=== PATIENT | male | born 1940 | race Caucasian/White ===

== ENCOUNTER 2020-07-31 19:25 | Inpatient (IN) ==
--- NOTE | 2020-07-31 19:51 | Emergency Department Note ---
History of Present Illness General Chief complaint: Cardiac Assessment Stated complaint: ILLNESS Time Seen by Provider: 07/31/20 19:30 Source: patient, EMS, RN notes reviewed and old records reviewed Mode of arrival: EMS Limitations: no limitations History of Present Illness Provider complaint: Shortness of breath Onset (ago): day(s) 4 Radiation: non-radiation Severity: mild Current Pain Intensity: 0 Relieved By: + immobilization Exacerbated By: + movement Associated symptoms: + cough, + fever/chills, + nausea/vomiting, + shortness of breath and + weakness; no chest pain and no headaches Treatments prior to arrival: other (Nyquil & Ibuprofen) This is a 79-year-old male who presents to the emergency department complaining of flulike symptoms that have been ongoing since 4 days ago. The patient repo rts he called his doctor today who was concerned enough that he sent the patient to the emergency department. EMS was summoned and brought the patient in. EMS was concerned that the patient appears to be in third-degree heart block. The patient himself denies any chest pain or shortness of breath. Patient reports he feels weak when he tries to exert himself however rest allows him to feel better. He has been taking ibuprofen as well as NyQuil for his symptoms and this appears to help with the muscle pain. Home Medications Medication Instructions Recorded Confirmed Type aspirin 325 mg PO QAM 04/16/20 07/31/20 History lisinopril 10 mg PO QAM 04/16/20 07/31/20 History lvvirbfwfxpoc-MM-dwlcuyoldzzsp 0 ml PO QID 07/31/20 07/31/20 History [Edith Lund Cold/Flu (cpm)] ibuprofen 600 mg PO Q6H PRN 07/31/20 07/31/20 History Allergies Allergy/AdvReac Type Severity Reaction Status Date / Time No Known Allergies Allergy Mild NONE Verified 07/31/20 21:03 Past Med/Surg History Medical History Bladder cancer Hypertension Social History Smoking Status: Current every day smoker Tobacco Type: Cigarettes Age Started Using Tobacco: 10; packs per day: 1.5; Feels Safe at Home: Yes Review of Systems A total of 10 systems reviewed and were otherwise negative Physical Exam Vital Signs Vital Signs - 24 hr 07/31/20 19:34 07/31/20 19:47 07/31/20 20:00 Temperature 36.9 C Temperature Source Oral Pulse Rate 101 H 60 Pulse Rate from SpO2 Sensor 87 78 Pulse Rhythm Irregular Respiratory Rate 24 23 Respiratory Effort / Characteristics Non-Labored Spontaneous Spontaneous Short of Breath Respiratory Depth Normal Deep Respiratory Pattern Regular Blood Pressure 142/67 H 124/69 Blood Pressure Mean 92 87 Blood Pressure Position Lying Pulse Oximetry 94 93 Oxygen Delivery Method Room Air Room Air Oxygen Flow Rate Sepsis Recent Fever Within 48 Hours No Sepsis New/Unexplained Change in Mental Status No Sepsis Action Taken by Nursing Physician Notified Oxygen Flow Rate - Titration Pulse Oximetry Post Tiitration 07/31/20 20:30 07/31/20 21:00 07/31/20 21:30 Temperature Temperature Source Pulse Rate 82 73 78 Pulse Rate from SpO2 Sensor 75 79 78 Pulse Rhythm Respiratory Rate 20 23 21 Respiratory Effort / Characteristics Respiratory Depth Respiratory Pattern Blood Pressure 133/64 118/70 123/79 Blood Pressure Mean 87 86 93 Blood Pressure Position Pulse Oximetry 94 93 95 Oxygen Delivery Method Room Air Room Air Room Air Oxygen Flow Rate Sepsis Recent Fever Within 48 Hours Sepsis New/Unexplained Change in Mental Status Sepsis Action Taken by Nursing Oxygen Flow Rate - Titration Pulse Oximetry Post Tiitration 07/31/20 22:00 07/31/20 22:30 07/31/20 22:31 Temperature Temperature Source Pulse Rate 84 117 H 84 Pulse Rate from SpO2 Sensor 86 Pulse Rhythm Respiratory Rate 16 24 24 Respiratory Effort / Characteristics Respiratory Depth Respiratory Pattern Blood Pressure 100/66 137/77 Blood Pressure Mean 77 97 Blood Pressure Position Pulse Oximetry 94 94 Oxygen Delivery Method Room Air Room Air Oxygen Flow Rate Sepsis Recent Fever Within 48 Hours Sepsis New/Unexplained Change in Mental Status Sepsis Action Taken by Nursing Oxygen Flow Rate - Titration Pulse Oximetry Post Tiitration 07/31/20 23:01 07/31/20 23:30 08/01/20 00:00 Temperature Temperature Source Pulse Rate 106 H 93 H 86 Pulse Rate from SpO2 Sensor 82 78 Pulse Rhythm Respiratory Rate 20 22 24 Respiratory Effort / Characteristics Respiratory Depth Respiratory Pattern Blood Pressure 104/50 L 107/66 111/59 L Blood Pressure Mean 68 79 76 Blood Pressure Position Pulse Oximetry 93 96 98 Oxygen Delivery Method Nasal Cannula Nasal Cannula Nasal Cannula Oxygen Flow Rate 2 2 2 Sepsis Recent Fever Within 48 Hours Sepsis New/Unexplained Change in Mental Status Sepsis Action Taken by Nursing Oxygen Flow Rate - Titration 2 Pulse Oximetry Post Tiitration 95 VITAL SIGNS - Vital signs and nursing notes were reviewed. GENERAL - 79-year-old male appearing stated age who is in no acute distress. Communicates well with provider and answers questions appropriately. SKIN - Without rashes. HEAD - NC/AT. EYES - PERRL with EOMI bilaterally. Sclera anicteric. Palpebral conjunctiva pink and moist with no injection noted. EARS - No deformities of external structures noted on gross examination bilaterally. No pain elicited with palpation of the tragus bilaterally. External auditory canals without discharge or otorrhea. Tympanic membranes pearly hurley without retraction or bulging. No fluid or purulent material visualized behind the TM. Handle of malleus, umbo, cone of light, pars tensa/flaccid all easily visualized. NOSE - Midline and without cyanosis. No epistaxis or purulent drainage noted. Septum midline without deviation or septal hematoma noted. MOUTH/OROPHARYNX - Without perioral cyanosis. Buccal mucosa pink and moist and without leukoplakia. Tongue midline with equal elevation of palate bilaterally. No tonsillar hypertrophy, erythema, or exudates noted. dentition noted. NECK - Neck with FROM. Supple to palpation. lymphadenopathy noted. No nuchal rigidity. LUNGS - Chest wall symmetric without accessory muscle use, intercostals retractions, or central cyanosis. Normal vesicular breath sounds CTA B/L. No wheezes, rales, or rhonchi appreciated. CARDIAC - RRR with S1/S2. No murmur, rubs, or gallops appreciated. ABDOMEN - Abdominal contour without pulsations or visible masses. BS n ormoactive all four quadrants. No tenderness, palpable masses, hepatosplenomegaly, or ascites noted. EXTREMITIES - No clubbing or peripheral cyanosis. No pretibial edema present. +3/5 radial, posterior tibial, and dorsalis pedis pulses palpated throughout. +5/5 strength noted in UE/LE bilaterally. NEUROLOGIC - Cranial nerves II through XII grossly intact. Sensory intact to light touch throughout. Patellar reflexes +2/4. PSYCH - A&Ox3 and cooperates fully with examiner. Pt is very pleasant and interacts well with examiner. Course Administered Medications Discontinued Medications Magnesium Sulfate/Dextrose (Magnesium Sulfate / D5w) 1 gm in 100 mls @ 100 mls/hr IV Q1H KRISTY Stop: 07/31/20 21:42 Last Admin: 07/31/20 21:54 Dose: Not Given Documented by: [id number] Infusion: 07/31/20 21:35 Dose: 0 mls/hr Documented by: [id number] Admin: 07/31/20 20:11 Dose: 100 mls/hr Documented by: [id number] Magnesium Sulfate/Dextrose (Magnesium Sulfate / D5w) 1 gm in 100 mls @ 200 mls/hr IV Q30M KRISTY Stop: 07/31/20 20:42 Last Infusion: 07/31/20 22:44 Dose: 0 mls/hr Documented by: [id number] Admin: 07/31/20 21:45 Dose: 100 mls/hr Documented by: [id number] Infusion: 07/31/20 21:34 Dose: 0 mls/hr Documented by: [id number] Admin: 07/31/20 20:47 Dose: 200 mls/hr Documented by: [id number] Medical Decision Making Differential Diagnosis Infection, dehydration, metabolic abnormality, hypo/hyperglycemia, electrolyte disturbance, anemia, hypoxia, cardiac sources, intracerebral event, toxicologic, neurologic, as well as other pathologies. Medical Records Attestation: I reviewed the patient's medical records. Home Medications Current Medication List: was personally reviewed by me Laboratory Data Attestation: I reviewed the patient's lab results. Result diagrams: 07/31/20 19:40 07/31/20 19:40 Lab Results 07/31/20 07/31/20 07/31/20 Range/Units 19:40 19:40 20:11 WBC 9.87 (4.8-10.8) K/uL RBC 4.23 L (4.7-6.1) M/uL Hgb 14.2 (14.0-18.0) g/dL Hct 42.9 (42-52) % MCV 101.4 H (80-100) fL MCH 33.6 (25-34) pg MCHC 33.1 (32-36) g/dL RDW Std Deviation 56.3 H (36.4-46.3) fL RDW Coeff of Chela 15.1 H (11.5-14.5) % Plt Count 176 (130-400) K/uL MPV 11.3 H (7.4-10.4) fL Immature Gran % (Auto) 0.3 % Neut % (Auto) 73.0 % Lymph % (Auto) 12.3 % [place] % (Auto) 13.4 % Eos % (Auto) 0.7 % Baso % (Auto) 0.3 % Neut # (Auto) 7.21 H (1.4-6.5) K/uL Lymph # (Auto) 1.21 (1.2-3.4) K/uL [place] # (Auto) 1.32 H (0.11-0.59) K/uL Eos # (Auto) 0.07 (0-0.5) K/uL Baso # (Auto) 0.03 (0-0.2) K/uL Immature Gran # (Auto) 0.03 H (0.00-0.02) K/uL Sodium 140 (136-145) mmol/L Potassium 4.1 (3.5-5.1) mmol/L Chloride 108 H (98-107) mmol/L Carbon Dioxide 24 (21-32) mmol/L Anion Gap 8.0 (3-11) BUN 24 H (7-18) mg/dl Creatinine 1.31 (0.6-1.4) mg/dl Est Cr Clr Drug Dosing 50.6 ml/min Est GFR ( Amer) 60.4 Est GFR (Non-Af Amer) 52.1 BUN/Creatinine Ratio 18.3 (10-20) Glucose 152 H (70-99) mg/dl Calcium 9.0 (8.5-10.1) mg/dl Total Bilirubin 0.4 (0.2-1) mg/dl AST 16 (15-37) U/L ALT 19 (12-78) U/L Alkaline Phosphatase 130 H (45-117) U/L Total Creatine Kinase 32 L (39-308) U/L CK-MB (CK-2) < 1.0 (0.5-3.6) ng/ml CK/CKMB % Calc TNP Troponin I < 0.015 (0-0.045) ng/ml NT-Pro-B Natriuret Pep 2110 H (0-1800) pg/ml Total Protein 6.9 (6.4-8.2) gm/dl Albumin 2.5 L (3.4-5.0) gm/dl Globulin 4.4 H (2.5-4.0) gm/dl Albumin/Globulin Ratio 0.6 L (0.9-2) Lipase 86 (73-393) U/L COVID-19 Eval [facility] SARS-CoV-2, RNA, NAAT (NEGATIVE) 07/31/20 Range/Units 20:11 WBC (4.8-10.8) K/uL RBC (4.7-6.1) M/uL Hgb (14.0-18.0) g/dL Hct (42-52) % MCV (80-100) fL MCH (25-34) pg MCHC (32-36) g/dL RDW Std Deviation (36.4-46.3) fL RDW Coeff of Chela (11.5-14.5) % Plt Count (130-400) K/uL MPV (7.4-10.4) fL Immature Gran % (Auto) % Neut % (Auto) % Lymph % (Auto) % [place] % (Auto) % Eos % (Auto) % Baso % (Auto) % Neut # (Auto) (1.4-6.5) K/uL Lymph # (Auto) (1.2-3.4) K/uL [place] # (Auto) (0.11-0.59) K/uL Eos # (Auto) (0-0.5) K/uL Baso # (Auto) (0-0.2) K/uL Immature Gran # (Auto) (0.00-0.02) K/uL Sodium (136-145) mmol/L Potassium (3.5-5.1) mmol/L Chloride (98-107) mmol/L Carbon Dioxide (21-32) mmol/L Anion Gap (3-11) BUN (7-18) mg/dl Creatinine (0.6-1.4) mg/dl Est Cr Clr Drug Dosing ml/min Est GFR ( Amer) Est GFR (Non-Af Amer) BUN/Creatinine Ratio (10-20) Glucose (70-99) mg/dl Calcium (8.5-10.1) mg/dl Total Bilirubin (0.2-1) mg/dl AST (15-37) U/L ALT (12-78) U/L Alkaline Phosphatase (45-117) U/L Total Creatine Kinase (39-308) U/L CK-MB (CK-2) (0.5-3.6) ng/ml CK/CKMB % Calc Troponin I (0-0.045) ng/ml NT-Pro-B Natriuret Pep (0-1800) pg/ml Total Protein (6.4-8.2) gm/dl Albumin (3.4-5.0) gm/dl Globulin (2.5-4.0) gm/dl Albumin/Globulin Ratio (0.9-2) Lipase (73-393) U/L COVID-19 Eval Order SARS-CoV-2, RNA, NAAT NEGATIVE (NEGATIVE) ECG Data Attestation: I personally reviewed and interpreted this ECG as follows: Indication: + weakness Rate (beats per minute): 118 Rhythm: + atrial flutter ECG [place]: + Normal ECG ST segments: no ST depression and no ST elevation ECG Findings: + PVCs Comparison ECG Date: from (05/12/2015) Change: the following changes noted (aflutter has replaced a fib ) MDM Narrative Patient was seen and evaluated as above in room B8. Review was performed of nursing notes and vital signs. I did review pertinent previous visits and patient history. After obtaining a thorough history and physical examination the above work up was performed. This 79-year-old male who presents emergency department complaining of generalized weakness as well as muscle aches for the past 3 to 4 days. Mary yost's hernandez test here is negative however I am concerned that the patient appears to be in a new onset a flutter. He is not on any blood thinners with the exception of aspirin. He does not have an elevation his white blood cell count however his troponin is slightly elevated. I did discuss the case with the hospitalist service who did agree to admit the patient. Patient is in agreement with the treatment plan. An order was placed for continuous cardiac monitoring. The monitor shows a rate of 100 with A flutter rhythm. The patient was evaluated during a period of high volume and high acuity while the hospital was at overcapacity during the global COVID-19 pandemic, and that diagnosis was suspected/considered upon their initial presentation. Their evaluation, treatment and testing was consistent with current guidelines for patients who present with complaints or symptoms that may be related to COVID- 19. Impression & Plan Weakness, Atrial flutter Discharge Plan Visit Data Chief Complaint: Cardiac Assessment Stated Complaint: ILLNESS ED Provider: Jose J Pena Discharge Problem: Weakness, Atrial flutter Discharge Instructions Interventions: ED Discharge Assessment Last Done: 08/01/20 00:14 Forms Stand Alone Forms: [place] Prescriptions Prescriptions: No Action ibuprofen 200 mg Tablet 600 mg PO Q6H PRN (Reason: Pain) RF: 0 Vicks NyQuil Cold/Flu (cpm) 4-30-650 mg/30 mL Liquid 0 ml PO QID RF: 0 aspirin 325 mg Tablet 325 mg PO QAM RF: 0 lisinopril 10 mg tablet 10 mg PO QAM RF: 0 Referrals Referrals: Jagruti Blunt DO [Primary Care Provider] - Discharge Problem: Atrial flutter Qualifiers: Atrial flutter type: typical Qualified Code(s): I48.3 - Typical atrial flutter
[2020-07-31 19:53] LABS: Basophils # (auto) 0.03 K/uL (0-0.2); Basophils % (auto) 0.3 %; Eosinophils # (auto) 0.07 K/uL (0-0.5); Eosinophils % (auto) 0.7 %; Hematocrit (blood only) 42.9 % (42-52); Hemoglobin 14.2 g/dL (14.0-18.0); Immature Granulocytes # (auto) 0.03 K/uL (0.00-0.02); Immature Granulocytes % (auto) 0.3 %; Lymphocytes # (auto) 1.21 K/uL (1.2-3.4); Lymphocytes % (auto) 12.3 %; Mean Corpuscular Hemoglobin 33.6 pg (25-34); Mean Corpuscular Hgb Conc 33.1 g/dL (32-36); Mean Corpuscular Volume 101.4 fL (80-100); Mean Platelet Volume 11.3 fL (7.4-10.4); Monocytes # (auto) 1.32 K/uL (0.11-0.59); Monocytes % (auto) 13.4 %; Neutrophils # (auto) 7.21 K/uL (1.4-6.5); Platelet Count 176 K/uL (130-400); RDW Coefficient of Variation 15.1 % (11.5-14.5); RDW Standard Deviation 56.3 fL (36.4-46.3); Red Blood Count 4.23 M/uL (4.7-6.1); White Blood Count 9.87 K/uL (4.8-10.8)
[2020-07-31 20:10] LABS: Alanine Aminotransferase 19 U/L (12-78); Albumin Level 2.5 gm/dl (3.4-5.0); Aspartate Aminotransferase 16 U/L (15-37); BUN Creatinine Ratio 18.3 (10-20); Blood Urea Nitrogen 24 mg/dl (7-18); Carbon Dioxide 24 mmol/L (21-32); Chloride 108 mmol/L (98-107); Creatinine Clr Calc Pharmacy 50.6 ml/min; Est GFR (African American) 60.4; Est GFR (Non-African American) 52.1; Glucose 152 mg/dl (70-99); Lipase 86 U/L (73-393); Potassium 4.1 mmol/L (3.5-5.1); Sodium 140 mmol/L (136-145)
[2020-07-31] MEDS: MAGNESIUM SULFATE / D5W 1 GM/100 ML BAG IV SCH ×4 (20:11→21:54)
[2020-07-31 20:16] LABS: Albumin Globulin Ratio 0.6 (0.9-2); Alkaline Phosphatase 130 U/L (45-117); Bilirubin,Total 0.4 mg/dl (0.2-1); Creatine Kinase 32 U/L (39-308); Creatine Kinase MB < 1.0 ng/ml (0.5-3.6); Globulin 4.4 gm/dl (2.5-4.0); NT Pro B Type Natriuretic Pept 2110 pg/ml (0-1800); Total Protein 6.9 gm/dl (6.4-8.2); Troponin I < 0.015 ng/ml (0-0.045)
--- NOTE | 2020-07-31 20:29 | XRay Report ---
XR chest 1V portable HISTORY: Atypical Chest Pain COMPARISON: Chest 11/26/2013. FINDINGS: No pneumothorax. No pleural effusions. There are low lung volumes. The heart is borderline enlarged. This remains unchanged. No evidence for pulmonary edema. Bibasilar interstitial thickening persists. This is likely chronic. No new focal lung consolidations to suggest pneumonia. IMPRESSION: No significant change compared to the prior study. No acute process. ACT 112: Negative or not required by law. Electronically signed by: Yohannes Metz M.D. 07/31/2020 8:28 PM
[2020-08-01] MEDS ORDERED: NITROGLYCERIN SL 0.4 MG/TAB TAB SL PRN (00:40)
[2020-08-01] MEDS ORDERED: ONDANSETRON INJ 2 MG/ML 2 ML VIAL IV PRN (00:40)
[2020-08-01] MEDS ORDERED: POLYETHYLENE (MIRALAX) 17 GM PACK PO PRN (00:40)
[2020-08-01] MEDS ORDERED: METOPROLOL TARTRATE 1 MG/ML VIAL IV PRN (00:40)
[2020-08-01] MEDS ORDERED: ACETAMINOPHEN 325 MG TAB PO PRN (00:40)
[2020-08-01 01:04] LABS: Influenza A virus by PCR Negative (Negative); Influenza B virus by PCR Negative (Negative)
[2020-08-01] MEDS ORDERED: INFLUENZA ADMINISTRATION CHARGE ONE (01:04)
[2020-08-01] MEDS ORDERED: INFLUENZA VACCINE HIGH DOSE 65+ 0.7 ML SYR IM ONE (01:04)
[2020-08-01] MEDS: SODIUM CHLORIDE 0.9% 1000ML 1,000 ML IV SCH ×2 (01:39→14:44)
[2020-08-01 02:01] LABS: Partial Thromboplastin Ratio 1.1; Partial Thromboplastin Time 29.3 Seconds (21.0-31.0)
[2020-08-01] MEDS: HEPARIN SODIUM/DEXTROSE 25,000 UNITS/500 ML BAG IV SCH (02:22)
--- NOTE | 2020-08-01 02:57 | History and Physical Report ---
DATE OF ADMISSION: 08/01/2020 CHIEF COMPLAINT: Flu-like symptoms. HISTORY OF PRESENT ILLNESS: This is a 79-year-old male with past medical history significant for hyperlipidemia, prediabetes, history of CVA, carotid stenosis, hypertension, chronic kidney disease stage III, BPH, tobacco use disorder, lives alone, was brought in because of flu-like symptoms. The patient says since last Tuesday he was having some mild cough and runny nose, sore throat and feeling weak and tired, body aches. In the Er he seemed to having atrial flutter. His COVID is negative. The patient denies any fever. No shortness of breath. No lymphopenia. Labs, BNP is elevated. Has mild wheezing on exam, but he smokes 1-1/2 pack a day, used to smoke 3 packs a day in the past. Denies any chest pain, no shortness of breath, no headache, no blurred vision, no earache, no nausea, no abdominal pain, no diarrhea or constipation, no blood in stool or black stools. Normal bladder movements. No rash. Currently resting comfortably and hemodynamically stable. ALLERGIES: No known drug allergies. PAST MEDICAL HISTORY: As mentioned above. PAST SURGICAL HISTORY: Bladder instillation of anticarcinogenic agent, colonoscopy, cystoscopies multiple for bladder tumor, cystourethroscopy with biopsy. MEDICATIONS: The patient is on aspirin 325 mg p.o. daily, lisinopril 10 mg p.o. daily, tramadol 50 mg p.o. p.r.n. FAMILY HISTORY: Significant for mother had cancer. Brother had diabetes. Father of PR at the age of 65. Another brother has hypertension. SOCIAL HISTORY: Lives alone. Daughter lives in [place], , smokes 1-1/2 packs a day last 65 years. Alcohol rarely. No drug use. REVIEW OF SYMPTOMS: As per HPI. Rest of review of systems negative. PHYSICAL EXAMINATION: GENERAL: The patient is moderate build, not in acute distress. VITAL SIGNS: Temperature 36.9, pulse 86, respiratory rate 24, blood pressure 111/59, oxygen 98% on 2 liters. HEENT: Pupils equal, round, and reactive to light. Oral mucosa moist. NECK: No JVD, no neck masses. CARDIOVASCULAR: S1, S2 heard regular rate and rhythm, no murmur, no gallop. RESPIRATORY: Normal AP diameter. No accessory muscle use. Mild bilateral wheezing heard, no crackles. ABDOMEN: Soft, bowel sounds present, nontender. No distention. CENTRAL NERVOUS SYSTEM: Cranial nerves II-XII grossly intact, nonfocal. EXTREMITIES: Mild pedal edema seen and small ulcer seen in the right gonzalez and is in dressing. ASSESSMENT AND PLAN: This is a 79-year-old male who presents with flu-like symptoms. 1. Flu-like symptoms, has some runny nose, sore throat, and some cough. He is a chronic smoker. Chest x-ray is unremarkable. COVID test is negative. The patient is afebrile. No shortness of breath. There is no lymphopenia, questionable symptomatic atrial flutter. The patient is to be on beta blockers in the past for nonsustained V-tach in 2013. Currently he is on lisinopril. We will monitor in the tele, get echocardiogram, serial enzymes and consult cardiology in a.m. We will keep n.p.o. until seen by cardiology. We will also check for influenza and RSV virus.Will also start on low dose iv heparin. 2. Prediabetes. We will follow HbA1c levels. 3. Tobacco abuse, needs counseling. 4. History of cerebrovascular accident, on aspirin. 5. Hypertension, on lisinopril. Monitor blood pressure. 6. Chronic kidney disease stage III, creatinine is 1.3. Follow the labs. 7. Deep venous thrombosis prophylaxis, SCD. DISPOSITION: Closely monitor in the tele floor. Level 1 full code. Expect discharge home and follow with family doctor. RENEE
[2020-08-01 06:13] LABS: Estimated Average Glucose 137 mg/dl; Hemoglobin A1C 6.4 % (4.5-5.6)
[2020-08-01] MEDS ORDERED: LEVALBUTEROL HCL 0.63 MG/3 ML NEB NEB PRN (07:06)
[2020-08-01 08:52] LABS: Partial Thromboplastin Ratio 1.6; Partial Thromboplastin Time 42.4 Seconds (21.0-31.0)
[2020-08-01] MEDS ORDERED: ASPIRIN 325 MG ECTAB PO SCH (09:00)
--- NOTE | 2020-08-01 09:15 | Cardiology Consultation ---
Date of Consultation August 01, 2020 Assessment & Plan (1) Atrial fibrillation with RVR: (2) PVC (premature ventricular contraction): (3) Hypertension: (4) Carotid stenosis, right: Recommend metoprolol 25 mg twice daily. Continue intravenous heparin infusion with plans to transition patient to oral anticoagulation with Eliquis at discharge. Preliminary review of bedside 2D transthoracic echocardiogram demonstrates left ventricular ejection fraction of 50-54% with abnormal septal w all motion consistent with intraventricular conduction delay. Baseline TSH ordered. Recommend repeat carotid duplex in the outpatient setting for follow-up of moderate right internal carotid stenosis. Add statin therapy. Reduce aspirin to 81 mg daily. All questions answered to patient satisfaction. Thank you for allow me to participate in the care of your patient. History of Present Illness Reason for Consultation: Atrial fibrillation, Flu-like illness Requesting Physician: Dr. Bustos Attending Physician: Jad Eugene MD History of Present Illness 79-year-old patient presented to the ER with flulike illness. Previously evaluated by the undersigned in 2013 while hospitalized for E. coli pyelonephritis. During hospitalization patient developed episode of nonsu stained ventricular tachycardia. Treated with beta-jarod therapy from 2013 up to 2017 when it was discontinued per patient preference. ECG on admission demonstrates atrial fibrillation. Patient seen and examined at bedside. Describes diffuse muscle achiness and fatigue over the past few days. No palpitations, lightheadedness, dizziness, syncope, or near syncope. Denies chest pain or unusual shortness of breath. Chronic dyspnea on exertion is stable. Admits to smoking 1.5 packs of cigarettes per day. Chronic cough with minimal sputum production noted. No orthopnea, PND, or lower extremity edema. Heart rate remains mildly elevated on telemetry, however, he has not received any oral beta-jarod therapy since admission. Intravenous heparin infusing. States he will have difficulty obtaining a ride home until Tuesday. Allergies Allergy/AdvReac Type Severity Reaction Status Date / Time No Known Allergies Allergy Mild NONE Verified 07/31/20 21:03 Home Medications Medication Instructions Recorded Confirmed Type aspirin 325 mg PO QAM 04/16/20 07/31/20 History lisinopril 10 mg PO QAM 04/16/20 07/31/20 History ccseaxnbddwmm-DV-fagqmfzphxeko 0 ml PO QID 07/31/20 07/31/20 History [Edith NyQuil Cold/Flu (cpm)] ibuprofen 600 mg PO Q6H PRN 07/31/20 07/31/20 History Patient History Medical History Bladder cancer Hypertension Social History Smoking Status: Current every day smoker Tobacco Type: Cigarettes Age Started Using Tobacco: 12; packs per day: 1.5; Second Hand Exposure: No; Do You Dip or Chew Tobacco: No; Hx Alcohol Use: No Hx Substance Use: No Preferred Language: Estonian Communication Ability: Effective [employer] Consultant Required: No Beliefs That Will Affect Care: None Current Living Situation: Alone Other Information That Helps Us Care for You: No Feels Safe at Home: Yes Safety Concerns: Feels Safe At This Time Assistive Devices: Glasses Review of Systems Review of Systems: All systems reviewed & are unremarkable except as noted in Subjective Physical Exam Constitutional: well nourished; no acute distress Eyes: PERRL, conjunctivae normal, anicteric sclerae Respiratory: normal respiratory effort; no respiratory distress, no labored breathing and no retractions Auscultation: no crackles, no rales, no rhonchi and no wheezes Cardiovascular: Rate/Rhythm: + irregularly irregular Heart Sounds: normal S1, normal S2 and + murmur (Soft, 1/6 systolic ejection murmur heard best at the right second intercost) Vessels: no JVD and no carotid bruit Extremities: no edema Gastrointestinal (Abdomen): Inspection/Auscultation: abdomen normal to inspection and normal bowel sounds; abdomen not distended Percussion/Palpation: abdomen soft; abdomen nontender, no guarding and abdomen not rigid Neurologic: moves all extremities; no focal motor deficits Motor/Sensory: no tremor Psychiatric: A+Ox3, euthymic affect Results & Data ([facility]) Vital Signs (Past 12 Hours) Vital Signs Temp Pulse Pulse Pulse Resp BP BP 08/01/20 08:30 36.6 C 106 H 20 134/76 08/01/20 03:59 36.6 C 96 H 20 08/01/20 00:55 36.8 C 81 25 H 08/01/20 00:00 86 24 111/59 L 07/31/20 23:30 93 H 22 107/66 07/31/20 23:01 106 H 20 104/50 L 07/31/20 22:31 84 24 137/77 07/31/20 22:30 117 H 24 07/31/20 22:00 84 16 100/66 07/31/20 21:30 78 21 123/79 BP Pulse Ox 08/01/20 08:30 93 08/01/20 03:59 125/79 98 08/01/20 00:55 112/65 92 08/01/20 00:00 98 07/31/20 23:30 96 07/31/20 23:01 93 07/31/20 22:31 94 07/31/20 22:30 07/31/20 22:00 94 07/31/20 21:30 95 (1) Hypertension Hypertension type: essential hypertension Qualified Code(s): I10 - Essential (primary) hypertension
[2020-08-01] MEDS: lisinopril 10 MG TAB PO SCH (10:17)
[2020-08-01] MEDS: METOPROLOL TARTRATE 25 MG TAB PO SCH ×2 (11:30→19:46)
[2020-08-01 11:45] LABS: Troponin I < 0.015 ng/ml (0-0.045)
--- NOTE | 2020-08-01 13:20 | Electrocardiogram Report ---
Test Reason : Blood Pressure : / mmHG Vent. Rate : 118 BPM Atrial Rate : 100 BPM P-R Int : 000 ms QRS Dur : 090 ms QT Int : 320 ms P-R-T Axes : 000 063 146 degrees QTc Int : 448 ms Atrial fibrillation with premature ventricular or aberrantly conducted complexes Low voltage QRS Septal infarct , age undetermined Possible Lateral infarct , age undetermined Abnormal ECG When compared with ECG of 12-MAY-2015 17:17, Inverted T waves have replaced nonspecific T wave abnormality in Inferior leads Confirmed by Eduardo Henson ([id number]) on 08/01/2020 1:20:11 PM Referred By: Janelle Herrera Confirmed By:Eduardo Henson
--- NOTE | 2020-08-01 13:33 | Electrocardiogram Report ---
Test Reason : Blood Pressure : / mmHG Vent. Rate : 085 BPM Atrial Rate : 441 BPM P-R Int : 000 ms QRS Dur : 096 ms QT Int : 356 ms P-R-T Axes : 000 069 055 degrees QTc Int : 423 ms Atrial fibrillation Low voltage QRS Septal infarct (cited on or before 31-JUL-2020) Abnormal ECG When compared with ECG of 31-JUL-2020 19:30, (unconfirmed) Borderline criteria for Lateral infarct are no longer Present T wave inversion no longer evident in Inferior leads Confirmed by Eduardo Henson ([id number]) on 08/01/2020 1:33:30 PM Referred By: Janelle Herrera Confirmed By:Eduardo Henson
--- NOTE | 2020-08-01 13:39 | Electrocardiogram Report ---
Test Reason : Blood Pressure : / mmHG Vent. Rate : 105 BPM Atrial Rate : 127 BPM P-R Int : 000 ms QRS Dur : 094 ms QT Int : 330 ms P-R-T Axes : 000 080 116 degrees QTc Int : 436 ms Atrial fibrillation with rapid ventricular response with premature ventricular or aberrantly conducte d complexes Low voltage QRS in limb leads Septal infarct (cited on or before 31-JUL-2020) Nonspecific ST and T wave abnormality Abnormal ECG When compared with ECG of 01-AUG-2020 01:32, (unconfirmed) Nonspecific T wave abnormality now evident in Inferior leads Nonspecific T wave abnormality now evident in Lateral leads Confirmed by Eduardo Henson ([id number]) on 08/01/2020 1:38:37 PM Referred By: Janelle Herrera Confirmed By:Eduardo Henson
--- NOTE | 2020-08-01 13:48 | Hospitalist Progress Note ---
Date of Service August 01, 2020 Assessment & Plan (1) Atrial flutter: (2) Atrial fibrillation with RVR: (3) Weakness: (4) Carotid stenosis, right: This is a 79-year-old male who presents with flu-like symptoms, found to be in Aflutter. 1. Flu-like symptoms, has some runny nose, sore throat, and some cough. He is a chronic smoker. Reports chronic nasal congestion. Chest x-ray is unremarkable. COVID test is negative. Procalcitonin wnl The patient is afebrile. No shortness of breath. There is no lymphopenia. Flu - pending Symptomatic atrial flutter. The patient on beta blockers in the past for nonsustained V-tach in 2013. Currently he is on lisinopril. Pt found to be in Aflutter on admission but HR was controlled at that time (80s) 2. Now pt in Afib w/ RVR Restart beta blockers. Cont. IV heparin Troponin x3 negative Echo obtained TSH 1.3 Cardiology consulted, plan to star Eliquis on dc Also recommend outpt carotid US to follow up on carotid stenosis 3. Prediabetes. Known hx of prediabetes. Current HbA1c 6.4%. Follow up as outpt 4. Tobacco abuse - Counseled pt on smoking cessation but he is not interested at this time, also declines nicotine patch 5. History of cerebrovascular accident, on aspirin. 6. Hypertension, on lisinopril. Monitor blood pressure. Now started beta jarod as well. 7. Chronic kidney disease stage III, creatinine is 1.3. Follow the labs. DVT ppx , on IV heparin Admission and Anticipated Discharge Date Admission Date: July 31, 2020 Subjective Pt seen in follow up of flu-like symptoms, Aflutter w/ RVR Currently resting in bed in NAD on IV heparin Denies chest pain, shortness of breath, fever Counselled on smoking cessation, pt says he is not interested in quiting and also declines nicotine patch Review of Systems Review of Systems: All systems reviewed & are unremarkable except as noted in HPI & below Constitutional: no fever Respiratory: + cough (reports chronic (from smoking)); no dyspnea Cardiovascular: no chest pain Gastrointestinal: no abdominal pain, no nausea and no vomiting Physical Exam Physical Exam: GENERAL: The patient is moderate build, not in acute distress. HEENT: NC/AT, Pupils equal, round, and reactive to light. Oral mucosa moist. NECK: No JVD, no neck masses. CARDIOVASCULAR: +tachycardic, +irregular, nl S1, S2, + soft syst. murmur, no gallop. RESPIRATORY: No accessory muscle use. + diffuse wheezing, no crackles. ABDOMEN: Soft, bowel sounds present, nontender. No distention. NEURO: alert and oriented x3, speech fluent, no facial asymmetry, moves extremities EXTREMITIES: Mild pedal edema seen and small ulcer seen on the right gonzalez and is in dressing. Results & Data Results & Data ([facility]) Vital Signs (Past 12 Hours) Vital Signs Temp Pulse Pulse Resp BP BP Pulse Ox 08/01/20 11:34 37.1 C 103 H 20 135/69 97 08/01/20 08:30 36.6 C 106 H 20 134/76 93 08/01/20 03:59 36.6 C 96 H 20 125/79 98 Laboratory Results 08/01/20 08/01/20 08/01/20 Range/Units 10:55 08:32 08:32 WBC (4.8-10.8) K/uL RBC (4.7-6.1) M/uL Hgb (14.0-18.0) g/dL Hct (42-52) % MCV (80-100) fL MCH (25-34) pg MCHC (32-36) g/dL RDW Std Deviation (36.4-46.3) fL RDW Coeff of Chela (11.5-14.5) % Plt Count (130-400) K/uL MPV (7.4-10.4) fL Immature Gran % (Auto) % Neut % (Auto) % Lymph % (Auto) % [place] % (Auto) % Eos % (Auto) % Baso % (Auto) % Neut # (Auto) (1.4-6.5) K/uL Lymph # (Auto) (1.2-3.4) K/uL [place] # (Auto) (0.11-0.59) K/uL Eos # (Auto) (0-0.5) K/uL Baso # (Auto) (0-0.2) K/uL Immature Gran # (Auto) (0.00-0.02) K/uL APTT (21.0-31.0) Seconds PTT Ratio Sodium (136-145) mmol/L Potassium (3.5-5.1) mmol/L Chloride (98-107) mmol/L Carbon Dioxide (21-32) mmol/L Anion Gap (3-11) BUN (7-18) mg/dl Creatinine (0.6-1.4) mg/dl Est Cr Clr Drug Dosing ml/min Est GFR ( Amer) Est GFR (Non-Af Amer) BUN/Creatinine Ratio (10-20) Glucose (70-99) mg/dl POC Glucose (70-99) mg/dl Estimat Average Glucose mg/dl Hemoglobin A1c (4.5-5.6) % Calcium (8.5-10.1) mg/dl Magnesium 2.6 H (1.8-2.4) mg/dl Total Bilirubin (0.2-1) mg/dl AST (15-37) U/L ALT (12-78) U/L Alkaline Phosphatase (45-117) U/L Total Creatine Kinase (39-308) U/L CK-MB (CK-2) (0.5-3.6) ng/ml CK/CKMB % Calc Troponin I < 0.015 (0-0.045) ng/ml NT-Pro-B Natriuret Pep (0-1800) pg/ml Total Protein (6.4-8.2) gm/dl Albumin (3.4-5.0) gm/dl Globulin (2.5-4.0) gm/dl Albumin/Globulin Ratio (0.9-2) Lipase (73-393) U/L Procalcitonin 0.25 (0-0.5) ng/ml TSH 1.340 (0.300-4.500) uIu/ml COVID-19 Eval Order Influenza Type A Ab Influ A Molecular Assay (Negative) Influenza Type B Ab Influ B Molecular Assay (Negative) RSV (Molecular) (Negative) SARS-CoV-2, RNA, NAAT (NEGATIVE) 08/01/20 08/01/20 08/01/20 Range/Units 08:32 07:40 05:03 WBC (4.8-10.8) K/uL RBC (4.7-6.1) M/uL Hgb (14.0-18.0) g/dL Hct (42-52) % MCV (80-100) fL MCH (25-34) pg MCHC (32-36) g/dL RDW Std Deviation (36.4-46.3) fL RDW Coeff of Chela (11.5-14.5) % Plt Count (130-400) K/uL MPV (7.4-10.4) fL Immature Gran % (Auto) % Neut % (Auto) % Lymph % (Auto) % [place] % (Auto) % Eos % (Auto) % Baso % (Auto) % Neut # (Auto) (1.4-6.5) K/uL Lymph # (Auto) (1.2-3.4) K/uL [place] # (Auto) (0.11-0.59) K/uL Eos # (Auto) (0-0.5) K/uL Baso # (Auto) (0-0.2) K/uL Immature Gran # (Auto) (0.00-0.02) K/uL APTT 42.4 H (21.0-31.0) Seconds PTT Ratio 1.6 Sodium (136-145) mmol/L Potassium (3.5-5.1) mmol/L Chloride (98-107) mmol/L Carbon Dioxide (21-32) mmol/L Anion Gap (3-11) BUN (7-18) mg/dl Creatinine (0.6-1.4) mg/dl Est Cr Clr Drug Dosing ml/min Est GFR ( Amer) Est GFR (Non-Af Amer) BUN/Creatinine Ratio (10-20) Glucose (70-99) mg/dl POC Glucose 123 H (70-99) mg/dl Estimat Average Glucose 137 mg/dl Hemoglobin A1c 6.4 H (4.5-5.6) % Calcium (8.5-10.1) mg/dl Magnesium (1.8-2.4) mg/dl Total Bilirubin (0.2-1) mg/dl AST (15-37) U/L ALT (12-78) U/L Alkaline Phosphatase (45-117) U/L Total Creatine Kinase (39-308) U/L CK-MB (CK-2) (0.5-3.6) ng/ml CK/CKMB % Calc Troponin I (0-0.045) ng/ml NT-Pro-B Natriuret Pep (0-1800) pg/ml Total Protein (6.4-8.2) gm/dl Albumin (3.4-5.0) gm/dl Globulin (2.5-4.0) gm/dl Albumin/Globulin Ratio (0.9-2) Lipase (73-393) U/L Procalcitonin (0-0.5) ng/ml TSH (0.300-4.500) uIu/ml COVID-19 Eval Order Influenza Type A Ab Influ A Molecular Assay (Negative) Influenza Type B Ab Influ B Molecular Assay (Negative) RSV (Molecular) (Negative) SARS-CoV-2, RNA, NAAT (NEGATIVE) 08/01/20 08/01/20 08/01/20 Range/Units 05:03 00:27 00:27 WBC (4.8-10.8) K/uL RBC (4.7-6.1) M/uL Hgb (14.0-18.0) g/dL Hct (42-52) % MCV (80-100) fL MCH (25-34) pg MCHC (32-36) g/dL RDW Std Deviation (36.4-46.3) fL RDW Coeff of Chela (11.5-14.5) % Plt Count (130-400) K/uL MPV (7.4-10.4) fL Immature Gran % (Auto) % Neut % (Auto) % Lymph % (Auto) % [place] % (Auto) % Eos % (Auto) % Baso % (Auto) % Neut # (Auto) (1.4-6.5) K/uL Lymph # (Auto) (1.2-3.4) K/uL [place] # (Auto) (0.11-0.59) K/uL Eos # (Auto) (0-0.5) K/uL Baso # (Auto) (0-0.2) K/uL Immature Gran # (Auto) (0.00-0.02) K/uL APTT (21.0-31.0) Seconds PTT Ratio Sodium (136-145) mmol/L Potassium (3.5-5.1) mmol/L Chloride (98-107) mmol/L Carbon Dioxide (21-32) mmol/L Anion Gap (3-11) BUN (7-18) mg/dl Creatinine (0.6-1.4) mg/dl Est Cr Clr Drug Dosing ml/min Est GFR ( Amer) Est GFR (Non-Af Amer) BUN/Creatinine Ratio (10-20) Glucose (70-99) mg/dl POC Glucose (70-99) mg/dl Estimat Average Glucose mg/dl Hemoglobin A1c (4.5-5.6) % Calcium (8.5-10.1) mg/dl Magnesium (1.8-2.4) mg/dl Total Bilirubin (0.2-1) mg/dl AST (15-37) U/L ALT (12-78) U/L Alkaline Phosphatase (45-117) U/L Total Creatine Kinase (39-308) U/L CK-MB (CK-2) (0.5-3.6) ng/ml CK/CKMB % Calc Troponin I < 0.015 (0-0.045) ng/ml NT-Pro-B Natriuret Pep (0-1800) pg/ml Total Protein (6.4-8.2) gm/dl Albumin (3.4-5.0) gm/dl Globulin (2.5-4.0) gm/dl Albumin/Globulin Ratio (0.9-2) Lipase (73-393) U/L Procalcitonin (0-0.5) ng/ml TSH (0.300-4.500) uIu/ml COVID-19 Eval Order Influenza Type A Ab Influ A Molecular Assay Negative (Negative) Influenza Type B Ab Influ B Molecular Assay Negative (Negative) RSV (Molecular) Negative (Negative) SARS-CoV-2, RNA, NAAT (NEGATIVE) 07/31/20 07/31/20 07/31/20 Range/Units 20:11 20:11 19:40 WBC (4.8-10.8) K/uL RBC (4.7-6.1) M/uL Hgb (14.0-18.0) g/dL Hct (42-52) % MCV (80-100) fL MCH (25-34) pg MCHC (32-36) g/dL RDW Std Deviation (36.4-46.3) fL RDW Coeff of Chela (11.5-14.5) % Plt Count (130-400) K/uL MPV (7.4-10.4) fL Immature Gran % (Auto) % Neut % (Auto) % Lymph % (Auto) % [place] % (Auto) % Eos % (Auto) % Baso % (Auto) % Neut # (Auto) (1.4-6.5) K/uL Lymph # (Auto) (1.2-3.4) K/uL [place] # (Auto) (0.11-0.59) K/uL Eos # (Auto) (0-0.5) K/uL Baso # (Auto) (0-0.2) K/uL Immature Gran # (Auto) (0.00-0.02) K/uL APTT 29.3 (21.0-31.0) Seconds PTT Ratio 1.1 Sodium (136-145) mmol/L Potassium (3.5-5.1) mmol/L Chloride (98-107) mmol/L Carbon Dioxide (21-32) mmol/L Anion Gap (3-11) BUN (7-18) mg/dl Creatinine (0.6-1.4) mg/dl Est Cr Clr Drug Dosing ml/min Est GFR ( Amer) Est GFR (Non-Af Amer) BUN/Creatinine Ratio (10-20) Glucose (70-99) mg/dl POC Glucose (70-99) mg/dl Estimat Average Glucose mg/dl Hemoglobin A1c (4.5-5.6) % Calcium (8.5-10.1) mg/dl Magnesium (1.8-2.4) mg/dl Total Bilirubin (0.2-1) mg/dl AST (15-37) U/L ALT (12-78) U/L Alkaline Phosphatase (45-117) U/L Total Creatine Kinase (39-308) U/L CK-MB (CK-2) (0.5-3.6) ng/ml CK/CKMB % Calc Troponin I (0-0.045) ng/ml NT-Pro-B Natriuret Pep (0-1800) pg/ml Total Protein (6.4-8.2) gm/dl Albumin (3.4-5.0) gm/dl Globulin (2.5-4.0) gm/dl Albumin/Globulin Ratio (0.9-2) Lipase (73-393) U/L Procalcitonin (0-0.5) ng/ml TSH (0.300-4.500) uIu/ml COVID-19 Eval [facility] Influ[facility] Type A Ab Influ A Molecular Assay (Negative) Influenza Type B Ab Influ B Molecular Assay (Negative) RSV (Molecular) (Negative) SARS-CoV-2, RNA, NAAT NEGATIVE (NEGATIVE) 07/31/20 07/31/20 07/31/20 Range/Units 19:40 19:40 19:40 WBC 9.87 (4.8-10.8) K/uL RBC 4.23 L (4.7-6.1) M/uL Hgb 14.2 (14.0-18.0) g/dL Hct 42.9 (42-52) % MCV 101.4 H (80-100) fL MCH 33.6 (25-34) pg MCHC 33.1 (32-36) g/dL RDW Std Deviation 56.3 H (36.4-46.3) fL RDW Coeff of Chela 15.1 H (11.5-14.5) % Plt Count 176 (130-400) K/uL MPV 11.3 H (7.4-10.4) fL Immature Gran % (Auto) 0.3 % Neut % (Auto) 73.0 % Lymph % (Auto) 12.3 % [place] % (Auto) 13.4 % Eos % (Auto) 0.7 % Baso % (Auto) 0.3 % Neut # (Auto) 7.21 H (1.4-6.5) K/uL Lymph # (Auto) 1.21 (1.2-3.4) K/uL [place] # (Auto) 1.32 H (0.11-0.59) K/uL Eos # (Auto) 0.07 (0-0.5) K/uL Baso # (Auto) 0.03 (0-0.2) K/uL Immature Gran # (Auto) 0.03 H (0.00-0.02) K/uL APTT (21.0-31.0) Seconds PTT Ratio Sodium 140 (136-145) mmol/L Potassium 4.1 (3.5-5.1) mmol/L Chloride 108 H (98-107) mmol/L Carbon Dioxide 24 (21-32) mmol/L Anion Gap 8.0 (3-11) BUN 24 H (7-18) mg/dl Creatinine 1.31 (0.6-1.4) mg/dl Est Cr Clr Drug Dosing 50.6 ml/min Est GFR ( Amer) 60.4 Est GFR (Non-Af Amer) 52.1 BUN/Creatinine Ratio 18.3 (10-20) Glucose 152 H (70-99) mg/dl POC Glucose (70-99) mg/dl Estimat Average Glucose mg/dl Hemoglobin A1c (4.5-5.6) % Calcium 9.0 (8.5-10.1) mg/dl Magnesium (1.8-2.4) mg/dl Total Bilirubin 0.4 (0.2-1) mg/dl AST 16 (15-37) U/L ALT 19 (12-78) U/L Alkaline Phosphatase 130 H (45-117) U/L Total Creatine Kinase 32 L (39-308) U/L CK-MB (CK-2) < 1.0 (0.5-3.6) ng/ml CK/CKMB % Calc TNP Troponin I < 0.015 (0-0.045) ng/ml NT-Pro-B Natriuret Pep 2110 H (0-1800) pg/ml Total Protein 6.9 (6.4-8.2) gm/dl Albumin 2.5 L (3.4-5.0) gm/dl Globulin 4.4 H (2.5-4.0) gm/dl Albumin/Globulin Ratio 0.6 L (0.9-2) Lipase 86 (73-393) U/L Procalcitonin (0-0.5) ng/ml TSH (0.300-4.500) uIu/ml COVID-19 Eval Order Influenza Type A Ab Pending Influ A Molecular Assay (Negative) Influenza Type B Ab Pending Influ B Molecular Assay (Negative) RSV (Molecular) (Negative) SARS-CoV-2, RNA, NAAT (NEGATIVE) (1) Atrial flutter Atrial flutter type: typical Qualified Code(s): I48.3 - Typical atrial flutter
[2020-08-01 14:21] LABS: Appearance Urine Clear (Clear); Bacteria Urine Automated Negative (Negative); Bilirubin Urine Negative (Negative); Blood Urine 2+ (Negative); Color Urine Dark Yellow; Epithelial Cell Urine Auto >30 /lpf (0-5); Glucose Urine UA Negative (Negative); Ketones Urine Negative (Negative); Leukocyte Esterase Urine Negative (Negative); Nitrite Urine Negative (Negative); Protein Urine 1+ (Negative); Specific Gravity Urine 1.026 (1.000-1.030); Urobilinogen Urine Negative (Negative); pH Urine 5.5 (4.5-7.5)
[2020-08-01 14:42] LABS: Mucus Urine Present (None Prsent)
[2020-08-01 15:44] LABS: Partial Thromboplastin Ratio 1.7
[2020-08-01 16:18] LABS: Partial Thromboplastin Time 45.4 Seconds (21.0-31.0)
[2020-08-01] MEDS: Heparin IV Low Dose *NO* Bolus IV SCH (18:45)
[2020-08-01 23:06] LABS: Partial Thromboplastin Ratio 2.1
[2020-08-01 23:13] LABS: Partial Thromboplastin Time 56.2 Seconds (21.0-31.0)
[2020-08-02] MEDS ORDERED: APIXABAN 5 MG TABLET PO SCH
[2020-08-02] MEDS ORDERED: METOPROLOL TARTRATE 25 MG TAB PO SCH
[2020-08-02] MEDS: HEPARIN SODIUM/DEXTROSE 25,000 UNITS/500 ML BAG IV SCH (01:49)
[2020-08-02] MEDS: SODIUM CHLORIDE 0.9% 1000ML 1,000 ML IV SCH (03:15)
[2020-08-02 07:32] LABS: Hematocrit (blood only) 43.9 % (42-52); Mean Corpuscular Hemoglobin 32.8 pg (25-34); Mean Corpuscular Hgb Conc 31.9 g/dL (32-36); Mean Corpuscular Volume 102.8 fL (80-100); Mean Platelet Volume 11.1 fL (7.4-10.4); Platelet Count 170 K/uL (130-400); RDW Coefficient of Variation 15.4 % (11.5-14.5); RDW Standard Deviation 58.1 fL (36.4-46.3); Red Blood Count 4.27 M/uL (4.7-6.1); White Blood Count 8.95 K/uL (4.8-10.8)
[2020-08-02 07:50] LABS: BUN Creatinine Ratio 19.8 (10-20); Calcium 9.2 mg/dl (8.5-10.1); Creatinine Clr Calc Pharmacy 58.1 ml/min; Est GFR (African American) 70.7; Magnesium 2.4 mg/dl (1.8-2.4); Potassium 4.3 mmol/L (3.5-5.1)
[2020-08-02 07:51] LABS: Phosphorus 2.6 mg/dl (2.5-4.9)
[2020-08-02 07:56] LABS: Partial Thromboplastin Ratio 2.5
[2020-08-02] MEDS: METOPROLOL TARTRATE 25 MG TAB PO SCH (08:04)
[2020-08-02] MEDS: lisinopril 10 MG TAB PO SCH (08:04)
--- NOTE | 2020-08-02 08:06 | Hospitalist Progress Note ---
Date of Service August 02, 2020 Assessment & Plan (1) Atrial flutter: (2) Atrial fibrillation with RVR: (3) Weakness: (4) Carotid stenosis, right: This is a 79-year-old male who presents with flu-like symptoms, found to be in Aflutter. 1. Flu-like symptoms, has some runny nose, sore throat, and some cough. He is a chronic smoker. Reports chronic nasal congestion. Chest x-ray is unremarkable. COVID test is negative. Procalcitonin wnl The patient is afebrile. No shortness of breath. There is no lymphopenia. Flu, RSV - negat. Symptomatic atrial flutter. The patient on beta blockers in the past for nonsustained V-tach in 2013. Currently he is on lisinopril. Pt found to be in Aflutter on admission but HR was controlled at that time (80s) 2. Then pt in Afib w/ RVR Restarted beta blockers. Now on metoprolol 25 mg bid. Rx sent to pt's pharmacy, also few pills provided to get pt through the weekend. Cont. IV heparin Troponin x3 negative Echo obtained TSH 1.3 Cardiology consulted, plan to start Eliquis on dc - Rx sent to pt's pharmacy, and we will also provide him with a few pills to get him through the weekend Also recommend outpt carotid US to follow up on carotid stenosis 3. Prediabetes. Known hx of prediabetes. Current HbA1c 6.4%. Follow up as outpt 4. Tobacco abuse - Counseled pt on smoking cessation but he is not interested at this time, also declines nicotine patch Will need further counselling as outpt 5. History of cerebrovascular accident, on aspirin. 6. Hypertension, on lisinopril. Monitor blood pressure. Now started beta jarod as well. 7. Chronic kidney disease stage III, creatinine is 1.3. Follow the labs. DVT ppx , on IV heparin, will dc with eliquis Admission and Anticipated Discharge Date Admission Date: July 31, 2020 Subjective Pt seen in follow up of Afib w/ RVR, flu-like symptoms Currently resting in bed in NAD and on IV heparin Pt reports that he had a good night and is now going to go home. He says that he only has a ride to take him this AM and so he has to leave. Denies any chest pain, shortness of breath, fever. Says that he feels much better. Counselled on smoking cessation, pt says he is not interested in quitting and also declines nicotine patch Discussed new medications - Eliquis and metoprolol, pt reports he would not be able to get to the pharmacy as he does not drive and does not have a ride. Will arrange to provide pt with medications on discharge to get him over the weekend. Close follow up with PCP and then cardiology also discussed. Review of Systems Review of Systems: All systems reviewed & are unremarkable except as noted in HPI & below Constitutional: no fever, no chills and no fatigue Respiratory: + cough (reports chronic (from smoking)); no dyspnea Cardiovascular: no chest pain, no palpitations and no edema Gastrointestinal: no abdominal pain, no nausea and no vomiting Physical Exam Physical Exam: GENERAL: The patient is moderate build, not in acute distress. HEENT: NC/AT, Pupils equal, round, and reactive to light. Oral mucosa moist. NECK: No JVD, no neck masses. CARDIOVASCULAR: +tachycardic, +irregular, nl S1, S2, + soft syst. murmur, no gallop. RESPIRATORY: No accessory muscle use. + diffuse mild wheezing, no crackles. ABDOMEN: Soft, bowel sounds present, nontender. No distention. NEURO: alert and oriented x3, speech fluent, no facial asymmetry, moves extremities EXTREMITIES: Mild pedal edema seen and small ulcer seen on the right gonzalez and is in dressing. Results & Data Results & Data ([facility]) Vital Signs (Past 12 Hours) Vital Signs Temp Pulse Pulse Resp BP Pulse Ox 08/02/20 08:00 36.7 C 88 22 130/72 94 08/02/20 04:00 36.8 C 61 18 129/75 95 08/02/20 00:00 102 H 08/01/20 23:55 36.6 C 87 18 133/71 90 Laboratory Results 08/02/20 08/02/20 08/02/20 Range/Units 07:10 07:10 07:10 WBC 8.95 (4.8-10.8) K/uL RBC 4.27 L (4.7-6.1) M/uL Hgb 14.0 (14.0-18.0) g/dL Hct 43.9 (42-52) % MCV 102.8 H (80-100) fL MCH 32.8 (25-34) pg MCHC 31.9 L (32-36) g/dL RDW Std Deviation 58.1 H (36.4-46.3) fL RDW Coeff of Chela 15.4 H (11.5-14.5) % Plt Count 170 (130-400) K/uL MPV 11.1 H (7.4-10.4) fL APTT Pending (21.0-31.0) Seconds PTT Ratio Pending Sodium 137 (136-145) mmol/L Potassium 4.3 (3.5-5.1) mmol/L Chloride 107 (98-107) mmol/L Carbon Dioxide 24 (21-32) mmol/L Anion Gap 6.0 (3-11) BUN 23 H (7-18) mg/dl Creatinine 1.15 (0.6-1.4) mg/dl Est Cr Clr Drug Dosing 58.1 ml/min Est GFR ( Amer) 70.7 Est GFR (Non-Af Amer) 61.0 BUN/Creatinine Ratio 19.8 (10-20) Glucose 125 H (70-99) mg/dl POC Glucose (70-99) mg/dl Calcium 9.2 (8.5-10.1) mg/dl Phosphorus 2.6 (2.5-4.9) mg/dl Magnesium 2.4 (1.8-2.4) mg/dl Troponin I (0-0.045) ng/ml Procalcitonin (0-0.5) ng/ml TSH (0.300-4.500) uIu/ml Urine Color Urine Appearance (Clear) Urine pH (4.5-7.5) Ur Specific [place] (1.000-1.030) Urine Protein (Negative) Urine Glucose (UA) (Negative) Urine Ketones (Negative) Urine Blood (Negative) Urine Nitrite (Negative) Urine Bilirubin (Negative) Urine Urobilinogen (Negative) Ur Leukocyte Esterase (Negative) Urine WBC (Auto) (0-5) /hpf Urine RBC (Auto) (0-4) /hpf U Hyaline Cast (Auto) (0-5) /lpf U Epithel Cells (Auto) (0-5) /lpf Urine Bacteria (Auto) (Negative) Ur Renal Epithelial Cell Urine Mucus (None Prsent) 08/01/20 08/01/20 08/01/20 Range/Units 22:31 16:26 14:54 WBC (4.8-10.8) K/uL RBC (4.7-6.1) M/uL Hgb (14.0-18.0) g/dL Hct (42-52) % MCV (80-100) fL MCH (25-34) pg MCHC (32-36) g/dL RDW Std Deviation (36.4-46.3) fL RDW Coeff of Chela (11.5-14.5) % Plt Count (130-400) K/uL MPV (7.4-10.4) fL APTT 56.2 H* 45.4 H* (21.0-31.0) Seconds PTT Ratio 2.1 1.7 Sodium (136-145) mmol/L Potassium (3.5-5.1) mmol/L Chloride (98-107) mmol/L Carbon Dioxide (21-32) mmol/L Anion Gap (3-11) BUN (7-18) mg/dl Creatinine (0.6-1.4) mg/dl Est Cr Clr Drug Dosing ml/min Est GFR ( Amer) Est GFR (Non-Af Amer) BUN/Creatinine Ratio (10-20) Glucose (70-99) mg/dl POC Glucose 162 H (70-99) mg/dl Calcium (8.5-10.1) mg/dl Phosphorus (2.5-4.9) mg/dl Magnesium (1.8-2.4) mg/dl Troponin I (0-0.045) ng/ml Procalcitonin (0-0.5) ng/ml TSH (0.300-4.500) uIu/ml Urine Color Urine Appearance (Clear) Urine pH (4.5-7.5) Ur Specific [place] (1.000-1.030) Urine Protein (Negative) Urine Glucose (UA) (Negative) Urine Ketones (Negative) Urine Blood (Negative) Urine Nitrite (Negative) Urine Bilirubin (Negative) Urine Urobilinogen (Negative) Ur Leukocyte Esterase (Negative) Urine WBC (Auto) (0-5) /hpf Urine RBC (Auto) (0-4) /hpf U Hyaline Cast (Auto) (0-5) /lpf U Epithel Cells (Auto) (0-5) /lpf Urine Bacteria (Auto) (Negative) Ur Renal Epithelial Cell Urine Mucus (None Prsent) 08/01/20 08/01/20 08/01/20 Range/Units 13:20 10:55 08:32 WBC (4.8-10.8) K/uL RBC (4.7-6.1) M/uL Hgb (14.0-18.0) g/dL Hct (42-52) % MCV (80-100) fL MCH (25-34) pg MCHC (32-36) g/dL RDW Std Deviation (36.4-46.3) fL RDW Coeff of Chela (11.5-14.5) % Plt Count (130-400) K/uL MPV (7.4-10.4) fL APTT (21.0-31.0) Seconds PTT Ratio Sodium (136-145) mmol/L Potassium (3.5-5.1) mmol/L Chloride (98-107) mmol/L Carbon Dioxide (21-32) mmol/L Anion Gap (3-11) BUN (7-18) mg/dl Creatinine (0.6-1.4) mg/dl Est Cr Clr Drug Dosing ml/min Est GFR ( Amer) Est GFR (Non-Af Amer) BUN/Creatinine Ratio (10-20) Glucose (70-99) mg/dl POC Glucose (70-99) mg/dl Calcium (8.5-10.1) mg/dl Phosphorus (2.5-4.9) mg/dl Magnesium 2.6 H (1.8-2.4) mg/dl Troponin I < 0.015 (0-0.045) ng/ml Procalcitonin (0-0.5) ng/ml TSH 1.340 (0.300-4.500) uIu/ml Urine Color Dark Yellow Urine Appearance Clear (Clear) Urine pH 5.5 (4.5-7.5) Ur Specific [place] 1.026 (1.000-1.030) Urine Protein 1+ H (Negative) Urine Glucose (UA) Negative (Negative) Urine Ketones Negative (Negative) Urine Blood 2+ H (Negative) Urine Nitrite Negative (Negative) Urine Bilirubin Negative (Negative) Urine Urobilinogen Negative (Negative) Ur Leukocyte Esterase Negative (Negative) Urine WBC (Auto) 5-10 H (0-5) /hpf Urine RBC (Auto) 5-10 H (0-4) /hpf U Hyaline Cast (Auto) 1-5 (0-5) /lpf U Epithel Cells (Auto) >30 H (0-5) /lpf Urine Bacteria (Auto) Negative (Negative) Ur Renal Epithelial Cell Not Reportable Urine Mucus Present A (None Prsent) 08/01/20 08/01/20 Range/Units 08:32 08:32 WBC (4.8-10.8) K/uL RBC (4.7-6.1) M/uL Hgb (14.0-18.0) g/dL Hct (42-52) % MCV (80-100) fL MCH (25-34) pg MCHC (32-36) g/dL RDW Std Deviation (36.4-46.3) fL RDW Coeff of [place] (11.5-14.5) % Plt Count (130-400) K/uL MPV (7.4-10.4) fL APTT 42.4 H (21.0-31.0) Seconds PTT Ratio 1.6 Sodium (136-145) mmol/L Potassium (3.5-5.1) mmol/L Chloride (98-107) mmol/L Carbon Dioxide (21-32) mmol/L Anion Gap (3-11) BUN (7-18) mg/dl Creatinine (0.6-1.4) mg/dl Est Cr Clr Drug Dosing ml/min Est GFR ( Amer) Est GFR (Non-Af Amer) BUN/Creatinine Ratio (10-20) Glucose (70-99) mg/dl POC Glucose (70-99) mg/dl Calcium (8.5-10.1) mg/dl Phosphorus (2.5-4.9) mg/dl Magnesium (1.8-2.4) mg/dl Troponin I (0-0.045) ng/ml Procalcitonin 0.25 (0-0.5) ng/ml TSH (0.300-4.500) uIu/ml Urine Color Urine Appearance (Clear) Urine pH (4.5-7.5) Ur Specific [place] (1.000-1.030) Urine Protein (Negative) Urine Glucose (UA) (Negative) Urine Ketones (Negative) Urine Blood (Negative) Urine Nitrite (Negative) Urine Bilirubin (Negative) Urine Urobilinogen (Negative) Ur Leukocyte Esterase (Negative) Urine WBC (Auto) (0-5) /hpf Urine RBC (Auto) (0-4) /hpf U Hyaline Cast (Auto) (0-5) /lpf U Epithel Cells (Auto) (0-5) /lpf Urine Bacteria (Auto) (Negative) Ur Renal Epithelial Cell Urine Mucus (None Prsent) Medications Administered Current Inpatient Medications Acetaminophen (Acetaminophen 325 Mg Tab) 650 mg PO Q4H PRN PRN Reason: Pain or Fever Stop: 08/31/20 00:39 Aspirin (Aspirin 81 Mg Ectab) 81 mg PO [facility] Stop: 09/01/20 08:59 Last Admin: 08/02/20 08:05 Dose: 81 mg Documented by: Sodium Chloride (Nss 1000ml) 1,000 mls @ 75 mls/hr IV .[id number] [facility] Stop: 08/31/20 00:39 Last Admin: 08/02/20 03:15 Dose: 75 mls/hr Documented by: Heparin Sodium/Dextrose (Heparin Sodium/Dextrose) 25,000 units in 500 mls @ 22 mls/hr IV .[id number] [facility]; Protocol Stop: 08/31/20 01:44 Last Titration: 08/02/20 07:11 Dose: 1,100 units/hr, 22 mls/hr Documented by: Levalbuterol HCl (Levalbuterol Hcl 0.63 Mg/3 Ml Neb) 0.63 mg NEB Q4H PRN PRN Reason: Shortness Of Breath Or Wheezing Stop: 08/31/20 07:14 Lisinopril (Lisinopril 10 Mg Tab) 10 mg PO [facility] Stop: 08/31/20 08:59 Last Admin: 08/02/20 08:04 Dose: 10 mg Documented by: Metoprolol Tartrate (Metoprolol Tartrate 1 Mg/Ml Vial) 2.5 mg IV Q6 PRN PRN Reason: Tachycardia Stop: 08/31/20 00:39 Metoprolol Tartrate (Metoprolol Tartrate 25 Mg Tab) 25 mg PO BID [facility] Stop: 08/31/20 10:59 Last Admin: 02/06/21 08:04 Dose: 25 mg Documented by: Nitroglycerin (Nitroglycerin Sl 0.4 Mg/Tab Tab) 0.4 mg SL UD PRN PRN Reason: Chest Pain Stop: 08/31/20 00:39 Ondansetron HCl (Ondansetron Inj 2 Mg/Ml 2 Ml Vial) 4 mg IV Q6H PRN PRN Reason: Nausea Stop: 08/31/20 00:39 Polyethylene Glycol (Polyethylene (Miralax) 17 Gm Pack) 17 gm PO DAILY PRN PRN Reason: Constipation Stop: 08/31/20 00:39 (1) Atrial flutter Atrial flutter type: typical Qualified Code(s): I48.3 - Typical atrial flutter
[2020-08-02 08:14] LABS: Partial Thromboplastin Time 65.8 Seconds (21.0-31.0)
[2020-08-02] MEDS ORDERED: ASPIRIN 81 MG ECTAB PO SCH (09:00)
[2020-08-02] MEDS ORDERED: ROSUVASTATIN CALCIUM 20 MG TAB PO SCH (10:30)
--- NOTE | 2020-08-02 11:06 | Cardiology Progress Note ---
Date of Service August 02, 2020 Assessment & Plan (1) Atrial fibrillation with RVR: Patient not specifically aware of atrial arrhythmias but presented with general malaise. Currently heart rates better controlled Recommend metoprolol 25 mg twice daily. Eliquis 5 mg p.o. twice daily for anticoagulation. Continue prehospital lisinopril Would urge tobacco cessation Follow-up cardiology 2 to 3 weeks time, primary care in interim (2) PVC (premature ventricular contraction): (3) Hypertension: (4) Carotid stenosis, right: Admission and Anticipated Discharge Date Admission Date: July 31, 2020 Subjective Patient was seen and examined, chart, medications, telemetry reviewed. Patient ambulatory in room. No chest pains, shortness of breath, tachypalpitations, dizziness or lightheadedness. Patient anxious to be discharged home Review of Systems Review of Systems: All systems reviewed & are unremarkable except as noted in HPI & below Physical Exam Physical Exam: well nourished; no acute distress Eyes: PERRL, conjunctivae normal, anicteric sclerae Respiratory: normal respiratory effort; no respiratory distress, no labored breathing and no retractions Auscultation: no crackles, no rales, no rhonchi and no wheezes Cardiovascular: Rate/Rhythm: + irregularly irregular Heart Sounds: normal S1, normal S2 and + murmur (Soft, 1/6 systolic ejection murmur heard best at the right second intercost) Vessels: no JVD and no carotid bruit Extremities: no edema Gastrointestinal (Abdomen): Inspection/Auscultation: abdomen normal to inspection and normal bowel sounds; abdomen not distended Percussion/Palpation: abdomen soft; abdomen nontender, no guarding and abdomen not rigid Neurologic: moves all extremities; no focal motor deficits Motor/Sensory: no tremor Psychiatric: A+Ox3, euthymic affect Results & Data ([facility] [place]) Vital Signs (Past 12 Hours) Vital Signs Temp Pulse Pulse Resp BP Pulse Ox 08/02/20 08:00 36.7 C 88 22 130/72 94 08/02/20 04:00 36.8 C 61 18 129/75 95 08/02/20 00:00 102 H 08/01/20 23:55 36.6 C 87 18 133/71 90 (1) Hypertension Hypertension type: essential hypertension Qualified Code(s): I10 - Essential (primary) hypertension
--- NOTE | 2020-08-02 11:37 | Discharge Summary ---
Date of Service August 02, 2020 Admission HPI Per Admitting Provider This is a 79-year-old male with past medical history significant for hyperlipidemia, prediabetes, history of CVA, carotid stenosis, hypertension, chronic kidney disease stage III, BPH, tobacco use disorder, lives alone, was brought in because of flu-like symptoms. The patient says since last Tuesday he was having some mild cough and runny nose, sore throat and feeling weak and tired, body aches. In the Er he seemed to having atrial flutter. His COVID is negative. The patient denies any fever. No shortness of breath. No lymphopenia. Labs, BNP is elevated. Has mild wheezing on exam, but he smokes 1-1/2 pack a day, used to smoke 3 packs a day in the past. Denies any chest pain, no shortness of breath, no headache, no blurred vision, no earache, no nausea, no abdominal pain, no diarrhea or constipation, no blood in stool or black stools. Normal bladder movements. No rash. Currently resting comfortably and hemodynamically stable. Admission Exam Per Admitting Provider GENERAL: The patient is moderate build, not in acute distress. VITAL SIGNS: Temperature 36.9, pulse 86, respiratory rate 24, blood pressure 111/59, oxygen 98% on 2 liters. HEENT: Pupils equal, round, and reactive to light. Oral mucosa moist. NECK: No JVD, no neck masses. CARDIOVASCULAR: S1, S2 heard regular rate and rhythm, no murmur, no gallop. RESPIRATORY: Normal AP diameter. No accessory muscle use. Mild bilateral wheezing heard, no crackles. ABDOMEN: Soft, bowel sounds present, nontender. No distention. CENTRAL NERVOUS SYSTEM: Cranial nerves II-XII grossly intact, nonfocal. EXTREMITIES: Mild pedal edema seen and small ulcer seen in the right gonzalez and is in dressing. Principal Diagnosis Afib w/ RVR Discharge Exam GENERAL: The patient is moderate build, not in acute distress. HEENT: NC/AT, Pupils equal, round, and reactive to light. Oral mucosa moist. NECK: No JVD, no neck masses. CARDIOVASCULAR: +tachycardic, +irregular, nl S1, S2, + soft syst. murmur, no gallop. RESPIRATORY: No accessory muscle use. + diffuse mild wheezing, no crackles. ABDOMEN: Soft, bowel sounds present, nontender. No distention. NEURO: alert and oriented x3, speech fluent, no facial asymmetry, moves extremities EXTREMITIES: Mild pedal edema seen and small ulcer seen on the right gonzalez and is in dressing. Discharge Data Allergies Allergy/AdvReac Type Severity Reaction Status Date / Time No Known Allergies Allergy Mild NONE Verified 07/31/20 21:03 Consultations 07/31/20 21:56 ED Decision to Admit Stat 08/01/20 00:40 Consult Case Management - Discharge Planning Routine 08/01/20 08:00 Consult Cardiology Routine Hospital Course (1) Atrial flutter: (2) Atrial fibrillation with RVR: (3) Weakness: (4) Carotid stenosis, right: This is a 79-year-old male who presents with flu-like symptoms, found to be in Aflutter. 1. Flu-like symptoms, has some runny nose, sore throat, and some cough. He is a chronic smoker. Reports chronic nasal congestion. Chest x-ray is unremarkable. COVID test is negative. Procalcitonin wnl The patient is afebrile. No shortness of breath. There is no lymphopenia. Flu, RSV - negat. Symptomatic atrial flutter. The patient on beta blockers in the past for nonsustained V-tach in 2013. Currently he is on lisinopril. Pt found to be in Aflutter on admission but HR was controlled at that time (80s) 2. Then pt in Afib w/ RVR Restarted beta blockers. Now on metoprolol 25 mg bid. Rx sent to pt's pharmacy, also few pills provided to get pt through the weekend. Cont. IV heparin Troponin x3 negative Echo obtained TSH 1.3 Cardiology consulted, plan to start Eliquis on dc - Rx sent to pt's pharmacy, and we will also provide him with a few pills to get him through the weekend Also recommend outpt carotid US to follow up on carotid stenosis 3. Prediabetes. Known hx of prediabetes. Current HbA1c 6.4%. Follow up as outpt 4. Tobacco abuse - Counseled pt on smoking cessation but he is not interested at this time, also declines nicotine patch Will need further counselling as outpt 5. History of cerebrovascular accident, on aspirin. 6. Hypertension, on lisinopril. Monitor blood pressure. Now started beta jarod as well. 7. Chronic kidney disease stage III, creatinine is 1.3. Follow the labs. DVT ppx , on IV heparin, will dc with eliquis Total Time Total Time Spent Total Time Spent (In Minutes): 35 Total Time Includes: Examination of the Patient, Discharge Planning, Medication Reconciliation and Communication With Other Providers Discharge Plan Discharge Items Patient Disposition: Home - Self-Care Reason For Visit: FLU LIKE SYMPTOMS Discharge Diagnosis: Afib w/ RVR Activity: Per Instructions section Non-emergency contact: Primary Care Provider and Shift Stacker Call non-emergency contact if: you have any medication questions and your symptoms worsen Follow-up/Referrals: Jagruti Blunt DO [Primary Care Provider] - (Date & Time 08/08/2020 11:00 AM Provider Jagruti Blunt DO Department [facility] ) Diet: Heart Healthy Addtl Attending Provider Instructions: Follow up with your primary care doctor, the appointment was scheduled for you for 08/08/2020. You will also need to follow up with cardiology, you will be contacted about the appointment. Take metoprolol 25 mg twice a day (take first dose this evening), medication prescription was sent to your pharmacy and we will also provide you with a few pills to get you covered over the weekend. This medication is for your heart rate. Take Eliquis 5 mg twice a day (take first dose this evening), medication prescription was sent to your pharmacy and we will also provide you with a few pills to get you covered over the weekend. This medication is a blood thinner and prevents you from having a stroke. Decrease your aspirin dose to 81 mg daily (instead of 325mg daily as previously prescribed). Pending Studies at Discharge: No Stand-Alone Forms: My [facility] [employer], Smoking Cessation Medications and DC Order Prescriptions: New Eliquis 5 mg tablet 5 mg PO BID Qty: 30 RF: 0 metoprolol tartrate 25 mg Tablet 25 mg PO BID Qty: 30 RF: 0 rosuvastatin [Crestor] 20 mg Tablet 20 mg PO QAM Qty: 30 RF: 0 aspirin 81 mg Tablet,Delayed Release (Dr/Ec) 81 mg PO QAM Qty: 30 RF: 0 Continued ibuprofen 200 mg Tablet 600 mg PO Q6H PRN (Reason: Pain) RF: 0 Vicks NyQuil Cold/Flu (cpm) 4-30-650 mg/30 mL Liquid 0 ml PO QID RF: 0 lisinopril 10 mg tablet 10 mg PO QAM RF: 0 Changed aspirin 325 mg Tablet 81 mg PO QAM Qty: 0 RF: 0 Discharge Orders: Discharge Order (Routine); Ordered 08/02/20 Ordered By: Jad Caballero/Other Patient Handouts: Prediabetes, Exercise to Manage Your Blood Sugar, 5 Steps for Eating Healthier, A1C Admission Data Admit Date/Time: 07/31/20 23:52 Attending Provider: Jad Eugene Admit Provider: Phu Bustos Primary Care Provider: Jagruti Blunt Other Providers: Phu Bustos ; Sav King ; Seth Pearson ; Drake Boone ; Louis Golden ; Edgardo Pedro ; Itz Livingston ; May Carter ; Mary Mejia ; Gaurang Hernandez ; [facility] Other Interventions: Discharge Summary Assessment (RN) Last Done: 08/02/20 11:23
--- NOTE | 2020-08-03 11:14 | Electrocardiogram Report ---
Test Reason : Blood Pressure : / mmHG Vent. Rate : 095 BPM Atrial Rate : 375 BPM P-R Int : 000 ms QRS Dur : 092 ms QT Int : 366 ms P-R-T Axes : 000 072 258 degrees QTc Int : 459 ms Atrial fibrillation with premature ventricular or aberrantly conducted complexes Low voltage QRS Septal infarct (cited on or before 31-JUL-2020) T wave abnormality, consider inferior ischemia Abnormal ECG When compared with ECG of 01-AUG-2020 07:45, Nonspecific T wave abnormality no longer evident in Inferior leads Confirmed by Constantin Miranda ([id number]) on 08/03/2020 11:14:19 AM Referred By: Janelle Herrera Confirmed By:Constantin Miranda
[2020-08-05 17:51] LABS: Influenza Type B <1:8 titer (<1:8)
== END 2020-08-02 11:47 | disposition home health service (06) | DRG 310 ==
LOC: ED 19:25 → 1E 08-01 00:14 → 2S 08-01 23:37
DX: F17.210 Nicotine dependence, cigarettes, uncomplicated; I49.3 Ventricular premature depolarization; I12.9 Hypertensive chronic kidney disease with stage 1 through stage 4 chronic kidney disease, or unspecified chronic kidney disease; N40.0 Benign prostatic hyperplasia without lower urinary tract symptoms; I44.2 Atrioventricular block, complete; Z86.73 Personal history of transient ischemic attack (TIA), and cerebral infarction without residual deficits; I65.29 Occlusion and stenosis of unspecified carotid artery; N18.30 Chronic kidney disease, stage 3 unspecified; R73.03 Prediabetes; E78.5 Hyperlipidemia, unspecified; C67.9 Malignant neoplasm of bladder, unspecified; I48.92 Unspecified atrial flutter; Z79.82 Long term (current) use of aspirin

== ENCOUNTER 2022-02-08 00:32 | Inpatient (IN) ==
[2022-02-08] MEDS ORDERED: AMIODARONE IV BOLUS & DRIP IV STA (00:39)
[2022-02-08] MEDS ORDERED: STAT IV Infusion **Titration per Protocol STA (00:39)
[2022-02-08] MEDS ORDERED: 0.2 MICRON FILTER SET 1 EACH IV STA (00:39)
[2022-02-08] MEDS ORDERED: AMIODARONE / D5W 150 MG/100 ML BAG IV STA (00:39)
[2022-02-08] MEDS ORDERED: AMIODARONE 150MG / 100ML D5W IV ONE (00:42)
[2022-02-08] MEDS ORDERED: MAGNESIUM SULFATE / D5W 1 GM/100 ML BAG IV STA (00:46)
[2022-02-08] MEDS ORDERED: AMIODARONE / D5W 360 MG/200 ML BAG IV ONE (00:51)
[2022-02-08 00:55] LABS: Basophils # (auto) 0.08 K/uL (0-0.2); Basophils % (auto) 1.2 %; Eosinophils # (auto) 0.13 K/uL (0-0.50); Eosinophils % (auto) 1.9 %; Hematocrit (blood only) 47.7 % (40.1-51.0); Immature Granulocytes # (auto) 0.02 K/uL (0.00-0.02); Immature Granulocytes % (auto) 0.3 %; Lymphocytes # (auto) 1.58 K/uL (1.2-3.4); Mean Corpuscular Hemoglobin 30.8 pg (25.0-34.0); Mean Corpuscular Hgb Conc 31.4 g/dL (32.0-36.0); Mean Corpuscular Volume 97.9 fL (80.0-100.0); Monocytes # (auto) 0.53 K/uL (0.24-0.82); Monocytes % (auto) 7.7 %; Neutrophils # (auto) 4.54 K/uL (1.4-6.5); Neutrophils % (auto) 65.9 %; Platelet Count 169 K/uL (130-400); RDW Coefficient of Variation 15.1 % (11.5-14.5); RDW Standard Deviation 54.5 fL (36.4-46.3); Red Blood Count 4.87 M/uL (4.63-6.08); White Blood Count 6.88 K/ul (4.8-10.8)
[2022-02-08 01:10] LABS: INR 1.1 (0.9-1.1); Prothrombin Time 11.7 Seconds (9.0-12.0)
--- NOTE | 2022-02-08 01:11 | Emergency Department Note ---
History of Present Illness General Chief complaint: Tachycardia Time Seen by Provider: 02/08/22 00:39 Source: patient Mode of arrival: EMS Limitations: no limitations History of Present Illness Provider complaint: syncope Treatments prior to arrival: other This is a 81-year-old male brought in by EMS after an episode of syncope. Patient resides at a facility and states he members sitting in a chair and the next thing he knew he was waking up on the floor. Patient does not know how he got there and does not know how long he was out for. He states when he came to realize he had a brush burn on his forehead, and he scooted across the room to alert staff. EMS reports staff noted that he was tachycardic and called 911. Patient initially transported BLS however BLS noted what appeared to be a variable heart rate with at times significant tachycardia and asked for cotton feeder assistance. Upon being placed on the monitor by the cotton feeder, patient was noted to have frequent PVCs and then had an episode of ventricular tachycardia. During this episode patient began to lose consciousness. Patient was cardioverted at 100 J with improvement to a normal rhythm and frequent PVCs. A command call was placed and advice given to give 150 mg of amiodarone. Patient continued to be otherwise hemodynamically stable during their transport time and on arrival here. Patient denied any prodromal symptoms before the syncopal event including chest pain, headaches, vision changes, nausea, v omiting, or dizziness. He states he does not take any medications. Upon review of EMR, patient does have previously documented history of ventricular tachycardia as well as atrial fibrillation. He is supposed to be taking several medications including anticoagulation but does not. An echo from spring 2020 did reveal an LVEF of 50 to 55%. Pt seen during a time of high acuity and national emergency pandemic while wearing PPE. Home Medications Medication Instructions Recorded Confirmed Type apixaban 5 mg tablet (Eliquis) 5 mg PO BID afib #30 tabs 08/01/20 02/08/22 Rx metoprolol tartrate 25 mg tablet 25 mg PO BID #30 tabs 08/02/20 02/08/22 Rx rosuvastatin 20 mg tablet (Crestor) 20 mg PO QAM #30 tabs 08/02/20 02/08/22 Rx Allergies Allergy/AdvReac Type Severity Reaction Status Date / Time No Known Allergies Allergy Mild NONE Verified 09/15/20 09:46 Past Med/Surg History Medical History Bladder cancer Hypertension Social History Smoking Status: Never smoker Tobacco Type: Cigarettes Age Started Using Tobacco: 10; packs per day: 1.5; Second Hand Exposure: No; Hx Alcohol Use: No Hx Substance Use: No Preferred Language: Lao Communication Ability: Effective Trimming Department Blocker Required: No Beliefs That Will Affect Care: None Current Living Situation: Alone Feels Safe at Home: Yes Assistive Devices: Glasses Review of Systems A total of 10 systems reviewed and were otherwise negative All systems reviewed & are unremarkable except as noted in HPI & below Physical Exam Vital Signs Vital Signs - 24 hr 02/08/22 00:33 02/08/22 00:52 02/08/22 01:01 Temperature 36.7 C Temperature Source Oral Pulse Rate 90 Pulse Rate [Right Finger] 72 Pulse Rhythm [Right Finger] Respiratory Rate 20 20 Respiratory Effort / Characteristics Non-Labored Spontaneous Respiratory Depth Normal Respiratory Pattern Regular Blood Pressure 143/66 H Blood Pressure [Right Arm] 143/66 H Blood Pressure Mean 91 Blood Pressure Mean [Right Arm] 91 Blood Pressure Position [Right Arm] Pulse Oximetry 99 98 97 Oxygen Delivery Method Room Air Room Air Nasal Cannula Oxygen Flow Rate 2 Sepsis Recent Fever Within 48 Hours No Sepsis New/Unexplained Change in Mental Status No Sepsis Action Taken by Nursing No Action Required 02/08/22 01:01 02/08/22 02:15 02/08/22 04:04 Temperature Temperature Source Pulse Rate Pulse Rate [Right Finger] 76 73 Pulse Rhythm [Right Finger] Irregular Respiratory Rate 20 18 Respiratory Effort / Characteristics Spontaneous Non-Labored Spontaneous Respiratory Depth Normal Respiratory Pattern Regular Blood Pressure Blood Pressure [Right Arm] 130/73 125/77 Blood Pressure Mean Blood Pressure Mean [Right Arm] 92 93 Blood Pressure Position [Right Arm] Sitting Pulse Oximetry 96 98 Oxygen Delivery Method Nasal Cannula Nasal Cannula Nasal Cannula Oxygen Flow Rate 2 2 2 Sepsis Recent Fever Within 48 Hours Sepsis New/Unexplained Change in Mental Status Sepsis Action Taken by Nursing GENERAL: alert, well appearing, well nourished, no distress, non-toxic EYE EXAM: normal conjunctiva, PERRL and EOM's grossly intact OROPHARYNX: no exudate, no erythema, lips, buccal mucosa, and tongue normal and mucous membranes are moist NECK: supple, no nuchal rigidity, no adenopathy, non-tender LUNGS: Clear to auscultation. Normal chest wall mechanics, no w/r/r HEART: no murmurs, S1 normal and S2 normal ABDOMEN: abdomen soft, non-tender, normo-active bowel sounds, no masses, no rebound or guarding. BACK: Back is symmetrical on inspection and there is no deformity, no midline tenderness, no CVA tenderness. SKIN: no rashes and no bruising UPPER EXTREMITIES: upper extremities are grossly normal. FROM, nml pulses b/l. LOWER EXTREMITIES: No pitting edema. FROM, nml pulses b/l. NEURO EXAM: Normal sensorium, cranial nerves II-XII grossly intact, normal speech, no gross weakness of arms, no gross weakness of legs. No pronator drift. Finger to nose intact. Gross sensation intact. Course Course 0045: Patient still with frequent ectopy and then a burst of VT. An additional amiodarone 150 mg ordered. Blood pressure still stable, patient awake and talking. 0055: Frequent ectopy, additional bolus given, drip still running. Labs drawn and sent, awaiting chest x-ray. Patient denies any complaints. 0112: Patient still with frequent ectopy, amnio drip still running. Continues to deny concerns or complaints. Chest x-ray with no acute findings. 0302: VS stable, patient still with frequent ectopy. 0352: VS stable. Pt resting. Administered Medications Amiodarone HCl/Dextrose (Nexterone / D5w) 360 mg in 200 mls @ 16.667 mls/hr IV .Q12H [facility] Stop: 03/10/22 06:44 Last Admin: 02/08/22 05:58 Dose: 0.5 mg/min, 16.7 mls/hr Documented By: CYRUS Co-signed By: SABINA Sodium Chloride (Nss 1000ml) 1,000 mls @ 250 mls/hr IV .Q4H ONE Stop: 02/08/22 08:29 Last Admin: 02/08/22 05:58 Dose: 250 mls/hr Documented By: CYRUS Insulin Aspart (Insulin Aspart Per Unit) 0 units SC ACHS KRISTY Stop: 03/10/22 05:10 Last Admin: 02/08/22 05:53 Dose: Not Given Documented By: CYRUS Co-signed By: SABINA Discontinued Medications Amiodarone HCl/Dextrose (Amiodarone 150mg / 100ml D5w) Confirm Administered Dose 150 mg IV .STK-MED ONE Stop: 02/08/22 00:43 Last Admin: 02/08/22 00:48 Dose: Not Given Documented By: MICHELLE Amiodarone HCl (Amiodarone Iv Bolus & Drip) 1 each IV NOW STA; Protocol Stop: 02/08/22 00:40 Last Admin: 02/08/22 00:48 Dose: 1 each Documented By: MICHELLE Amiodarone HCl/Dextrose (Nexterone / D5w) 150 mg in 100 mls @ 600 mls/hr IV NOW STA Stop: 02/08/22 00:48 Last Infusion: 02/08/22 00:57 Dose: 0 mls/hr Documented By: MICHELLE Co-signed By: JUVENAL Admin: 02/08/22 00:47 Dose: 600 mls/hr Documented By: MICHELLE Co-signed By: NELA Amiodarone HCl/Dextrose (Nexterone / D5w) 360 mg in 200 mls @ 33.333 mls/hr IV ONE ONE Stop: 02/08/22 06:50 Last Infusion: 02/08/22 06:01 Dose: 0 mg/min, 0 mls/hr Documented By: CYRUS Co-signed By: SABINA Admin: 02/08/22 00:46 Dose: 1 mg/min, 33.3 mls/hr Documented By: MICHELLE Co-signed By: NELA Magnesium Sulfate/Dextrose (Magnesium Sulfate / D5w) 1 gm in 100 mls @ 100 mls/hr IV NOW STA Stop: 02/08/22 01:45 Last Infusion: 02/08/22 01:51 Dose: 0 mls/hr Documented By: Admin: 02/08/22 00:51 Dose: 100 mls/hr Documented By: MICHELLE Miscellaneous (Stat Iv Infusion Titration Per Protocol) 1 each N/A NOW STA Stop: 02/08/22 00:40 Last Admin: 02/08/22 00:39 Dose: 1 each Documented By: MICHELLE Nicotine (Nicotine 21 Mg/24 Hr Tdsy) 21 mg TD NOW STA Stop: 02/08/22 01:50 Last Admin: 02/08/22 05:20 Dose: Not Given Documented By: CYRUS Critical Care Time Critical Care Time: Yes Total Critical Care Time: 48 Critical care of 48 min performed to assess and manage high likelihood of life- threatening dysrhythmia, involving labs and imaging performed with assessment to evaluate dysrhythmia diagnosis with frequent reassessment. This time includes bedside time, treatment discussions with patient/family/consultants, docu mentation time and excludes procedure time. Medical Decision Making Differential Diagnosis Differential diagnosis includes etiologies such as vasovagal event, infection, hypoglycemia, electrolyte abnormalities, cardiac sources, intracerebral event, toxicologic, neurologic, as well as others were entertained. Medical Records Attestation: I reviewed the patient's medical records. Home Medications Current Medication List: was personally reviewed by me Laboratory Data Attestation: I reviewed the patient's lab results. Result diagrams: 02/08/22 00:45 02/08/22 00:45 Lab Results 02/08/22 02/08/22 02/08/22 Range/Units 00:45 00:45 00:45 WBC 6.88 (4.8-10.8) K/ul RBC 4.87 (4.63-6.08) M/uL Hgb 15.0 (14.0-18.0) g/dl Hct 47.7 (40.1-51.0) % MCV 97.9 (80.0-100.0) fL MCH 30.8 (25.0-34.0) pg MCHC 31.4 L (32.0-36.0) g/dL RDW Std Deviation 54.5 H (36.4-46.3) fL RDW Coeff of Chela 15.1 H (11.5-14.5) % Plt Count 169 (130-400) K/uL MPV 11.0 (9.4-12.4) fL Immature Gran % (Auto) 0.3 % Neut % (Auto) 65.9 % Lymph % (Auto) 23.0 % [place] % (Auto) 7.7 % Eos % (Auto) 1.9 % Baso % (Auto) 1.2 % Neut # (Auto) 4.54 (1.4-6.5) K/uL Lymph # (Auto) 1.58 (1.2-3.4) K/uL [place] # (Auto) 0.53 (0.24-0.82) K/uL Eos # (Auto) 0.13 (0-0.50) K/uL Baso # (Auto) 0.08 (0-0.2) K/uL Immature Gran # (Auto) 0.02 (0.00-0.02) K/uL PT 11.7 (9.0-12.0) Seconds INR 1.1 (0.9-1.1) Sodium 137 (136-145) mmol/L Potassium 4.0 (3.5-5.1) mmol/L Chloride 102 (98-107) mmol/L Carbon Dioxide 28 (21-32) mmol/L Anion Gap 7 (3-11) BUN 17 (6-23) mg/dl Creatinine 1.72 H (0.6-1.4) mg/dl Est Cr Clr Drug Dosing 34.6 ml/min Est GFR ( Amer) 42.9 ml/min Est GFR (Non-Af Amer) 37.0 ml/min BUN/Creatinine Ratio 9.9 L (10-20) Glucose 136 H (70-99(Fasting)) mg/dl Estimat Average Glucose mg/dl Hemoglobin A1c (4.5-5.6) % Calcium 9.5 (8.5-10.1) mg/dl Magnesium 1.9 (1.7-2.4) mg/dl Total Bilirubin 0.9 (0.2-1.0) mg/dl AST 13 (13-39) U/L ALT 6 L (7-52) U/L Alkaline Phosphatase 124 H (34-104) U/L Total Creatine Kinase (30-223) U/L Troponin I High Sens 28.4 H (0-20) pg/ml Total Protein 7.1 (6.0-8.3) gm/dl Albumin 3.6 (3.4-5.0) gm/dl Globulin 3.5 (2.5-4.0) gm/dl Albumin/Globulin Ratio 1.0 (0.9-2) Lipase 12 (11-82) U/L TSH (0.300-4.500) uIu/ml Lyme Disease IgG Ab (Negative) Lyme Disease IgM Ab (Negative) 02/08/22 02/08/22 02/08/22 Range/Units 00:45 00:45 00:45 WBC (4.8-10.8) K/ul RBC (4.63-6.08) M/uL Hgb (14.0-18.0) g/dl Hct (40.1-51.0) % MCV (80.0-100.0) fL MCH (25.0-34.0) pg MCHC (32.0-36.0) g/dL RDW Std Deviation (36.4-46.3) fL RDW Coeff of Chela (11.5-14.5) % Plt Count (130-400) K/uL MPV (9.4-12.4) fL Immature Gran % (Auto) % Neut % (Auto) % Lymph % (Auto) % [place] % (Auto) % Eos % (Auto) % Baso % (Auto) % Neut # (Auto) (1.4-6.5) K/uL Lymph # (Auto) (1.2-3.4) K/uL [place] # (Auto) (0.24-0.82) K/uL Eos # (Auto) (0-0.50) K/uL Baso # (Auto) (0-0.2) K/uL Immature Gran # (Auto) (0.00-0.02) K/uL PT (9.0-12.0) Seconds INR (0.9-1.1) Sodium (136-145) mmol/L Potassium (3.5-5.1) mmol/L Chloride (98-107) mmol/L Carbon Dioxide (21-32) mmol/L Anion Gap (3-11) BUN (6-23) mg/dl Creatinine (0.6-1.4) mg/dl Est Cr Clr Drug Dosing ml/min Est GFR ( Amer) ml/min Est GFR (Non-Af Amer) ml/min BUN/Creatinine Ratio (10-20) Glucose (70-99(Fasting)) mg/dl Estimat Average Glucose 117 mg/dl Hemoglobin A1c 5.7 H (4.5-5.6) % Calcium (8.5-10.1) mg/dl Magnesium (1.7-2.4) mg/dl Total Bilirubin (0.2-1.0) mg/dl AST (13-39) U/L ALT (7-52) U/L Alkaline Phosphatase (34-104) U/L Total Creatine Kinase (30-223) U/L Troponin I High Sens (0-20) pg/ml Total Protein (6.0-8.3) gm/dl Albumin (3.4-5.0) gm/dl Globulin (2.5-4.0) gm/dl Albumin/Globulin Ratio (0.9-2) Lipase (11-82) U/L TSH 4.436 (0.300-4.500) uIu/ml Lyme Disease IgG Ab Negative (Negative) Lyme Disease IgM Ab Negative (Negative) 02/08/22 Range/Units 00:45 WBC (4.8-10.8) K/ul RBC (4.63-6.08) M/uL Hgb (14.0-18.0) g/dl Hct (40.1-51.0) % MCV (80.0-100.0) fL MCH (25.0-34.0) pg MCHC (32.0-36.0) g/dL RDW Std Deviation (36.4-46.3) fL RDW Coeff of Chela (11.5-14.5) % Plt Count (130-400) K/uL MPV (9.4-12.4) fL Immature Gran % (Auto) % Neut % (Auto) % Lymph % (Auto) % [place] % (Auto) % Eos % (Auto) % Baso % (Auto) % Neut # (Auto) (1.4-6.5) K/uL Lymph # (Auto) (1.2-3.4) K/uL [place] # (Auto) (0.24-0.82) K/uL Eos # (Auto) (0-0.50) K/uL Baso # (Auto) (0-0.2) K/uL Immature Gran # (Auto) (0.00-0.02) K/uL PT (9.0-12.0) Seconds INR (0.9-1.1) Sodium (136-145) mmol/L Potassium (3.5-5.1) mmol/L Chloride (98-107) mmol/L Carbon Dioxide (21-32) mmol/L Anion Gap (3-11) BUN (6-23) mg/dl Creatinine (0.6-1.4) mg/dl Est Cr Clr Drug Dosing ml/min Est GFR ( Amer) ml/min Est GFR (Non-Af Amer) ml/min BUN/Creatinine Ratio (10-20) Glucose (70-99(Fasting)) mg/dl Estimat Average Glucose mg/dl Hemoglobin A1c (4.5-5.6) % Calcium (8.5-10.1) mg/dl Magnesium (1.7-2.4) mg/dl Total Bilirubin (0.2-1.0) mg/dl AST (13-39) U/L ALT (7-52) U/L Alkaline Phosphatase (34-104) U/L Total Creatine Kinase 30 (30-223) U/L Troponin I High Sens (0-20) pg/ml Total Protein (6.0-8.3) gm/dl Albumin (3.4-5.0) gm/dl Globulin (2.5-4.0) gm/dl Albumin/Globulin Ratio (0.9-2) Lipase (11-82) U/L TSH (0.300-4.500) uIu/ml Lyme Disease IgG Ab (Negative) Lyme Disease IgM Ab (Negative) Imaging Data My Impression: X-ray: I interpreted the following studies. Chest: A single view study of the chest was reviewed and was negative for cardiomegaly, focal infiltrate, ef fusion, pulmonary edema, or wide mediastinum. Radiologist's Impression: CT HEAD: No intracranial hemorrhage, abnormal intra- or extra-axial collections or parenchymal lesions are seen. There are involutional changes with prominence of the sulci, basal cisterns and ventricles. Scattered white matter hypoattenuations are present, likely from small vessel disease. The velez-white differentiation is preserved. No evidence of mass effect, midline shift, or edema. The osseous structures are unremarkable. The visualized portions of the paranasal sinuses are clear. IMPRESSION: 1. No acute intracranial process. 2. Involutional changes with small vessel disease. Radiologist: Tong Granado MD CT C SPINE: No fracture or subluxations are noted. The vertebral body heights and alignment are preserved. No prevertebral soft tissue swelling. Note is made of multilevel cervical spondylosis with varying degrees of central canal and foramina stenoses. IMPRESSION: 1. No cervical fractures. 2. Cervical spondylosis with varying degrees of central canal and foramina stenoses. Radiologist: Tong Granado MD ECG Data Attestation: I personally reviewed and interpreted this ECG as follows: Indication: + syncope Rate (beats per minute): 91 Rhythm: + normal sinus ECG Intervals/blocks: + Normal QRS and + Normal QT ECG [place]: + Normal ECG ST segments: + Nonspecific ST abnormalities ECG Findings: + PVCs MDM Narrative An order was placed for continuous cardiac monitoring. The monitor shows a rate of _80_ with _normal sinus__ rhythm. This is a 81-year-old male presents emergency department following a syncopal episode with ventricular tachycardia noted by EMS. Patient cardioverted in the field and given 150 mg of amiodarone. Patient continued on amiodarone drip here, did have another recurrent episode and was given an additional bolus. Patient maintained on the drip, labs drawn and sent, chest x-ray performed. Once patient's rhythm appeared to have less ectopy and patient continued remained stable, he was taken for CT of the head and C-spine due to the syncopal event. Patient found to have elevated creatinine although does have prior documented history of such. Mildly elevated troponin likely secondary to VT. Patient admits to medication noncompliance and states he is not currently taking anything. He also admits to continued tobacco abuse. He denies any recent i llness. Denied any other concern for injury or trauma from his syncopal event. Patient monitored closely and rechecked multiple times. He continued denied any other preceding or evolving symptoms. Case discussed with hospitalist for additional evaluation and management. Impression & Plan Syncope, Tobacco use, Ventricular tachycardia, CKD (chronic kidney disease), CHI (closed head injury), Noncompliance, Elevated troponin Discharge Plan Visit Data Chief Complaint: Tachycardia ED Provider: Sloane Noguera Discharge Problem: Syncope, Tobacco use, Ventricular tachycardia, CKD (chronic kidney disease), CHI (closed head injury), Noncompliance, Elevated troponin Patient Disposition: Admitted As Inpatient Condition: Fair Discharge Instructions Interventions: ED AMA/LWBS Discharge Assessment Last Done: 02/08/22 04:47
[2022-02-08 01:20] LABS: Albumin Level 3.6 gm/dl (3.4-5.0); BUN Creatinine Ratio 9.9 (10-20); Bilirubin,Total 0.9 mg/dl (0.2-1.0); Calcium 9.5 mg/dl (8.5-10.1); Creatinine Clr Calc Pharmacy 34.6 ml/min; Est GFR (African American) 42.9 ml/min; Globulin 3.5 gm/dl (2.5-4.0); Magnesium 1.9 mg/dl (1.7-2.4); Total Protein 7.1 gm/dl (6.0-8.3)
[2022-02-08 01:22] LABS: Troponin I High Sensitivity 28.4 pg/ml (0-20)
[2022-02-08 01:49] LABS: Lyme Ab IgG w/WB Rflx Negative (Negative); Lyme Ab IgM w/WB Rflx Negative (Negative)
[2022-02-08] MEDS ORDERED: NICOTINE 21 MG/24 HR TDSY TD STA (01:49)
--- NOTE | 2022-02-08 04:06 | History & Physical Report ---
Date of Service February 08, 2022 Assessment & Plan (1) Syncope: Plan: Recurrent syncope Likely secondary to ventricular tachycardia hx NSVT History of medication noncompliance Status post cardioversion on the field Rule out seizures, progressive carotid artery occlusive disease as differentials to unwitnessed syncopal events given his patient's CVA/PVD history hx PAF, patient currently NSR Patient non-compliant with beta-jarod and Eliquis Rx since last year Troponin elevation secondary to cardioversion in the setting of ARF hyperlipidemia, statin noncompliance COPD, patient with baseline wheezing symptoms prediabetes, patient meets criteria for new DM2 diagnosis with outpatient hemoglobin A1c of 6.02 February 2021 BPH/bladder cancer status post surgery ongoing tobacco abuse PCU Continue IV amiodarone infusion for VT Patient agreeable to resumption of home beta-jarod and statin Rx. TTE, carotid Dopplers, EEG for syncope work-up Cardiology consult Re: VT status post cardioversion Follow troponin Resume antiplatelet Rx and anticoagulation if hemoglobin stable with note of bruising secondary to head trauma Baseline UA, monitor creatinine response to IVF, renal ultrasound if without improvement Basal bolus insulin, ISS BG goal 1 10-1 40, carb count coverage, update hemoglobin A1c, DM education Nicotine patch as needed DVT prophylaxis. SCDs for now Re: Head bruise following trauma Heparin if H&H stable Full code Text document was generated using [employer] voice recognition software. It may contain grammatical or spelling errors. Kindly contact undersigned for clarification of any documentation item in question. History of Present Illness Chief Complaint: Recurrent syncope Primary Care Provider: Jagruti Blutn DO History obtained from patient and records. Medical history significant for PAF (Eliquis noncompliance), history of NSVT, hypertension, hyperlipidemia, CVA, PVD, COPD, prediabetes, BPH, bladder cancer status post surgery, ongoing tobacco abuse, medication noncompliance. Last confinement July 2020 for atrial flutter/A. fib with RVR attributed to flulike symptoms. Patient discharged on beta-jarod and Eliquis Rx. Patient stopped taking medications after 6 months because he did not feel well taking them. Has not seen cardiology outpatient on follow-up. Last week, patient had an unwitnessed syncopal event while eating. Woke up on the floor. No headache, no chest pain, no unusual SOB, no tongue biting/no incontinence. No consultations done. Patient had another unwitnessed syncopal episode last night. He remembers just playing with a videogame on his tablet prior to episode. Woke up on the floor with a painful bump on his head. No other symptoms. Patient called 911. Patient found by EMS to have frequent PVCs and an episode of V. tach leading to unconsciousness. Subsequent cardioversion at 100 J with NSR conversion. IV amiodarone bolus subsequently administered on the field following medical command recommendations. At the ER, IV amiodarone infusion initiated. 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 Allergies Allergy/AdvReac Type Severity Reaction Status Date / Time No Known Allergies Allergy Mild NONE Verified 09/15/20 09:46 Home Medications Medication Instructions Recorded Confirmed Type apixaban 5 mg tablet (Eliquis) 5 mg PO BID afib #30 tabs 08/01/20 02/08/22 Rx metoprolol tartrate 25 mg tablet 25 mg PO BID #30 tabs 08/02/20 02/08/22 Rx rosuvastatin 20 mg tablet (Crestor) 20 mg PO QAM #30 tabs 08/02/20 02/08/22 Rx Past Med/Surg History Medical History Bladder cancer Hypertension Social History Smoking Status: Never smoker Tobacco Type: Cigarettes Age Started Using Tobacco: 12; packs per day: 1.5; Second Hand Exposure: No; Hx Alcohol Use: No Hx Substance Use: No Preferred Language: Malagasy Communication Ability: Effective Bin Piler Required: No Beliefs That Will Affect Care: None Current Living Situation: Alone Feels Safe at Home: Yes Assistive Devices: Glasses Review of Systems Review of Systems: As per HPI, all other systems reviewed and negative Physical Exam Physical Exam: GENERAL: Comfortable, slightly hard of hearing, unkempt, no respiratory distress SKIN: Normal color, warm HEENT: Right forehead contusion, Lismore palpebral conjunctivae, no ptosis, dry buccal mucosa NECK : Supple, no tenderness CHEST : Decreased breath sounds, occasional expiratory wheezes, no tenderness HEART : RRR, no obvious murmurs ABDOMEN: Some distention, nontender EXTREMITIES : No LE swelling/tenderness, no other conspicuous deformities noted NEUROLOGIC : Coherent, no facial asymmetry, slightly hard of hearing, no other gross focality Results & Data Results & Data ([facility]) Vital Signs (Past 12 Hours) Vital Signs Temp Pulse Pulse Resp BP BP Pulse Ox 02/08/22 02:15 76 20 130/73 96 02/08/22 01:01 02/08/22 01:01 97 02/08/22 00:52 72 20 143/66 H 98 02/08/22 00:33 36.7 C 90 20 143/66 H 99 O2 Del Method O2 Flow Rate 02/08/22 02:15 Nasal Cannula 2 02/08/22 01:01 Nasal Cannula 2 02/08/22 01:01 Nasal Cannula 2 02/08/22 00:52 Room Air 02/08/22 00:33 Room Air Laboratory Results Laboratory Results WBC 6.88 K/ul (4.8-10.8) 02/08/22 00:45 RBC 4.87 M/uL (4.63-6.08) 02/08/22 00:45 Hgb 15.0 g/dl (14.0-18.0) 02/08/22 00:45 Hct 47.7 % (40.1-51.0) 02/08/22 00:45 MCV 97.9 fL (80.0-100.0) 02/08/22 00:45 MCH 30.8 pg (25.0-34.0) 02/08/22 00:45 MCHC 31.4 g/dL (32.0-36.0) L 02/08/22 00:45 RDW Std Deviation 54.5 fL (36.4-46.3) H 02/08/22 00:45 RDW Coeff of Chela 15.1 % (11.5-14.5) H 02/08/22 00:45 Plt Count 169 K/uL (130-400) 02/08/22 00:45 MPV 11.0 fL (9.4-12.4) 02/08/22 00:45 Immature Gran % (Auto) 0.3 % 02/08/22 00:45 Neut % (Auto) 65.9 % 02/08/22 00:45 Lymph % (Auto) 23.0 % 02/08/22 00:45 Morton % (Auto) 7.7 % 02/08/22 00:45 Eos % (Auto) 1.9 % 02/08/22 00:45 Baso % (Auto) 1.2 % 02/08/22 00:45 Neut # (Auto) 4.54 K/uL (1.4-6.5) 02/08/22 00:45 Lymph # (Auto) 1.58 K/uL (1.2-3.4) 02/08/22 00:45 Morton # (Auto) 0.53 K/uL (0.24-0.82) 02/08/22 00:45 Eos # (Auto) 0.13 K/uL (0-0.50) 02/08/22 00:45 Baso # (Auto) 0.08 K/uL (0-0.2) 02/08/22 00:45 Immature Gran # (Auto) 0.02 K/uL (0.00-0.02) 02/08/22 00:45 PT 11.7 Seconds (9.0-12.0) 02/08/22 00:45 INR 1.1 (0.9-1.1) 02/08/22 00:45 Sodium 137 mmol/L (136-145) 02/08/22 00:45 Potassium 4.0 mmol/L (3.5-5.1) 02/08/22 00:45 Chloride 102 mmol/L (98-107) 02/08/22 00:45 Carbon Dioxide 28 mmol/L (21-32) 02/08/22 00:45 Anion Gap 7 (3-11) 02/08/22 00:45 BUN 17 mg/dl (6-23) 02/08/22 00:45 Creatinine 1.72 mg/dl (0.6-1.4) H 02/08/22 00:45 Est Cr Clr Drug Dosing 34.6 ml/min 02/08/22 00:45 Est GFR ( Amer) 42.9 ml/min 02/08/22 00:45 Est GFR (Non-Af Amer) 37.0 ml/min 02/08/22 00:45 BUN/Creatinine Ratio 9.9 (10-20) L 02/08/22 00:45 Glucose 136 mg/dl (70-99(Fasting)) H 02/08/22 00:45 Calcium 9.5 mg/dl (8.5-10.1) 02/08/22 00:45 Magnesium 1.9 mg/dl (1.7-2.4) 02/08/22 00:45 Total Bilirubin 0.9 mg/dl (0.2-1.0) 02/08/22 00:45 AST 13 U/L (13-39) 02/08/22 00:45 ALT 6 U/L (7-52) L 02/08/22 00:45 Alkaline Phosphatase 124 U/L (34-104) H 02/08/22 00:45 Troponin I High Sens 28.4 pg/ml (0-20) H 02/08/22 00:45 Total Protein 7.1 gm/dl (6.0-8.3) 02/08/22 00:45 Albumin 3.6 gm/dl (3.4-5.0) 02/08/22 00:45 Globulin 3.5 gm/dl (2.5-4.0) 02/08/22 00:45 Albumin/Globulin Ratio 1.0 (0.9-2) 02/08/22 00:45 Lipase 12 U/L (11-82) 02/08/22 00:45 TSH 4.436 uIu/ml (0.300-4.500) 02/08/22 00:45 Lyme Disease IgG Ab Negative (Negative) 02/08/22 00:45 Lyme Disease IgM Ab Negative (Negative) 02/08/22 00:45 SARS-CoV-2, RNA, NAAT NEGATIVE (NEGATIVE) 02/08/[address] head initial read: 1. No acute intracranial process. 2. Involutional changeswith small vessel disease. CT cervical spine initial read: 1. No cervical fractures. 2. Cervical spondylosis with varying degrees of central canal and foramina stenoses. Chest x-ray as per my interpretation cardiomegaly, atelectasis EKG as per my interpretation : Rate 90, NSR, normal axis, septal infarct, PVCs, low voltage
[2022-02-08] MEDS ORDERED: SODIUM CHLORIDE 0.9% 1000ML 1,000 ML IV ONE (04:30)
[2022-02-08] MEDS ORDERED: XOPENEX/ATROVENT 1.25mg/0.5MG NEB COMBO NEB PRN (04:33)
[2022-02-08] MEDS ORDERED: LEVALBUTEROL 1.25MG/0.5ML NEB INH PRN (04:45)
[2022-02-08] MEDS ORDERED: PROMETHAZINE HCL 12.5 MG in SODIUM CHLORIDE 0.9% 50 ML IV PRN (05:11)
[2022-02-08] MEDS ORDERED: GLUCOSE 40% GEL 15 GM TUBE PO PRN (05:11)
[2022-02-08] MEDS ORDERED: GLUCOSE 10 TAB/TUBE PO PRN (05:11)
[2022-02-08] MEDS ORDERED: oxyCODONE HCL IR 5 MG TAB (IMMEDIATE RELEASE) PO PRN (05:11)
[2022-02-08] MEDS ORDERED: DEXTROSE 50% 50 ML SYRINGE IV PRN (05:11)
[2022-02-08] MEDS ORDERED: GLUCAGON FOR INJ 1 MG VIAL SQ PRN (05:11)
[2022-02-08] MEDS ORDERED: CARBOHYDRATES FOR HYPOGLYCEMIA PO PRN (05:11)
[2022-02-08] MEDS: INSULIN ASPART PER UNIT SC SCH ×4 (05:53→21:07)
[2022-02-08] MEDS: AMIODARONE / D5W 360 MG/200 ML BAG IV SCH ×2 (05:58→17:33)
[2022-02-08 06:45] LABS: Estimated Average Glucose 117 mg/dl; Hemoglobin A1C 5.7 % (4.5-5.6)
--- NOTE | 2022-02-08 07:28 | CT Scan Report ---
CT head/brain wo con CLINICAL HISTORY: 81 years-old Male with fall, CHI, syncope. Acute head injury status post fall TECHNIQUE: Multiple axial CT images of the head were obtained without contrast. A dose lowering tech nique was utilized adhering to the principles of ALARA. COMPARISON: CT cervical spine of same day FINDINGS: No acute intracranial hemorrhage, midline shift, intracranial mass, hydrocephalus, territorial ischem ia or abnormal extra-axial collection. Age-related involutional changes. White matter hypodensities s uggest chronic microvascular ischemic disease. 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 Mo tion degraded study. The calvarium is intact. Mild polypoid mucosal thickening of the left maxillary sinus. Mastoid air c ells are clear. Unremarkable soft tissues. Prior bilateral lens repair. IMPRESSION: No acute intracranial abnormality or calvarial fracture. ACT 112: Negative or not required by law. The above report was generated using voice recognition software. It may contain grammatical, syntax o r spelling errors. Electronically signed by: Flavio Niño M.D. 02/08/2022 7:27 AM
--- NOTE | 2022-02-08 07:45 | XRay Report ---
XR chest 1V portable HISTORY: 81 years-old Male syncope acute syncope COMPARISON: Chest radiograph 07/31/2020 TECHNIQUE: Portable AP view of the chest FINDINGS: Cardiac silhouette is enlarged. No pneumothorax. Trace right pleural effusion with mild right lung ba se opacities. Pulmonary vascular congestion. Mild thoracic levoscoliosis. Degenerative changes of the shoulders and spine. IMPRESSION: 1. Cardiomegaly with pulmonary vascular congestion. 2. Trace right pleural effusion with mild right lung base opacities. ACT 112: Negative or not required by law. The above report was generated using voice recognition software. It may contain grammatical, syntax o r spelling errors. Electronically signed by: Flavio Niño M.D. 02/08/2022 7:43 AM
[2022-02-08 07:52] LABS: Hematocrit (blood only) 44.6 % (40.1-51.0); Hemoglobin 13.8 g/dl (14.0-18.0)
--- NOTE | 2022-02-08 08:02 | CT Scan Report ---
CT SCAN OF THE CERVICAL SPINE CLINICAL HISTORY: Fall. Head injury. COMPARISON STUDY: No priors. TECHNIQUE: CT scan of the cervical spine is performed from the skull base to the upper thoracic spine . Images are reviewed in the axial, sagittal, and coronal planes. IV contrast was not administered fo r this examination. A dose lowering technique was utilized adhering to the principles of ALARA. CT DOSE: 1000.23 mGy.cm FINDINGS: Skeletal structures: The skeletal structures are osteopenic. There is no evidence of fracture or subl uxation involving the cervical spine. Vertebral body height and alignment are maintained. Anterior os teophytes are seen throughout. The odontoid process and lateral masses are intact. The atlantoaxial articulation is preserved noting productive degenerative change. The spinous processes appear intact. There is mild to moderate multilevel cervical spondylosis. Uncovertebral and facet arthropathy contr ibute to neural foraminal narrowing at several levels. Intervertebral discs: There is moderate disc space narrowing at C4-C5, C5-C6, and C6-C7. Central canal: Posterior disc osteophyte complexes are seen at C4-C5, C5-C6, and C6-C7. This likely c ontributes to mild multilevel acquired compromise of the central canal. Soft tissues: The prevertebral and paraspinous soft tissues are within normal limits. There is athero sclerotic calcification of the carotid bulbs. Calvarium: The visualized calvarium at the skull base appears intact. Brain parenchyma: Partially visualized brain parenchyma at the skull base is within normal limits. Sinuses and mastoids: The visualized paranasal sinuses are clear. There is a small left mastoid effus ion. The right mastoid air cells are well pneumatized. Lung apices: Emphysematous change is noted at the apices. Apical lung parenchyma is otherwise clear a s visualized. IMPRESSION: 1. There is no evidence of fracture or subluxation involving the cervical spine. 2. Osteopenia and spondylotic change as above. ACT 112: Negative or not required by law. Electronically signed by: Hima Segal M.D. 02/08/2022 8:00 AM
[2022-02-08 08:13] LABS: Troponin I High Sensitivity 39.6 pg/ml (0-20)
[2022-02-08 08:36] LABS: BUN Creatinine Ratio 10.4 (10-20); Calcium 9.1 mg/dl (8.5-10.1); Creatinine Clr Calc Pharmacy 36.3 ml/min; Est GFR (African American) 45.4 ml/min; Est GFR (Non-African American) 39.2 ml/min; Potassium 3.8 mmol/L (3.5-5.1)
[2022-02-08] MEDS: ROSUVASTATIN CALCIUM 20 MG TAB PO SCH (08:59)
[2022-02-08] MEDS: METOPROLOL TARTRATE 25 MG TAB PO SCH ×2 (08:59→20:18)
--- NOTE | 2022-02-08 08:59 | Cardiology Consultation ---
Date of Consultation February 08, 2022 Assessment & Plan (1) Syncope: (2) Ventricular tachycardia: (3) PVC (premature ventricular contraction): (4) Atrial fibrillation with RVR: (5) Noncompliance: (6) Carotid stenosis, right: Plan Non compliant patient with recent syncope, presumed due to sustained VT as noted upon EMS arrival. He had witnessed VT with presyncope requiring cardioversion. He has history of non sustained VT, diagnosed in 2013 at time of sepsis. Treated with metoprolol. Negative nuclear stress test at that time. Preserved EF. Repeat admission for PAF in 2020, started on Eliquis and metoprolol resumed at that time. He was non compliant with follow ups and meds since that time. Its likely sycnope was related to sustained VT. Echo, prelim report demonstrated LV dysfunction with global hypokinesis 30-35% EKG with frequent ectopy, LBBB pattern. HS troponin not significantly elevated. He is currently chest pain free. Continue IV amidoarone load. Metoprolol resumed. Would not resume Eliquis or anticoagulation at this time. Mild renal insufficiency noted on admission, baseline creatinine ranging 1.3-1.7 as outpatient over the last year. Monitor. Given reduced EF, VT episodes, likely would benefit from diagnostic cardiac catheterization. EP also consulted to discuss AICD implantation given symptomatic VT and LV dysfunction. Case discussed with Dr. Golden. Will follow. Supervising Physician Co-Signing Physician Notes Patient seen examined at the bedside. Admitted with recurrent syncope. Reports 3 episodes over the past 4 weeks. States "I need to get something done about this". Denies chest pain or unusual shortness of breath. Facial contusion secondary to syncopal episode. Admits to noncompliance with all cardiovascular medications for more than 1 year. Smokes up to 1/2 pack of cigarettes per day. Telemetry reviewed. No recurrent ventricular tachycardia over the past 12 hours. IV amiodarone infusing. PE: VSS. Gen: NAD, AAO x3. Heart: Regular rhythm, normal S1-S2. No murmur appreciated. Lungs: Bilateral expiratory wheeze. Extremities: 1+ bilateral lower extremity edema, left greater than right. A/P: Agree with above PA-C history, physical exam, assessment and plan. Continue beta-jarod and intravenous amiodarone infusion. Echocardiogram demonstrating diminished LV systolic function with ejection fraction of 30-35%. Coronary angiography recommended to exclude underlying ischemic heart disease. Electrophysiology consulted to consider ICD implantation pending review of cardiac catheterization result. I have ordered lower extremity venous duplex given evidence of asymmetric edema. History of Present Illness Reason for Consultation: VT; Syncope Requesting Physician: Dr. Gaytan Attending Physician: Dr. Golden History of Present Illness Patient is a 81 year old male with past history of frequent ventricular ectopy, non sustained VT noted during hospitalization in 2013, paroxysmal afib diagnosed in 2020. Patient was to be taking metoprolol 25 mg BID and Eliquis but has been non compliant with medications. Last echo revealed preserved LVEF 50-55% in 2020. Other history includes chronic tobacco abuse x 61 years, COPD, CKD, history of bladder cancer s/p radiation and chemotherapy, hypertension, dyslipidemia, history of TIA, carotid disease on right > left and history of paroxysmal afib diagnosed during admission in 2020, started on Eliquis and metoprolol but patient self discontinued. Over the last month patient reports 3 syncopal episodes. Patient reports "he does not know what happened" but ends up on the floor. Most recent episode occurred yesterday. When he awakened he called for assistance. When EMS arrived the noted patient had frequent ventricular ectopy on monitor. He then apparently had an episode of VT where he began to lose consciousness and required 100 Joule shock x1 to convert to NSR. He was bolused with IV amiodarone in the field and brought [facility]. Telemetry at [facility] revealed frequent ectopy with several non sustained runs of VT, longest episode about 6 beats. He has been started on IV amiodarone. No recurrent syncope since admission. HS troponin just minimally elevated, consistent with VT/shock received. He denies acute complaints. He reports ongoing edema, but this is chronic. He denies chest pain or dyspnea. at time of consult, he was being hooked up for EEG. Allergies Allergy/AdvReac Type Severity Reaction Status Date / Time No Known Allergies Allergy Mild NONE Verified 09/15/20 09:46 Home Medications Medication Instructions Recorded Confirmed Type apixaban 5 mg tablet (Eliquis) 5 mg PO BID afib #30 tabs 08/01/20 02/08/22 Rx metoprolol tartrate 25 mg tablet 25 mg PO BID #30 tabs 08/02/20 02/08/22 Rx rosuvastatin 20 mg tablet (Crestor) 20 mg PO QAM #30 tabs 08/02/20 02/08/22 Rx Patient History Medical History Bladder cancer Hypertension Social History Smoking Status: Current every day smoker Tobacco Type: Cigarettes Age Started Using Tobacco: 10; packs per day: 1.5; Second Hand Exposure: No; Do You Dip or Chew Tobacco: No; Hx Alcohol Use: No Hx Substance Use: No Preferred Language: [place] Communication Ability: Effective Payroll Accountant Required: No Beliefs That Will Affect Care: None Current Living Situation: Alone Other Information That Helps Us Care for You: No Feels Safe at Home: Yes Assistive Devices: Stair Lift, Walker and Wheelchair Assistive Devices Comment: glasses at home Review of Systems Review of Systems: All systems reviewed & are unremarkable except as noted in HPI & below Physical Exam Constitutional: WD/WN, vitals as above Respiratory: able to speak in complete sentences; no respiratory distress Auscultation: lungs clear to auscultation bilaterally (anteriorly) Cardiovascular: Rate/Rhythm: regular rate and regular rhythm Heart Sounds: no murmur Vessels: no JVD Extremities: + edema (2+ LE edema) Gastrointestinal (Abdomen): normal bowel sounds, soft, nontender, no hepatosplenomegaly Skin: Trauma: + periorbital ecchymosis (right eye) Neurologic: PERRL, EOMI, accommodation nl, no face palsy, no dysarthria Results & Data ([facility]) Vital Signs (Past 12 Hours) Vital Signs Temp Pulse Pulse Resp BP BP Pulse Ox 02/08/22 06:23 02/08/22 06:09 02/08/22 06:07 78 16 139/86 95 02/08/22 04:04 73 18 125/77 98 02/08/22 02:15 76 20 130/73 96 02/08/22 01:01 02/08/22 01:01 97 02/08/22 00:52 72 20 143/66 H 98 02/08/22 00:33 36.7 C 90 20 143/66 H 99 Pulse Ox O2 Del Method O2 Del Method O2 Flow Rate 02/08/22 06:23 Nasal Cannula 2 02/08/22 06:09 96 Room Air 02/08/22 06:07 Room Air 02/08/22 04:04 Nasal Cannula 2 02/08/22 02:15 Nasal Cannula 2 02/08/22 01:01 Nasal Cannula 2 02/08/22 01:01 Nasal Cannula 2 02/08/22 00:52 Room Air 02/08/22 00:33 Room Air Laboratory Results Cardiac Enzymes 02/08/22 02/08/22 Range/Units 00:45 05:47 AST 13 (13-39) U/L Troponin I High Sens 28.4 H 39.6 H D (0-20) pg/ml Coagulation 02/08/22 Range/Units 00:45 PT 11.7 (9.0-12.0) Seconds CBC 02/08/22 02/08/22 Range/Units 00:45 05:47 WBC 6.88 (4.8-10.8) K/ul RBC 4.87 (4.63-6.08) M/uL Hgb 15.0 13.8 L (14.0-18.0) g/dl Hct 47.7 44.6 (40.1-51.0) % Plt Count 169 (130-400) K/uL Neut # (Auto) 4.54 (1.4-6.5) K/uL Lymph # (Auto) 1.58 (1.2-3.4) K/uL [place] # (Auto) 0.53 (0.24-0.82) K/uL Eos # (Auto) 0.13 (0-0.50) K/uL Baso # (Auto) 0.08 (0-0.2) K/uL Comprehensive Metabolic Panel 02/08/22 02/08/22 Range/Units 00:45 05:47 Sodium 137 137 (136-145) mmol/L Potassium 4.0 3.8 (3.5-5.1) mmol/L Chloride 102 104 (98-107) mmol/L Carbon Dioxide 28 24 (21-32) mmol/L BUN 17 17 (6-23) mg/dl Creatinine 1.72 H 1.64 H (0.6-1.4) mg/dl Glucose 136 H 112 H (70-99(Fasting)) mg/dl Calcium 9.5 9.1 (8.5-10.1) mg/dl AST 13 (13-39) U/L ALT 6 L (7-52) U/L Alkaline Phosphatase 124 H (34-104) U/L Total Protein 7.1 (6.0-8.3) gm/dl Albumin 3.6 (3.4-5.0) gm/dl Intake and Output 02/07/22 02/08/22 02/08/22 22:59 06:59 14:59 Intake Total 400 / 400 Balance 400 / 400 Intake: IV 400 / 400 Amiodarone / D5w 150 mg In 100 100 / 100 ml @ 600 mls/hr IV NOW STA Rx#: [id number] Amiodarone / D5w 360 mg In 200 200 / 200 ml @ 1 MG/MIN 33.333 mls/hr IV ONE ONE Rx#:[id number] Magnesium Sulfate / D5w 1 gm In 100 / 100 100 ml @ 100 mls/hr IV NOW STA Rx#:[id number] Other: Weight 80 kg Weight Measurement Method Built in [facility] Diagnostic Findings EKG on admission: Sinus rhythm with frequent , and consecutive Premature ventricular complexes Low voltage QRS Septal infarct (cited on or before 31-JUL-2020) Abnormal ECG When compared with ECG of 02-AUG-2020 07:27, Sinus rhythm has replaced Atrial fibrillation Nonspecific T wave abnormality no longer evident in Lateral leads Laboratory Results WBC 6.88 K/ul (4.8-10.8) 02/08/22 00:45 RBC 4.87 M/uL (4.63-6.08) 02/08/22 00:45 Hgb 13.8 g/dl (14.0-18.0) L 02/08/22 05:47 Hct 44.6 % (40.1-51.0) 02/08/22 05:47 MCV 97.9 fL (80.0-100.0) 02/08/22 00:45 MCH 30.8 pg (25.0-34.0) 02/08/22 00:45 MCHC 31.4 g/dL (32.0-36.0) L 02/08/22 00:45 RDW Std Deviation 54.5 fL (36.4-46.3) H 02/08/22 00:45 RDW Coeff of [place]a 15.1 % (11.5-14.5) H 02/08/22 00:45 Plt Count 169 K/uL (130-400) 02/08/22 00:45 MPV 11.0 fL (9.4-12.4) 02/08/22 00:45 Immature Gran % (Auto) 0.3 % 02/08/22 00:45 Neut % (Auto) 65.9 % 02/08/22 00:45 Lymph % (Auto) 23.0 % 02/08/22 00:45 [place] % (Auto) 7.7 % 02/08/22 00:45 Eos % (Auto) 1.9 % 02/08/22 00:45 Baso % (Auto) 1.2 % 02/08/22 00:45 Neut # (Auto) 4.54 K/uL (1.4-6.5) 02/08/22 00:45 Lymph # (Auto) 1.58 K/uL (1.2-3.4) 02/08/22 00:45 [place] # (Auto) 0.53 K/uL (0.24-0.82) 02/08/22 00:45 Eos # (Auto) 0.13 K/uL (0-0.50) 02/08/22 00:45 Baso # (Auto) 0.08 K/uL (0-0.2) 02/08/22 00:45 Immature Gran # (Auto) 0.02 K/uL (0.00-0.02) 02/08/22 00:45 PT 11.7 Seconds (9.0-12.0) 02/08/22 00:45 INR 1.1 (0.9-1.1) 02/08/22 00:45 Sodium 137 mmol/L (136-145) 02/08/22 05:47 Potassium 3.8 mmol/L (3.5-5.1) 02/08/22 05:47 Chloride 104 mmol/L (98-107) 02/08/22 05:47 Carbon Dioxide 24 mmol/L (21-32) 02/08/22 05:47 Anion Gap 9 (3-11) 02/08/22 05:47 BUN 17 mg/dl (6-23) 02/08/22 05:47 Creatinine 1.64 mg/dl (0.6-1.4) H 02/08/22 05:47 Est Cr Clr Drug Dosing 36.3 ml/min 02/08/22 05:47 Est GFR ( Amer) 45.4 ml/min 02/08/22 05:47 Est GFR (Non-Af Amer) 39.2 ml/min 02/08/22 05:47 BUN/Creatinine Ratio 10.4 (10-20) 02/08/22 05:47 Glucose 112 mg/dl (70-99(Fasting)) H 02/08/22 05:47 POC Glucose 97 mg/dl (70-99) 02/08/22 08:43 Estimat Average Glucose 117 mg/dl 02/08/22 00:45 Hemoglobin A1c 5.7 % (4.5-5.6) H 02/08/22 00:45 Calcium 9.1 mg/dl (8.5-10.1) 02/08/22 05:47 Magnesium 1.9 mg/dl (1.7-2.4) 02/08/22 00:45 Total Bilirubin 0.9 mg/dl (0.2-1.0) 02/08/22 00:45 AST 13 U/L (13-39) 02/08/22 00:45 ALT 6 U/L (7-52) L 02/08/22 00:45 Alkaline Phosphatase 124 U/L (34-104) H 02/08/22 00:45 Total Creatine Kinase 30 U/L (30-223) 02/08/22 00:45 Troponin I High Sens 39.6 pg/ml (0-20) H D 02/08/22 05:47 Total Protein 7.1 gm/dl (6.0-8.3) 02/08/22 00:45 Albumin 3.6 gm/dl (3.4-5.0) 02/08/22 00:45 Globulin 3.5 gm/dl (2.5-4.0) 02/08/22 00:45 Albumin/Globulin Ratio 1.0 (0.9-2) 02/08/22 00:45 Lipase 12 U/L (11-82) 02/08/22 00:45 TSH 4.436 uIu/ml (0.300-4.500) 02/08/22 00:45 Lyme Disease IgG Ab Negative (Negative) 02/08/22 00:45 Lyme Disease IgM Ab Negative (Negative) 02/08/22 00:45 SARS-CoV-2, RNA, NAAT NEGATIVE (NEGATIVE) 02/08/22 Unknown Impressions Chest X-Ray 02/08/22 00:40 XR chest 1V portable HISTORY: 81 years-old Male syncope acute syncope COMPARISON: Chest radiograph 07/31/2020 TECHNIQUE: Portable AP view of the chest FINDINGS: Cardiac silhouette is enlarged. No pneumothorax. Trace right pleural effusion with mild right lung base opacities. Pulmonary vascular congestion. Mild thoracic levoscoliosis. Degenerative changes of the shoulders and spine. IMPRESSION: 1. Cardiomegaly with pulmonary vascular congestion. 2. Trace right pleural effusion with mild right lung base opacities. ACT 112: Negative or not required by law. The above report was generated using voice recognition software. It may contain grammatical, syntax or spelling errors. Electronically signed by: Flavio Niño M.D. 02/08/2022 7:[address] 02/08/22 01:27 CT SCAN OF THE CERVICAL SPINE CLINICAL HISTORY: Fall. Head injury. COMPARISON STUDY: No priors. TECHNIQUE: CT scan of the cervical spine is performed from the skull base to the upper thoracic spine. Images are reviewed in the axial, sagittal, and coronal planes. IV contrast was not administered for this examination. A dose lowering technique was utilized adhering to the principles of ALARA. CT DOSE: 1000.23 mGy.cm FINDINGS: Skeletal structures: The skeletal structures are osteopenic. There is no evidence of fracture or subluxation involving the cervical spine. Vertebral body height and alignment are maintained. Anterior osteophytes are seen throughout. The odontoid process and lateral masses are intact. The atlantoaxial ar ticulation is preserved noting productive degenerative change. The spinous processes appear intact. There is mild to moderate multilevel cervical spondylosis. Uncovertebral and facet arthropathy contribute to neural foraminal narrowing at several levels. Intervertebral discs: There is moderate disc space narrowing at C4-C5, C5-C6, and C6-C7. Central canal: Posterior disc osteophyte complexes are seen at C4-C5, C5-C6, and C6-C7. This likely contributes to mild multilevel acquired compromise of the central canal. Soft tissues: The prevertebral and paraspinous soft tissues are within normal limits. There is atherosclerotic calcification of the carotid bulbs. Calvarium: The visualized calvarium at the skull base appears intact. Brain parenchyma: Partially visualized brain parenchyma at the skull base is within normal limits. Sinuses and mastoids: The visualized paranasal sinuses are clear. There is a small left mastoid effusion. The right mastoid air cells are well pneumatized. Lung apices: Emphysematous change is noted at the apices. Apical lung parenchyma is otherwise clear as visualized. IMPRESSION: 1. There is no evidence of fracture or subluxation involving the cervical spine. 2. Osteopenia and spondylotic change as above. ACT 112: Negative or not required by law. Electronically signed by: Hima Segal M.D. 02/08/2022 8:[address] 02/08/22 01:27 CT head/brain wo con CLINICAL HISTORY: 81 years-old Male with fall, CHI, syncope. Acute head injury status post fall TECHNIQUE: Multiple axial CT images of the head were obtained without contrast. A dose lowering technique was utilized adhering to the principles of ALARA. COMPARISON: CT cervical spine of same day FINDINGS: No acute intracranial hemorrhage, midline shift, intracranial mass, hydrocephalus, territorial ischemia or abnormal extra-axial collection. Age- related involutional changes. White matter hypodensities suggest chronic microv ascular ischemic disease. 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 Motion degraded study. The calvarium is intact. Mild polypoid mucosal thickening of the left maxillary sinus. Mastoid air cells are clear. Unremarkable soft tissues. Prior bilateral lens repair. IMPRESSION: No acute intracranial abnormality or calvarial fracture. ACT 112: Negative or not required by law. The above report was generated using voice recognition software. It may contain grammatical, syntax or spelling errors. Electronically signed by: Flavio Niño M.D. 02/08/2022 7:27 AM Echo report reviewed dated 07/2020: Rhythm was afib wiht RVR during study. LVEF 50-55% Mild concentric LVH Septal motion is consistent with conduction abnormality. LA is moderately dilated. Aortic valve scerlosis mild without significant aortic valvular stenosis. Medications Administered Current Inpatient Medications Acetaminophen (Acetaminophen 325 Mg Tab) 650 mg PO Q4H PRN PRN Reason: Pain or Fever Stop: 03/10/22 05:10 Dextrose (Dextrose 50% 50 Ml Syringe) 25 - 50 ml IV UD PRN; Protocol PRN Reason: Hypoglycemia Protocol Stop: 03/10/22 05:10 Glucagon (Glucagon For Inj 1 Mg Vial) 1 mg SQ UD PRN; Protocol PRN Reason: Hypoglycemia Protocol Stop: 03/10/22 05:10 Glucose (Glucose 40% Gel 15 Gm Tube) 15 - 30 gm PO UD PRN; Protocol PRN Reason: Hypoglycemia Protocol Stop: 03/10/22 05:10 Glucose (Glucose 10 Tab/Tube) 4 - 8 tab PO UD PRN; Protocol PRN Reason: Hypoglycemia Treatment Stop: 03/10/22 05:10 Amiodarone HCl/Dextrose (Nexterone / D5w) 360 mg in 200 mls @ 16.667 mls/hr IV .Q12H KRISTY Stop: 03/10/22 06:44 Last Admin: 02/08/22 05:58 Dose: 0.5 mg/min, 16.7 mls/hr Promethazine HCl 12.5 mg/ (Sodium Chloride) 50.5 mls @ 202 mls/hr IV Q6H PRN PRN Reason: Nausea And Vomiting Stop: 03/10/22 05:10 Insulin Aspart (Insulin Aspart Per Unit) 0 units SC ACHS KRISTY Stop: 03/10/22 05:10 Last Admin: 02/08/22 12:59 Dose: Not Given Ipratropium [place] (Ipratropium [place] Neb Soln 0.02% 2.5 Ml Vial) 0.5 mg INH Q4H PRN PRN Reason: SOB/Wheezing Stop: 03/10/22 04:44 Levalbuterol HCl (Levalbuterol 1.25mg/0.5ml Neb) 1.25 mg INH Q4H PRN PRN Reason: SOB/Wheezing Stop: 03/10/22 04:44 Metoprolol Tartrate (Metoprolol Tartrate 25 Mg Tab) 25 mg PO BID KRISTY Stop: 03/10/22 08:59 Last Admin: 02/08/22 08:59 Dose: 25 mg Miscellaneous (Carbohydrates For Hypoglycemia ) 15 - 30 gm PO UD PRN PRN Reason: Hypoglycemia Protocol Stop: 03/10/22 05:10 Oxycodone HCl (Oxycodone Hcl Ir 5 Mg Tab (Immediate Release)) 5 mg PO Q4H PRN PRN Reason: Pain Stop: 02/22/22 05:10 Rosuvastatin Calcium (Rosuvastatin Calcium 20 Mg Tab) [facility] [place] Stop: 03/10/22 08:59 Last Admin: 02/08/22 08:59 Dose: 20 mg
--- NOTE | 2022-02-08 09:29 | Electrocardiogram Report ---
Test Reason : Blood Pressure : / mmHG Vent. Rate : 091 BPM Atrial Rate : 091 BPM P-R Int : 176 ms QRS Dur : 098 ms QT Int : 370 ms P-R-T Axes : 116 068 078 degrees QTc Int : 455 ms Sinus rhythm with frequent , and consecutive Premature ventricular complexes Low voltage QRS Septal infarct (cited on or before 31-JUL-2020) Abnormal ECG When compared with ECG of 02-AUG-2020 07:27, Sinus rhythm has replaced Atrial fibrillation Nonspecific T wave abnormality no longer evident in Lateral leads Confirmed by Eduardo Henson ([id number]) on 02/08/2022 9:29:19 AM Referred By: REFERRED SELF Confirmed By:Eduardo Henson
[2022-02-08 09:59] LABS: Appearance Urine Cloudy (Clear); Bacteria Urine Automated 4+ (Negative); Bilirubin Urine Negative (Negative); Blood Urine 1+ (Negative); Color Urine Dark Yellow; Glucose Urine UA Negative (Negative); Ketones Urine Negative (Negative); Leukocyte Esterase Urine 2+ (Negative); Nitrite Urine Negative (Negative); Protein Urine 2+ (Negative); RBC Urine Automated 0-4 /hpf (0-4); Specific Gravity Urine 1.019 (1.000-1.030); Urobilinogen Urine Negative (Negative); WBC Urine Automated >30 /hpf (0-5)
--- NOTE | 2022-02-08 12:53 | Ultrasound Report ---
ULTRASOUND OF THE CAROTID ARTERIES CLINICAL HISTORY: Syncope. COMPARISON STUDY: No priors. TECHNIQUE: Real-time, grayscale, and color Doppler sonography of the carotid arteries is performed. I mages are reviewed in the transverse and longitudinal planes. FINDINGS: The carotid arteries are patent bilaterally and demonstrate antegrade flow. There is mild to moderate atherosclerotic plaque seen in the carotid bulbs, right greater than left. Normal doppler arterial w aveforms are seen throughout. Velocity measurements are listed below. Common carotid peak systolic velocity (cm/sec): RIGHT: 42 LEFT: 48 ICA proximal peak systolic velocity (cm/sec): RIGHT: 104 LEFT: 117 ICA mid peak systolic velocity (cm/sec): RIGHT: 81 LEFT: 71 ICA distal peak systolic velocity (cm/sec): RIGHT: 93 LEFT: 72 ICA/CC peak systolic ratio: RIGHT: 2.8 LEFT: 2.5 Antegrade flow was shown in the vertebral arteries. The external carotid arteries are patent. IMPRESSION: 1. There is no sonographic evidence of hemodynamically significant stenosis in the right or left cameron tid arterial system. 2. Antegrade flow is shown in the vertebral arteries. ACT 112: Negative or not required by law. Electronically signed by: Hima Segal M.D. 02/08/2022 12:52 PM
--- NOTE | 2022-02-08 13:57 | Electroencephalogram ---
EEG Procedure Note Date of Service February 08, 2022 Start / End Times Start Time: 1106 End Time: [address] Pendleton History A 81-year-old with history of recurrent syncope Home Medication List Medication Instructions Recorded Confirmed Type apixaban 5 mg tablet (Eliquis) 5 mg PO BID afib #30 tabs 08/01/20 02/08/22 Rx metoprolol tartrate 25 mg tablet 25 mg PO BID #30 tabs 08/02/20 02/08/22 Rx rosuvastatin 20 mg tablet (Crestor) 20 mg PO QAM #30 tabs 08/02/20 02/08/22 Rx Inpatient Medication List Amiodarone HCl/Dextrose (Nexterone / D5w) 360 mg in 200 mls @ 16.667 mls/hr IV .Q12H ON LICENSE OF [facility] Stop: 03/10/22 06:44 Last Admin: 02/08/22 05:58 Dose: 0.5 mg/min, 16.7 mls/hr Documented By: CYRUS Co-signed By: SABINA Insulin Aspart (Insulin Aspart Per Unit) 0 units SC ACHS ON LICENSE OF [facility] Stop: 03/10/22 05:10 Last Admin: 02/08/22 12:59 Dose: Not Given Documented By: KAT Co-signed By: REJI Admin: 02/08/22 05:53 Dose: Not Given Documented By: CYRUS Co-signed By: SABINA Metoprolol Tartrate (Metoprolol Tartrate 25 Mg Tab) 25 mg PO BID ON LICENSE OF [facility] Stop: 03/10/22 08:59 Last Admin: 02/08/22 08:59 Dose: 25 mg Documented By: NENO Rosuvastatin Calcium (Rosuvastatin Calcium 20 Mg Tab) 20 mg PO QAM ON LICENSE OF [facility] Stop: 03/10/22 08:59 Last Admin: 02/08/22 08:59 Dose: 20 mg Documented By: NENO Discontinued Medications Amiodarone HCl/Dextrose (Amiodarone 150mg / 100ml D5w) Confirm Administered Dose 150 mg IV .STK-MED ONE Stop: 02/08/22 00:43 Last Admin: 02/08/22 00:48 Dose: Not Given Documented By: MICHELLE Amiodarone HCl (Amiodarone Iv Bolus & Drip) 1 each IV NOW STA; Protocol Stop: 02/08/22 00:40 Last Admin: 02/08/22 00:48 Dose: 1 each Documented By: MICHELLE Amiodarone HCl/Dextrose (Nexterone / D5w) 150 mg in 100 mls @ 600 mls/hr IV NOW STA Stop: 02/08/22 00:48 Last Infusion: 02/08/22 00:57 Dose: 0 mls/hr Documented By: MICHELLE Co-signed By: JUVENAL Admin: 02/08/22 00:47 Dose: 600 mls/hr Documented By: MICHELLE Co-signed By: NELA Amiodarone HCl/Dextrose (Nexterone / D5w) 360 mg in 200 mls @ 33.333 mls/hr IV ONE ONE Stop: 02/08/22 06:50 Last Infusion: 02/08/22 06:01 Dose: 0 mg/min, 0 mls/hr Documented By: CYRUS Co-signed By: SABINA Admin: 02/08/22 00:46 Dose: 1 mg/min, 33.3 mls/hr Documented By: MICHELLE Co-signed By: NELA Magnesium Sulfate/Dextrose (Magnesium Sulfate / D5w) 1 gm in 100 mls @ 100 mls/hr IV NOW STA Stop: 02/08/22 01:45 Last Infusion: 02/08/22 01:51 Dose: 0 mls/hr Documented By: Admin: 02/08/22 00:51 Dose: 100 mls/hr Documented By: MICHELLE Sodium Chloride (Nss 1000ml) 1,000 mls @ 250 mls/hr IV .Q4H ONE Stop: 02/08/22 08:29 Last Infusion: 02/08/22 10:11 Dose: 0 mls/hr Documented By: Admin: 02/08/22 05:58 Dose: 250 mls/hr Documented By: CYRUS Randolph (Stat Iv Infusion Titration Per Protocol) 1 each N/A NOW STA Stop: 02/08/22 00:40 Last Admin: 02/08/22 00:39 Dose: 1 each Documented By: MICHELLE Randolph (Remove Nicoderm Patch) 1 each N/A DAILY@0859 KRISTY Stop: 02/08/22 09:00 Last Admin: 02/08/22 09:32 Dose: Not Given Documented By: NENO Nicotine (Nicotine 21 Mg/24 Hr Tdsy) 21 mg TD NOW STA Stop: 02/08/22 01:50 Last Admin: 02/08/22 05:20 Dose: Not Given Documented By: CYRUS Description This is a 21 electrode EEG with a single channel dedicated to limited EKG. The electrodes were placed in accordance with the International 10-20 system. Interpretation The predominant background activity consists of a very well modulated 9 Hz activity, of up to 30 mV in amplitude,seen symmetrically distributed over the posterior head regions bilaterally. This activity attenuates nicely with eye- opening and other alerting procedures. Photic stimulation was performed and elicited no change in the background activity and no abnormal responses were seen. Hyperventilation was not performed. A minimal amount of muscle and movement artifact activity contaminated the recording and did not hinder interpretation to any significant degree. Throughout the waking portion of the recording, no focal abnormalities, abnormal slow activity, or potentially epileptogenic discharges are seen. The patient entered the drowsy state with no further activation. In summary, this EEG was normal during wakefulness and drowsiness. No focal abnormalities, potentially epileptogenic discharges, or abnormal slow activity was seen. Clinical Correlation The abscence of potentially epileptogenic activity does not exclude a seizure disorder, since interictally, EEGs can be normal. Clinical correlation is required. [facility] EEG Procedure Codes Indication for Procedure (1) Syncope: Neurology Neurology: 46351 EEG include record awake & drowsy
--- NOTE | 2022-02-08 14:09 | Electrocardiogram Report ---
Test Reason : Blood Pressure : / mmHG Vent. Rate : 061 BPM Atrial Rate : 061 BPM P-R Int : 270 ms QRS Dur : 100 ms QT Int : 462 ms P-R-T Axes : 087 081 090 degrees QTc Int : 465 ms Sinus rhythm with 1st degree A-V block Septal infarct (cited on or before 31-JUL-2020) Abnormal ECG When compared with ECG of 08-FEB-2022 00:39, Premature ventricular complexes are no longer Present NE interval has increased Vent. rate has decreased BY 30 BPM Confirmed by Eduardo Henson ([id number]) on 02/08/2022 2:09:31 PM Referred By: REFERRED SELF Confirmed By:Eduardo Henson
--- NOTE | 2022-02-08 15:55 | Hospitalist Progress Note ---
Date of Service February 08, 2022 Assessment & Plan (1) Syncope: Plan: Recurrent syncope Likely secondary to ventricular tachycardia H/O NSVT, P.Afib H/O medication noncompliance S/P Cardioversion on the field --CT Head:No acute intracranial abnormality or calvarial fracture. --CT Neck:here is no evidence of fracture or subluxation involving the cervical spine. Osteopenia and spondylotic change --EEG was normal during wakefulness and drowsiness. No focal abnormalities, potentially epileptogenic discharges, or abnormal slow activity was seen. --ECHO: EF 30 to 35%. Moderate to severe global hypokinesis of left ventricle. Mild mitral regurgitation. Mild tricuspid regurgitation. Estimated systolic pulmonary pressure is 48 mmHg. Dilated inferior vena cava with reduced collapsibility with sniff indicates an elevated right atrial pressure of 15 mmHg --Carotid USD:There is no sonographic evidence of hemodynamically significant stenosis in the right or left carotid arterial system. Antegrade flow is shown in the vertebral arteries. --Normal Orthostatics --Mild rise in troponin likely demand ischemia due to VT and Cardioversion --Continue amiodarone, metoprolol Appreciate cardiology input May need cardiac cath for further evaluation and AICD Monitor on Tele H/O CVA/PVD Was prescribed Crestor Eliqucele previously Noncompliant Hyperlipidemia Resume statin COPD No overt signs of exacerbation DM II A1C:5.7 currently Diet controlled Insulin per Protocol while hospitalized BPH/bladder cancer S/P surgery Ongoing tobacco abuse Database Dba to quit smoking Abnormal UA Rule out UTI Empirically started on Rocephin Hypoxia Pulmonary Vascular Congestion Supplemental oxygen as needed Monitor volume status closely DVT Px: SCDs for now Code Status Full code Admission and Anticipated Discharge Date Admission Date: February 08, 2022 Subjective Patient is seen and examined at bedside Patient is having EEG during my encounter He does not recollect events that happened prior to admission Currently offers no complaints Denies any chest pain, dyspnea, dizziness, nausea, abdominal pain Review of Systems Review of Systems: All systems reviewed & are unremarkable except as noted in Subjective Physical Exam Physical Exam: Physical Exam: Vitals signs as noted above General Appearance:Moderately built and nourished, no apparent distress Head: normocephalic, Atraumatic Eyes: normal inspection, EOMI, + periorbital ecchymosis Neck: supple, Trachea midline Respiratory/Chest: Normal breath sounds, CTA, No accessory muscle use Cardiovascular: S1, S2, No murmur Abdomen/GI:Soft, Non tender, Bowel sounds present Extremities/Musculoskeletal:normal inspection, B/L LE LLE > RLE edema, RLE venous stasis changes Neurologic/Psych:AAOX3, grossly no focal neurological deficits Skin: normal color, warm Results & Data Results & Data ([facility]) Vital Signs (Past 12 Hours) Vital Signs Temp Pulse Resp BP Pulse Ox Pulse Ox O2 Del Method 02/08/22 13:19 Nasal Cannula 02/08/22 12:49 36.5 C 83 20 128/75 96 Nasal Cannula 02/08/22 08:44 Nasal Cannula 02/08/22 08:44 36.8 C 68 20 133/95 100 Nasal Cannula 02/08/22 08:44 Nasal Cannula 02/08/22 08:44 74 L 02/08/22 06:23 Nasal Cannula 02/08/22 06:09 96 02/08/22 06:07 78 16 139/86 95 Room Air 02/08/22 04:04 73 18 125/77 98 Nasal Cannula O2 Del Method O2 Flow Rate O2 Flow Rate 02/08/22 13:19 2 02/08/22 12:49 2 02/08/22 08:44 2 02/08/22 08:44 2 02/08/22 08:44 02/08/22 08:44 Nasal Cannula 2 02/08/22 06:23 2 02/08/22 06:09 Room Air 02/08/22 06:07 02/08/22 04:04 2 Laboratory Results Short CBC 02/08/22 02/08/22 Range/Units 00:45 05:47 WBC 6.88 (4.8-10.8) K/ul Hgb 15.0 13.8 L (14.0-18.0) g/dl Hct 47.7 44.6 (40.1-51.0) % Plt Count 169 (130-400) K/uL BMP 02/08/22 02/08/22 00:45 05:47 Sodium 137 137 Potassium 4.0 3.8 Chloride 102 104 Carbon Dioxide 28 24 BUN 17 17 Creatinine 1.72 H 1.64 H Glucose 136 H 112 H Calcium 9.5 9.1 Cardiac Enzymes 02/08/22 Range/Units 00:45 Total Creatine Kinase 30 (30-223) U/L Liver Function 02/08/22 Range/Units 00:45 Total Bilirubin 0.9 (0.2-1.0) mg/dl AST 13 (13-39) U/L ALT 6 L (7-52) U/L Alkaline Phosphatase 124 H (34-104) U/L Albumin 3.6 (3.4-5.0) gm/dl Urine 02/08/22 Range/Units 09:02 Urine Color Dark Yellow Urine Appearance Cloudy A (Clear) Urine pH 5.0 (4.5-7.5) Ur Specific [place] 1.019 (1.000-1.030) Urine Protein 2+ H (Negative) Urine Glucose (UA) Negative (Negative)
[2022-02-08] MEDS: cefTRIAXone SODIUM 2,000 MG in DEXTROSE 5% 50 ML IV SCH (16:47)
[2022-02-09] MEDS: IPRATROPIUM BROMIDE NEB SOLN 0.02% 2.5 ML VIAL INH PRN ×2 (00:10→04:44)
[2022-02-09] MEDS: AMIODARONE / D5W 360 MG/200 ML BAG IV SCH ×2 (05:37→12:38)
[2022-02-09] MEDS: ALBUT/IPRATROP 3MG/0.5MG NEB 3 ML VIAL NEB SCH ×4 (07:26→19:40)
--- NOTE | 2022-02-09 07:49 | Ultrasound Report ---
BILATERAL LOWER EXTREMITY VENOUS DOPPLER CLINICAL HISTORY: Asymmetric lower extremity edema. COMPARISON STUDY: Right lower extremity venous Doppler ultrasound April 16, 2020. TECHNIQUE: Sonography of the deep venous system of the bilateral lower extremities was performed. Co mpression and augmentation were evaluated. FINDINGS: The bilateral common femoral, superficial femoral and popliteal veins were compressible. A ugmentation was normal. Flow was shown within the deep calf vessels. IMPRESSION: No evidence of deep venous thrombus within the bilateral lower extremities. ACT 112: Negative or not required by law. Electronically signed by: Win Bermudez M.D. 02/09/2022 7:48 AM
[2022-02-09 07:56] LABS: BUN Creatinine Ratio 11.9 (10-20); Basophils # (auto) 0.07 K/uL (0-0.2); Basophils % (auto) 0.8 %; Calcium 8.8 mg/dl (8.5-10.1); Eosinophils # (auto) 0.09 K/uL (0-0.50); Est GFR (African American) 47.2 ml/min; Est GFR (Non-African American) 40.7 ml/min; Hematocrit (blood only) 42.5 % (40.1-51.0); Hemoglobin 13.6 g/dl (14.0-18.0); Immature Granulocytes # (auto) 0.03 K/uL (0.00-0.02); Immature Granulocytes % (auto) 0.3 %; Lymphocytes # (auto) 1.72 K/uL (1.2-3.4); Lymphocytes % (auto) 18.5 %; Magnesium 1.9 mg/dl (1.7-2.4); Mean Corpuscular Hemoglobin 31.3 pg (25.0-34.0); Mean Corpuscular Volume 97.7 fL (80.0-100.0); Monocytes # (auto) 1.05 K/uL (0.24-0.82); Monocytes % (auto) 11.3 %; Neutrophils # (auto) 6.36 K/uL (1.4-6.5); Neutrophils % (auto) 68.1 %; Platelet Count 136 K/uL (130-400); Potassium 3.9 mmol/L (3.5-5.1); RDW Coefficient of Variation 15.5 % (11.5-14.5); Red Blood Count 4.35 M/uL (4.63-6.08); White Blood Count 9.32 K/ul (4.8-10.8)
[2022-02-09] MEDS: ROSUVASTATIN CALCIUM 20 MG TAB PO SCH (08:09)
[2022-02-09] MEDS: METOPROLOL TARTRATE 25 MG TAB PO SCH (08:09)
[2022-02-09] MEDS: INSULIN ASPART PER UNIT SC SCH ×4 (08:56→21:12)
--- NOTE | 2022-02-09 09:21 | Cardiology Consultation ---
Date of Consultation February 09, 2022 Assessment & Plan (1) Syncope: (2) Ventricular tachycardia: (3) Atrial fibrillation with RVR: (4) Cardiomyopathy: Plan 1. Sustained ventricular tachycardia: He appears to have had an episode of ventricular tachycardia prior to his transport to the emergency room. He apparently was symptomatic and did require cardioversion. Very likely the mechanism of his other episodes was related to ventricular tachycardia as well. in the absence of a reversible etiology such as an acute myocardial infarction, he meets criteria for an ICD as secondary prevention against sudden cardiac . I did describe the device and procedure to the patient was willing to proceed. He is currently on amiodarone and beta-blockade. These medications can be continued. He likely on a requires a limited period of amiodarone, perhaps several weeks subsequent to ICD implantation. 2. Syncope: Most likely related to ventricular arrhythmias given his presentation. However, he does have an element of conduction disease and it is possible that this was mediated by bradycardia as well. In any event, he does qualify for a defibrillator as secondary prevention for sudden cardiac . This would prevent any episodes of bradycardia as well. 3. Cardiomyopathy: His degree of LV dysfunction qualifies him for an ICD as primary prevention against sudden cardiac . the etiology of his cardiomyopathy is unknown. He is scheduled for an evaluation of his coronaries today. I think the only potential finding that would preclude implantation of the device would be severe coronary artery disease requiring surgical revascularization. The patient has been started on metoprolol tartrate which will likely be transitioned to succinate. Additional medical therapy for cardiomyopathy will be considered. 4. Atrial fibrillation: In sinus rhythm currently. At some point the patient will require returned to systemic anticoagulation. I would defer initiation for at least 2 days subsequent to any device implant. 5. Mitral regurgitation: Mild 6. Elevated troponin: Very mild elevation not indicative of acute coronary syndrome. History of Present Illness Reason for Consultation: Syncope, VT Requesting Physician: Chantel Attending Physician: Alexander Gaytan MD History of Present Illness the patient is a 81-year-old gentleman with a history of paroxysmal atrial fibrillation who was admitted to the hospital after an episode of syncope. According to the patient he had 3 episodes of syncope leading up to his admission. All of these occurred without significant prodrome or warning. He has episodes tend to occur while he is seated. Again, he denies any dizziness or lightheadedness. No sense of palpitation. All these episodes resulted in loss of postural tone. The patient was on the floor and suffered a minor injury to his high recently. During his initial evaluation the paramedics noted a tachycardia consistent with VT and the patient had associated symptoms. Apparently he was cardioverted with 100 joules and amiodarone infusion was started in the pre-hospital setting. Since admission the patient claims to be feeling well. He is generally unaware of any palpitations. He states that he had rheumatic fever as a child and has always had a "skip" in his heartbeat. He has not had any additional dizzy episodes since admission. He is very sedentary individual who is limited primarily by leg weakness. He ambulates to a minimal extent. He occasionally has some limiting dyspnea but did not report symptoms of chest discomfort. He did not report orthopnea. Allergies Allergy/AdvReac Type Severity Reaction Status Date / Time No Known Allergies Allergy Mild NONE Verified 09/15/20 09:46 Home Medications Medication Instructions Recorded Confirmed Type amiodarone 200 mg tablet 200 mg PO BIDM #60 tabs 02/12/22 Rx apixaban 2.5 mg tablet (Eliquis) 2.5 mg PO BID #60 tabs 02/12/22 Rx aspirin 81 mg chewable tablet 81 mg PO DAILY #30 tabs 02/12/22 Rx (Children's Aspirin) metoprolol tartrate 25 mg tablet 25 mg PO BID #30 tabs 02/12/22 Rx nitrofurantoin 100 mg PO BID 5 days #10 caps 02/12/22 Rx monohydrate/macrocrystals 100 mg capsule (Macrobid) rosuvastatin 20 mg tablet (Crestor) 20 mg PO QAM #30 tabs 02/12/22 Rx Patient History Medical History Bladder cancer Hypertension Social History Smoking Status: Current every day smoker Tobacco Type: Cigarettes Age Started Using Tobacco: 10; packs per day: 1.5; Second Hand Exposure: No; Hx Alcohol Use: No Hx Substance Use: No Preferred Language: Bulgarian Communication Ability: Effective Client Services Coordinator Required: No Beliefs That Will Affect Care: None Current Living Situation: Alone Feels Safe at Home: Yes Assistive Devices: Walker Review of Systems Review of Systems: Per HPI. He cannot recall any other episodes of syncope. Physical Exam Physical Exam: The patient is alert and oriented. Mood and affect appeared normal. He answered all questions appropriately. HEENT: Pupils are equal and reactive to light and accommodation. Extraocular movements are intact. The sclerae are anicteric. Ecchymosis around the right eye Neuro: Cranial nerves intact Lungs: coarse upper airway sounds. Inspiratory stridor noted. No expiratory wheezing. Cardiac: Heart demonstrates a regular rate and rhythm With occasional ectopy. Normal S1 and S2. No murmurs on examination. Pulses: The patient has palpable radial pulses bilaterally that are equal in intensity Extremities: There was no evidence of hypoperfusion. There is no cyanosis or clubbing. mild lower extremity edema bilaterally. Trophic changes. Skin: I did not appreciate any rashes on examination today. Results & Data ([facility]) Vital Signs (Past 12 Hours) Vital Signs Temp Pulse Pulse Resp BP BP Pulse Ox 02/09/22 07:50 36.9 C 63 21 143/75 H 95 02/09/22 04:53 36.6 C 58 L 20 123/77 95 02/09/22 04:44 68 18 94 02/09/22 01:25 68 02/09/22 00:10 59 L 18 96 02/08/22 23:38 37.0 C 67 20 134/75 94 O2 Del Method O2 Flow Rate 02/09/22 07:50 Nasal Cannula 2 02/09/22 04:53 Nasal Cannula 2.0 02/09/22 04:44 Nasal Cannula 2 02/09/22 01:25 02/09/22 00:10 Nasal Cannula 3 02/08/22 23:38 Nasal Cannula 2.0 Laboratory Results Abnormal Lab Results 02/08/22 02/08/22 02/08/22 09:02 12:45 16:50 WBC RBC Hgb Hct MCV MCH MCHC RDW Std Deviation RDW Coeff of Chela Plt Count MPV Immature Gran % (Auto) Neut % (Auto) Lymph % (Auto) Nye % (Auto) Eos % (Auto) Baso % (Auto) Neut # (Auto) Lymph # (Auto) Nye # (Auto) Eos # (Auto) Baso # (Auto) Immature Gran # (Auto) Sodium Potassium Chloride Carbon Dioxide Anion Gap BUN Creatinine Est Cr Clr Drug Dosing Est GFR ( Amer) Est GFR (Non-Af Amer) BUN/Creatinine Ratio Glucose POC Glucose 109 H 128 H Calcium Magnesium Urine Color Dark Yellow Urine Appearance Cloudy A Urine pH 5.0 Ur Specific [place] 1.019 Urine Protein 2+ H Urine Glucose (UA) Negative Urine Ketones Negative Urine Blood 1+ H Urine Nitrite Negative Urine Bilirubin Negative Urine Urobilinogen Negative Ur Leukocyte Esterase 2+ H Urine WBC (Auto) >30 H Urine RBC (Auto) 0-4 U Hyaline Cast (Auto) 1-5 U Epithel Cells (Auto) 10-20 H Urine Bacteria (Auto) 4+ H 02/08/22 02/09/22 02/09/22 21:01 07:14 07:14 WBC 9.32 RBC 4.35 L Hgb 13.6 L Hct 42.5 MCV 97.7 MCH 31.3 MCHC 32.0 RDW Std Deviation 56.0 H RDW Coeff of Chela 15.5 H Plt Count 136 MPV 11.0 Immature Gran % (Auto) 0.3 Neut % (Auto) 68.1 Lymph % (Auto) 18.5 Nye % (Auto) 11.3 Eos % (Auto) 1.0 Baso % (Auto) 0.8 Neut # (Auto) 6.36 Lymph # (Auto) 1.72 Nye # (Auto) 1.05 H Eos # (Auto) 0.09 Baso # (Auto) 0.07 Immature Gran # (Auto) 0.03 H Sodium 138 Potassium 3.9 Chloride 105 Carbon Dioxide 25 Anion Gap 8 BUN 19 Creatinine 1.59 H Est Cr Clr Drug Dosing 38.0 Est GFR ( Amer) 47.2 Est GFR (Non-Af Amer) 40.7 BUN/Creatinine Ratio 11.9 Glucose 97 POC Glucose 119 H Calcium 8.8 Magnesium 1.9 Urine Color Urine Appearance Urine pH Ur Specific [place] Urine Protein Urine Glucose (UA) Urine Ketones Urine Blood Urine Nitrite Urine Bilirubin Urine Urobilinogen Ur Leukocyte Esterase Urine WBC (Auto) Urine RBC (Auto) U Hyaline Cast (Auto) U Epithel Cells (Auto) Urine Bacteria (Auto) 02/09/22 07:50 WBC RBC Hgb Hct MCV MCH MCHC RDW Std Deviation RDW Coeff of Chela Plt Count MPV Immature Gran % (Auto) Neut % (Auto) Lymph % (Auto) Nye % (Auto) Eos % (Auto) Baso % (Auto) Neut # (Auto) Lymph # (Auto) Nye # (Auto) Eos # (Auto) Baso # (Auto) Immature Gran # (Auto) Sodium Potassium Chloride Carbon Dioxide Anion Gap BUN Creatinine Est Cr Clr Drug Dosing Est GFR ( Amer) Est GFR (Non-Af Amer) BUN/Creatinine Ratio Glucose POC Glucose 89 Calcium Magnesium Urine Color Urine Appearance Urine pH Ur Specific [place] Urine Protein Urine Glucose (UA) Urine Ketones Urine Blood Urine Nitrite Urine Bilirubin Urine Urobilinogen Ur Leukocyte Esterase Urine WBC (Auto) Urine RBC (Auto) U Hyaline Cast (Auto) U Epithel Cells (Auto) Urine Bacteria (Auto) Diagnostic Findings Echocardiogram obtained 02/08/2022: Ejection fraction 30 35%. Moderate to severe global hypokinesis. Mild mitral regurgitation. ECG Additional Comments: Sinus rhythm with 1st degree AV block. Normal QRS duration. PG Care Time/CCT Total # of Minutes Spent Total Time Spent with Patient: Total time spent is greater than 50% in coordination of care (as documented) at patient's floor/unit and/or counseling patient: Coding Level of Care Code 20014 Initial Inpt Care Lvl 3 Diagnoses Syncope R55 Ventricular tachycardia I47.2 Atrial fibrillation with RVR I48.91 Cardiomyopathy I42.9
[2022-02-09] MEDS ORDERED: MIDAZOLAM HCL 1 MG/ML 2ML VIAL ONE (10:11)
[2022-02-09] MEDS ORDERED: NITROGLYCERIN/D5W 100MCG/ML 20ML SYR ONE (10:11)
[2022-02-09] MEDS ORDERED: fentaNYL citrate 100 MCG/2 ML VIAL ONE (10:11)
[2022-02-09] MEDS ORDERED: niCARdipine HCL INJ 2.5 MG/ML 10 ML AMP ONE (10:11)
[2022-02-09] MEDS ORDERED: HEPARIN (PORCINE) 1000 UNIT/ML 10 ML (CATH LAB USE ONLY) ONE (10:11)
--- NOTE | 2022-02-09 10:15 | Pre Anesthesia Assessment ---
Date of Service February 09, 2022 Pre Sedation Assessment Vital Signs Temp Pulse Pulse Resp BP BP Pulse Ox 02/09/22 13:03 36.4 C L 65 19 122/62 93 02/09/22 12:47 36.3 C L 67 19 122/57 L 92 02/09/22 12:14 36.4 C L 65 19 114/71 94 02/09/22 11:43 66 18 140/82 92 02/09/22 11:30 61 18 135/75 90 02/09/22 09:46 69 02/09/22 09:46 02/09/22 09:41 65 18 147/64 H 93 02/09/22 07:50 36.9 C 63 21 143/75 H 95 02/09/22 04:53 36.6 C 58 L 20 123/77 95 02/09/22 04:44 68 18 94 02/09/22 01:25 68 02/09/22 00:10 59 L 18 96 02/08/22 23:38 37.0 C 67 20 134/75 94 02/08/22 19:11 36.4 C L 60 20 141/70 H 94 02/08/22 20:23 02/08/22 20:17 56 L 02/08/22 15:54 36.6 C 62 19 118/71 96 O2 Del Method O2 Flow Rate 02/09/22 13:03 Nasal Cannula 2 02/09/22 12:47 Nasal Cannula 2 02/09/22 12:14 Nasal Cannula 2 02/09/22 11:43 Room Air 02/09/22 11:30 Room Air 02/09/22 09:46 02/09/22 09:46 Nasal Cannula 2 02/09/22 09:41 Room Air 02/09/22 07:50 Nasal Cannula 2 02/09/22 04:53 Nasal Cannula 2.0 02/09/22 04:44 Nasal Cannula 2 02/09/22 01:25 02/09/22 00:10 Nasal Cannula 3 02/08/22 23:38 Nasal Cannula 2.0 02/08/22 19:11 Nasal Cannula 2.0 02/08/22 20:23 Nasal Cannula 2 02/08/22 20:17 02/08/22 15:54 Nasal Cannula 2 Cardiovascular + regular rate and + regular rhythm + S1 normal and + S2 normal no JVD Respiratory + respiratory effort normal; no respiratory distress and no labored breathing + wheezes Pre-Sedation Airway Assessment Smoking Status: Current every day smoker Hx Sleep Apnea: No Short, Thick Neck: Yes Thyromental Distance: > or= 3.5 Finger Breadths Oral Cavity: + WNL Mallampati Class: III ASA: ASA3 NPO Status Date of Last Intake of Fluids: 02/08/22 Date of Last Intake of Solid Food: 02/08/22 Procedure Planning Contraindications for Sedation: none Current Medications Reviewed: Yes Notes The planned sedation has been discussed with the patient. Informed Consent was obtained. I have identified the patient, determined the appropriateness of sedation and have assessed the patient immediately prior to the procedure. All medicine(s) and interventions are by my order.
--- NOTE | 2022-02-09 11:36 | Post Anesthesia Assessment ---
Date of Service February 09, 2022 Post Sedation Assessment Vital Signs Temp Pulse Pulse Resp BP BP Pulse Ox 02/09/22 11:30 61 18 135/75 90 02/09/22 09:46 69 02/09/22 09:46 02/09/22 09:41 65 18 147/64 H 93 02/09/22 07:50 36.9 C 63 21 143/75 H 95 02/09/22 04:53 36.6 C 58 L 20 123/77 95 02/09/22 04:44 68 18 94 02/09/22 01:25 68 02/09/22 00:10 59 L 18 96 02/08/22 23:38 37.0 C 67 20 134/75 94 02/08/22 19:11 36.4 C L 60 20 141/70 H 94 02/08/22 20:23 02/08/22 20:17 56 L 02/08/22 15:54 36.6 C 62 19 118/71 96 02/08/22 13:19 02/08/22 12:49 36.5 C 83 20 128/75 96 O2 Del Method O2 Flow Rate 02/09/22 11:30 Room Air 02/09/22 09:46 02/09/22 09:46 Nasal Cannula 2 02/09/22 09:41 Room Air 02/09/22 07:50 Nasal Cannula 2 02/09/22 04:53 Nasal Cannula 2.0 02/09/22 04:44 Nasal Cannula 2 02/09/22 01:25 02/09/22 00:10 Nasal Cannula 3 02/08/22 23:38 Nasal Cannula 2.0 02/08/22 19:11 Nasal Cannula 2.0 02/08/22 20:23 Nasal Cannula 2 02/08/22 20:17 02/08/22 15:54 Nasal Cannula 2 02/08/22 13:19 Nasal Cannula 2 02/08/22 12:49 Nasal Cannula 2 Recovery Score Activity: Moves 4 extremities Respiration: Deep Breath/Cough Circulation: +/-20% PreAnes Value Consciousness: Fully Awake Oxygen Saturation: O2 needed for >90% Post Anesthesia Score: 9 Discharge Sedation Level of Care: Phase I Post Sedation Plan On clinical assessment, the patient appears to have tolerated the sedation without complications. Patient is recovering as anticipated. Patient will continue to be monitored by nursing and may be discharged when sedation discharge criteria are met per below protocol. Upon Completions of procedure up to 15 minutes continue every 5 minute vital signs and the P.A.R. score; then discharge to a Phase I or Fast Track to Phase II per the following guidelines: * Discharge Patient to appropriate Phase II area if PAR is 8 or greater or return to pre- procedure baseline. The post - procedure orders will be as directed. * If PAR score is less than 8 or not return to pre-procedure baseline then patient will follow Phase I monitoring till PAR is reached for Phase II. The Phase I may be done in procedure room or may call to secure a Phase I area. * If naloxone or flumazenil are used for reversal, hold in Phase I for continued monitoring from when last reversal dose was given for a minimum of 60 minutes or longer pending the nurse and/or physician discretion of patient condition before discharge to Phase II. Please call the Sedation Physician to re-evaluate and complete post-note for discharge to Phase II area. Do NOT discharge from procedure sedation or Phase 1 until post- sedation evaluation note is complete by procedure /sedation MD Sedation Discharge Instructions to be given to the patient at discharge to home.
--- NOTE | 2022-02-09 11:39 | Post Anesthesia Assessment ---
Date of Service February 09, 2022 Post Sedation Assessment Vital Signs Temp Pulse Pulse Resp BP BP Pulse Ox 02/09/22 13:03 36.4 C L 65 19 122/62 93 02/09/22 12:47 36.3 C L 67 19 122/57 L 92 02/09/22 12:14 36.4 C L 65 19 114/71 94 02/09/22 11:43 66 18 140/82 92 02/09/22 11:30 61 18 135/75 90 02/09/22 09:46 69 02/09/22 09:46 02/09/22 09:41 65 18 147/64 H 93 02/09/22 07:50 36.9 C 63 21 143/75 H 95 02/09/22 04:53 36.6 C 58 L 20 123/77 95 02/09/22 04:44 68 18 94 02/09/22 01:25 68 02/09/22 00:10 59 L 18 96 02/08/22 23:38 37.0 C 67 20 134/75 94 02/08/22 19:11 36.4 C L 60 20 141/70 H 94 02/08/22 20:23 02/08/22 20:17 56 L 02/08/22 15:54 36.6 C 62 19 118/71 96 O2 Del Method O2 Flow Rate 02/09/22 13:03 Nasal Cannula 2 02/09/22 12:47 Nasal Cannula 2 02/09/22 12:14 Nasal Cannula 2 02/09/22 11:43 Room Air 02/09/22 11:30 Room Air 02/09/22 09:46 02/09/22 09:46 Nasal Cannula 2 02/09/22 09:41 Room Air 02/09/22 07:50 Nasal Cannula 2 02/09/22 04:53 Nasal Cannula 2.0 02/09/22 04:44 Nasal Cannula 2 02/09/22 01:25 02/09/22 00:10 Nasal Cannula 3 02/08/22 23:38 Nasal Cannula 2.0 02/08/22 19:11 Nasal Cannula 2.0 02/08/22 20:23 Nasal Cannula 2 02/08/22 20:17 02/08/22 15:54 Nasal Cannula 2 Recovery Score Activity: Moves 4 extremities Respiration: Deep Breath/Cough Circulation: +/-20% PreAnes Value Consciousness: Fully Awake Oxygen Saturation: O2 needed for >90% Post Anesthesia Score: 9 Discharge Sedation Level of Care: Phase I Post Sedation Plan On clinical assessment, the patient appears to have tolerated the sedation without complications. Patient is recovering as anticipated. Patient will continue to be monitored by nursing and may be discharged when sedation discharge criteria are met per below protocol. Upon Completions of procedure up to 15 minutes continue every 5 minute vital signs and the P.A.R. score; then discharge to a Phase I or Fast Track to Phase II per the following guidelines: * Discharge Patient to appropriate Phase II area if PAR is 8 or greater or return to pre- procedure baseline. The post - procedure orders will be as directed. * If PAR score is less than 8 or not return to pre-procedure baseline then patient will follow Phase I monitoring till PAR is reached for Phase II. The Phase I may be done in procedure room or may call to secure a Phase I area. * If naloxone or flumazenil are used for reversal, hold in Phase I for continued monitoring from when last reversal dose was given for a minimum of 60 minutes or longer pending the nurse and/or physician discretion of patient condition before discharge to Phase II. Please call the Sedation Physician to re-evaluate and complete post-note for discharge to Phase II area. Do NOT discharge from procedure sedation or Phase 1 until post- sedation evaluation note is complete by procedure /sedation MD Sedation Discharge Instructions to be given to the patient at discharge to home.
--- NOTE | 2022-02-09 11:43 | Cardiac Catheterization ---
Cardiac Cath Procedure Full Procedure Date February 09, 2022 Pre-Procedure Diagnosis Pre-Procedure Diagnosis: Cardiomyopathy (Left ventricular ejection fraction 30- 35%) and Arrhythmia (Sustained ventricular tachycardia, syncope) AUC Score AUC Score: 7 Post-Procedure Diagnosis Post-Procedure Diagnosis: Moderate CAD and Elevated Intracardiac Pressures Procedure(s) Performed Procedure(s) Performed: Coronary Angiography and Left Heart Cath Cement Paver Louis Golden DO Sustainment Logistics Analyst(s) Feather Mixer V/[employer]ANDING SIGNAL OFFICER Estimated Blood Loss Estimated Blood Loss: 5cc Medication(s) Medication(s): Heparin, Lidocaine 1%, Nicardipine, Nitroglycerin and Versed Summary of Findings Moderate nonobstructive coronary disease. Hemodynamics Rest Ao:: 137/71/93 Final Ao: 145/65/97 LV: 139/14/18 Recommendations Recommendations: Medical Therapy and/or Counseling and Management Recommendatons (Recommend electrophysiology consultation for ICD implantation) Specimens Specimens: None Radiation Exposure (mGy) 612 Contrast (mls) 40 Fluids (cc crystalloids) Fluids (cc crystalloids): 45 Nss Drains Drains: N/A Anesthesia Moderate sedation. Start 1106. End 1121. Sedation monitor: Thien VELASQUEZ Procedural Complication(s) None Disposition Economic Historian Holding/Recovery I attest to the content of the Intraoperative Record and any orders documented therein. Any exceptions are noted below. ACC Data: Economic Historian Cardiac Status Clinical evaluation leading to the procedure 81-year-old patient presented to the hospital with syncope secondary to sustained ventricular tachycardia. Echocardiogram demonstrating new cardiomyopathy with ejection fraction of 30-35%. CAD Presenation: Sx unlikely to be ischemic (Arrhythmia, syncope) Anginal Classification: CCS II Heart Failure: NYHA Class: CCS II Coronary Anatomy Dominant: Right Left Main (% Stenosis): Normal LAD (% Stenosis): Mid (30%) D1 (% Stenosis): Mid (30%) Circumflex (% Stenosis): Normal OM1 (% Stenosis): Mid (50%) L PL1 (% Stenosis): Normal (Small vessel) RCA (% Stenosis): Proximal (Luminal irregularities, 10%), Mid (Luminal irregularities, 10%) and Distal (Luminal irregularities, 10%) R PDA (% Stenosis): Proximal (30%) and Mid (40%) R PL1 (% Stenosis): Mid (Luminal irregularities, 10-20%, small vessel) R PL2 (% Stenosis): Proximal (10%, small vessel, PL3 with 40% proximal stenosis) Ramus (% Stenosis): Proximal (30% small vessel.) Diagnostic Physicians Name: Louis Golden DO Closure Device Percutaneous Entry Location: Radial Closure Device: Radial Band Recommendations: Medical Therapy and/or Counseling and Management Recommendatons (Recommend electrophysiology consultation for ICD implantation) Intraprocedure Events Significant Disection: No Perforation: No
--- NOTE | 2022-02-09 13:31 | Cardiology Progress Note ---
Date of Service February 09, 2022 Assessment & Plan (1) Syncope: (2) Ventricular tachycardia: (3) Cardiomyopathy: (4) PVC (premature ventricular contraction): (5) Atrial fibrillation with RVR: (6) Noncompliance: (7) CAD (coronary artery disease): Plan Cardiac catheterization revealing moderate nonobstructive coronary disease with elevated left ventricular end-diastolic pressure. We will refrain from additional diuretic therapy today given low dye load (40 cc). Repeat basic metabolic panel in a.m. with consideration for evidence-based heart failure therapy pending review. Discontinue intravenous amiodarone. Place oral metoprolol on hold temporarily due to asymptomatic bradycardia on telemetry. Initiate oral amiodarone, 200 mg twice daily. Add low-dose aspirin, 81 mg daily. Electrophysiology consultation pending for consideration of AICD implantation. Patient remains in sinus rhythm. With history of paroxysmal atrial fibrillation, long-term anticoagulation is indicated, however, patient is noncompliant with medications over the past 12 months. We will add IV heparin when radial band removed. Further discussions with patient regarding indications for long-term anticoagulation and importance of compliance as hospital course unfolds. Admission and Anticipated Discharge Date Admission Date: February 08, 2022 Subjective Patient seen and examined at the bedside postcardiac catheterization. Coronary angiography revealing moderate nonobstructive coronary disease. Elevated left ventricular end-diastolic pressure noted. Patient recovering well. Radial hemostasis band in place. Isolated episode of recurrent ventricular tachycardia recorded overnight. Amiodarone placed on hold during cardiac catheterization due to bradycardia. Review of Systems Review of Systems: All systems reviewed & are unremarkable except as noted in Subjective Physical Exam ENMT: Mallampati Class: III Respiratory: normal respiratory effort; no respiratory distress and no labored breathing Auscultation: + wheezes Cardiovascular: Rate/Rhythm: regular rate and regular rhythm Heart Sounds: normal S1 and normal S2 Vessels: no JVD Gastrointestinal (Abdomen): Inspection/Auscultation: abdomen normal to inspection and normal bowel sounds; abdomen not distended Percussion/Palpation: abdomen soft; abdomen nontender, no guarding and abdomen not rigid Neurologic: CN's II-XI intact bilaterally and moves all extremities; no focal motor deficits Results & Data ([facility]) Vital Signs (Past 12 Hours) Vital Signs Temp Pulse Pulse Resp BP BP Pulse Ox 02/09/22 13:03 36.4 C L 65 19 122/62 93 02/09/22 12:47 36.3 C L 67 19 122/57 L 92 02/09/22 12:14 36.4 C L 65 19 114/71 94 02/09/22 11:43 66 18 140/82 92 02/09/22 11:30 61 18 135/75 90 02/09/22 09:46 69 02/09/22 09:46 02/09/22 09:41 65 18 147/64 H 93 02/09/22 07:50 36.9 C 63 21 143/75 H 95 02/09/22 04:53 36.6 C 58 L 20 123/77 95 02/09/22 04:44 68 18 94 O2 Del Method O2 Flow Rate 02/09/22 13:03 Nasal Cannula 2 02/09/22 12:47 Nasal Cannula 2 02/09/22 12:14 Nasal Cannula 2 02/09/22 11:43 Room Air 02/09/22 11:30 Room Air 02/09/22 09:46 02/09/22 09:46 Nasal Cannula 2 02/09/22 09:41 Room Air 02/09/22 07:50 Nasal Cannula 2 02/09/22 04:53 Nasal Cannula 2.0 02/09/22 04:44 Nasal Cannula 2
[2022-02-09] MEDS: ASPIRIN 81 MG CHEW PO SCH (15:05)
[2022-02-09] MEDS: cefTRIAXone SODIUM 2,000 MG in DEXTROSE 5% 50 ML IV SCH (16:45)
[2022-02-09] MEDS: AMIODARONE 200 MG TAB PO SCH (17:11)
--- NOTE | 2022-02-09 17:13 | Hospitalist Progress Note ---
Date of Service February 09, 2022 Assessment & Plan (1) Syncope: Plan: Recurrent syncope Likely secondary to ventricular tachycardia H/O NSVT, P.Afib H/O medication noncompliance S/P Cardioversion on the field S/P Cardiac Cath on 02/09/22:Moderate nonobstructive coronary disease. --CT Head:No acute intracranial abnormality or calvarial fracture. --CT Neck:here is no evidence of fracture or subluxation involving the cervical spine. Osteopenia and spondylotic change --EEG was normal during wakefulness and drowsiness. No focal abnormalities, potentially epileptogenic discharges, or abnormal slow activity was seen. --ECHO: EF 30 to 35%. Moderate to severe global hypokinesis of left ventricle. Mild mitral regurgitation. Mild tricuspid regurgitation. Estimated systolic pulmonary pressure is 48 mmHg. Dilated inferior vena cava with reduced collapsibility with sniff indicates an elevated right atrial pressure of 15 mmHg --Carotid USD:There is no sonographic evidence of hemodynamically significant stenosis in the right or left carotid arterial system. Antegrade flow is shown in the vertebral arteries. --Normal Orthostatics --Mild rise in troponin likely demand ischemia due to VT and Cardioversion --Continue amiodarone, metoprolol Appreciate cardiology input IV amiodarone discontinued Metoprolol held temporarily due to asymptomatic bradycardia Started on amiodarone p.o. 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 Abnormal UA Rule out UTI Urine culture growing gram-positive cocci Empirically started on Rocephin Hypoxia Pulmonary Vascular Congestion Supplemental oxygen as needed Monitor volume status closely May need 2 step prior to DC DVT Px: SCDs for now Code Status Full code Admission and Anticipated Discharge Date Admission Date: February 08, 2022 Subjective Patient is seen and examined at bedside prior to Cath today Had Cardiac Cath today Offered no complaints this morning Denies any chest pain, dyspnea, dizziness, nausea, abdominal pain Review of Systems Review of Systems: All systems reviewed & are unremarkable except as noted in Subjective Physical Exam Physical Exam: Physical Exam: Vitals signs as noted above General Appearance:Moderately built and nourished, no apparent distress Head: normocephalic, Atraumatic Eyes: normal inspection, EOMI, + periorbital ecchymosis Neck: supple, Trachea midline Respiratory/Chest: Normal breath sounds, CTA, No accessory muscle use Cardiovascular: S1, S2, No murmur Abdomen/GI:Soft, Non tender, Bowel sounds present Extremities/Musculoskeletal:normal inspection, B/L LE LLE > RLE edema, RLE venous stasis changes Neurologic/Psych:AAOX3, grossly no focal neurological deficits Skin: normal color, warm Results & Data Results & Data ([facility]) Vital Signs (Past 12 Hours) Vital Signs Temp Pulse Pulse Resp BP BP Pulse Ox 02/09/22 15:10 36.7 C 65 19 116/65 92 02/09/22 13:03 36.4 C L 65 19 122/62 93 02/09/22 12:47 36.3 C L 67 19 122/57 L 92 02/09/22 12:14 36.4 C L 65 19 114/71 94 02/09/22 11:43 66 18 140/82 92 02/09/22 11:30 61 18 135/75 90 02/09/22 09:46 69 02/09/22 09:46 02/09/22 09:41 65 18 147/64 H 93 02/09/22 07:50 36.9 C 63 21 143/75 H 95 O2 Del Method O2 Flow Rate 02/09/22 15:10 Nasal Cannula 2 02/09/22 13:03 Nasal Cannula 2 02/09/22 12:47 Nasal Cannula 2 02/09/22 12:14 Nasal Cannula 2 02/09/22 11:43 Room Air 02/09/22 11:30 Room Air 02/09/22 09:46 02/09/22 09:46 Nasal Cannula 2 02/09/22 09:41 Room Air 02/09/22 07:50 Nasal Cannula 2 Laboratory Results Short CBC 02/09/22 Range/Units 07:14 WBC 9.32 (4.8-10.8) K/ul Hgb 13.6 L (14.0-18.0) g/dl Hct 42.5 (40.1-51.0) % Plt Count 136 (130-400) K/uL BMP 02/09/22 07:14 Sodium 138 Potassium 3.9 Chloride 105 Carbon Dioxide 25 BUN 19 Creatinine 1.59 H Glucose 97 Calcium 8.8
[2022-02-09] MEDS ORDERED: ALBUT/IPRATROP 3MG/0.5MG NEB 3 ML VIAL NEB PRN (21:01)
[2022-02-10 07:08] LABS: BUN Creatinine Ratio 13.8 (10-20); Calcium 8.5 mg/dl (8.5-10.1); Creatinine Clr Calc Pharmacy 33.1 ml/min; Est GFR (African American) 40.3 ml/min; Est GFR (Non-African American) 34.8 ml/min; Magnesium 1.9 mg/dl (1.7-2.4); Potassium 4.1 mmol/L (3.5-5.1)
[2022-02-10 07:18] LABS: Hematocrit (blood only) 39.6 % (40.1-51.0); Hemoglobin 12.2 g/dl (14.0-18.0); Mean Corpuscular Hemoglobin 30.8 pg (25.0-34.0); Mean Corpuscular Hgb Conc 30.8 g/dL (32.0-36.0); Mean Platelet Volume 10.5 fL (9.4-12.4); Platelet Count 144 K/uL (130-400); RDW Coefficient of Variation 15.5 % (11.5-14.5); RDW Standard Deviation 57.2 fL (36.4-46.3); Red Blood Count 3.96 M/uL (4.63-6.08); White Blood Count 8.32 K/ul (4.8-10.8)
[2022-02-10] MEDS: ASPIRIN 81 MG CHEW PO SCH (09:00)
[2022-02-10] MEDS: ROSUVASTATIN CALCIUM 20 MG TAB PO SCH (09:00)
[2022-02-10] MEDS: AMIODARONE 200 MG TAB PO SCH ×2 (09:00→18:21)
[2022-02-10] MEDS: INSULIN ASPART PER UNIT SC SCH ×4 (09:03→20:44)
[2022-02-10] MEDS ORDERED: METOPROLOL TARTRATE 25 MG TAB PO STA (09:41)
--- NOTE | 2022-02-10 10:13 | Cardiology Progress Note ---
Date of Service February 10, 2022 Assessment & Plan (1) Syncope: (2) Ventricular tachycardia: (3) Cardiomyopathy: (4) PVC (premature ventricular contraction): (5) Atrial fibrillation with RVR: (6) Noncompliance: (7) CAD (coronary artery disease): Plan Cardiac catheterization revealing moderate nonobstructive coronary disease with elevated left ventricular end-diastolic pressure. Creatinine trending up slightly today. Edema unchanged. No diuretic therapy today. Repeat basic metabolic panel in a.m. Restart metoprolol tartrate 25 mg twice daily. Continue amiodarone 200 mg twice daily. N.p.o. except medications after midnight in anticipation of dual-chamber ICD implantation in a.m. Restart oral anticoagulation post ICD implantation. Admission and Anticipated Discharge Date Admission Date: February 08, 2022 Subjective Patient seen and examined at the bedside. Feeling well this morning. Denies chest pain or palpitations. No recurrent lightheadedness or dizziness. Telemetry reveals sinus rhythm with frequent PVCs, ventricular couplets and triplets. Short burst of nonsustained ventricular tachycardia recorded overnight without associated symptoms. Review of Systems Review of Systems: All systems reviewed & are unremarkable except as noted in Subjective Physical Exam ENMT: Mallampati Class: III Respiratory: normal respiratory effort; no respiratory distress and no labored breathing Auscultation: + wheezes Cardiovascular: Rate/Rhythm: regular rate and regular rhythm Heart Sounds: normal S1 and normal S2 Vessels: no JVD Gastrointestinal (Abdomen): Inspection/Auscultation: abdomen normal to inspection and normal bowel sounds; abdomen not distended Percussion/Palpation: abdomen soft; abdomen nontender, no guarding and abdomen not rigid Neurologic: CN's II-XI intact bilaterally and moves all extremities; no focal motor deficits Results & Data ([facility]) Vital Signs (Past 12 Hours) Vital Signs Temp Pulse Pulse Resp BP Pulse Ox O2 Del Method 02/10/22 07:46 36.5 C 73 18 126/63 93 Nasal Cannula 02/10/22 06:36 72 02/10/22 03:52 36.9 C 56 L 20 126/75 95 Nasal Cannula 02/10/22 00:23 36.8 C 66 18 129/67 96 Nasal Cannula O2 Flow Rate 02/10/22 07:46 1 02/10/22 06:36 02/10/22 03:52 1.0 02/10/22 00:23 1.0
--- NOTE | 2022-02-10 13:12 | Hospitalist Progress Note ---
Date of Service February 10, 2022 Assessment & Plan (1) Syncope: Plan: Recurrent syncope likely secondary to ventricular tachycardia H/O NSVT, P.Afib H/O medication noncompliance S/P Cardioversion on the field S/P Cardiac Cath on 02/09/22: Moderate nonobstructive coronary disease. --CT Head:No acute intracranial abnormality or calvarial fracture. --CT Neck:here is no evidence of fracture or subluxation involving the cervical spine. Osteopenia and spondylotic change --EEG was normal during wakefulness and drowsiness. No focal abnormalities, potentially epileptogenic discharges, or abnormal slow activity was seen. --ECHO: EF 30 to 35%. Moderate to severe global hypokinesis of left ventricle. Mild mitral regurgitation. Mild tricuspid regurgitation. Estimated systolic pulmonary pressure is 48 mmHg. Dilated inferior vena cava with reduced collapsibility with sniff indicates an elevated right atrial pressure of 15 mmHg --Carotid USD:There is no sonographic evidence of hemodynamically significant stenosis in the right or left carotid arterial system. Antegrade flow is shown in the vertebral arteries. --Normal Orthostatics --Mild rise in troponin likely demand ischemia due to VT and Cardioversion --Continue amiodarone, metoprolol Appreciate cardiology input- s/p iv amio and now changed to po amiodarone - Plan for ICD placement tomorrow noted. NPO after midnight - Plan to resume anticoag after ICD placement HUONG on CKD3a- Baseline Cr 1.2-1.3. Cr trended up, after dye load yesterday. Cr 1.7->1.6->1.6->1.8. Recheck in am. Avoid nephrotoxics. Enterococcal UTI- Will start on ampicillin and change to macrobid at discharge, rivka with plan for ICD implantation. H/O CVA/PVD- resumed on ASA, crestor. Non compliant as OP Hyperlipidemia- on statin COPD- No exacerbation DM II A1C:5.7 currently Diet controlled Insulin per Protocol while hospitalized BPH/bladder cancer S/P surgery Ongoing tobacco abuse [place] to quit smoking Hypoxia secondary to pulmonary Vascular Congestion Supplemental oxygen as needed Monitor volume status closely May need 2 step prior to DC Diuretics when HUONG improves DVT Px: SCDs for now Dispo- Plan for ICD tomorrow. Admission and Anticipated Discharge Date Admission Date: February 08, 2022 Subjective He feels good. Denies any ongoing issues. No fever, chills, chest pain, shortness of breath, N/V. States he is going to have ICD tomorrow and hoping to get discharged on Tuesday. Physical Exam Physical Exam: General:Sitting comfortably in bed, not in distress, on NC HEENT: EOMI, PERRL, MMM, right periorbital ecchymoses Chest: Clear breath sounds bilaterally, no wheezes or crackles CVS: Regular rate and rhythm, normal heart sounds, no murmur Abdomen: Soft, non tender, not distended, normal bowel sounds Neuro: Awake, alert, oriented, conversing well, non focal Extremities: Chronic LE edema LLE>RLE Results & Data Results & Data ([facility]) Vital Signs (Past 12 Hours) Vital Signs Temp Pulse Pulse Resp BP Pulse Ox O2 Del Method 02/10/22 12:23 73 02/10/22 12:23 Nasal Cannula 02/10/22 11:22 36.4 C L 69 18 136/80 96 Nasal Cannula 02/10/22 07:46 36.5 C 73 18 126/63 93 Nasal Cannula 02/10/22 06:36 72 02/10/22 03:52 36.9 C 56 L 20 126/75 95 Nasal Cannula O2 Flow Rate 02/10/22 12:23 02/10/22 12:23 2 02/10/22 11:22 2 02/10/22 07:46 1 02/10/22 06:36 02/10/22 03:52 1.0 Laboratory Results Short CBC 02/10/22 Range/Units 06:29 WBC 8.32 (4.8-10.8) K/ul Hgb 12.2 L (14.0-18.0) g/dl Hct 39.6 L (40.1-51.0) % Plt Count 144 (130-400) K/uL BMP 02/10/22 06:29 Sodium 137 Potassium 4.1 Chloride 105 Carbon Dioxide 29 BUN 25 H Creatinine 1.81 H Glucose 132 H Calcium 8.5 Medications Administered Current Inpatient Medications Acetaminophen (Acetaminophen 325 Mg Tab) 650 mg PO Q4H PRN PRN Reason: Pain or Fever Stop: 03/10/22 05:10 Albuterol (Albut/Ipratrop 3mg/0.5mg Neb 3 Ml Vial) 3 ml NEB QIDR PRN; Protocol PRN Reason: Wheezing Stop: 03/11/22 06:59 Amiodarone HCl (Amiodarone 200 Mg Tab) 200 mg PO BIDM KRISTY Stop: 03/11/22 16:59 Last Admin: 02/10/22 09:00 Dose: 200 mg Aspirin (Aspirin 81 Mg Chew) 81 mg PO DAILY KRISTY Stop: 03/11/22 13:44 Last Admin: 02/10/22 09:00 Dose: 81 mg Dextrose (Dextrose 50% 50 Ml Syringe) 25 - 50 ml IV UD PRN; Protocol PRN Reason: Hypoglycemia Protocol Stop: 03/10/22 05:10 Glucagon (Glucagon For Inj 1 Mg Vial) 1 mg SQ UD PRN; Protocol PRN Reason: Hypoglycemia Protocol Stop: 03/10/22 05:10 Glucose (Glucose 40% Gel 15 Gm Tube) 15 - 30 gm PO UD PRN; Protocol PRN Reason: Hypoglycemia Protocol Stop: 03/10/22 05:10 Glucose (Glucose 10 Tab/Tube) 4 - 8 tab PO UD PRN; Protocol PRN Reason: Hypoglycemia Treatment Stop: 03/10/22 05:10 Promethazine HCl 12.5 mg/ (Sodium Chloride) 50.5 mls @ 202 mls/hr IV Q6H PRN PRN Reason: Nausea And Vomiting Stop: 03/10/22 05:10 Ampicillin Sodium 1,000 mg/ (Sodium Chloride) 50 mls @ 100 mls/hr IV Q8H KRISTY; Protocol Stop: 02/15/22 12:59 Insulin Aspart (Insulin Aspart Per Unit) 0 units SC ACHS [facility] Stop: 03/10/22 05:10 Last Admin: 02/10/22 12:43 Dose: Not Given Ipratropium [place] (Ipratropium [place] Neb Soln 0.02% 2.5 Ml Vial) 0.5 mg INH Q4H PRN PRN Reason: SOB/Wheezing Stop: 03/10/22 04:44 Last Admin: 02/09/22 04:44 Dose: 0.5 mg Levalbuterol HCl (Levalbuterol 1.25mg/0.5ml Neb) 1.25 mg INH Q4H PRN PRN Reason: SOB/Wheezing Stop: 03/10/22 04:44 Metoprolol Tartrate (Metoprolol Tartrate 25 Mg Tab) 25 mg PO BID [facility] Stop: 03/10/22 08:59 Last Admin: 02/09/22 08:09 Dose: 25 mg Miscellaneous (Carbohydrates For Hypoglycemia ) 15 - 30 gm PO UD PRN PRN Reason: Hypoglycemia Protocol Stop: 03/10/22 05:10 Oxycodone HCl (Oxycodone Hcl Ir 5 Mg Tab (Immediate Release)) 5 mg PO Q4H PRN PRN Reason: Pain Stop: 02/22/22 05:10 Rosuvastatin Calcium (Rosuvastatin Calcium 20 Mg Tab) 20 mg PO QAM [facility] Stop: 03/10/22 08:59 Last Admin: 02/10/22 09:00 Dose: 20 mg
[2022-02-10] MEDS: AMPICILLIN 1,000 MG in SODIUM CHLOR 0.9% AD-VAN 50 ML IV SCH ×2 (14:00→20:43)
[2022-02-10] MEDS: METOPROLOL TARTRATE 25 MG TAB PO SCH (20:44)
[2022-02-11 05:08] LABS: Mean Corpuscular Hemoglobin 30.7 pg (25.0-34.0); Mean Corpuscular Volume 99.1 fL (80.0-100.0); Platelet Count 144 K/uL (130-400); RDW Coefficient of Variation 15.5 % (11.5-14.5); RDW Standard Deviation 57.3 fL (36.4-46.3); Red Blood Count 4.24 M/uL (4.63-6.08); White Blood Count 8.67 K/ul (4.8-10.8)
[2022-02-11 05:36] LABS: Creatinine Clr Calc Pharmacy 37.3 ml/min; Est GFR (African American) 46.4 ml/min; Est GFR (Non-African American) 40.1 ml/min; Potassium 4.5 mmol/L (3.5-5.1)
[2022-02-11] MEDS: AMPICILLIN 1,000 MG in SODIUM CHLOR 0.9% AD-VAN 50 ML IV SCH ×3 (05:55→20:07)
[2022-02-11] MEDS: INSULIN ASPART PER UNIT SC SCH ×4 (08:33→20:07)
[2022-02-11] MEDS ORDERED: LIDOCAINE 1% LOCAL 20 ML VIAL ONE (08:46)
[2022-02-11] MEDS ORDERED: VANCOMYCIN HCL 1000MG/20ML VIAL ONE (08:46)
[2022-02-11] MEDS ORDERED: WATER, STERILE FOR INJ 10 ML VIAL ONE (08:46)
[2022-02-11] MEDS ORDERED: BUPIVACAINE 0.25% 30 ML VIAL ONE (08:47)
[2022-02-11] MEDS ORDERED: MIDAZOLAM HCL 5 MG/ML 1 ML VIAL ONE (09:11)
[2022-02-11] MEDS ORDERED: ceFAZolin 330 MG/ML 1 GM VIAL ONE (09:12)
[2022-02-11] MEDS ORDERED: fentaNYL citrate 100 MCG/2 ML VIAL ONE (09:12)
--- NOTE | 2022-02-11 09:17 | Pre Anesthesia Assessment ---
Date of Service February 11, 2022 Pre Sedation Assessment Vital Signs Temp Pulse Pulse Resp BP Pulse Ox O2 Del Method 02/11/22 08:46 77 18 132/70 93 Nasal Cannula 02/11/22 08:02 36.9 C 68 18 103/56 L 96 Nasal Cannula 02/10/22 22:18 78 02/11/22 04:18 36.6 C 71 20 128/60 92 Nasal Cannula 02/10/22 23:44 36.6 C 76 20 132/63 96 Nasal Cannula 02/10/22 22:44 Nasal Cannula 02/10/22 20:43 58 L 02/10/22 20:07 36.7 C 62 18 106/59 L 94 Nasal Cannula 02/10/22 14:56 36.7 C 53 L 18 124/61 95 Nasal Cannula 02/10/22 12:23 73 02/10/22 12:23 Nasal Cannula 02/10/22 11:22 36.4 C L 69 18 136/80 96 Nasal Cannula O2 Flow Rate 02/11/22 08:46 2 02/11/22 08:02 1 02/10/22 22:18 02/11/22 04:18 1.0 02/10/22 23:44 1.0 02/10/22 22:44 3 02/10/22 20:43 02/10/22 20:07 02/10/22 14:56 1 02/10/22 12:23 02/10/22 12:23 2 02/10/22 11:22 2 Cardiovascular + regular rate Respiratory + respiratory effort normal Pre-Sedation Airway Assessment Smoking Status: Current every day smoker Hx Sleep Apnea: No Hx Difficult Intubation: No Short, Thick Neck: Yes Thyromental Distance: > or= 3.5 Finger Breadths Oral Cavity: + WNL Mallampati Class: III ASA: ASA3 NPO Status Date of Last Intake of Fluids: 02/10/22 Date of Last Intake of Solid Food: 02/10/22 Procedure Planning Contraindications for Sedation: none Current Medications Reviewed: Yes Notes The planned sedation has been discussed with the patient. Informed Consent was obtained. I have identified the patient, determined the appropriateness of sedation and have assessed the patient immediately prior to the procedure. All medicine(s) and interventions are by my order.
[2022-02-11] MEDS ORDERED: NALOXONE HCL 0.4 MG/1 ML VIAL/CARP ONE (09:31)
[2022-02-11] MEDS ORDERED: oxyCODONE HCL IR 5 MG TAB (IMMEDIATE RELEASE) PO PRN (10:19)
--- NOTE | 2022-02-11 10:19 | Electrophysiology Report ---
Date of Service February 11, 2022 Electrophysiology Procedure Electrophysiology Procedure Report Procedure performed: Implantation of dual-chamber ICD Staff import/export administrator: Diego Freeman MD Indication: The patient is a 81-year-old gentleman admitted to the hospital with an episode of sustained VT requiring cardioversion. He was also noted to have a nonischemic cardiomyopathy. Based on his presentation he was felt to be a good candidate for an ICD as secondary prevention against sudden cardiac . Dual-chamber device was selected as he is currently bradycardic and will require atrial rate support on medical therapy. Procedure in detail: The patient was informed of the risks benefits and alternatives to the intended procedure and she wished to proceed. He was taken to the electrophysiology suite in a fasting state. A preoperative antibiotic had been administered. The patient was monitored electrocardiographically throughout today's procedure and conscious sedation was administered per protocol. The left upper pectoral area is prepped and draped in usual sterile fashion. This area was anesthetized using subcutaneous administration of a xylocaine solution. An incision was made at this site and carried down to the prepectoralis fascia using sharp dissection. Electrocautery was also employed for dissection as well as for hemostasis. A device pocket was fashioned tissues above the pectoralis muscle. Subsequent to this maneuver the left axillary vein was accessed using modified Seldinger technique. Sheaths were placed over guidewires at this site and used to facilitate passage of the pacing leads to the respective chambers under fluoroscopic guidance. This included right atrial and right ventricular leads. Adequate sensing and threshold parameters were obtained prior to Active fixation of the leads to the endocardial surface. The proximal portion leads were then sutured the prepectoral fascia using nonabsorbable suture. The device pocket was irrigated with antibiotic solution. The leads were then attached to the device. The device and leads were then placed in the pocket and pocket was closed in 3 layers of absorbable suture. Steri-Strips and sterile dressing were applied. The device was tested noninvasively prior to conclusion the procedure. The patient tolerated procedure well there no immediate complications. Equipment used: New pulse generator: Telemetry Monitor [employer]. Model number: [id number] serial number [id number] Right atrial lead: Telemetry Monitor Medtronic. Model number: [id number] serial number [id number] Right ventricular lead: Telemetry Monitor Medtronic. Model number: 6935M serial number [id number] Measured data: Right atrial lead: P waves measure 3.2 mV. Pacing threshold was 0.6 V at 0.5 ms with a pacing impedance of 592 ohms Right ventricular lead: R waves measured 7.2 mV. Pacing threshold was 0.8 V at 0.5 ms with a pacing impedance of 676 ohms Impression: Successful implantation of dual-chamber ICD MN[facility] Electrophysiology codes ICD Procedure 1: ICD: 46018 Insert single or dual ICD system PG Moderate Sedation Codes Moderate Sedation Codes Procedure 1: Sedation/Anesthesia: 18549 Mod Sedation by the same physician;Init15 Min Child Age 5 & Up Procedure 2: Sedation/Anesthesia: 08072 Mod Sedation by the same physician; Ea [id number] Minutes
--- NOTE | 2022-02-11 10:19 | Post Anesthesia Assessment ---
Date of Service February 11, 2022 Post Sedation Assessment Vital Signs Temp Pulse Pulse Resp BP Pulse Ox O2 Del Method 02/11/22 08:46 77 18 132/70 93 Nasal Cannula 02/11/22 08:02 36.9 C 68 18 103/56 L 96 Nasal Cannula 02/10/22 22:18 78 02/11/22 04:18 36.6 C 71 20 128/60 92 Nasal Cannula 02/10/22 23:44 36.6 C 76 20 132/63 96 Nasal Cannula 02/10/22 22:44 Nasal Cannula 02/10/22 20:43 58 L 02/10/22 20:07 36.7 C 62 18 106/59 L 94 Nasal Cannula 02/10/22 14:56 36.7 C 53 L 18 124/61 95 Nasal Cannula 02/10/22 12:23 73 02/10/22 12:23 Nasal Cannula 02/10/22 11:22 36.4 C L 69 18 136/80 96 Nasal Cannula O2 Flow Rate 02/11/22 08:46 2 02/11/22 08:02 1 02/10/22 22:18 02/11/22 04:18 1.0 02/10/22 23:44 1.0 02/10/22 22:44 3 02/10/22 20:43 02/10/22 20:07 02/10/22 14:56 1 02/10/22 12:23 02/10/22 12:23 2 02/10/22 11:22 2 Recovery Score Activity: Moves 4 extremities Respiration: Deep Breath/Cough Circulation: +/-20% PreAnes Value Consciousness: Fully Awake Oxygen Saturation: O2 needed for >90% Post Anesthesia Score: 9 Discharge Sedation Level of Care: Fast Track Phase II Post Sedation Plan On clinical assessment, the patient appears to have tolerated the sedation without complications. Patient is recovering as anticipated. Patient will continue to be monitored by nursing and may be discharged when sedation discharge criteria are met per below protocol. Upon Completions of procedure up to 15 minutes continue every 5 minute vital signs and the P.A.R. score; then discharge to a Phase I or Fast Track to Phase II per the following guidelines: * Discharge Patient to appropriate Phase II area if PAR is 8 or greater or retu rn to pre- procedure baseline. The post - procedure orders will be as directed. * If PAR score is less than 8 or not return to pre-procedure baseline then patient will follow Phase I monitoring till PAR is reached for Phase II. The Phase I may be done in procedure room or may call to secure a Phase I area. * If naloxone or flumazenil are used for reversal, hold in Phase I for continued monitoring from when last reversal dose was given for a minimum of 60 minutes or longer pending the nurse and/or physician discretion of patient condition before discharge to Phase II. Please call the Sedation Physician to re-evaluate and complete post-note for discharge to Phase II area. Do NOT discharge from procedure sedation or Phase 1 until post- sedation evaluation note is complete by procedure /sedation MD Sedation Discharge Instructions to be given to the patient at discharge to home.
[2022-02-11] MEDS: ASPIRIN 81 MG CHEW PO SCH (11:13)
[2022-02-11] MEDS: ROSUVASTATIN CALCIUM 20 MG TAB PO SCH (11:13)
[2022-02-11] MEDS: METOPROLOL TARTRATE 25 MG TAB PO SCH ×2 (11:14→20:07)
[2022-02-11] MEDS: AMIODARONE 200 MG TAB PO SCH ×2 (11:14→17:51)
--- NOTE | 2022-02-11 11:47 | Cardiology Progress Note ---
Date of Service February 11, 2022 Assessment & Plan (1) Syncope: (2) Ventricular tachycardia: (3) Cardiomyopathy: (4) PVC (premature ventricular contraction): (5) Atrial fibrillation with RVR: (6) Noncompliance: (7) CAD (coronary artery disease): Plan 81-year-old patient with nonischemic cardiomyopathy, recurrent syncope secondary to ventricular dysrhythmia, nonobstructive coronary disease per recent cardiac catheterization, history of paroxysmal atrial fibrillation. Patient recovering well post ICD implantation this morning. Anticoagulation on hold since admission. He will receive his dose of amiodarone and metoprolol now. Will delay restarting anticoagulation 48 hours post device implantation per electrophysiology recommendations. I will discuss restarting reduced dose Eliquis versus transition to warfarin due to renal dysfunction with patient prior to discharge. Tentative plan for discharge tomorrow 02/12/2022. Admission and Anticipated Discharge Date Admission Date: February 08, 2022 Subjective Patient seen examined the bedside post ICD implantation. Feeling well today. Telemetry reveals isolated 7 beat run of nonsustained ventricular tachycardia yesterday metoprolol held prior to procedure due to bradycardia and borderline hypotension. No chest discomfort, orthopnea, or PND. Lower extremity edema improved. Review of Systems Review of Systems: All systems reviewed & are unremarkable except as noted in Subjective Physical Exam ENMT: Mallampati Class: III Respiratory: normal respiratory effort; no respiratory distress and no labored breathing Auscultation: + wheezes Cardiovascular: Rate/Rhythm: regular rate and regular rhythm Heart Sounds: normal S1 and normal S2 Vessels: no JVD Gastrointestinal (Abdomen): Inspection/Auscultation: abdomen normal to inspection and normal bowel sounds; abdomen not distended Percussion/Palpation: abdomen soft; abdomen nontender, no guarding and abdomen not rigid Neurologic: CN's II-XI intact bilaterally and moves all extremities; no focal motor deficits Results & Data ([facility]) Vital Signs (Past 12 Hours) Vital Signs Temp Pulse Resp BP Pulse Ox O2 Del Method O2 Flow Rate 02/11/22 11:19 67 17 148/78 H 97 Nasal Cannula 4 02/11/22 11:05 36.4 C L 78 18 152/68 H 98 Nasal Cannula 4 02/11/22 10:35 57 L 14 130/75 97 Room Air 02/11/22 10:30 57 L 14 138/72 97 Room Air 02/11/22 10:21 57 L 16 152/71 H 98 Room Air 02/11/22 08:46 77 18 132/70 93 Nasal Cannula 2 02/11/22 08:02 36.9 C 68 18 103/56 L 96 Nasal Cannula 1 02/11/22 04:18 36.6 C 71 20 128/60 92 Nasal Cannula 1.0
--- NOTE | 2022-02-11 13:49 | Hospitalist Progress Note ---
Date of Service February 11, 2022 Assessment & Plan (1) Syncope: Plan: Recurrent syncope likely secondary to ventricular tachycardia PAF Non ischemic cardiomyopathy H/O medication noncompliance - S/P Cardioversion on the field - S/P Cardiac Cath on 02/09/22: Moderate nonobstructive coronary disease. --CT Head:No acute intracranial abnormality or calvarial fracture. --CT Neck:here is no evidence of fracture or subluxation involving the cervical spine. Osteopenia and spondylotic change --EEG was normal during wakefulness and drowsiness. No focal abnormalities, potentially epileptogenic discharges, or abnormal slow activity was seen. --ECHO: EF 30 to 35%. Moderate to severe global hypokinesis of left ventricle. Mild mitral regurgitation. Mild tricuspid regurgitation. Estimated systolic pulmonary pressure is 48 mmHg. Dilated inferior vena cava with reduced collapsibility with sniff indicates an elevated right atrial pressure of 15 mmHg --Carotid USD:There is no sonographic evidence of hemodynamically significant stenosis in the right or left carotid arterial system. Antegrade flow is shown in the vertebral arteries. --Normal Orthostatics --Mild rise in troponin likely demand ischemia due to VT and Cardioversion --Continue amiodarone, metoprolol Appreciate cardiology input- s/p iv amio and now changed to po amiodarone - S/p ICD placement today- interrogation tomorrow - Wait for 48 hrs post ICD for resuming anticoag per cardio HUONG on CKD3a- Baseline Cr 1.2-1.3. Cr relatively stable now. Cr 1.7->1.6->1.6->1.8->1.6. Recheck in am. Avoid nephrotoxics. Enterococcal UTI- On ampicillin D2 and change to macrobid at discharge H/O CVA/PVD- resumed on ASA, crestor. Non compliant as OP Hyperlipidemia- on statin COPD- mild exacerbation. Will consider steroids if worsen. Will monitor for now. 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 Anticoag on hold d/t ICD Dispo- Per cardio. ICD interrogation tomorrow. Will need 2 step O2 eval prior to dc. Admission and Anticipated Discharge Date Admission Date: February 08, 2022 Subjective Feels good. Denies any pain. Denies any SOB. No new issues. States he has been here too long and would like to go home tomorrow. Physical Exam Physical Exam: General:Sitting comfortably in bed, not in distress, on NC HEENT: EOMI, PERRL, MMM, right periorbital ecchymoses Chest: Clear breath sounds bilaterally, some wheeze and basilar crackles CVS: Regular rate and rhythm, normal heart sounds, no murmur Abdomen: Soft, non tender, not distended, normal bowel sounds Neuro: Awake, alert, oriented, conversing well, non focal Extremities: Chronic LE edema LLE>RLE Results & Data Results & Data ([facility]) Vital Signs (Past 12 Hours) Vital Signs Temp Pulse Resp BP Pulse Ox O2 Del Method O2 Flow Rate 02/11/22 13:00 60 19 120/52 L 95 Nasal Cannula 2 02/11/22 12:30 62 18 142/88 H 94 Nasal Cannula 2 02/11/22 12:04 62 17 137/82 95 Nasal Cannula 2 02/11/22 11:34 36.3 C L 62 17 154/71 H 100 Nasal Cannula 4 02/11/22 11:19 67 17 148/78 H 97 Nasal Cannula 4 02/11/22 11:05 36.4 C L 78 18 152/68 H 98 Nasal Cannula 4 02/11/22 10:35 57 L 14 130/75 97 Room Air 02/11/22 10:30 57 L 14 138/72 97 Room Air 02/11/22 10:21 57 L 16 152/71 H 98 Room Air 02/11/22 08:46 77 18 132/70 93 Nasal Cannula 2 02/11/22 08:02 36.9 C 68 18 103/56 L 96 Nasal Cannula 1 02/11/22 04:18 36.6 C 71 20 128/60 92 Nasal Cannula 1.0 Laboratory Results Short CBC 02/11/22 Range/Units 04:53 WBC 8.67 (4.8-10.8) K/ul Hgb 13.0 L (14.0-18.0) g/dl Hct 42.0 (40.1-51.0) % Plt Count 144 (130-400) K/uL BMP 02/11/22 04:53 Sodium 138 Potassium 4.5 Chloride 107 Carbon Dioxide 26 BUN 29 H Creatinine 1.61 H Glucose 103 H Calcium 9.0 Medications Administered Current Inpatient Medications Acetaminophen (Acetaminophen 325 Mg Tab) 650 mg PO Q4H PRN PRN Reason: Pain or Fever Stop: 03/10/22 05:10 Albuterol (Albut/Ipratrop 3mg/0.5mg Neb 3 Ml Vial) 3 ml NEB QIDR PRN; Protocol PRN Reason: Wheezing Stop: 03/11/22 06:59 Amiodarone HCl (Amiodarone 200 Mg Tab) 200 mg PO BIDM KRISTY Stop: 03/11/22 16:59 Last Admin: 02/11/22 11:14 Dose: 200 mg Aspirin (Aspirin 81 Mg Chew) 81 mg PO DAILY KRISTY Stop: 03/11/22 13:44 Last Admin: 02/11/22 11:13 Dose: 81 mg Dextrose (Dextrose 50% 50 Ml Syringe) 25 - 50 ml IV UD PRN; Protocol PRN Reason: Hypoglycemia Protocol Stop: 03/10/22 05:10 Glucagon (Glucagon For Inj 1 Mg Vial) 1 mg SQ UD PRN; Protocol PRN Reason: Hypoglycemia Protocol Stop: 03/10/22 05:10 Glucose (Glucose 40% Gel 15 Gm Tube) 15 - 30 gm PO UD PRN; Protocol PRN Reason: Hypoglycemia Protocol Stop: 03/10/22 05:10 Glucose (Glucose 10 Tab/Tube) 4 - 8 tab PO UD PRN; Protocol PRN Reason: Hypoglycemia Treatment Stop: 03/10/22 05:10 Promethazine HCl 12.5 mg/ (Sodium Chloride) 50.5 mls @ 202 mls/hr IV Q6H PRN PRN Reason: Nausea And Vomiting Stop: 03/10/22 05:10 Ampicillin Sodium 1,000 mg/ (Sodium Chloride) 50 mls @ 100 mls/hr IV Q8H KRISTY; Protocol Stop: 02/15/22 12:59 Last Admin: 02/11/22 13:10 Dose: 100 mls/hr Cefazolin Sodium (Ancef 1000mg) 1,000 mg in 7.5 mls @ 2.5 mls/min IV Q8H KRISTY; Protocol Stop: 02/12/22 01:32 Insulin Aspart (Insulin Aspart Per Unit) 0 units SC ACHS KRISTY Stop: 03/10/22 05:10 Last Admin: 02/11/22 12:58 Dose: Not Given Ipratropium Lane (Ipratropium Lane Neb Soln 0.02% 2.5 Ml Vial) 0.5 mg INH Q4H PRN PRN Reason: SOB/Wheezing Stop: 03/10/22 04:44 Last Admin: 02/09/22 04:44 Dose: 0.5 mg Levalbuterol HCl (Levalbuterol 1.25mg/0.5ml Neb) 1.25 mg INH Q4H PRN PRN Reason: SOB/Wheezing Stop: 03/10/22 04:44 Metoprolol Tartrate (Metoprolol Tartrate 25 Mg Tab) 25 mg PO BID [facility] Stop: 03/10/22 08:59 Last Admin: 02/11/22 11:14 Dose: 25 mg Miscellaneous (Carbohydrates For Hypoglycemia ) 15 - 30 gm PO UD PRN PRN Reason: Hypoglycemia Protocol Stop: 03/10/22 05:10 Oxycodone HCl (Oxycodone Hcl Ir 5 Mg Tab (Immediate Release)) 5 mg PO Q6H PRN PRN Reason: Pain Stop: 02/25/22 10:18 Rosuvastatin Calcium (Rosuvastatin Calcium 20 Mg Tab) 20 mg PO QAM [facility] Stop: 03/10/22 08:59 Last Admin: 02/11/22 11:13 Dose: 20 mg
[2022-02-11] MEDS: ceFAZolin 1000MG 1,000 MG/7.5 ML SYR IV SCH (18:32)
[2022-02-12] MEDS: ceFAZolin 1000MG 1,000 MG/7.5 ML SYR IV SCH (01:21)
[2022-02-12 04:38] LABS: BUN Creatinine Ratio 18.4 (10-20); Calcium 8.8 mg/dl (8.5-10.1); Creatinine Clr Calc Pharmacy 38.7 ml/min; Est GFR (African American) 47.5 ml/min; Magnesium 1.9 mg/dl (1.7-2.4); Potassium 4.6 mmol/L (3.5-5.1)
[2022-02-12] MEDS: AMPICILLIN 1,000 MG in SODIUM CHLOR 0.9% AD-VAN 50 ML IV SCH ×3 (04:52→19:43)
[2022-02-12] MEDS: ACETAMINOPHEN 325 MG TAB PO PRN (06:42)
--- NOTE | 2022-02-12 06:57 | XRay Report ---
XR chest 2V PA/lateral HISTORY: 81 years-old Male EXACT TIME ORDERED Evaluate for pneumothorax and l status post placement of a left subclavian pacer/AICD COMPARISON: Chest radiograph 02/08/2022 TECHNIQUE: PA and lateral views of the chest FINDINGS: Cardiac silhouette is enlarged. Small right pleural effusion with right basilar consolidation, progre ssively worsened from prior. Probable trace left pleural effusion. No overt pulmonary edema. Status p ost placement of a left subclavian pacer/AICD. No postprocedural pneumothorax identified. IMPRESSION: 1. Status post placement of a left subclavian pacer/AICD. No postprocedural pneumothorax. 2. Small right pleural effusion with right basilar consolidation. ACT 112: Negative or not required by law. The above report was generated using voice recognition software. It may contain grammatical, syntax o r spelling errors. Electronically signed by: Flavio Niño M.D. 02/12/2022 6:54 AM
[2022-02-12] MEDS: AMIODARONE 200 MG TAB PO SCH ×2 (07:49→17:46)
[2022-02-12] MEDS: INSULIN ASPART PER UNIT SC SCH ×4 (08:28→20:11)
[2022-02-12] MEDS: METOPROLOL TARTRATE 25 MG TAB PO SCH ×2 (08:33→19:52)
[2022-02-12] MEDS: ASPIRIN 81 MG CHEW PO SCH (08:33)
[2022-02-12] MEDS: ROSUVASTATIN CALCIUM 20 MG TAB PO SCH (08:33)
--- NOTE | 2022-02-12 09:40 | Communication Note ---
Date of Service: February 12, 2022 Denied any significant discomfort at the device implant site. The wound appeared to be healing well. Some ecchymosis but no hematoma or drainage. No erythema. Device interrogation revealed normal function of the atrial and ventricular leads. Chest x-ray demonstrated stable lead position without evidence of pneumothorax Device therapy has been programmed fairly aggressively given his history of ventricular tachycardia and amiodarone use. from a device standpoint he would be ready for discharge. He should refrain from lifting left arm above the shoulder behind the neck for 6 weeks He should keep his wound dry in the [employer] intact for 5-7 days at which point he should be evaluated in the clinic. With respect to anticoagulation I think would be safe to initiate anticoagulation if desired on TuesdayFebruary 14 or later.
--- NOTE | 2022-02-12 13:43 | Cardiology Progress Note ---
Date of Service February 12, 2022 Assessment & Plan (1) Syncope: (2) Ventricular tachycardia: (3) ICD (implantable cardioverter-defibrillator), dual, in situ: (4) Cardiomyopathy: (5) PVC (premature ventricular contraction): (6) Atrial fibrillation with RVR: (7) Noncompliance: (8) CAD (coronary artery disease): Plan 81-year-old patient with nonischemic cardiomyopathy, recurrent syncope secondary to ventricular dysrhythmia, nonobstructive coronary disease per recent cardiac catheterization, history of paroxysmal atrial fibrillation. Remains in sinus rhythm since admission with anticoagulation on hold. Restart Eliquis, 2.5 mg twice daily on 02/14/2022. Continue metoprolol, amiodarone, aspirin, and rosuvastatin as previously ordered. ICD wound check in 1 week. Outpatient cardiology follow-up in 2 weeks. Admission and Anticipated Discharge Date Admission Date: February 08, 2022 Subjective Patient seen and examined at the bedside. Anxious for discharge. Denies chest pain or shortness of breath. Lower extremity edema unchanged. No orthopnea or PND. Dual-chamber ICD implanted 02/11/2022 without complication. Anticoagulation remains on hold. Review of Systems Review of Systems: All systems reviewed & are unremarkable except as noted in Subjective Physical Exam ENMT: Mallampati Class: III Respiratory: normal respiratory effort; no respiratory distress and no labored breathing Auscultation: + wheezes Cardiovascular: Rate/Rhythm: regular rate and regular rhythm Heart Sounds: normal S1 and normal S2 Vessels: no JVD Extremities: + edema (Mild, 1+ bilateral pretibial edema.) Gastrointestinal (Abdomen): Inspection/Auscultation: abdomen normal to inspection and normal bowel sounds; abdomen not distended Percussion/Palpation: abdomen soft; abdomen nontender, no guarding and abdomen not rigid Neurologic: CN's II-XI intact bilaterally and moves all extremities; no focal motor deficits Results & Data ([facility]) Vital Signs (Past 12 Hours) Vital Signs Temp Pulse Pulse Resp BP BP Pulse Ox 02/12/22 12:37 62 20 135/68 02/12/22 11:32 36.3 C L 69 20 152/72 H 140/82 92 02/12/22 09:45 02/12/22 07:48 36.3 C L 69 20 152/72 H 92 02/12/22 07:42 74 02/12/22 03:26 36.6 C 60 24 115/64 91 O2 Del Method 02/12/22 12:37 02/12/22 11:32 02/12/22 09:45 Room Air 02/12/22 07:48 Room Air 02/12/22 07:42 02/12/22 03:26 Room Air
--- NOTE | 2022-02-12 15:49 | Hospitalist Progress Note ---
Date of Service February 12, 2022 Assessment & Plan (1) Syncope: Plan: Recurrent syncope likely secondary to ventricular tachycardia PAF Non ischemic cardiomyopathy Moderate non obstructive CAD H/O medication noncompliance - S/P Cardioversion on the field - S/P Cardiac Cath on 02/09/22: Moderate nonobstructive coronary disease. --CT Head:No acute intracranial abnormality or calvarial fracture. --CT Neck:here is no evidence of fracture or subluxation involving the cervical spine. Osteopenia and spondylotic change --EEG was normal during wakefulness and drowsiness. No focal abnormalities, potentially epileptogenic discharges, or abnormal slow activity was seen. --ECHO: EF 30 to 35%. Moderate to severe global hypokinesis of left ventricle. Mild mitral regurgitation. Mild tricuspid regurgitation. Estimated systolic pulmonary pressure is 48 mmHg. Dilated inferior vena cava with reduced collapsibility with sniff indicates an elevated right atrial pressure of 15 mmHg --Carotid USD:There is no sonographic evidence of hemodynamically significant stenosis in the right or left carotid arterial system. Antegrade flow is shown in the vertebral arteries. --Normal Orthostatics --Mild rise in troponin likely demand ischemia due to VT and Cardioversion --Continue amiodarone, metoprolol. - S/p ICD placement today- interrogation done today- working appropriately - Wait for 48 hrs post ICD for resuming anticoag per cardio. Ok to resume on 02/14 but at lower dose of 2.5 mg bid - F/u for wound check in 1 week and cardio follow up in 2 weeks - Likely will need to start on GDMT- cardio on board HUONG on CKD3a- Baseline Cr 1.2-1.3. Cr relatively stable now. Cr 1.7->1.6->1.6->1.8->1.6->1.58. Recheck in am. Avoid nephrotoxics. Enterococcal UTI- On ampicillin D3 and change to macrobid at discharge H/O CVA/PVD- resumed on ASA, crestor. Non compliant as OP Hyperlipidemia- on statin COPD- mild exacerbation. Will consider steroids if worsen. Will monitor for now. DM II- A1C:5.7 currently;Diet controlled; Insulin per Protocol while hospitalized BPH/bladder cancer S/P surgery Ongoing tobacco abuse- Counselled to quit smoking. he says he will cut it down Hypoxia- resolved. saturating well in room air. no dyspnea. Multiple falls, weakness- 2 falls today. PT eval pending. DVT Px: SCDs for now. resume eliquis 2.5 bid from 02/14 Dispo- Pending PT/OT eval. Might need rehab. Admission and Anticipated Discharge Date Admission Date: February 08, 2022 Subjective He felt good and was anxious and adamant to go home this morning. He has been in room air since last night and denies any SOB. He was reported to be ambulating in the room earlier today. He then fell down while trying to pickle cutter the discharge paper and hit his head but this was unwitnessed and no LOC. Also had left upper extremity pain. recommended CT head and PT eval due to the nature of the fall but he adamantly declined and opted to leave AMA as he was craving for smoking. While he was trying to get into the car, he reportedly had another fall but was caught by the nurse and he fell on his left knee with some abrasion and he was brought back. He denies any pain in his left knee and has full ROM. He states he was able to smoke 1 cigarette and has nicotine in his system. He is no w willing to stay and get imaging and have PT eval. He states he feels weak in his legs and willing to go have home PT or go to the rehab if needed. Informed CM. Physical Exam Physical Exam: General:Lying comfortably in bed, not in distress, on room air HEENT: EOMI, PERRL, MMM, right periorbital ecchymoses Chest: left upper chest dressing clean dry intact. Clear breath sounds bilaterally, minimal expiratory wheezes CVS: Regular rate and rhythm, normal heart sounds, no murmur Abdomen: Soft, non tender, not distended, normal bowel sounds Neuro: Awake, alert, oriented, conversing well, non focal Extremities: Chronic LE edema LLE>RLE Results & Data Results & Data ([facility]) Vital Signs (Past 12 Hours) Vital Signs Temp Pulse Pulse Resp BP BP Pulse Ox 02/12/22 12:37 62 20 135/68 02/12/22 11:32 36.3 C L 69 20 152/72 H 140/82 92 02/12/22 09:45 02/12/22 07:48 36.3 C L 69 20 152/72 H 92 08/19/22 07:42 74 O2 Del Method 02/12/22 12:37 02/12/22 11:32 02/12/22 09:45 Room Air 02/12/22 07:48 Room Air 02/12/22 07:42 Laboratory Results [facility] 02/12/22 03:51 Sodium 134 L Potassium 4.6 Chloride 103 Carbon Dioxide 24 BUN 29 H Creatinine 1.58 H Glucose 110 H Calcium 8.8 Diagnostic Findings Chest X-Ray 02/12/22 07:00 XR chest 2V PA/lateral HISTORY: 81 years-old Male EXACT TIME ORDERED Evaluate for pneumothorax and l status post placement of a left subclavian pacer/AICD COMPARISON: Chest radiograph 02/08/2022 TECHNIQUE: PA and lateral views of the chest FINDINGS: Cardiac silhouette is enlarged. Small right pleural effusion with right basilar consolidation, progressively worsened from prior. Probable trace left pleural effusion. No overt pulmonary edema. Status post placement of a left subclavian pacer/AICD. No postprocedural pneumothorax identified. IMPRESSION: 1. Status post placement of a left subclavian pacer/AICD. No postprocedural pneumothorax. 2. Small right pleural effusion with right basilar consolidation. ACT 112: Negative or not required by law. The above report was generated using voice recognition software. It may contain grammatical, syntax or spelling errors. Electronically signed by: Flavio Niño M.D. 02/12/2022 6:54 AM Medications Administered Current Inpatient Medications Acetaminophen (Acetaminophen 325 Mg Tab) 650 mg PO Q4H PRN PRN Reason: Pain or Fever Stop: 03/10/22 05:10 Last Admin: 02/12/22 06:42 Dose: 650 mg Albuterol (Albut/Ipratrop 3mg/0.5mg Neb 3 Ml Vial) 3 ml NEB QIDR PRN; Protocol PRN Reason: Wheezing Stop: 03/11/22 06:59 Amiodarone HCl (Amiodarone 200 Mg Tab) 200 mg PO BIDM [facility] Stop: 03/11/22 16:59 Last Admin: 02/12/22 07:49 Dose: 200 mg Aspirin (Aspirin 81 Mg Chew) 81 mg PO DAILY KRISTY Stop: 03/11/22 13:44 Last Admin: 02/12/22 08:33 Dose: 81 mg Dextrose (Dextrose 50% 50 Ml Syringe) 25 - 50 ml IV UD PRN; Protocol PRN Reason: Hypoglycemia Protocol Stop: 03/10/22 05:10 Glucagon (Glucagon For Inj 1 Mg Vial) 1 mg SQ UD PRN; Protocol PRN Reason: Hypoglycemia Protocol Stop: 03/10/22 05:10 Glucose (Glucose 40% Gel 15 Gm Tube) 15 - 30 gm PO UD PRN; Protocol PRN Reason: Hypoglycemia Protocol Stop: 03/10/22 05:10 Glucose (Glucose 10 Tab/Tube) 4 - 8 tab PO UD PRN; Protocol PRN Reason: Hypoglycemia Treatment Stop: 03/10/22 05:10 Promethazine HCl 12.5 mg/ (Sodium Chloride) 50.5 mls @ 202 mls/hr IV Q6H PRN PRN Reason: Nausea And Vomiting Stop: 03/10/22 05:10 Ampicillin Sodium 1,000 mg/ (Sodium Chloride) 50 mls @ 100 mls/hr IV Q8H KRISTY; Protocol Stop: 02/15/22 12:59 Last Admin: 02/12/22 14:31 Dose: 100 mls/hr Insulin Aspart (Insulin Aspart Per Unit) 0 units SC ACHS KRISTY Stop: 03/10/22 05:10 Last Admin: 02/12/22 12:09 Dose: Not Given Ipratropium [place] (Ipratropium [place] Neb Soln 0.02% 2.5 Ml Vial) 0.5 mg INH Q4H PRN PRN Reason: SOB/Wheezing Stop: 03/10/22 04:44 Last Admin: 02/09/22 04:44 Dose: 0.5 mg Levalbuterol HCl (Levalbuterol 1.25mg/0.5ml Neb) 1.25 mg INH Q4H PRN PRN Reason: SOB/Wheezing Stop: 03/10/22 04:44 Metoprolol Tartrate (Metoprolol Tartrate 25 Mg Tab) 25 mg PO BID KRISTY Stop: 03/10/22 08:59 Last Admin: 02/12/22 08:33 Dose: 25 mg Miscellaneous (Carbohydrates For Hypoglycemia ) 15 - 30 gm PO UD PRN PRN Reason: Hypoglycemia Protocol Stop: 03/10/22 05:10 Oxycodone HCl (Oxycodone Hcl Ir 5 Mg Tab (Immediate Release)) 5 mg PO Q6H PRN PRN Reason: Pain Stop: 02/25/22 10:18 Last Admin: 02/12/22 01:24 Dose: 5 mg Rosuvastatin Calcium (Rosuvastatin Calcium 20 Mg Tab) 20 mg PO [facility] Stop: 03/10/22 08:59 Last Admin: 02/12/22 08:33 Dose: 20 mg
--- NOTE | 2022-02-12 15:54 | XRay Report ---
XR chest 2V PA/lateral HISTORY: 81 years-old Male fall acute chest trauma status post fall COMPARISON: Chest and shoulder radiographs of same day TECHNIQUE: AP view of the chest FINDINGS: Cardiac silhouette is enlarged. Left subclavian pacer/ICD. No pneumothorax. Small right and trace lef t pleural effusions with persistent right lung base opacities, mildly improved. Pulmonary vascular co ngestion. Degenerative changes of the shoulders and spine. Limited lateral view secondary to position ing. IMPRESSION: 1. Limited exam secondary to positioning. 2. Cardiomegaly with pulmonary vascular congestion. 3. Trace left and small right pleural effusions with mildly improved right basilar consolidation. 3. No acute rib fracture or pneumothorax identified. ACT 112: Negative or not required by law. The above report was generated using voice recognition software. It may contain grammatical, syntax o r spelling errors. Electronically signed by: Flavio Niño M.D. 02/12/2022 3:53 PM
--- NOTE | 2022-02-12 16:03 | CT Scan Report ---
HEAD CT NONCONTRAST CT DOSE: 614.27 mGy.cm HISTORY: fall TECHNIQUE: Multiaxial CT images of the head were performed without the use of intravenous contrast. A utomated exposure control was utilized for this study. A dose lowering technique was utilized adheri ng to the principles of ALARA. Comparison: Head CT 02/08/2022. Findings: The paranasal sinuses and mastoid air cells are clear. The calvarium and skull base are int act. There is no mass, hematoma, midline shift, acute infarct. White matter hypodensity is nonspecifi c but suggestive of microvascular ischemic change. The ventricles and sulci are within normal limits for age. Chronic nasal bone deformities again noted. Mild motion artifact. Mild left lateral scalp sw elling. There is an old small infarct within the right high convexity. This remains unchanged. Impression: No significant change compared to the prior study. No acute intracranial abnormality. ACT 112: Negative or not required by law. Electronically signed by: Yohannes Metz M.D. 02/12/2022 4:01 PM
--- NOTE | 2022-02-12 16:09 | XRay Report ---
XR shoulder LT min 2V routine HISTORY: 81 years-old Male fall acute left shoulder pain status post fall COMPARISON: Chest radiograph 6 same day TECHNIQUE: 2 views of the left shoulder FINDINGS: Left subclavian pacer. Demineralized appearance of the bones. Moderate AC joint with mild glenohumera l osteoarthritis. No acute fracture, dislocation or unexpected opaque foreign body. Carotid calcifica tions. IMPRESSION: No acute fracture or dislocation. ACT 112: Negative or not required by law. The above report was generated using voice recognition software. It may contain grammatical, syntax o r spelling errors. Electronically signed by: Flavio Niño M.D. 02/12/2022 4:07 PM
[2022-02-13] MEDS: AMPICILLIN 1,000 MG in SODIUM CHLOR 0.9% AD-VAN 50 ML IV SCH ×3 (03:54→19:36)
[2022-02-13 07:18] LABS: Hematocrit (blood only) 43.4 % (40.1-51.0); Hemoglobin 13.9 g/dl (14.0-18.0); Mean Corpuscular Hemoglobin 31.3 pg (25.0-34.0); Mean Corpuscular Volume 97.7 fL (80.0-100.0); Mean Platelet Volume 11.1 fL (9.4-12.4); Platelet Count 113 K/uL (130-400); RDW Coefficient of Variation 15.6 % (11.5-14.5); Red Blood Count 4.44 M/uL (4.63-6.08); White Blood Count 5.18 K/ul (4.8-10.8)
[2022-02-13 07:21] LABS: BUN Creatinine Ratio 16.4 (10-20); Calcium 9.1 mg/dl (8.5-10.1); Creatinine Clr Calc Pharmacy 42.1 ml/min; Est GFR (African American) 52.3 ml/min; Est GFR (Non-African American) 45.1 ml/min; Magnesium 1.9 mg/dl (1.7-2.4)
[2022-02-13] MEDS: AMIODARONE 200 MG TAB PO SCH ×2 (08:39→18:39)
[2022-02-13] MEDS: ROSUVASTATIN CALCIUM 20 MG TAB PO SCH (08:40)
[2022-02-13] MEDS: ASPIRIN 81 MG CHEW PO SCH (08:40)
[2022-02-13] MEDS: METOPROLOL TARTRATE 25 MG TAB PO SCH ×2 (08:40→19:36)
[2022-02-13] MEDS: INSULIN ASPART PER UNIT SC SCH ×4 (09:04→20:09)
--- NOTE | 2022-02-13 16:37 | Hospitalist Progress Note ---
Date of Service February 13, 2022 Assessment & Plan (1) Syncope: (2) Ventricular tachycardia: (3) Atrial fibrillation with RVR: (4) ICD (implantable cardioverter-defibrillator), dual, in situ: (5) UTI (urinary tract infection): Plan 1) Recurrent syncope likely secondary to ventricular tachycardia s/p ICD placement on 02/11. 2) Paroxysmal A.fib 3) Non- ischemic CMP 4) Left arm weakness H/O medication noncompliance - S/P Cardioversion on the field - S/P Cardiac Cath on 02/09/22: Moderate nonobstructive coronary disease. --CT Head:No acute intracranial abnormality or calvarial fracture. --CT Neck:here is no evidence of fracture or subluxation involving the cervical spine. Osteopenia and spondylotic change --EEG was normal during wakefulness and drowsiness. No focal abnormalities, potentially epileptogenic discharges, or abnormal slow activity was seen. --ECHO: EF 30 to 35%. Moderate to severe global hypokinesis of left ventricle. Mild mitral regurgitation. Mild tricuspid regurgitation. Estimated systolic pulmonary pressure is 48 mmHg. Dilated inferior vena cava with reduced collapsibility with sniff indicates an elevated right atrial pressure of 15 mmHg --Carotid USD:There is no sonographic evidence of hemodynamically significant stenosis in the right or left carotid arterial system. Antegrade flow is shown in the vertebral arteries. --Normal Orthostatics --Mild rise in troponin likely demand ischemia due to VT and Cardioversion Plan: - Obtain MRI brain without contrast for further left hand weakness to rule out stroke. Patient had CT head yesterday which did not show any acute abnormality. MRI to be on hold until Tuesday due to implanted cardiac defibrillator which would require monitoring by [employer] rep. Will consult neurology. Continue on aspirin and statin. Will obtain MRI brain and resume anticoagulation. --Continue amiodarone, metoprolol. - S/p ICD placement on 02/11 - interrogationed- working appropriately - Wait for 48 hrs post ICD for resuming anticoag per cardio. Ok to resume on 02/14 but at lower dose of 2.5 mg bid - F/u for wound check in 1 week and cardio follow up in 2 weeks - Likely will need to start on GDMT- cardio on board 5) HUONG on CKD3a- Baseline Cr 1.2-1.3. Cr relatively stable now. Cr 1.7->1.6->1.6->1.8->1.6->1.58. Recheck in am. Avoid nephrotoxics. 6) Enterococcal UTI- On ampicillin D3 and change to macrobid at discharge H/O CVA/PVD- resumed on ASA, crestor. Non compliant as OP Hyperlipidemia- on statin COPD- mild exacerbation. Will consider steroids if worsen. Will monitor for now. DM II- A1C:5.7 currently;Diet controlled; Insulin per Protocol while hospitalized BPH/bladder cancer S/P surgery Ongoing tobacco abuse- Counselled to quit smoking. he says he will cut it down Hypoxia- resolved. saturating well in room air. no dyspnea. Multiple falls, weakness- 2 falls today. PT eval pending. DVT Px: SCDs for now. resume eliquis 2.5 bid from 02/14 Dispo- Pending PT/OT eval. Might need rehab. Admission and Anticipated Discharge Date Admission Date: February 08, 2022 Subjective Patient seen and examined at bedside. He is lying in the bed comfortably. On review of systems, patient states that his left hand is weaker than previously. He says that he had weakness since a month ago but it has gotten weaker since he has been in the hospital. He denies any fever, chest pain, shortness of breath, abdominal pain or urinary symptoms. Review of Systems Review of Systems: All systems reviewed & are unremarkable except as noted in Subjective Physical Exam Physical Exam: General:Lying comfortably in bed, not in distress, on room air HEENT: EOMI, PERRL, MMM, right periorbital ecchymoses Chest: left upper chest dressing clean dry intact. Clear breath sounds bilaterally, minimal expiratory wheezes CVS: Regular rate and rhythm, normal heart sounds, no murmur Abdomen: Soft, non tender, not distended, normal bowel sounds Neuro: Awake, alert, oriented x3. Left arm Strength -1/5, left leg- 4/5, right arm and leg- 5/5. Sensation intact throughout Extremities: Chronic LE edema LLE>RLE Results & Data Results & Data ([facility]) Vital Signs (Past 12 Hours) Vital Signs Temp Pulse Pulse Resp BP BP Pulse Ox 02/13/22 15:39 36.7 C 60 20 118/76 93 02/13/22 15:25 61 02/13/22 12:03 36.8 C 67 20 101/70 92 02/13/22 10:24 02/13/22 09:13 74 02/13/22 08:07 37.1 C 73 22 116/71 95 O2 Del Method 02/13/22 15:39 Room Air 02/13/22 15:25 02/13/22 12:03 Room Air 02/13/22 10:24 Room Air 02/13/22 09:13 02/13/22 08:07 Room Air COVID-19 Results Results COVID-19 Adm Lab Results: RBC 4.44 M/uL (4.63-6.08) L 02/13/22 WBC 5.18 K/ul (4.8-10.8) 02/13/22 Hgb 13.9 g/dl (14.0-18.0) L 02/13/22 Hct 43.4 % (40.1-51.0) 02/13/22 Plt Count 113 K/uL (130-400) L 02/13/22 Neutrophils (%) (Auto) 68.1 % 02/09/22 Lymphocytes (%) (Auto) 18.5 % 02/09/22 Monocytes # (Auto) 1.05 K/uL (0.24-0.82) H 02/09/22 Eosinophils # (Auto) 0.09 K/uL (0-0.50) 02/09/22 Immature Granulocyte % (Auto) 0.3 % 02/09/22 Neutrophils # (Auto) 6.36 K/uL (1.4-6.5) 02/09/22 Lymphocytes # (Auto) 1.72 K/uL (1.2-3.4) 02/09/22 Monocytes # (Auto) 1.05 K/uL (0.24-0.82) H 02/09/22 Eosinophils # (Auto) 0.09 K/uL (0-0.50) 02/09/22 Basophils # (Auto) 0.07 K/uL (0-0.2) 02/09/22 Immature Granulocyte # (Auto) 0.03 K/uL (0.00-0.02) H 02/09 Na 137 mmol/L (136-145) 02/13/22 K 4.0 mmol/L (3.5-5.1) 02/13/22 Cl 101 mmol/L (98-107) 02/13/22 CO2 27 mmol/L (21-32) 02/13/22 Anion Gap 9 (3-11) 02/13/22 BUN 24 mg/dl (6-23) H 02/13/22 Creatinine 1.46 mg/dl (0.6-1.4) H 02/13/22 BUN/Creatinine Ratio 16.4 (10-20) 02/13/22 Glucose Level 86 mg/dl (70-99(Fasting)) 02/13/22 Ca 9.1 mg/dl (8.5-10.1) 02/13/22 Total Bilirubin 0.9 mg/dl (0.2-1.0) 02/08/22 AST/SGOT 13 U/L (13-39) 02/08/22 ALT/SGPT 6 U/L (7-52) L 02/08/22 Alkaline Phosphatase 124 U/L (34-104) H 02/08/22 Total Protein 7.1 gm/dl (6.0-8.3) 02/08/22 Albumin 3.6 gm/dl (3.4-5.0) 02/08/22 Globulin 3.5 gm/dl (2.5-4.0) 02/08/22 Albumin/Globulin Ratio 1.0 (0.9-2) 02/08/22 Total CK 30 U/L (30-223) 02/08/22 INR 1.1 (0.9-1.1) 02/08/22 SARS-CoV-2, RNA, NAAT NEGATIVE (NEGATIVE) 02/08/22 Chest X-Ray 02/12/22
--- NOTE | 2022-02-13 20:15 | Neurology Consultation ---
Date of Consultation February 13, 2022 Assessment & Plan (1) Left arm weakness: Impression: The patient reports having gradually worsening left arm weakness which started 2 months ago. He has significant stroke risk factors including atrial fibrillation. However, recent head CT was negative for cerebrovascular accident. Peripheral etiology including brachial plexopathy, cervical spondylosis with multiple radiculopathies are in differential. Plan: I agree with brain MRI without contrast to investigate for cerebrovascular accident. If MRI does not show pathology to explain the patient's left arm weakness, and the patient will need EMG and nerve conduction study to assess for plexopathy, radiculopathy and neuropathy. Physical therapy. Keep the patient on anticoagulation and antilipid treatment for stroke prevention. He is also on aspirin for cardiac indication. Consider placement. We will see the patient again after completing brain MRI. (2) Atrial fibrillation with RVR: Impression: The patient will be restarted on anticoagulation. Plan: The patient has high CHADS2 score and should be treated on anticoagulation for stroke prevention. (3) Syncope: Impression: The patient has been having recurrent syncopal episodes. The most likely underlying cause is cardiac dysrhythmia. Plan: Cardiology is on board. (4) ICD (implantable cardioverter-defibrillator), dual, in situ: Plan Thank you for the consultation. History of Present Illness Reason for Consultation: Left arm weakness Requesting Physician: Marques Martinez MD Attending Physician: Marques Martinez MD History of Present Illness The patient is a 81-year-old gentleman, with recurrent syncopal episodes, most likely ventricular dysrhythmia, who was admitted for ICD placement. He also has cardiomyopathy and atrial fibrillation, who has been kept on antiplatelet and anticoagulation treatment. The patient reports that he has been having left arm weakness for last 2 months. Weakness started gradually. He is a poor historian but denies any arm pain. He also denies any trauma but in few occasions he fell on left arm while having syncope. He denies any enfolded related arm weakness. Head CT was done, which did not show intracranial pathology to explain the patient's arm weakness. He has no arm numbness but proximally, he feels some change of sensation. He also has left lower extremity swelling with ankle weakness. He denies having stroke symptoms in the past. Brain MRI is scheduled to rule out cerebrovascular accident. I have reviewed the patient's chart including imaging studies and visualized them personally. I have discussed the case with the patient and answered his questions in detail. Allergies Allergy/AdvReac Type Severity Reaction Status Date / Time No Known Allergies Allergy Mild NONE Verified 09/15/20 09:46 Home Medications Medication Instructions Recorded Confirmed Type amiodarone 200 mg tablet 200 mg PO BIDM #60 tabs 02/12/22 Rx apixaban 2.5 mg tablet (Eliquis) 2.5 mg PO BID #60 tabs 02/12/22 Rx aspirin 81 mg chewable tablet 81 mg PO DAILY #30 tabs 02/12/22 Rx (Children's Aspirin) metoprolol tartrate 25 mg tablet 25 mg PO BID #30 tabs 02/12/22 Rx nitrofurantoin 100 mg PO BID 5 days #10 caps 02/12/22 Rx monohydrate/macrocrystals 100 mg capsule (Macrobid) rosuvastatin 20 mg tablet (Crestor) 20 mg PO QAM #30 tabs 02/12/22 Rx Patient History Medical History Bladder cancer Hypertension Social History Smoking Status: Current every day smoker Tobacco Type: Cigarettes Age Started Using Tobacco: 10; packs per day: 1.5; Second Hand Exposure: No; Hx Alcohol Use: No Hx Substance Use: No Preferred Language: Venezuelan Communication Ability: Effective Director E Learning Required: No Beliefs That Will Affect Care: None Current Living Situation: Alone Feels Safe at Home: Yes Assistive Devices: Walker Review of Systems Review of Systems: All systems reviewed & are unremarkable except as noted in HPI & below Physical Exam Physical Exam: General Examination: Constitutional: Well developed disheveled person in no acute distress. HENT: Normal exam with inspection. CV: Irregular Neck: Supple, no carotid bruits. Lungs: Non-labored and comfortable breathing but with bibasilar crackles and some wheezing Abdomen: Soft, non-tender, non-distended. Skin: No rash or ecchymosis but bruises in extremities. Extremities: Left lower extremity distal edema NEUROLOGICAL EXAMINATION: Mental Status: Alert and oriented to place, person and time. Cranial Nerves: II-XII are intact grossly. No nystagmus. Funduscopy: Unable to visualize Motor: Right arm 5/5, left arm 3-/5 distally and proximally. Right leg is 5-/5, left leg 4+/5 distally and 5-/5 proximally Tone: Normal without spasticity or rigidity. Sensory: Decreased sensation in feet. Left arm proximal sensory impairment without radicular dermatomal distribution. Coordination: No dysmetria with right FTN testing. Speech: Fluent. Comprehension is intact. Gait: Unable to assess DTRs: 1+ in all extremities. No babinsky Results & Data ([facility]) Vital Signs (Past 12 Hours) Vital Signs Temp Pulse Pulse Resp BP BP Pulse Ox 02/13/22 19:00 37.1 C 53 L 17 157/84 H 97 02/13/22 15:39 36.7 C 60 20 118/76 93 02/13/22 15:25 61 02/13/22 12:03 36.8 C 67 20 101/70 92 02/13/22 10:24 02/13/22 09:13 74 02/13/22 08:07 37.1 C 73 22 116/71 95 O2 Del Method 02/13/22 19:00 Room Air 02/13/22 15:39 Room Air 02/13/22 15:25 02/13/22 12:03 Room Air 02/13/22 10:24 Room Air 02/13/22 09:13 02/13/22 08:07 Room Air Laboratory Results Laboratory Results - last 24 hr 02/12/22 02/13/22 02/13/22 20:10 05:33 05:33 WBC 5.18 RBC 4.44 L Hgb 13.9 L Hct 43.4 MCV 97.7 MCH 31.3 MCHC 32.0 RDW Std Deviation 56.0 H RDW Coeff of Chela 15.6 H Plt Count 113 L MPV 11.1 Sodium 137 Potassium 4.0 Chloride 101 Carbon Dioxide 27 Anion Gap 9 BUN 24 H Creatinine 1.46 H Est Cr Clr Drug Dosing 42.1 Est GFR ( Amer) 52.3 Est GFR (Non-Af Amer) 45.1 BUN/Creatinine Ratio 16.4 Glucose 86 POC Glucose 118 H Calcium 9.1 Magnesium 1.9 02/13/22 02/13/22 02/13/22 07:32 12:00 16:51 WBC RBC Hgb Hct MCV MCH MCHC RDW Std Deviation RDW Coeff of Chela Plt Count MPV Sodium Potassium Chloride Carbon Dioxide Anion Gap BUN Creatinine Est Cr Clr Drug Dosing Est GFR ( Amer) Est GFR (Non-Af Amer) BUN/Creatinine Ratio Glucose POC Glucose 101 H 122 H 112 H Calcium Magnesium 02/13/22 20:05 WBC RBC Hgb Hct MCV MCH MCHC RDW Std Deviation RDW Coeff of Chela Plt Count MPV Sodium Potassium Chloride Carbon Dioxide Anion Gap BUN Creatinine Est Cr Clr Drug Dosing Est GFR ( Amer) Est GFR (Non-Af Amer) BUN/Creatinine Ratio Glucose POC Glucose 120 H Calcium Magnesium Diagnostic Findings Chest X-Ray 02/12/22 07:00 XR chest 2V PA/lateral HISTORY: 81 years-old Male EXACT TIME ORDERED Evaluate for pneumothorax and l status post placement of a left subclavian pacer/AICD COMPARISON: Chest radiograph 02/08/2022 TECHNIQUE: PA and lateral views of the chest FINDINGS: Cardiac silhouette is enlarged. Small right pleural effusion with right basilar consolidation, progressively worsened from prior. Probable trace left pleural effusion. No overt pulmonary edema. Status post placement of a left subclavian pacer/AICD. No postprocedural pneumothorax identified. IMPRESSION: 1. Status post placement of a left subclavian pacer/AICD. No postprocedural pneumothorax. 2. Small right pleural effusion with right basilar consolidation. ACT 112: Negative or not required by law. The above report was generated using voice recognition software. It may contain grammatical, syntax or spelling errors. Electronically signed by: Flavio Niño M.D. 02/12/2022 6:54 AM Chest X-Ray 02/12/22 14:05 XR chest 2V PA/lateral HISTORY: 81 years-old Male fall acute chest trauma status post fall COMPARISON: Chest and shoulder radiographs of same day TECHNIQUE: AP view of the chest FINDINGS: Cardiac silhouette is enlarged. Left subclavian pacer/ICD. No pneumothorax. Small right and trace left pleural effusions with persistent right lung base opacities, mildly improved. Pulmonary vascular congestion. Degenerative changes of the shoulders and spine. Limited lateral view secondary to positioning. IMPRESSION: 1. Limited exam secondary to positioning. 2. Cardiomegaly with pulmonary vascular congestion. 3. Trace left and small right pleural effusions with mildly improved right basilar consolidation. 3. No acute rib fracture or pneumothorax identified. ACT 112: Negative or not required by law. The above report was generated using voice recognition software. It may contain grammatical, syntax or spelling errors. Electronically signed by: Flavio Niño M.D. 02/12/2022 3:53 PM Shoulder X-Ray 02/12/22 14:05 XR shoulder LT min 2V routine HISTORY: 81 years-old Male fall acute left shoulder pain status post fall COMPARISON: Chest radiograph 6 same day TECHNIQUE: 2 views of the left shoulder FINDINGS: Left subclavian pacer. Demineralized appearance of the bones. Moderate AC joint with mild glenohumeral osteoarthritis. No acute fracture, dislocation or unexpected opaque foreign body. Carotid calcifications. IMPRESSION: No acute fracture or dislocation. ACT 112: Negative or not required by law. The above report was generated using voice recognition software. It may contain grammatical, syntax or spelling errors. Electronically signed by: Flavio Niño M.D. 02/12/2022 4:[address] 02/12/22 14:[address] DOSE: 614.27 mGy.cm HISTORY: fall TECHNIQUE: Multiaxial CT images of the head were performed without the use of intravenous contrast. Automated exposure control was utilized for this study. A dose lowering technique was utilized adhering to the principles of ALARA. Comparison: Head CT 02/08/2022. Findings: The paranasal sinuses and mastoid air cells are clear. The calvarium and skull base are intact. There is no mass, hematoma, midline shift, acute infarct. White matter hypodensity is nonspecific but suggestive of microvascular ischemic change. The ventricles and sulci are within normal limits for age. Chronic nasal bone deformities again noted. Mild motion artifact. Mild left lateral scalp swelling. There is an old small infarct within the right high convexity. This remains unchanged. Impression: No significant change compared to the prior study. No acute intracranial abnormality. ACT 112: Negative or not required by law. Electronically signed by: Yohannes Metz M.D. 02/12/2022 4:01 PM
[2022-02-14] MEDS ORDERED: ALBUT/IPRATROP 3MG/0.5MG NEB 3 ML VIAL NEB STA (03:05)
[2022-02-14] MEDS ORDERED: FUROSEMIDE 40 MG/4 ML VIAL IV ONE (03:05)
[2022-02-14] MEDS ORDERED: FUROSEMIDE INJ 20 MG/2 ML VIAL IV ONE (03:07)
[2022-02-14] MEDS ORDERED: POTASSIUM CHLORIDE 20 MEQ/15 ML UDC PO STA (03:08)
[2022-02-14] MEDS: AMPICILLIN 1,000 MG in SODIUM CHLOR 0.9% AD-VAN 50 ML IV SCH ×3 (04:18→20:57)
--- NOTE | 2022-02-14 08:09 | XRay Report ---
XR chest 1V portable HISTORY: Coughing. hypoxia COMPARISON: Chest 02/12/2022. FINDINGS: No pneumothorax. There is left-sided dual-chamber pacemaker/defibrillator. The heart remain s mildly enlarged. There is diffuse interstitial/vascular thickening with small bilateral pleural eff usions. This favors pulmonary edema. Right basilar densities persist. IMPRESSION: 1. No change in the pulmonary edema and small bilateral pleural effusions. 2. Right patchy basilar densities also persist. ACT 112: Negative or not required by law. Electronically signed by: Yohannes Metz M.D. 02/14/2022 8:08 AM
[2022-02-14] MEDS: INSULIN ASPART PER UNIT SC SCH ×4 (08:25→20:56)
[2022-02-14] MEDS: AMIODARONE 200 MG TAB PO SCH ×2 (08:27→17:39)
[2022-02-14] MEDS: METOPROLOL TARTRATE 25 MG TAB PO SCH ×2 (08:27→20:57)
[2022-02-14] MEDS: ROSUVASTATIN CALCIUM 20 MG TAB PO SCH (08:27)
[2022-02-14] MEDS: ASPIRIN 81 MG CHEW PO SCH (08:27)
--- NOTE | 2022-02-14 08:48 | XRay Report ---
XR chest 1V portable HISTORY: Increase oxygen requirement COMPARISON: Chest 02/14/2022. FINDINGS: No pneumothorax. The heart remains enlarged. Moderate pulmonary edema, trace bilateral pleu ral effusions, and patchy bibasilar densities have slightly progressed. There is a left-sided pacemak er. IMPRESSION: Slight progression of the moderate pulmonary edema, trace bilateral pleural effusions, and patchy bib asilar densities. ACT 112: Negative or not required by law. Electronically signed by: Yohannes Metz M.D. 02/14/2022 8:47 AM
[2022-02-14 09:22] LABS: BUN Creatinine Ratio 12.6 (10-20); Calcium 8.9 mg/dl (8.5-10.1); Est GFR (African American) 42.3 ml/min; Est GFR (Non-African American) 36.5 ml/min; Magnesium 1.8 mg/dl (1.7-2.4); Potassium 3.9 mmol/L (3.5-5.1)
[2022-02-14 09:40] LABS: Basophils # (auto) 0.05 K/uL (0-0.2); Basophils % (auto) 0.8 %; Hematocrit (blood only) 43.3 % (40.1-51.0); Hemoglobin 13.7 g/dl (14.0-18.0); Immature Granulocytes # (auto) 0.04 K/uL (0.00-0.02); Immature Granulocytes % (auto) 0.6 %; Lymphocytes # (auto) 1.43 K/uL (1.2-3.4); Mean Corpuscular Hemoglobin 30.9 pg (25.0-34.0); Mean Corpuscular Hgb Conc 31.6 g/dL (32.0-36.0); Mean Corpuscular Volume 97.7 fL (80.0-100.0); Mean Platelet Volume 10.8 fL (9.4-12.4); Monocytes # (auto) 1.34 K/uL (0.24-0.82); Monocytes % (auto) 21.6 %; Neutrophils # (auto) 3.35 K/uL (1.4-6.5); Platelet Count 111 K/uL (130-400); Platelet Estimate Decreased (Normal); RDW Coefficient of Variation 15.3 % (11.5-14.5); RDW Standard Deviation 54.8 fL (36.4-46.3); Red Blood Count 4.43 M/uL (4.63-6.08); White Blood Count 6.21 K/ul (4.8-10.8)
--- NOTE | 2022-02-14 15:32 | Hospitalist Progress Note ---
Date of Service February 14, 2022 Assessment & Plan (1) Syncope: (2) Ventricular tachycardia: (3) Atrial fibrillation with RVR: (4) ICD (implantable cardioverter-defibrillator), dual, in situ: (5) UTI (urinary tract infection): Plan Patient is a 81-year-old male with multiple comorbid condition presented to the ED after episode of ventricular tachycardia requiring cardioversion in the field. In the hospitalization, patient was evaluated by cardiology service. He underwent cardiac cath in 02/09 which showed moderate nonobstructive coronary artery disease. Echo was suggestive for heart failure with reduced ejection fraction. He underwent pacemaker placement on 02/11. Patient signed out AMA on 02/12. He had a fall on his knees as he was getting in the car in the parking lot. He was admitted again and was evaluated with head CT which was unremarkable. He reported increase in his left arm weakness which has been going on for last [address] head was unremarkable for acute abnormality. Neurology service was consulted; recommend nonemergent MRI brain without contrast. 1) Recurrent syncope likely secondary to ventricular tachycardia s/p ICD placement on 02/11. 2) Paroxysmal A.fib 3) Non- ischemic CMP 4) Left arm weakness 5) Acute hypoxic respiratory failure 2/2 CHFrEF excerebation H/O medication noncompliance - S/P Cardioversion on the field - S/P Cardiac Cath on 02/09/22: Moderate nonobstructive coronary disease. --CT Head:No acute intracranial abnormality or calvarial fracture. --CT Neck:here is no evidence of fracture or subluxation involving the cervical spine. Osteopenia and spondylotic change --EEG was normal during wakefulness and drowsiness. No focal abnormalities, potentially epileptogenic discharges, or abnormal slow activity was seen. --ECHO: EF 30 to 35%. Moderate to severe global hypokinesis of left ventricle. Mild mitral regurgitation. Mild tricuspid regurgitation. Estimated systolic pulmonary pressure is 48 mmHg. Dilated inferior vena cava with reduced valentina apsibility with sniff indicates an elevated right atrial pressure of 15 mmHg --Carotid USD:There is no sonographic evidence of hemodynamically significant stenosis in the right or left carotid arterial system. Antegrade flow is shown in the vertebral arteries. --Normal Orthostatics --Mild rise in troponin likely demand ischemia due to VT and Cardioversion Plan: -Patient is started on IV Lasix 40 mg once daily, strict SIOBHAN's and daily weights for pulmonary edema. He is also started on scheduled nebulizer treatment every 6 hours. -MRI brain without contrast can be done not emergently as per neurology service. Recommended follow-up in neurology clinic. Patient is unable to go MRI brain without contrast for next 6 weeks as he had ICD placed recently. -Started on Eliquis 2.5 mg twice daily as per cardiology recommendation. Continue on amiodarone and metoprolol. Will need wound check in 1 week and follow-up with cardiology in 2 weeks. 5) HUONG on CKD3a- Baseline Cr 1.2-1.3. Cr relatively stable now. 6) Enterococcal UTI- s/p 5 days of ampicillin H/O CVA/PVD- resumed on ASA, crestor. Non compliant as OP Hyperlipidemia- on statin COPD- on duonebs scheduled DM II- A1C:5.7 currently;Diet controlled; Insulin per Protocol while hospitalized BPH/bladder cancer S/P surgery Ongoing tobacco abuse- Counselled to quit smoking. he says he will cut it down Multiple falls, weakness- 2 falls today. PT eval pending. DVT Px: eliquis Dispo- Pending PT/OT eval. will need rehab Admission and Anticipated Discharge Date Admission Date: February 08, 2022 Subjective Overnight, patient desaturated and was put on 3 L of nasal cannula. Chest x-ray pulmonary edema He feels that his weakness has improved on his left head and is able to move it. Review of Systems Review of Systems: All systems reviewed & are unremarkable except as noted in Subjective Physical Exam Physical Exam: General:Lying comfortably in bed, not in distress, on room air HEENT: EOMI, PERRL, MMM, right periorbital ecchymoses Chest: Bilateral basal crackles along with wheezes present. CVS: Regular rate and rhythm, normal heart sounds, no murmur Abdomen: Soft, non tender, not distended, normal bowel sounds Neuro: Awake, alert, oriented x3. Left arm Strength -3/5, left leg- 4/5, right arm and leg- 5/5. Sensation intact throughout Extremities: Chronic LE edema LLE>RLE Results & Data Results & Data ([facility]) Vital Signs (Past 12 Hours) Vital Signs Temp Pulse Resp BP Pulse Ox O2 Del Method O2 Flow Rate 02/14/22 12:05 36.5 C 64 18 133/75 97 Nasal Cannula 3 02/14/22 08:00 36.4 C L 50 L 19 107/64 95 Nasal Cannula 3 02/14/22 04:16 22 94 Nasal Cannula 3 02/14/22 03:31 62 24 93 Nasal Cannula 4 Diagnostic Findings Chest X-Ray 02/14/22 03:04 XR chest 1V portable HISTORY: Coughing. hypoxia COMPARISON: Chest 02/12/2022. FINDINGS: No pneumothorax. There is left-sided dual-chamber pacemaker/defibrillator. The heart remains mildly enlarged. There is diffuse interstitial/vascular thickening with small bilateral pleural effusions. This favors pulmonary edema. Right basilar densities persist. IMPRESSION: 1. No change in the pulmonary edema and small bilateral pleural effusions. 2. Right patchy basilar densities also persist. ACT 112: Negative or not required by law. Electronically signed by: Yohannes Metz M.D. 02/14/2022 8:08 AM Chest X-Ray 02/14/22 08:09 XR chest 1V portable HISTORY: Increase oxygen requirement COMPARISON: Chest 02/14/2022. FINDINGS: No pneumothorax. The heart remains enlarged. Moderate pulmonary edema, trace bilateral pleural effusions, and patchy bibasilar densities have slightly progressed. There is a left-sided pacemaker. IMPRESSION: Slight progression of the moderate pulmonary edema, trace bilateral pleural effusions, and patchy bibasilar densities. ACT 112: Negative or not required by law. Electronically signed by: Yohannes Metz M.D. 02/14/2022 8:47 AM
[2022-02-14] MEDS: IPRATROPIUM BROMIDE NEB SOLN 0.02% 2.5 ML VIAL INH SCH ×3 (17:39→17:59)
[2022-02-14] MEDS: LEVALBUTEROL 1.25MG/0.5ML NEB INH SCH ×3 (17:39→18:00)
[2022-02-14] MEDS ORDERED: LEVALBUTEROL HCL 1.25 MG/3 ML NEB ONE (17:42)
[2022-02-14] MEDS: FUROSEMIDE 40 MG TAB PO SCH (18:28)
[2022-02-14] MEDS: APIXABAN 2.5 MG TAB PO SCH (21:26)
[2022-02-15] MEDS: IPRATROPIUM BROMIDE NEB SOLN 0.02% 2.5 ML VIAL INH SCH ×4 (01:02→19:46)
[2022-02-15] MEDS: LEVALBUTEROL 1.25MG/0.5ML NEB INH SCH ×4 (01:02→19:45)
[2022-02-15] MEDS: AMPICILLIN 1,000 MG in SODIUM CHLOR 0.9% AD-VAN 50 ML IV SCH (05:06)
[2022-02-15] MEDS: INSULIN ASPART PER UNIT SC SCH ×4 (09:03→20:39)
[2022-02-15] MEDS: FUROSEMIDE 40 MG TAB PO SCH (09:05)
[2022-02-15] MEDS: APIXABAN 2.5 MG TAB PO SCH ×2 (09:05→20:17)
[2022-02-15] MEDS: ROSUVASTATIN CALCIUM 20 MG TAB PO SCH (09:05)
[2022-02-15] MEDS: METOPROLOL TARTRATE 25 MG TAB PO SCH ×2 (09:05→20:17)
[2022-02-15] MEDS: AMIODARONE 200 MG TAB PO SCH ×2 (09:06→16:47)
[2022-02-15] MEDS: ASPIRIN 81 MG CHEW PO SCH (09:07)
[2022-02-15] MEDS ORDERED: ALPRAZolam 0.25 MG TABLET PO ONE (09:50)
--- NOTE | 2022-02-15 14:27 | Neurology Progress Note ---
Date of Service February 15, 2022 Assessment & Plan (1) Left arm weakness: Plan: Impression: The patient reports having gradually worsening left arm weakness which started 2 months ago. He has significant stroke risk factors including atrial fibrillation. However, recent head CT was negative for cerebrovascular accident. Peripheral etiology including brachial plexopathy, proximal radial neuropathy, cervical spondylosis with multiple radiculopathies are in differ ential. Plan: Brain MRI without contrast to investigate for cerebrovascular accident when possible. The patient will need EMG and nerve conduction study to assess for plexopathy, radiculopathy and neuropathy. Physical therapy. Keep the patient on anticoagulation and antilipid treatment for stroke prevention. He is also on aspirin for cardiac indication. Consider placement/rehab F/u at neurology clinic We will sign sign off. (2) Atrial fibrillation with RVR: Plan: Impression: The patient is restarted on anticoagulation. Plan: The patient has high CHADS2 score and should be treated on anticoagulation for stroke prevention. (3) Syncope: Plan: Impression: The patient has been having recurrent syncopal episodes. The most likely underlying cause is cardiac dysrhythmia. Plan: Cardiology is on board. (4) ICD (implantable cardioverter-defibrillator), dual, in situ: Plan Thank you for the consultation. Admission and Anticipated Discharge Date Admission Date: February 08, 2022 Subjective No new neurological symptoms. 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 Not a candidate for MRI s/p ICD placement Review of Systems Review of Systems: All systems reviewed & are unremarkable except as noted in HPI & below Physical Exam Physical Exam: General Examination: Constitutional: Well developed disheveled person in no acute distress. HENT: Normal exam with inspection. CV: Irregular Neck: Supple, no carotid bruits. Lungs: Non-labored and comfortable breathing but with bibasilar crackles and some wheezing Abdomen: Soft, non-tender, non-distended. Skin: No rash or ecchymosis but bruises in extremities. Extremities: Left lower extremity distal edema NEUROLOGICAL EXAMINATION: Mental Status: Alert and oriented to place, person and time. Cranial Nerves: II-XII are intact grossly. No nystagmus. 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 Right leg is 5-/5, left leg 4+/5 distally and 5-/5 proximally Tone: Normal without spasticity or rigidity. Sensory: Decreased sensation in feet. Left arm proximal sensory impairment without radicular dermatomal distribution. Coordination: No dysmetria with right FTN testing. Speech: Fluent. Comprehension is intact. Gait: Unable to assess DTRs: 1+ in all extremities. No [facility]insky Results & Data ([facility]) Vital Signs (Past 12 Hours) Vital Signs Temp Pulse Pulse Resp BP BP Pulse Ox 02/15/22 12:42 74 18 93 02/15/22 11:49 36.7 C 70 18 110/71 94 02/15/22 10:15 65 02/15/22 09:05 72 02/15/22 08:15 02/15/22 08:08 36.8 C 54 L 24 141/63 H 94 02/15/22 07:21 68 24 95 02/15/22 03:48 36.7 C 80 18 122/62 93 O2 Del Method O2 Flow Rate 02/15/22 12:42 Nasal Cannula 3 02/15/22 11:49 Nasal Cannula 3 02/15/22 10:15 02/15/22 09:05 02/15/22 08:15 Nasal Cannula 3 02/15/22 08:08 Nasal Cannula 3 02/15/22 07:21 Nasal Cannula 3 02/15/22 03:48 Nasal Cannula 3 Laboratory Results Laboratory Results - last 24 hr 02/14/22 02/14/22 02/15/22 16:50 20:46 08:12 POC Glucose 102 H 95 101 H 02/15/22 11:48 POC Glucose 124 H Diagnostic Findings Chest X-Ray 02/08/22 00:40 XR chest 1V portable HISTORY: 81 years-old Male syncope acute syncope COMPARISON: Chest radiograph 07/31/2020 TECHNIQUE: Portable AP view of the chest FINDINGS: Cardiac silhouette is enlarged. No pneumothorax. Trace right pleural effusion with mild right lung base opacities. Pulmonary vascular congestion. Mild thoracic levoscoliosis. Degenerative changes of the shoulders and spine. IMPRESSION: 1. Cardiomegaly with pulmonary vascular congestion. 2. Trace right pleural effusion with mild right lung base opacities. ACT 112: Negative or not required by law. The above report was generated using voice recognition software. It may contain grammatical, syntax or spelling errors. Electronically signed by: Flavio Niño M.D. 02/08/2022 7:[address] 02/08/22 01:27 CT SCAN OF THE CERVICAL SPINE CLINICAL HISTORY: Fall. Head injury. COMPARISON STUDY: No priors. TECHNIQUE: CT scan of the cervical spine is performed from the skull base to the upper thoracic spine. Images are reviewed in the axial, sagittal, and coronal planes. IV contrast was not administered for this examination. A dose lowering technique was utilized adhering to the principles of ALARA. CT DOSE: 1000.23 mGy.cm FINDINGS: Skeletal structures: The skeletal structures are osteopenic. There is no evidence of fracture or subluxation involving the cervical spine. Vertebral body height and alignment are maintained. Anterior osteophytes are seen throughout. The odontoid process and lateral masses are intact. The atlantoaxial articulation is preserved noting productive degenerative change. The spinous processes appear intact. There is mild to moderate multilevel cervical spondylosis. Uncovertebral and facet arthropathy contribute to neural foraminal narrowing at several levels. Intervertebral discs: There is moderate disc space narrowing at C4-C5, C5-C6, and C6-C7. Central canal: Posterior disc osteophyte complexes are seen at C4-C5, C5-C6, and C6-C7. This likely contributes to mild multilevel acquired compromise of the central canal. Soft tissues: The prevertebral and paraspinous soft tissues are within normal limits. There is atherosclerotic calcification of the carotid bulbs. Calvarium: The visualized calvarium at the skull base appears intact. Brain parenchyma: Partially visualized brain parenchyma at the skull base is within normal limits. Sinuses and mastoids: The visualized paranasal sinuses are clear. There is a small left mastoid effusion. The right mastoid air cells are well pneumatized. Lung apices: Emphysematous change is noted at the apices. Apical lung parenchyma is otherwise clear as visualized. IMPRESSION: 1. There is no evidence of fracture or subluxation involving the cervical spine. 2. Osteopenia and spondylotic change as above. ACT 112: Negative or not required by law. Electronically signed by: Hima Segal M.D. 02/08/2022 8:[address] 02/08/22 01:27 CT head/brain wo con CLINICAL HISTORY: 81 years-old Male with fall, CHI, syncope. Acute head injury status post fall TECHNIQUE: Multiple axial CT images of the head were obtained without contrast. A dose lowering technique was utilized adhering to the principles of ALARA. COMPARISON: CT cervical spine of same day FINDINGS: No acute intracranial hemorrhage, midline shift, intracranial mass, hydrocephalus, territorial ischemia or abnormal extra-axial collection. Age- related involutional changes. White matter hypodensities suggest chronic microvascular ischemic disease. 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 Motion degraded study. The calvarium is intact. Mild polypoid mucosal thickening of the left maxillary sinus. Mastoid air cells are clear. Unremarkable soft tissues. Prior bilateral lens repair. IMPRESSION: No acute intracranial abnormality or calvarial fracture. ACT 112: Negative or not required by law. The above report was generated using voice recognition software. It may contain grammatical, syntax or spelling errors. Electronically signed by: Flavio Niño M.D. 02/08/2022 7:27 AM Carotid Doppler Study 02/08/22 04:33 ULTRASOUND OF THE CAROTID ARTERIES CLINICAL HISTORY: Syncope. COMPARISON STUDY: No priors. TECHNIQUE: Real-time, grayscale, and color Doppler sonography of the carotid arteries is performed. Images are reviewed in the transverse and longitudinal planes. FINDINGS: The carotid arteries are patent bilaterally and demonstrate antegrade flow. There is mild to moderate atherosclerotic plaque seen in the carotid bulbs, right greater than left. Normal doppler arterial waveforms are seen throughout. Velocity measurements are listed below. Common carotid peak systolic velocity (cm/sec): RIGHT: 42 LEFT: 48 ICA proximal peak systolic velocity (cm/sec): RIGHT: 104 LEFT: 117 ICA mid peak systolic velocity (cm/sec): RIGHT: 81 LEFT: 71 ICA distal peak systolic velocity (cm/sec): RIGHT: 93 LEFT: 72 ICA/CC peak systolic ratio: RIGHT: 2.8 LEFT: 2.5 Antegrade flow was shown in the vertebral arteries. The external carotid arteries are patent. IMPRESSION: 1. There is no sonographic evidence of hemodynamically significant stenosis in the right or left carotid arterial system. 2. Antegrade flow is shown in the vertebral arteries. ACT 112: Negative or not required by law. Electronically signed by: Hima Segal M.D. 02/08/2022 12:52 PM Venous Doppler Study 02/09/22 00:00 BILATERAL LOWER EXTREMITY VENOUS DOPPLER CLINICAL HISTORY: Asymmetric lower extremity edema. COMPARISON STUDY: Right lower extremity venous Doppler ultrasound April 16, 2020. TECHNIQUE: Sonography of the deep venous system of the bilateral lower extremities was performed. Compression and augmentation were evaluated. FINDINGS: The bilateral common femoral, superficial femoral and popliteal veins were compressible. Augmentation was normal. Flow was shown within the deep calf vessels. IMPRESSION: No evidence of deep venous thrombus within the bilateral lower extremities. ACT 112: Negative or not required by law. Electronically signed by: Win Bermudez M.D. 02/09/2022 7:48 AM Chest X-Ray 02/12/22 07:00 XR chest 2V PA/lateral HISTORY: 81 years-old Male EXACT TIME ORDERED Evaluate for pneumothorax and l status post placement of a left subclavian pacer/AICD COMPARISON: Chest radiograph 02/08/2022 TECHNIQUE: PA and lateral views of the chest FINDINGS: Cardiac silhouette is enlarged. Small right pleural effusion with right basilar consolidation, progressively worsened from prior. Probable trace left pleural effusion. No overt pulmonary edema. Status post placement of a left subclavian pacer/AICD. No postprocedural pneumothorax identified. IMPRESSION: 1. Status post placement of a left subclavian pacer/AICD. No postprocedural pneumothorax. 2. Small right pleural effusion with right basilar consolidation. ACT 112: Negative or not required by law. The above report was generated using voice recognition software. It may contain grammatical, syntax or spelling errors. Electronically signed by: Flavio Nñio M.D. 02/12/2022 6:54 AM Chest X-Ray 02/12/22 14:05 XR chest 2V PA/lateral HISTORY: 81 years-old Male fall acute chest trauma status post fall COMPARISON: Chest and shoulder radiographs of same day TECHNIQUE: AP view of the chest FINDINGS: Cardiac silhouette is enlarged. Left subclavian pacer/ICD. No pneumothorax. Small right and trace left pleural effusions with persistent right lung base opacities, mildly improved. Pulmonary vascular congestion. Degenerative changes of the shoulders and spine. Limited lateral view secondary to positioning. IMPRESSION: 1. Limited exam secondary to positioning. 2. Cardiomegaly with pulmonary vascular congestion. 3. Trace left and small right pleural effusions with mildly improved right basilar consolidation. 3. No acute rib fracture or pneumothorax identified. ACT 112: Negative or not required by law. The above report was generated using voice recognition software. It may contain grammatical, syntax or spelling errors. Electronically signed by: Flavio Niño M.D. 02/12/2022 3:53 PM Shoulder X-Ray 02/12/22 14:05 XR shoulder LT min 2V routine HISTORY: 81 years-old Male fall acute left shoulder pain status post fall COMPARISON: Chest radiograph 6 same day TECHNIQUE: 2 views of the left shoulder FINDINGS: Left subclavian pacer. Demineralized appearance of the bones. Moderate AC joint with mild glenohumeral osteoarthritis. No acute fracture, dislocation or unexpected opaque foreign body. Carotid calcifications. IMPRESSION: No acute fracture or dislocation. ACT 112: Negative or not required by law. The above report was generated using voice recognition software. It may contain grammatical, syntax or spelling errors. Electronically signed by: Flavio Niño M.D. 02/12/2022 4:[address] 02/12/22 14:[address] DOSE: 614.27 mGy.cm HISTORY: fall TECHNIQUE: Multiaxial CT images of the head were performed without the use of intravenous contrast. Automated exposure control was utilized for this study. A dose lowering technique was utilized adhering to the principles of ALARA. Comparison: Head CT 02/08/2022. Findings: The paranasal sinuses and mastoid air cells are clear. The calvarium and skull base are intact. There is no mass, hematoma, midline shift, acute infarct. White matter hypodensity is nonspecific but suggestive of microvascular ischemic change. The ventricles and sulci are within normal limits for age. Chronic nasal bone deformities again noted. Mild motion artifact. Mild left lateral scalp swelling. There is an old small infarct within the right high convexity. This remains unchanged. Impression: No significant change compared to the prior study. No acute intracranial abnormality. ACT 112: Negative or not required by law. Electronically signed by: Yohannes Metz M.D. 02/12/2022 4:01 PM Chest X-Ray 02/14/22 03:04 XR chest 1V portable HISTORY: Coughing. hypoxia COMPARISON: Chest 02/12/2022. FINDINGS: No pneumothorax. There is left-sided dual-chamber pacemak er/defibrillator. The heart remains mildly enlarged. There is diffuse interstitial/vascular thickening with small bilateral pleural effusions. This favors pulmonary edema. Right basilar densities persist. IMPRESSION: 1. No change in the pulmonary edema and small bilateral pleural effusions. 2. Right patchy basilar densities also persist. ACT 112: Negative or not required by law. Electronically signed by: Yohannes Metz M.D. 02/14/2022 8:08 AM Chest X-Ray 02/14/22 08:09 XR chest 1V portable HISTORY: Increase oxygen requirement COMPARISON: Chest 02/14/2022. FINDINGS: No pneumothorax. The heart remains enlarged. Moderate pulmonary edema, trace bilateral pleural effusions, and patchy bibasilar densities have slightly progressed. There is a left-sided pacemaker. IMPRESSION: Slight progression of the moderate pulmonary edema, trace bilateral pleural effusions, and patchy bibasilar densities. ACT 112: Negative or not required by law. Electronically signed by: Yohannes Metz M.D. 02/14/2022 8:47 AM
--- NOTE | 2022-02-15 16:01 | Hospitalist Progress Note ---
Date of Service February 15, 2022 Assessment & Plan (1) Syncope: (2) Ventricular tachycardia: (3) Atrial fibrillation with RVR: (4) ICD (implantable cardioverter-defibrillator), dual, in situ: (5) UTI (urinary tract infection): Plan Patient is a 81-year-old male with multiple comorbid condition presented to the ED after episode of ventricular tachycardia requiring cardioversion in the field. In the hospitalization, patient was evaluated by cardiology service. He underwent cardiac cath in 02/09 which showed moderate nonobstructive coronary artery disease. Echo was suggestive for heart failure with reduced ejection fraction. He underwent pacemaker placement on 02/11. Patient signed out AMA on 02/12. He had a fall on his knees as he was getting in the car in the parking lot. He was admitted again and was evaluated with head CT which was unremarkable. He reported increase in his left arm weakness which has been going on for last [address] head was unremarkable for acute abnormality. Neurology service was consulted; recommend nonemergent MRI brain without contrast. 1) Recurrent syncope likely secondary to ventricular tachycardia s/p ICD placement on 02/11. 2) Paroxysmal A.fib 3) Non- ischemic CMP 4) Left arm weakness 5) Acute hypoxic respiratory failure 2/2 CHFrEF excerebation H/O medication noncompliance - S/P Cardioversion on the field - S/P Cardiac Cath on 02/09/22: Moderate nonobstructive coronary disease. --EEG was normal during wakefulness and drowsiness. No focal abnormalities, potentially epileptogenic discharges, or abnormal slow activity was seen. --ECHO: EF 30 to 35%. Moderate to severe global hypokinesis of left ventricle. Mild mitral regurgitation. Mild tricuspid regurgitation. Estimated systolic pulmonary pressure is 48 mmHg. Dilated inferior vena cava with reduced collapsibility with sniff indicates an elevated right atrial pressure of 15 mmHg --Carotid USD:There is no sonographic evidence of hemodynamically significant stenosis in the right or left carotid arterial system. Antegrade flow is shown in the vertebral arteries. --Normal Orthostatics --Mild rise in troponin likely demand ischemia due to VT and Cardioversion Plan: -Continue on lasix 40mg once daily strict SIOBHAN's and daily weights for pulmonary edema.Continue on scheduled nebulizer treatment every 6 hours. -MRI brain without contrast can be done not emergently as per neurology service. Recommended follow-up in neurology clinic. Patient is unable to go MRI brain without contrast for next 6 weeks as he had ICD placed recently. -Started on Eliquis 2.5 mg twice daily on 02/14 as per cardiology recommendation. Continue on amiodarone and metoprolol. Will need wound check in 1 week and follow-up with cardiology in 2 weeks. --Awaiting placement. 5) HUONG on CKD3a- Baseline Cr 1.2-1.3. Cr relatively stable now. 6) Enterococcal UTI- s/p 5 days of ampicillin H/O CVA/PVD- resumed on ASA, crestor. Non compliant as OP Hyperlipidemia- on statin COPD- on duonebs scheduled DM II- A1C:5.7 currently;Diet controlled; Insulin per Protocol while hospitalized BPH/bladder cancer S/P surgery Ongoing tobacco abuse- Counselled to quit smoking. he says he will cut it down Multiple falls, weakness- 2 falls today. PT eval pending. DVT Px: eliquis Dispo- PT/OT eval. will need rehab Admission and Anticipated Discharge Date Admission Date: February 08, 2022 Subjective Patient was seen and examined at bedside. He is sleepy but easily awake able. Breathing is nonlabored; he denies any fever, chills or abdominal pain Review of Systems Review of Systems: All systems reviewed & are unremarkable except as noted in Subjective Physical Exam Physical Exam: General:Lying comfortably in bed, not in distress, on room air HEENT: EOMI, PERRL, MMM, right periorbital ecchymoses Chest: Bilateral basal crackles along with wheezes present. CVS: Regular rate and rhythm, normal heart sounds, no murmur Abdomen: Soft, non tender, not distended, normal bowel sounds Neuro: Awake, alert, oriented x3. Left arm Strength -3/5, left leg- 4/5, right arm and leg- 5/5. Sensation intact throughout Extremities: Chronic LE edema LLE>RLE Results & Data Results & Data ([facility]) Vital Signs (Past 12 Hours) Vital Signs Temp Pulse Pulse Resp BP BP Pulse Ox 02/15/22 15:48 36.5 C 61 22 92/61 L 94 02/15/22 15:04 74 02/15/22 12:42 74 18 93 02/15/22 11:49 36.7 C 70 18 110/71 94 02/15/22 10:15 65 02/15/22 09:05 72 02/15/22 08:15 02/15/22 08:08 36.8 C 54 L 24 141/63 H 94 02/15/22 07:21 68 24 95 O2 Del Method O2 Flow Rate 02/15/22 15:48 Nasal Cannula 3 02/15/22 15:04 02/15/22 12:42 Nasal Cannula 3 02/15/22 11:49 Nasal Cannula 3 02/15/22 10:15 02/15/22 09:05 02/15/22 08:15 Nasal Cannula 3 02/15/22 08:08 Nasal Cannula 3 02/15/22 07:21 Nasal Cannula 3 Diagnostic Findings Laboratory Results WBC 6.21 K/ul (4.8-10.8) 02/14/22 08:49 RBC 4.43 M/uL (4.63-6.08) L 02/14/22 08:49 Hgb 13.7 g/dl (14.0-18.0) L 02/14/22 08:49 Hct 43.3 % (40.1-51.0) 02/14/22 08:49 MCV 97.7 fL (80.0-100.0) 02/14/22 08:49 MCH 30.9 pg (25.0-34.0) 02/14/22 08:49 MCHC 31.6 g/dL (32.0-36.0) L 02/14/22 08:49 RDW Std Deviation 54.8 fL (36.4-46.3) H 02/14/22 08:49 RDW Coeff of [place] 15.3 % (11.5-14.5) H 02/14/22 08:49 Plt Count 111 K/uL (130-400) L 02/14/22 08:49 MPV 10.8 fL (9.4-12.4) 02/14/22 08:49 Immature Gran % (Auto) 0.6 % 02/14/22 08:49 Neut % (Auto) 54.0 % 02/14/22 08:49 Lymph % (Auto) 23.0 % 02/14/22 08:49 [place] % (Auto) 21.6 % 02/14/22 08:49 Eos % (Auto) 0.0 % 02/14/22 08:49 Baso % (Auto) 0.8 % 02/14/22 08:49 Neut # (Auto) 3.35 K/uL (1.4-6.5) 02/14/22 08:49 Lymph # (Auto) 1.43 K/uL (1.2-3.4) 02/14/22 08:49 [place] # (Auto) 1.34 K/uL (0.24-0.82) H 02/14/22 08:49 Eos # (Auto) 0.00 K/uL (0-0.50) 02/14/22 08:49 Baso # (Auto) 0.05 K/uL (0-0.2) 02/14/22 08:49 Immature Gran # (Auto) 0.04 K/uL (0.00-0.02) H 02/14/22 08:49 Platelet Estimate Decreased (Normal) L 02/14/22 08:49 PT 11.7 Seconds (9.0-12.0) 02/08/22 00:45 INR 1.1 (0.9-1.1) 02/08/22 00:45 Sodium 138 mmol/L (136-145) 02/14/22 08:49 Potassium 3.9 mmol/L (3.5-5.1) 02/14/22 08:49 Chloride 99 mmol/L (98-107) 02/14/22 08:49 Carbon Dioxide 34 mmol/L (21-32) H 02/14/22 08:49 Anion Gap 5 (3-11) 02/14/22 08:49 BUN 22 mg/dl (6-23) 02/14/22 08:49 Creatinine 1.74 mg/dl (0.6-1.4) H 02/14/22 08:49 Est Cr Clr Drug Dosing 35.0 ml/min 02/14/22 08:49 Est GFR ( Amer) 42.3 ml/min 02/14/22 08:49 Est GFR (Non-Af Amer) 36.5 ml/min 02/14/22 08:49 BUN/Creatinine Ratio 12.6 (10-20) 02/14/22 08:49 Glucose 93 mg/dl (70-99(Fasting)) 02/14/22 08:49 POC Glucose 124 mg/dl (70-99) H 02/15/22 11:48 Estimat Average Glucose 117 mg/dl 02/08/22 00:45 Hemoglobin A1c 5.7 % (4.5-5.6) H 02/08/22 00:45 Calcium 8.9 mg/dl (8.5-10.1) 02/14/22 08:49 Magnesium 1.8 mg/dl (1.7-2.4) 02/14/22 08:49 Total Bilirubin 0.9 mg/dl (0.2-1.0) 02/08/22 00:45 AST 13 U/L (13-39) 02/08/22 00:45 ALT 6 U/L (7-52) L 02/08/22 00:45 Alkaline Phosphatase 124 U/L (34-104) H 02/08/22 00:45 Total Creatine Kinase 30 U/L (30-223) 02/08/22 00:45 Troponin I High Sens 39.6 pg/ml (0-20) H D 02/08/22 05:47 Total Protein 7.1 gm/dl (6.0-8.3) 02/08/22 00:45 Albumin 3.6 gm/dl (3.4-5.0) 02/08/22 00:45 Globulin 3.5 gm/dl (2.5-4.0) 02/08/22 00:45 Albumin/Globulin Ratio 1.0 (0.9-2) 02/08/22 00:45 Lipase 12 U/L (11-82) 02/08/22 00:45 TSH 4.436 uIu/ml (0.300-4.500) 02/08/22 00:45 Urine Color Dark Yellow 02/08/22 09:02 Urine Appearance Cloudy (Clear) A 02/08/22 09:02 Urine pH 5.0 (4.5-7.5) 02/08/22 09:02 Ur Specific [place] 1.019 (1.000-1.030) 02/08/22 09:02 Urine Protein 2+ (Negative) H 02/08/22 09:02 Urine Glucose (UA) Negative (Negative) 02/08/22 09:02 Urine Ketones Negative (Negative) 02/08/22 09:02 Urine Blood 1+ (Negative) H 02/08/22 09:02 Urine Nitrite Negative (Negative) 02/08/22 09:02 Urine Bilirubin Negative (Negative) 02/08/22 09:02 Urine Urobilinogen Negative (Negative) 02/08/22 09:02 Ur Leukocyte Esterase 2+ (Negative) H 02/08/22 09:02 Urine WBC (Auto) >30 /hpf (0-5) H 02/08/22 09:02 Urine RBC (Auto) 0-4 /hpf (0-4) 02/08/22 09:02 U Hyaline Cast (Auto) 1-5 /lpf (0-5) 02/08/22 09:02 U Epithel Cells (Auto) 10-20 /lpf (0-5) H 02/08/22 09:02 Urine Bacteria (Auto) 4+ (Negative) H 02/08/22 09:02 Lyme Disease IgG Ab Negative (Negative) 02/08/22 00:45 Lyme Disease IgM Ab Negative (Negative) 02/08/22 00:45 SARS-CoV-2, RNA, NAAT NEGATIVE (NEGATIVE) 02/08/22 Unknown Impressions Cervical Spine CT 02/08/22 01:27 CT SCAN OF THE CERVICAL SPINE CLINICAL HISTORY: Fall. Head injury. COMPARISON STUDY: No priors. TECHNIQUE: CT scan of the cervical spine is performed from the skull base to the upper thoracic spine. Images are reviewed in the axial, sagittal, and coronal planes. IV contrast was not administered for this examination. A dose lowering technique was utilized adhering to the principles of ALARA. CT DOSE: 1000.23 mGy.cm FINDINGS: Skeletal structures: The skeletal structures are osteopenic. There is no evidence of fracture or subluxation involving the cervical spine. Vertebral body height and alignment are maintained. Anterior osteophytes are seen throughout. The odontoid process and lateral masses are intact. The atlantoaxial articulation is preserved noting productive degenerative change. The spinous pr ocesses appear intact. There is mild to moderate multilevel cervical spondylosis. Uncovertebral and facet arthropathy contribute to neural foraminal narrowing at several levels. Intervertebral discs: There is moderate disc space narrowing at C4-C5, C5-C6, and C6-C7. Central canal: Posterior disc osteophyte complexes are seen at C4-C5, C5-C6, and C6-C7. This likely contributes to mild multilevel acquired compromise of the central canal. Soft tissues: The prevertebral and paraspinous soft tissues are within normal limits. There is atherosclerotic calcification of the carotid bulbs. Calvarium: The visualized calvarium at the skull base appears intact. Brain parenchyma: Partially visualized brain parenchyma at the skull base is within normal limits. Sinuses and mastoids: The visualized paranasal sinuses are clear. There is a small left mastoid effusion. The right mastoid air cells are well pneumatized. Lung apices: Emphysematous change is noted at the apices. Apical lung parenchyma is otherwise clear as visualized. IMPRESSION: 1. There is no evidence of fracture or subluxation involving the cervical spine. 2. Osteopenia and spondylotic change as above. ACT 112: Negative or not required by law. Electronically signed by: Hima Segal M.D. 02/08/2022 8:00 AM Carotid Doppler Study 02/08/22 04:33 ULTRASOUND OF THE CAROTID ARTERIES CLINICAL HISTORY: Syncope. COMPARISON STUDY: No priors. TECHNIQUE: Real-time, grayscale, and color Doppler sonography of the carotid arteries is performed. Images are reviewed in the transverse and longitudinal planes. FINDINGS: The carotid arteries are patent bilaterally and demonstrate antegrade flow. There is mild to moderate atherosclerotic plaque seen in the carotid bulbs, right greater than left. Normal doppler arterial waveforms are seen throughout. Velocity measurements are listed below. Common carotid peak systolic velocity (cm/sec): RIGHT: 42 LEFT: 48 ICA proximal peak systolic velocity (cm/sec): RIGHT: 104 LEFT: 117 ICA mid peak systolic velocity (cm/sec): RIGHT: 81 LEFT: 71 ICA distal peak systolic velocity (cm/sec): RIGHT: 93 LEFT: 72 ICA/CC peak systolic ratio: RIGHT: 2.8 LEFT: 2.5 Antegrade flow was shown in the vertebral arteries. The external carotid arteries are patent. IMPRESSION: 1. There is no sonographic evidence of hemodynamically significant stenosis in the right or left carotid arterial system. 2. Antegrade flow is shown in the vertebral arteries. ACT 112: Negative or not required by law. Electronically signed by: Hima Segal M.D. 02/08/2022 12:52 PM Venous Doppler Study 02/09/22 00:00 BILATERAL LOWER EXTREMITY VENOUS DOPPLER CLINICAL HISTORY: Asymmetric lower extremity edema. COMPARISON STUDY: Right lower extremity venous Doppler ultrasound April 16, 2020. TECHNIQUE: Sonography of the deep venous system of the bilateral lower extremities was performed. Compression and augmentation were evaluated. FINDINGS: The bilateral common femoral, superficial femoral and popliteal veins were compressible. Augmentation was normal. Flow was shown within the deep calf vessels. IMPRESSION: No evidence of deep venous thrombus within the bilateral lower extremities. ACT 112: Negative or not required by law. Electronically signed by: Win Bermudez M.D. 02/09/2022 7:48 AM Shoulder X-Ray 02/12/22 14:05 XR shoulder LT min 2V routine HISTORY: 81 years-old Male fall acute left shoulder pain status post fall COMPARISON: Chest radiograph 6 same day TECHNIQUE: 2 views of the left shoulder FINDINGS: Left subclavian pacer. Demineralized appearance of the bones. Moderate AC joint with mild glenohumeral osteoarthritis. No acute fracture, dislocation or unexpected opaque foreign body. Carotid calcifications. IMPRESSION: No acute fracture or dislocation. ACT 112: Negative or not required by law. The above report was generated using voice recognition software. It may contain grammatical, syntax or spelling errors. Electronically signed by: Flavio Niño M.D. 02/12/2022 4:[address] 02/12/22 14:[address] DOSE: 614.27 mGy.cm HISTORY: fall TECHNIQUE: Multiaxial CT images of the head were performed without the use of intravenous contrast. Automated exposure control was utilized for this study. A dose lowering technique was utilized adhering to the principles of ALARA. Comparison: Head CT 02/08/2022. Findings: The paranasal sinuses and mastoid air cells are clear. The calvarium and skull base are intact. There is no mass, hematoma, midline shift, acute infarct. White matter hypodensity is nonspecific but suggestive of microvascular ischemic change. The ventricles and sulci are within normal limits for age. Chronic nasal bone deformities again noted. Mild motion artifact. Mild left lateral scalp swelling. There is an old small infarct within the right high convexity. This remains unchanged. Impression: No significant change compared to the prior study. No acute intracranial abnormality. ACT 112: Negative or not required by law. Electronically signed by: Yohannes Metz M.D. 02/12/2022 4:01 PM Chest X-Ray 02/14/22 08:09 XR chest 1V portable HISTORY: Increase oxygen requirement COMPARISON: Chest 02/14/2022. FINDINGS: No pneumothorax. The heart remains enlarged. Moderate pulmonary edema, trace bilateral pleural effusions, and patchy bibasilar densities have slightly progressed. There is a left-sided pacemaker. IMPRESSION: Slight progression of the moderate pulmonary edema, trace bilateral pleural effusions, and patchy bibasilar densities. ACT 112: Negative or not required by law. Electronically signed by: Yohannes Metz M.D. 02/14/2022 8:47 AM
[2022-02-15] MEDS ORDERED: ALPRAZolam 0.25 MG TABLET PO STA (21:25)
[2022-02-16] MEDS: IPRATROPIUM BROMIDE NEB SOLN 0.02% 2.5 ML VIAL INH SCH ×4 (00:21→19:18)
[2022-02-16] MEDS: LEVALBUTEROL 1.25MG/0.5ML NEB INH SCH ×4 (00:21→19:18)
[2022-02-16 07:53] LABS: BUN Creatinine Ratio 11.8 (10-20); Creatinine Clr Calc Pharmacy 29.1 ml/min; Est GFR (Non-African American) 33.7 ml/min; Magnesium 1.8 mg/dl (1.7-2.4); Potassium 3.7 mmol/L (3.5-5.1)
[2022-02-16 07:57] LABS: Basophils # (auto) 0.06 K/uL (0-0.2); Basophils % (auto) 0.8 %; Eosinophils # (auto) 0.03 K/uL (0-0.50); Eosinophils % (auto) 0.4 %; Hematocrit (blood only) 47.6 % (40.1-51.0); Hemoglobin 14.9 g/dl (14.0-18.0); Immature Granulocytes # (auto) 0.05 K/uL (0.00-0.02); Immature Granulocytes % (auto) 0.7 %; Lymphocytes # (auto) 1.78 K/uL (1.2-3.4); Lymphocytes % (auto) 23.9 %; Mean Corpuscular Hemoglobin 30.5 pg (25.0-34.0); Mean Corpuscular Hgb Conc 31.3 g/dL (32.0-36.0); Mean Corpuscular Volume 97.5 fL (80.0-100.0); Mean Platelet Volume 11.6 fL (9.4-12.4); Monocytes # (auto) 1.13 K/uL (0.24-0.82); Monocytes % (auto) 15.2 %; Neutrophils # (auto) 4.39 K/uL (1.4-6.5); Platelet Count 94 K/uL (130-400); Platelet Estimate Decreased (Normal); RDW Coefficient of Variation 14.8 % (11.5-14.5); RDW Standard Deviation 53.7 fL (36.4-46.3); Red Blood Count 4.88 M/uL (4.63-6.08); White Blood Count 7.44 K/ul (4.8-10.8)
--- NOTE | 2022-02-16 08:43 | XRay Report ---
XR chest 1V portable HISTORY: Increased oxygen requirement COMPARISON: Chest 02/14/2022. FINDINGS: No pneumothorax. The cardiac silhouette remains mildly enlarged. Mild interstitial pulmonar y edema has slightly improved. Small bilateral pleural effusions have slightly progressed. Hazy bibas ilar densities remain unchanged. There is a left-sided dual-chamber pacemaker. IMPRESSION: 1. Interval improvement in the mild interstitial pulmonary edema. 2. The small bilateral pleural effusions and bibasilar densities have slightly progressed. ACT 112: Negative or not required by law. Electronically signed by: Yohannes Metz M.D. 02/16/2022 8:42 AM
[2022-02-16] MEDS: INSULIN ASPART PER UNIT SC SCH ×4 (08:44→21:41)
[2022-02-16] MEDS: AMIODARONE 200 MG TAB PO SCH ×2 (08:46→17:11)
[2022-02-16] MEDS: APIXABAN 2.5 MG TAB PO SCH ×2 (08:47→21:05)
[2022-02-16] MEDS: ROSUVASTATIN CALCIUM 20 MG TAB PO SCH (08:48)
[2022-02-16] MEDS: METOPROLOL TARTRATE 25 MG TAB PO SCH ×2 (08:51→21:05)
[2022-02-16] MEDS: FUROSEMIDE 20 MG TAB PO SCH (08:54)
[2022-02-16] MEDS: ASPIRIN 81 MG CHEW PO SCH (08:55)
--- NOTE | 2022-02-16 10:27 | CT Scan Report ---
CT head/brain wo con CLINICAL HISTORY: Altered mental status Technique: Contiguous axial CT images of the head were acquired from the base of the skull to the gen sylvia without intravenous contrast administration. Images were viewed in brain, subdural [facility]. Automated dose lowering techniques and/or adjustment according to patient size were utilized for this exam. Comparison: Comparison is made to CT head 02/12/2022 Findings: The ventricles, basal cisterns, and cerebral sulci are normal. There is no acute intracranial hemorrh age or evidence of acute territorial infarction. Neither mass effect, shift of the midline structures , nor abnormal extra-axial fluid collections are shown. Old encephalomalacia in the right posterior f rontal region is unchanged. Imaged portions of the paranasal sinuses and mastoid air cells are clear. The orbits appear normal. There are no acute fractures of the calvaria or scalp swelling. Chronic nasal bone deformities noted . Impression: No acute intracranial hemorrhage, no evidence of acute territorial infarction or other acute intracra nial disease process. ACT 112: Negative or not required by law. Electronically signed by: Tong Cox M.D. 02/16/2022 10:26 AM
[2022-02-16] MEDS: POLYETHYLENE (MIRALAX) 17 GM PACK PO SCH (11:32)
[2022-02-16] MEDS ORDERED: LEVALBUTEROL HCL 1.25 MG/3 ML NEB ONE (13:27)
--- NOTE | 2022-02-16 14:33 | Hospitalist Progress Note ---
Date of Service February 16, 2022 Assessment & Plan (1) Syncope: (2) Ventricular tachycardia: (3) Atrial fibrillation with RVR: (4) ICD (implantable cardioverter-defibrillator), dual, in situ: (5) UTI (urinary tract infection): Plan Plan Patient is a 81-year-old male with multiple comorbid condition presented to the ED after episode of ventricular tachycardia requiring cardioversion in the field. In the hospitalization, patient was evaluated by cardiology service. He underwent cardiac cath in 02/09 which showed moderate nonobstructive coronary artery disease. Echo was suggestive for heart failure with reduced ejection fraction. He underwent pacemaker placement on 02/11. Patient signed out AMA on 02/12. He had a fall on his knees as he was getting in the car in the parking lot. He was admitted again and was evaluated with head CT which was unremarkable. He reported increase in his left arm weakness which has been going on for last [address] head was unremarkable for acute abnormality. Neurology service was consulted; recommend nonemergent MRI brain without contrast. 1) Recurrent syncope likely secondary to ventricular tachycardia s/p ICD placement on 02/11. 2) Paroxysmal A.fib 3) Non- ischemic CMP 4) Left arm weakness 5) Acute hypoxic respiratory failure 2/2 CHFrEF excerebation H/O medication noncompliance - S/P Cardioversion on the field - S/P Cardiac Cath on 02/09/22: Moderate nonobstructive coronary disease. --EEG was normal during wakefulness and drowsiness. No focal abnormalities, potentially epileptogenic discharges, or abnormal slow activity was seen. --ECHO: EF 30 to 35%. Moderate to severe global hypokinesis of left ventricle. Mild mitral regurgitation. Mild tricuspid regurgitation. Estimated systolic pulmonary pressure is 48 mmHg. Dilated inferior vena cava with reduced collapsibility with sniff indicates an elevated right atrial pressure of 15 mmHg --Carotid USD:There is no sonographic evidence of hemodynamically significant stenosis in the right or left carotid arterial system. Antegrade flow is shown in the vertebral arteries. --Normal Orthostatics --Mild rise in troponin likely demand ischemia due to VT and Cardioversion Plan: -Patient is lethargic; CT head done to rule out any acute abnormality. We will also obtain ABG in setting of his COPD. -Continue on Lasix 40 mg once daily; interval improvement in pulmonary edema. Increasing bibasilar opacity suggests aspiration; RN INVASIVE was done and patient was put on modified diet. -MRI brain without contrast can be done not emergently as per neurology service. Recommended follow-up in neurology clinic. Patient is unable to go MRI brain without contrast for next 6 weeks as he had ICD placed recently. -Started on Eliquis 2.5 mg twice daily on 02/14 as per cardiology rec ommendation. Continue on amiodarone and metoprolol. Will need wound check in 1 week and follow-up with cardiology in 2 weeks. --Awaiting placement. 5) HUONG on CKD3a- creatinine up trended to 1.86. Will monitor daily. We will cut down on diuresis if continues to be up trending. 6) Enterococcal UTI- s/p 5 days of ampicillin H/O CVA/PVD- resumed on ASA, crestor. Non compliant as OP Hyperlipidemia- on statin COPD- on duonebs scheduled DM II- A1C:5.7 currently;Diet controlled; Insulin per Protocol while hospitalized BPH/bladder cancer S/P surgery Ongoing tobacco abuse- Counselled to quit smoking.n Multiple falls, weakness- 2 falls today. PT eval pending. DVT Px: eliquis Dispo- PT/OT eval. will need rehab. CM on board. Admission and Anticipated Discharge Date Admission Date: February 08, 2022 Subjective Patient seen and examined at bedside. He is lethargic but arousable. He denies any fever, chills, shortness of breath, chest pain or abdominal pain. CT head was donedid not show any acute abnormality Tele with paced rhythm and PVCs Review of Systems Review of Systems: All systems reviewed & are unremarkable except as noted in Subjective Physical Exam Physical Exam: General: Lethargic; awakens to voice. On 3 L of nasal cannula. HEENT: EOMI, PERRL, MMM, right periorbital ecchymoses Chest: Bilateral basal crackles along with wheezes present. CVS: irregular rate and rhythm, normal heart sounds, no murmur Abdomen: Soft, non tender, not distended, normal bowel sounds Neuro: Lethargic; awakens to voice. Able to follow simple commands. Left arm Strength -3/5, left leg- 4/5, right arm and leg- 5/5. Sensation intact throughout Extremities: Chronic LE edema LLE>RLE Results & Data Results & Data ([facility]) Vital Signs (Past 12 Hours) Vital Signs Temp Pulse Pulse Resp BP BP Pulse Ox 02/16/22 13:36 60 20 91 02/16/22 11:27 36.7 C 63 20 117/64 92 02/16/22 08:00 02/16/22 09:44 64 122/54 L 02/16/22 07:50 36.7 C 60 20 98/60 L 99 02/16/22 07:42 63 18 92 02/16/22 05:00 36.5 C 64 18 118/73 90 O2 Del Method O2 Flow Rate 02/16/22 13:36 Nasal Cannula 3 02/16/22 11:27 Nasal Cannula 3 02/16/22 08:00 Nasal Cannula 3 02/16/22 09:44 02/16/22 07:50 Nasal Cannula 6 02/16/22 07:42 Nasal Cannula 3 02/16/22 05:00 Nasal Cannula 3 Diagnostic Findings Laboratory Results WBC 7.44 K/ul (4.8-10.8) 02/16/22 07:07 RBC 4.88 M/uL (4.63-6.08) 02/16/22 07:07 Hgb 14.9 g/dl (14.0-18.0) 02/16/22 07:07 Hct 47.6 % (40.1-51.0) 02/16/22 07:07 MCV 97.5 fL (80.0-100.0) 02/16/22 07:07 MCH 30.5 pg (25.0-34.0) 02/16/22 07:07 MCHC 31.3 g/dL (32.0-36.0) L 02/16/22 07:07 RDW Std Deviation 53.7 fL (36.4-46.3) H 02/16/22 07:07 RDW Coeff of Chela 14.8 % (11.5-14.5) H 02/16/22 07:07 Plt Count 94 K/uL (130-400) L 02/16/22 07:07 MPV 11.6 fL (9.4-12.4) 02/16/22 07:07 Immature Gran % (Auto) 0.7 % 02/16/22 07:07 Neut % (Auto) 59.0 % 02/16/22 07:07 Lymph % (Auto) 23.9 % 02/16/22 07:07 Monroe % (Auto) 15.2 % 02/16/22 07:07 Eos % (Auto) 0.4 % 02/16/22 07:07 Baso % (Auto) 0.8 % 02/16/22 07:07 Neut # (Auto) 4.39 K/uL (1.4-6.5) 02/16/22 07:07 Lymph # (Auto) 1.78 K/uL (1.2-3.4) 02/16/22 07:07 Monroe # (Auto) 1.13 K/uL (0.24-0.82) H 02/16/22 07:07 Eos # (Auto) 0.03 K/uL (0-0.50) 02/16/22 07:07 Baso # (Auto) 0.06 K/uL (0-0.2) 02/16/22 07:07 Immature Gran # (Auto) 0.05 K/uL (0.00-0.02) H 02/16/22 07:07 Platelet Estimate Decreased (Normal) L 02/16/22 07:07 PT 11.7 Seconds (9.0-12.0) 02/08/22 00:45 INR 1.1 (0.9-1.1) 02/08/22 00:45 Sodium 137 mmol/L (136-145) 02/16/22 07:07 Potassium 3.7 mmol/L (3.5-5.1) 02/16/22 07:07 Chloride 91 mmol/L (98-107) L 02/16/22 07:07 Carbon Dioxide 40 mmol/L (21-32) H 02/16/22 07:07 Anion Gap 6 (3-11) 02/16/22 07:07 BUN 22 mg/dl (6-23) 02/16/22 07:07 Creatinine 1.86 mg/dl (0.6-1.4) H 02/16/22 07:07 Est Cr Clr Drug Dosing 29.1 ml/min 02/16/22 07:07 Est GFR ( Amer) 39.0 ml/min 02/16/22 07:07 Est GFR (Non-Af Amer) 33.7 ml/min 02/16/22 07:07 BUN/Creatinine Ratio 11.8 (10-20) 02/16/22 07:07 Glucose 90 mg/dl (70-99(Fasting)) 02/16/22 07:07 POC Glucose 130 mg/dl (70-99) H 02/16/22 11:49 Estimat Average Glucose 117 mg/dl 02/08/22 00:45 Hemoglobin A1c 5.7 % (4.5-5.6) H 02/08/22 00:45 Calcium 9.0 mg/dl (8.5-10.1) 02/16/22 07:07 Magnesium 1.8 mg/dl (1.7-2.4) 02/16/22 07:07 Total Bilirubin 0.9 mg/dl (0.2-1.0) 02/08/22 00:45 AST 13 U/L (13-39) 02/08/22 00:45 ALT 6 U/L (7-52) L 02/08/22 00:45 Alkaline Phosphatase 124 U/L (34-104) H 02/08/22 00:45 Total Creatine Kinase 30 U/L (30-223) 02/08/22 00:45 Troponin I High Sens 39.6 pg/ml (0-20) H D 02/08/22 05:47 Total Protein 7.1 gm/dl (6.0-8.3) 02/08/22 00:45 Albumin 3.6 gm/dl (3.4-5.0) 02/08/22 00:45 Globulin 3.5 gm/dl (2.5-4.0) 02/08/22 00:45 Albumin/Globulin Ratio 1.0 (0.9-2) 02/08/22 00:45 Lipase 12 U/L (11-82) 02/08/22 00:45 TSH 4.436 uIu/ml (0.300-4.500) 02/08/22 00:45 Urine Color Dark Yellow 02/08/22 09:02 Urine Appearance Cloudy (Clear) A 02/08/22 09:02 Urine pH 5.0 (4.5-7.5) 02/08/22 09:02 Ur Specific [place]von 1.019 (1.000-1.030) 02/08/22 09:02 Urine Protein 2+ (Negative) H 02/08/22 09:02 Urine Glucose (UA) Negative (Negative) 02/08/22 09:02 Urine Ketones Negative (Negative) 02/08/22 09:02 Urine Blood 1+ (Negative) H 02/08/22 09:02 Urine Nitrite Negative (Negative) 02/08/22 09:02 Urine Bilirubin Negative (Negative) 02/08/22 09:02 Urine Urobilinogen Negative (Negative) 02/08/22 09:02 Ur Leukocyte Esterase 2+ (Negative) H 02/08/22 09:02 Urine WBC (Auto) >30 /hpf (0-5) H 02/08/22 09:02 Urine RBC (Auto) 0-4 /hpf (0-4) 02/08/22 09:02 U Hyaline Cast (Auto) 1-5 /lpf (0-5) 02/08/22 09:02 U Epithel Cells (Auto) 10-20 /lpf (0-5) H 02/08/22 09:02 Urine Bacteria (Auto) 4+ (Negative) H 02/08/22 09:02 Lyme Disease IgG Ab Negative (Negative) 02/08/22 00:45 Lyme Disease IgM Ab Negative (Negative) 02/08/22 00:45 SARS-CoV-2, RNA, NAAT NEGATIVE (NEGATIVE) 02/08/22 Unknown Impressions Cervical Spine CT 02/08/22 01:27 CT SCAN OF THE CERVICAL SPINE CLINICAL HISTORY: Fall. Head injury. COMPARISON STUDY: No priors. TECHNIQUE: CT scan of the cervical spine is performed from the skull base to the upper thoracic spine. Images are reviewed in the axial, sagittal, and coronal planes. IV contrast was not administered for this examination. A dose lowering technique was utilized adhering to the principles of ALARA. CT DOSE: 1000.23 mGy.cm FINDINGS: Skeletal structures: The skeletal structures are osteopenic. There is no evidence of fracture or subluxation involving the cervical spine. Vertebral body height and alignment are maintained. Anterior osteophytes are seen throughout. The odontoid process and lateral masses are intact. The atlantoaxial articulation is preserved noting productive degenerative change. The spinous processes appear intact. There is mild to moderate multilevel cervical spondylosis. Uncovertebral and facet arthropathy contribute to neural foraminal narrowing at several levels. Intervertebral discs: There is moderate disc space narrowing at C4-C5, C5-C6, and C6-C7. Central canal: Posterior disc osteophyte complexes are seen at C4-C5, C5-C6, and C6-C7. This likely contributes to mild multilevel acquired compromise of the central canal. Soft tissues: The prevertebral and paraspinous soft tissues are within normal limits. There is atherosclerotic calcification of the carotid bulbs. Calvarium: The visualized calvarium at the skull base appears intact. Brain parenchyma: Partially visualized brain parenchyma at the skull base is within normal limits. Sinuses and mastoids: The visualized paranasal sinuses are clear. There is a small left mastoid effusion. The right mastoid air cells are well pneumatized. Lung apices: Emphysematous change is noted at the apices. Apical lung parenchyma is otherwise clear as visualized. IMPRESSION: 1. There is no evidence of fracture or subluxation involving the cervical spine. 2. Osteopenia and spondylotic change as above. ACT 112: Negative or not required by law. Electronically signed by: Hima Segal M.D. 02/08/2022 8:00 AM Carotid Doppler Study 02/08/22 04:33 ULTRASOUND OF THE CAROTID ARTERIES CLINICAL HISTORY: Syncope. COMPARISON STUDY: No priors. TECHNIQUE: Real-time, grayscale, and color Doppler sonography of the carotid arteries is performed. Images are reviewed in the transverse and longitudinal planes. FINDINGS: The carotid arteries are patent bilaterally and demonstrate antegrade flow. There is mild to moderate atherosclerotic plaque seen in the carotid bulbs, right greater than left. Normal doppler arterial waveforms are seen throughout. Velocity measurements are listed below. Common carotid peak systolic velocity (cm/sec): RIGHT: 42 LEFT: 48 ICA proximal peak systolic velocity (cm/sec): RIGHT: 104 LEFT: 117 ICA mid peak systolic velocity (cm/sec): RIGHT: 81 LEFT: 71 ICA distal peak systolic velocity (cm/sec): RIGHT: 93 LEFT: 72 ICA/CC peak systolic ratio: RIGHT: 2.8 LEFT: 2.5 Antegrade flow was shown in the vertebral arteries. The external carotid arteries are patent. IMPRESSION: 1. There is no sonographic evidence of hemodynamically significant stenosis in the right or left carotid arterial system. 2. Antegrade flow is shown in the vertebral arteries. ACT 112: Negative or not required by law. Electronically signed by: Hima Segal M.D. 02/08/2022 12:52 PM Venous Doppler Study 02/09/22 00:00 BILATERAL LOWER EXTREMITY VENOUS DOPPLER CLINICAL HISTORY: Asymmetric lower extremity edema. COMPARISON STUDY: Right lower extremity venous Doppler ultrasound April 16, 2020. TECHNIQUE: Sonography of the deep venous system of the bilateral lower extremities was performed. Compression and augmentation were evaluated. FINDINGS: The bilateral common femoral, superficial femoral and popliteal veins were compressible. Augmentation was normal. Flow was shown within the deep calf vessels. IMPRESSION: No evidence of deep venous thrombus within the bilateral lower extremities. ACT 112: Negative or not required by law. Electronically signed by: Win Bermudez M.D. 02/09/2022 7:48 AM Shoulder X-Ray 02/12/22 14:05 XR shoulder LT min 2V routine HISTORY: 81 years-old Male fall acute left shoulder pain status post fall COMPARISON: Chest radiograph 6 same day TECHNIQUE: 2 views of the left shoulder FINDINGS: Left subclavian pacer. Demineralized appearance of the bones. Moderate AC joint with mild glenohumeral osteoarthritis. No acute fracture, dislocation or unexpected opaque foreign body. Carotid calcifications. IMPRESSION: No acute fracture or dislocation. ACT 112: Negative or not required by law. The above report was generated using voice recognition software. It may contain grammatical, syntax or spelling errors. Electronically signed by: Flavio Niño M.D. 02/12/2022 4:07 PM Chest X-Ray 02/16/22 08:02 XR chest 1V portable HISTORY: Increased oxygen requirement COMPARISON: Chest 02/14/2022. FINDINGS: No pneumothorax. The cardiac silhouette remains mildly enlarged. Mild interstitial pulmonary edema has slightly improved. Small bilateral pleural effusions have slightly progressed. Hazy bibasilar densities remain unchanged. There is a left-sided dual-chamber pacemaker. IMPRESSION: 1. Interval improvement in the mild interstitial pulmonary edema. 2. The small bilateral pleural effusions and bibasilar densities have slightly progressed. ACT 112: Negative or not required by law. Electronically signed by: Yohannes Metz M.D. 02/16/2022 8:[address] 02/16/22 09:13 CT head/brain wo con CLINICAL HISTORY: Altered mental status Technique: Contiguous axial CT images of the head were acquired from the base of the skull to the vertex without intravenous contrast administration. Images were viewed in brain, subdural and bone windows. Automated dose lowering techniques and/or adjustment according to patient size were utilized for this exam. Comparison: Comparison is made to CT head 02/12/2022 Findings: The ventricles, basal cisterns, and cerebral sulci are normal. There is no acute intracranial hemorrhage or evidence of acute territorial infarction. Neither mass effect, shift of the midline structures, nor abnormal extra-axial fluid collections are shown. Old encephalomalacia in the right posterior frontal region is unchanged. Imaged portions of the paranasal sinuses and mastoid air cells are clear. The orbits appear normal. There are no acute fractures of the calvaria or scalp swelling. Chronic nasal bone deformities noted. Impression: No acute intracranial hemorrhage, no evidence of acute territorial infarction or other acute intracranial disease process. ACT 112: Negative or not required by law. Electronically signed by: Tong Cox M.D. 02/16/2022 10:26 AM
[2022-02-16 14:58] LABS: Base Excess ABG 16.8 mEq/L (-9-1.8); HCO3 ABG 44 mmol/L (19-24); Oxygen Saturation ABG 96.5 % (90-95); PCO2 ABG 60 mmHg (35-46); PO2 ABG 69 mmHg (80-95); pH ABG 7.47 (7.35-7.45)
[2022-02-16 15:36] LABS: Allen Test Pos (Pos)
[2022-02-17] MEDS: LEVALBUTEROL 1.25MG/0.5ML NEB INH SCH ×4 (00:27→20:29)
[2022-02-17] MEDS: IPRATROPIUM BROMIDE NEB SOLN 0.02% 2.5 ML VIAL INH SCH ×4 (00:27→20:30)
[2022-02-17 07:02] LABS: Hemoglobin 15.2 g/dl (14.0-18.0); Mean Corpuscular Hemoglobin 30.9 pg (25.0-34.0); Mean Corpuscular Hgb Conc 32.3 g/dL (32.0-36.0); Mean Corpuscular Volume 95.5 fL (80.0-100.0); Mean Platelet Volume 11.3 fL (9.4-12.4); Platelet Count 93 K/uL (130-400); RDW Coefficient of Variation 14.6 % (11.5-14.5); RDW Standard Deviation 51.7 fL (36.4-46.3); Red Blood Count 4.92 M/uL (4.63-6.08); White Blood Count 8.11 K/ul (4.8-10.8)
[2022-02-17 07:06] LABS: BUN Creatinine Ratio 13.5 (10-20); Calcium 8.7 mg/dl (8.5-10.1); Creatinine Clr Calc Pharmacy 33.2 ml/min; Est GFR (African American) 45.8 ml/min; Est GFR (Non-African American) 39.5 ml/min; Magnesium 1.9 mg/dl (1.7-2.4); Potassium 3.8 mmol/L (3.5-5.1)
[2022-02-17 08:52] LABS: ALC (manual) 3.08 K/uL (1.2-3.4); ANC (manual) 3.97 K/uL (1.4-6.5); Basophils # (manual) 0.24 K/uL (0-0.2); Basophils % (manual) 3 %; Eosinophils # (manual) 0.16 K/uL (0-0.50); Eosinophils % (manual) 2 %; Large Granular Lymph # (manua 1.22 K/uL; Large Granular Lymph % (manual) 15 %; Lymphocytes # (manual) 1.87 K/uL (1.2-3.4); Lymphocytes % (manual) 23 %; Monocytes # (manual) 0.65 K/uL (0.24-0.82); Monocytes % (manual) 8 %; Neutrophils # (manual) 3.97 K/uL (1.4-6.5); Neutrophils % (manual) 49 %
[2022-02-17] MEDS: INSULIN ASPART PER UNIT SC SCH ×4 (09:00→20:12)
[2022-02-17] MEDS: AMIODARONE 200 MG TAB PO SCH ×2 (09:01→18:17)
[2022-02-17] MEDS: FUROSEMIDE 20 MG TAB PO SCH (09:02)
[2022-02-17] MEDS: APIXABAN 2.5 MG TAB PO SCH ×2 (09:02→20:11)
[2022-02-17] MEDS: METOPROLOL TARTRATE 25 MG TAB PO SCH ×2 (09:03→20:11)
[2022-02-17] MEDS: ROSUVASTATIN CALCIUM 20 MG TAB PO SCH (09:03)
[2022-02-17] MEDS: POLYETHYLENE (MIRALAX) 17 GM PACK PO SCH (09:03)
[2022-02-17] MEDS: ASPIRIN 81 MG CHEW PO SCH (09:04)
[2022-02-17] MEDS ORDERED: LEVALBUTEROL HCL 1.25 MG/3 ML NEB ONE (12:57)
--- NOTE | 2022-02-17 13:24 | CT Scan Report ---
CT OF THE HEAD WITHOUT CONTRAST CLINICAL HISTORY: L sided weakness r/o CVA COMPARISON STUDY: Head CTs February 08, 2022 and February 16, 2022. CT DOSE: 729.78 mGycm TECHNIQUE: Helical axial images of the head were obtained without IV contrast. Automated exposure con trol was utilized for the study. A dose lowering technique was utilized adhering to the principles o f ALARA. FINDINGS: No acute intracranial hemorrhage, midline shift or mass effect is present. A new 4.1 cm hyp odense focus with loss of hurley-white differentiation within the right parietal lobe shown best on axi al image 22 of . This was not present on head CT of February 16, 2022. There is a 6 mm hypodensity wi thin the right centrum semiovale on axial image 22 of . Adjacent old posterior right frontal lobe i nfarct is noted. Basal cisterns are patent. There are no extra axial collections. White matter hypode nsity suggests small vessel disease. A few opacified left mastoid air cells are present. No significa nt calvarial abnormalities noted. IMPRESSION: Interval development of an acute infarct within the right parietal lobe, measuring appro ximately 4.1 cm in extent and possible additional 6 mm acute infarct within the right centrum semiova le. No significant mass effect. No intracranial hemorrhage. This finding will be called/faxed to the ordering provider at time of dictation. ACT 112: Negative or not required by law. Electronically signed by: Win eBrmudez M.D. 02/17/2022 1:22 PM
[2022-02-17] MEDS ORDERED: PHARMACIST DISCHARGE MED REC CONSULT PRN (13:58)
--- NOTE | 2022-02-17 15:06 | CT Scan Report ---
CT chest diagnostic wo con CLINICAL HISTORY: hypoxia, r/o pneumonia TECHNIQUE: Multidetector row helical CT of the chest was performed. Coronal and sagittal reformations were obtained. Automated dose lowering techniques and/or adjustment according to patient size were u tilized for this exam. CT DOSE: 574.94 mGycm Comparison: Comparison is made to chest radiograph 02/16/2022 FINDINGS: Lungs and pleura: Bilateral pleural effusions are seen with underlying atelectasis. There is groundgl ass opacity in the dependent right lung. Biapical scarring and paraseptal emphysematous changes are s een along with diffuse bronchial wall thickening. Interlobular septal thickening is noted. Heart and pericardium: Cardiomegaly is seen with biatrial enlargement. Vessels: Unremarkable. Mediastinum and cristino: Subcentimeter lymph nodes are seen. Chest wall and lower neck: Unremarkable. Abdomen: Calcifications of the pancreas are noted. Bones: Degenerative changes in the thoracic spine. IMPRESSION: 1. Smooth interlobular septal thickening favored to represent pulmonary interstitial edema. Cardiome umesh. 2. Airspace disease in the left greater than right lung base compatible with aspiration and/or pneum onia. 3. Small bilateral pleural effusions with underlying atelectasis. ACT 112: Negative or not required by law. Electronically signed by: Tong Cox M.D. 02/17/2022 3:04 PM
--- NOTE | 2022-02-17 15:54 | Hospitalist Progress Note ---
Date of Service February 17, 2022 Assessment & Plan (1) Syncope: (2) Ventricular tachycardia: (3) Atrial fibrillation with RVR: (4) ICD (implantable cardioverter-defibrillator), dual, in situ: (5) UTI (urinary tract infection): Plan Plan Patient is a 81-year-old male with multiple comorbid condition presented to the ED after episode of ventricular tachycardia requiring cardioversion in the field. In the hospitalization, patient was evaluated by cardiology service. He underwent cardiac cath in 02/09 which showed moderate nonobstructive coronary artery disease. Echo was suggestive for heart failure with reduced ejection fraction. He underwent pacemaker placement on 02/11. Patient signed out AMA on 02/12. He had a fall on his knees as he was getting in the car in the parking lot. He was admitted again and was evaluated with head CT which was unremarkable. He reported increase in his left arm weakness which has been going on for last 1 [address] head was unremarkable for acute abnormality. Neurology service was consulted; recommend nonemergent MRI brain without contrast. 1) Recurrent syncope likely secondary to ventricular tachycardia s/p ICD placement on 02/11. 2) Paroxysmal A.fib 3) Non- ischemic CMP 4) Left arm weakness: Acute CA 5) Acute hypoxic respiratory failure 2/2 CHFrEF excerebation H/O medication noncompliance - S/P Cardioversion on the field - S/P Cardiac Cath on 02/09/22: Moderate nonobstructive coronary disease. --EEG was normal during wakefulness and drowsiness. No focal abnormalities, potentially epileptogenic discharges, or abnormal slow activity was seen. --ECHO: EF 30 to 35%. Moderate to severe global hypokinesis of left ventricle. Mild mitral regurgitation. Mild tricuspid regurgitation. Estimated systolic pulmonary pressure is 48 mmHg. Dilated inferior vena cava with reduced c ollapsibility with sniff indicates an elevated right atrial pressure of 15 mmHg --Carotid USD:There is no sonographic evidence of hemodynamically significant stenosis in the right or left carotid arterial system. Antegrade flow is shown in the vertebral arteries. --Normal Orthostatics --Mild rise in troponin likely demand ischemia due to VT and Cardioversion Plan: -Patient is lethargic; CT head done to rule out any acute abnormality. We will also obtain ABG in setting of his COPD. -Continue on Lasix 40 mg once daily; interval improvement in pulmonary edema. Increasing bibasilar opacity suggests aspiration; ELECTRIC ORGAN CHECKER was done and patient was put on modified diet. -MRI brain without contrast can be done not emergently as per neurology service. Recommended follow-up in neurology clinic. Patient is unable to go MRI brain without contrast for next 6 weeks as he had ICD placed recently. -Started on Eliquis 2.5 mg twice daily on 02/14 as per cardiology recommendation. Continue on amiodarone and metoprolol. Will need wound check in 1 week and follow-up with cardiology in 2 weeks. --Awaiting placement. 02/[address] head: Interval development of an acute infarct within the right parietal lobe, measuring approximately 4.1 cm in extent and possible additional 6 mm acute infarct within the right centrum semiovale. No significant mass effect. No intracranial hemorrhage. This finding will be called/faxed to the ordering provider at time of dictation. discussed with Neurologist Dr. Tony continue Eliquis, ASA for now permissive HTN CTA head and neck once renal function improves continue Lasix PO 5) HUONG on CKD3a- creatinine up trended to 1.86. Will monitor daily. We will cut down on diuresis if continues to be up trending. 6) Enterococcal UTI- s/p 5 days of ampicillin H/O CVA/PVD- resumed on ASA, crestor. Non compliant as OP Hyperlipidemia- on statin COPD- on duonebs scheduled DM II- A1C:5.7 currently;Diet controlled; Insulin per Protocol while hospitalized BPH/bladder cancer S/P surgery Ongoing tobacco abuse- Counselled to quit smoking.n Multiple falls, weakness- 2 falls today. PT eval pending. DVT Px: eliquis Dispo- PT/OT eval. will need rehab. CM on board. Admission and Anticipated Discharge Date Admission Date: February 08, 2022 Subjective ff up for CHF exacerbation, etc seen resting in bed, sleeping, not in distress chief complaint is L arm weakness, L lower leg weakness denies problem with swallowing no chest pain, dyspnea, palpitations, dizziness no other symptoms Review of Systems Review of Systems: all noted and negative except for above Physical Exam Physical Exam: General- oriented x 3, not in distress, speaks in sentences with no effort or accessory muscle use somewhat weak, drowsy Eyes- anicteric Neck- no JVD Lungs- mild rales at the bases, no wheezing Heart- normal rate, regular rhythm; no murmurs Abdomen- normal bowel sounds, nondistended, soft, nontender Extremities- no pretibial edema, no calf tenderness Neuro- alert, oriented x 3; (+) left sided weakness 1-2/5 motor strength, no other gross focal neurologic deficits Skin- warm & dry Results & Data Results & Data ([facility]) Vital Signs (Past 12 Hours) Vital Signs Temp Pulse Pulse Resp BP Pulse Ox O2 Del Method 02/17/22 15:18 36.7 C 65 20 133/81 95 Nasal Cannula 02/17/22 13:01 66 20 91 Nasal Cannula 02/17/22 11:15 36.6 C 65 17 144/69 H 95 Nasal Cannula 02/17/22 08:33 Nasal Cannula 02/17/22 07:56 36.7 C 66 20 131/69 95 Nasal Cannula 02/17/22 07:19 62 19 97 Nasal Cannula O2 Flow Rate 02/17/22 15:18 2 02/17/22 13:01 2 02/17/22 11:15 2 02/17/22 08:33 2 02/17/22 07:56 2 02/17/22 07:19 4 all noted and reviewed including below
--- NOTE | 2022-02-17 15:59 | Neurology Progress Note ---
Date of Service February 17, 2022 Assessment & Plan (1) CVA (cerebral vascular accident): Plan: Impression: The patient has multiple stroke risk factors including atrial fibrillation, who was admitted to hospital for ICD placement, and was anticoagulation was on hold. Initially, he was having chronic left arm weakness with undetermined etiology. Head CT was unremarkable. The patient was not a candidate for MRI. However, his left sided weakness worsened, and repeat head CTs showed acute ischemic stroke involving right MCA territory. The most likely underlying etiology is cardioembolic event. Plan: We will keep the patient on Eliquis and aspirin as before. Adjust Eliquis dosage after improvement of renal function. CT angiography of head and neck to assess for hemodynamically significant stenosis in few days, after improvement of renal function. Management of hyperlipidemia, with goal LDL is lower than 70. Management of hypertension. Permission hypertension is not indicated at this time as acute stroke symptoms were more than 24 hours. Avoid hypotension. Goal blood pressure is below 140/90. Physical therapy. The patient will need rehab and placement. (2) Left arm weakness: Plan: Impression: The patient reports having gradually worsening left arm weakness which started 2 months ago. He has significant stroke risk factors including atrial fibrillation. Initial HCTs were negative for acute event. However recent HCT showed acute ischemic, multifocal right MCA-CVA. Plan: Physical therapy. Keep the patient on anticoagulation and antilipid treatment for stroke prevention. He is also on aspirin for cardiac indication. - Avoid hypotension. Goal BP <140/90. - Lipid lowering treatment with goal LDL<70 -CTA of head and neck when renal function improves in ew days. Consider placement/rehab F/u at neurology clinic (3) Atrial fibrillation with RVR: Plan: Impression: The patient is restarted on anticoagulation. Plan: The patient has high CHADS2 score and should be treated on anticoagulation for stroke prevention. (4) Syncope: Plan: Impression: The patient has been having recurrent syncopal episodes. The most likely underlying cause is cardiac dysrhythmia. Plan: Cardiology is on board. (5) ICD (implantable cardioverter-defibrillator), dual, in situ: Plan Thank you for the consultation. Admission and Anticipated Discharge Date Admission Date: February 08, 2022 Subjective Patient seen and examined at bedside. He is lethargic but arousable. Since discharge from our consult service the patient has developed worsening left sided weakness and repeat HCT showed acute right MCA territory multifocal ischemic stroke. Review of Systems Review of Systems: All systems reviewed & are unremarkable except as noted in HPI & below Physical Exam Physical Exam: General Examination: Constitutional: Well developed disheveled person in no acute distress. HENT: Normal exam with inspection. CV: Irregular Neck: Supple, no carotid bruits. Lungs: Non-labored and comfortable breathing but with bibasilar crackles and some wheezing Abdomen: Soft, non-tender, non-distended. Skin: No rash or ecchymosis but bruises in extremities. Extremities: Left lower extremity distal edema NEUROLOGICAL EXAMINATION: Mental Status: Alert and oriented to place, person and time. Cranial Nerves: II-XII are intact grossly. No nystagmus. 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 Right leg is 5-/5, left leg 2+/5. DTRs: slightly increased in left leg with positive left Babinsky. Tone: Normal without spasticity or rigidity. Sensory: Decreased sensation in feet. Left arm proximal sensory impairment without radicular dermatomal distribution. Coordination: No dysmetria with right FTN testing. Speech: Fluent. Comprehension is intact. Gait: Unable to assess DTRs: 1+ in all extremities. No Babinsky Results & Data ([facility]) Vital Signs (Past 12 Hours) Vital Signs Temp Pulse Pulse Resp BP Pulse Ox O2 Del Method 02/17/22 15:18 36.7 C 65 20 133/81 95 Nasal Cannula 02/17/22 13:01 66 20 91 Nasal Cannula 02/17/22 11:15 36.6 C 65 17 144/69 H 95 Nasal Cannula 02/17/22 08:33 Nasal Cannula 02/17/22 07:56 36.7 C 66 20 131/69 95 Nasal Cannula 02/17/22 07:19 62 19 97 Nasal Cannula O2 Flow Rate 02/17/22 15:18 2 02/17/22 13:01 2 02/17/22 11:15 2 02/17/22 08:33 2 02/17/22 07:56 2 02/17/22 07:19 4 Laboratory Results Laboratory Results - last 24 hr 02/16/22 02/16/22 02/17/22 16:40 20:07 06:18 WBC 8.11 RBC 4.92 Hgb 15.2 Hct 47.0 MCV 95.5 MCH 30.9 MCHC 32.3 RDW Std Deviation 51.7 H RDW Coeff of Chela 14.6 H Plt Count 93 L MPV 11.3 Neutrophils % (Manual) 49 Lymphocytes % (Manual) 23 Monocytes % (Manual) 8 Eosinophils % (Manual) 2 Basophils % (Manual) 3 Neutrophils # (Manual) 3.97 Total Absolute Neuts 3.97 Lymphocytes # (Manual) 1.87 Total Abs Lymphocytes 3.08 Monocytes # (Manual) 0.65 Eosinophils # (Manual) 0.16 Basophils # (Manual) 0.24 H Large Granular Lymphs 15 # Lrg Granular Lymphs 1.22 Sodium Potassium Chloride Carbon Dioxide Anion Gap BUN Creatinine Est Cr Clr Drug Dosing Est GFR ( Amer) Est GFR (Non-Af Amer) BUN/Creatinine Ratio Glucose POC Glucose 103 H 106 H Calcium Magnesium 02/17/22 02/17/22 02/17/22 06:18 07:39 12:24 WBC RBC Hgb Hct MCV MCH MCHC RDW Std Deviation RDW Coeff of Chela Plt Count MPV Neutrophils % (Manual) Lymphocytes % (Manual) Monocytes % (Manual) Eosinophils % (Manual) Basophils % (Manual) Neutrophils # (Manual) Total Absolute Neuts Lymphocytes # (Manual) Total Abs Lymphocytes Monocytes # (Manual) Eosinophils # (Manual) Basophils # (Manual) Large Granular Lymphs # Lrg Granular Lymphs Sodium 134 L Potassium 3.8 Chloride 91 L Carbon Dioxide 38 H Anion Gap 5 BUN 22 Creatinine 1.63 H Est Cr Clr Drug Dosing 33.2 Est GFR ( Amer) 45.8 Est GFR (Non-Af Amer) 39.5 BUN/Creatinine Ratio 13.5 Glucose 102 H POC Glucose 125 H 108 H Calcium 8.7 Magnesium 1.9 Diagnostic Findings Chest X-Ray 02/08/22 00:40 XR chest 1V portable HISTORY: 81 years-old Male syncope acute syncope COMPARISON: Chest radiograph 07/31/2020 TECHNIQUE: Portable AP view of the chest FINDINGS: Cardiac silhouette is enlarged. No pneumothorax. Trace right pleural effusion with mild right lung base opacities. Pulmonary vascular congestion. Mild thoracic levoscoliosis. Degenerative changes of the shoulders and spine. IMPRESSION: 1. Cardiomegaly with pulmonary vascular congestion. 2. Trace right pleural effusion with mild right lung base opacities. ACT 112: Negative or not required by law. The above report was generated using voice recognition software. It may contain grammatical, syntax or spelling errors. Electronically signed by: Flavio Niño M.D. 02/08/2022 7:[address] 02/08/22 01:27 CT SCAN OF THE CERVICAL SPINE CLINICAL HISTORY: Fall. Head injury. COMPARISON STUDY: No priors. TECHNIQUE: CT scan of the cervical spine is performed from the skull base to the upper thoracic spine. Images are reviewed in the axial, sagittal, and coronal planes. IV contrast was not administered for this examination. A dose lowering technique was utilized adhering to the principles of ALARA. CT DOSE: 1000.23 mGy.cm FINDINGS: Skeletal structures: The skeletal structures are osteopenic. There is no evidence of fracture or subluxation involving the cervical spine. Vertebral body height and alignment are maintained. Anterior osteophytes are seen throughout. The odontoid process and lateral masses are intact. The atlantoaxial articulation is preserved noting productive degenerative change. The spinous processes appear intact. There is mild to moderate multilevel cervical spondylosis. Uncovertebral and facet arthropathy contribute to neural foraminal narrowing at several levels. Intervertebral discs: There is moderate disc space narrowing at C4-C5, C5-C6, and C6-C7. Central canal: Posterior disc osteophyte complexes are seen at C4-C5, C5-C6, and C6-C7. This likely contributes to mild multilevel acquired compromise of the central canal. Soft tissues: The prevertebral and paraspinous soft tissues are within normal limits. There is atherosclerotic calcification of the carotid bulbs. Calvarium: The visualized calvarium at the skull base appears intact. Brain parenchyma: Partially visualized brain parenchyma at the skull base is within normal limits. Sinuses and mastoids: The visualized paranasal sinuses are clear. There is a small left mastoid effusion. The right mastoid air cells are well pneumatized. Lung apices: Emphysematous change is noted at the apices. Apical lung parenchyma is otherwise clear as visualized. IMPRESSION: 1. There is no evidence of fracture or subluxation involving the cervical spine. 2. Osteopenia and spondylotic change as above. ACT 112: Negative or not required by law. Electronically signed by: Hima Segal M.D. 02/08/2022 8:[address] 02/08/22 01:27 CT head/brain wo con CLINICAL HISTORY: 81 years-old Male with fall, CHI, syncope. Acute head injury status post fall TECHNIQUE: Multiple axial CT images of the head were obtained without contrast. A dose lowering technique was utilized adhering to the principles of ALARA. COMPARISON: CT cervical spine of same day FINDINGS: No acute intracranial hemorrhage, midline shift, intracranial mass, hydrocephalus, territorial ischemia or abnormal extra-axial collection. Age- related involutional changes. White matter hypodensities suggest chronic microvascular ischemic disease. 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 Motion degraded study. The calvarium is intact. Mild polypoid mucosal thickening of the left maxillary sinus. Mastoid air cells are clear. Unremarkable soft tissues. Prior bilateral lens repair. IMPRESSION: No acute intracranial abnormality or calvarial fracture. ACT 112: Negative or not required by law. The above report was generated using voice recognition software. It may contain grammatical, syntax or spelling errors. Electronically signed by: Flavio Niño M.D. 02/08/2022 7:27 AM Carotid Doppler Study 02/08/22 04:33 ULTRASOUND OF THE CAROTID ARTERIES CLINICAL HISTORY: Syncope. COMPARISON STUDY: No priors. TECHNIQUE: Real-time, grayscale, and color Doppler sonography of the carotid arteries is performed. Images are reviewed in the transverse and longitudinal planes. FINDINGS: The carotid arteries are patent bilaterally and demonstrate antegrade flow. There is mild to moderate atherosclerotic plaque seen in the carotid bulbs, right greater than left. Normal doppler arterial waveforms are seen throughout. Velocity measurements are listed below. Common carotid peak systolic velocity (cm/sec): RIGHT: 42 LEFT: 48 ICA proximal peak systolic velocity (cm/sec): RIGHT: 104 LEFT: 117 ICA mid peak systolic velocity (cm/sec): RIGHT: 81 LEFT: 71 ICA distal peak systolic velocity (cm/sec): RIGHT: 93 LEFT: 72 ICA/CC peak systolic ratio: RIGHT: 2.8 LEFT: 2.5 Antegrade flow was shown in the vertebral arteries. The external carotid arteries are patent. IMPRESSION: 1. There is no sonographic evidence of hemodynamically significant stenosis in the right or left carotid arterial system. 2. Antegrade flow is shown in the vertebral arteries. ACT 112: Negative or not required by law. Electronically signed by: Hima Segal M.D. 02/08/2022 12:52 PM Venous Doppler Study 02/09/22 00:00 BILATERAL LOWER EXTREMITY VENOUS DOPPLER CLINICAL HISTORY: Asymmetric lower extremity edema. COMPARISON STUDY: Right lower extremity venous Doppler ultrasound April 16, 2020. TECHNIQUE: Sonography of the deep venous system of the bilateral lower extremities was performed. Compression and augmentation were evaluated. FINDINGS: The bilateral common femoral, superficial femoral and popliteal veins were compressible. Augmentation was normal. Flow was shown within the deep calf vessels. IMPRESSION: No evidence of deep venous thrombus within the bilateral lower extremities. ACT 112: Negative or not required by law. Electronically signed by: Win Bermudez M.D. 02/09/2022 7:48 AM Chest X-Ray 02/12/22 07:00 XR chest 2V PA/lateral HISTORY: 81 years-old Male EXACT TIME ORDERED Evaluate for pneumothorax and l status post placement of a left subclavian pacer/AICD COMPARISON: Chest radiograph 02/08/2022 TECHNIQUE: PA and lateral views of the chest FINDINGS: Cardiac silhouette is enlarged. Small right pleural effusion with right basilar consolidation, progressively worsened from prior. Probable trace left pleural effusion. No overt pulmonary edema. Status post placement of a left subclavian pacer/AICD. No postprocedural pneumothorax identified. IMPRESSION: 1. Status post placement of a left subclavian pacer/AICD. No postprocedural pneumothorax. 2. Small right pleural effusion with right basilar consolidation. ACT 112: Negative or not required by law. The above report was generated using voice recognition software. It may contain grammatical, syntax or spelling errors. Electronically signed by: Flavio Niño M.D. 02/12/2022 6:54 AM Chest X-Ray 02/12/22 14:05 XR chest 2V PA/lateral HISTORY: 81 years-old Male fall acute chest trauma status post fall COMPARISON: Chest and shoulder radiographs of same day TECHNIQUE: AP view of the chest FINDINGS: Cardiac silhouette is enlarged. Left subclavian pacer/ICD. No pneumothorax. Small right and trace left pleural effusions with persistent right lung base opacities, mildly improved. Pulmonary vascular congestion. Degenerative changes of the shoulders and spine. Limited lateral view secondary to positioning. IMPRESSION: 1. Limited exam secondary to positioning. 2. Cardiomegaly with pulmonary vascular congestion. 3. Trace left and small right pleural effusions with mildly improved right basilar consolidation. 3. No acute rib fracture or pneumothorax identified. ACT 112: Negative or not required by law. The above report was generated using voice recognition software. It may contain grammatical, syntax or spelling errors. Electronically signed by: Flavio Niño M.D. 02/12/2022 3:53 PM Shoulder X-Ray 02/12/22 14:05 XR shoulder LT min 2V routine HISTORY: 81 years-old Male fall acute left shoulder pain status post fall COMPARISON: Chest radiograph 6 same day TECHNIQUE: 2 views of the left shoulder FINDINGS: Left subclavian pacer. Demineralized appearance of the bones. Moderate AC joint with mild glenohumeral osteoarthritis. No acute fracture, dislocation or unexpected opaque foreign body. Carotid calcifications. IMPRESSION: No acute fracture or dislocation. ACT 112: Negative or not required by law. The above report was generated using voice recognition software. It may contain grammatical, syntax or spelling errors. Electronically signed by: Flavio Niño M.D. 02/12/2022 4:[address] 02/12/22 14:[address] DOSE: 614.27 mGy.cm HISTORY: fall TECHNIQUE: Multiaxial CT images of the head were performed without the use of intravenous contrast. Automated exposure control was utilized for this study. A dose lowering technique was utilized adhering to the principles of ALARA. Comparison: Head CT 02/08/2022. Findings: The paranasal sinuses and mastoid air cells are clear. The calvarium and skull base are intact. There is no mass, hematoma, midline shift, acute infarct. White matter hypodensity is nonspecific but suggestive of microvascular ischemic change. The ventricles and sulci are within normal limits for age. Chronic nasal bone deformities again noted. Mild motion artifact. Mild left lateral scalp swelling. There is an old small infarct within the right high c onvexity. This remains unchanged. Impression: No significant change compared to the prior study. No acute intracranial abnormality. ACT 112: Negative or not required by law. Electronically signed by: Yohannes Metz M.D. 02/12/2022 4:01 PM Chest X-Ray 02/14/22 03:04 XR chest 1V portable HISTORY: Coughing. hypoxia COMPARISON: Chest 02/12/2022. FINDINGS: No pneumothorax. There is left-sided dual-chamber pacemaker/defibrillator. The heart remains mildly enlarged. There is diffuse interstitial/vascular thickening with small bilateral pleural effusions. This favors pulmonary edema. Right basilar densities persist. IMPRESSION: 1. No change in the pulmonary edema and small bilateral pleural effusions. 2. Right patchy basilar densities also persist. ACT 112: Negative or not required by law. Electronically signed by: Yohannes Metz M.D. 02/14/2022 8:08 AM Chest X-Ray 02/14/22 08:09 XR chest 1V portable HISTORY: Increase oxygen requirement COMPARISON: Chest 02/14/2022. FINDINGS: No pneumothorax. The heart remains enlarged. Moderate pulmonary edema, trace bilateral pleural effusions, and patchy bibasilar densities have slightly progressed. There is a left-sided pacemaker. IMPRESSION: Slight progression of the moderate pulmonary edema, trace bilateral pleural effusions, and patchy bibasilar densities. ACT 112: Negative or not required by law. Electronically signed by: Yohannes Metz M.D. 02/14/2022 8:47 AM Chest X-Ray 02/16/22 08:02 XR chest 1V portable HISTORY: Increased oxygen requirement COMPARISON: Chest 02/14/2022. FINDINGS: No pneumothorax. The cardiac silhouette remains mildly enlarged. Mild interstitial pulmonary edema has slightly improved. Small bilateral pleural effusions have slightly progressed. Hazy bibasilar densities remain unchanged. There is a left-sided dual-chamber pacemaker. IMPRESSION: 1. Interval improvement in the mild interstitial pulmonary edema. 2. The small bilateral pleural effusions and bibasilar densities have slightly progressed. ACT 112: Negative or not required by law. Electronically signed by: Yohannes Metz M.D. 02/16/2022 8:[address] 02/16/22 09:13 CT head/brain wo con CLINICAL HISTORY: Altered mental status Technique: Contiguous axial CT images of the head were acquired from the base of the skull to the vertex without intravenous contrast administration. Images were viewed in brain, subdural and bone windows. Automated dose lowering techniques and/or adjustment according to patient size were utilized for this exam. Comparison: Comparison is made to CT head 02/12/2022 Findings: The ventricles, basal cisterns, and cerebral sulci are normal. There is no acute intracranial hemorrhage or evidence of acute territorial infarction. Neither mass effect, shift of the midline structures, nor abnormal extra-axial fluid collections are shown. Old encephalomalacia in the right posterior frontal region is unchanged. Imaged portions of the paranasal sinuses and mastoid air cells are clear. The orbits appear normal. There are no acute fractures of the calvaria or scalp swelling. Chronic nasal bone deformities noted. Impression: No acute intracranial hemorrhage, no evidence of acute territorial infarction or other acute intracranial disease process. ACT 112: Negative or not required by law. Electronically signed by: Tong Cox M.D. 02/16/2022 10:[address] 02/17/22 09:50 CT OF THE HEAD WITHOUT CONTRAST CLINICAL HISTORY: L sided weakness r/o CVA COMPARISON STUDY: Head CTs February 08, 2022 and February 16, 2022. CT DOSE: 729.78 mGycm TECHNIQUE: Helical axial images of the head were obtained without IV contrast. Automated exposure control was utilized for the study. A dose lowering technique was utilized adhering to the principles of ALARA. FINDINGS: No acute intracranial hemorrhage, midline shift or mass effect is present. A new 4.1 cm hypodense focus with loss of hurley-white differentiation within the right parietal lobe shown best on axial image 22 of 32. This was not present on head CT of February 16, 2022. There is a 6 mm hypodensity within the right centrum semiovale on axial image 22 of 32. Adjacent old posterior right frontal lobe infarct is noted. Basal cisterns are patent. There are no extra axial collections. White matter hypodensity suggests small vessel disease. A few opacified left mastoid air cells are present. No significant calvarial abnormalities noted. IMPRESSION: Interval development of an acute infarct within the right parietal lobe, measuring approximately 4.1 cm in extent and possible additional 6 mm acut e infarct within the right centrum semiovale. No significant mass effect. No intracranial hemorrhage. This finding will be called/faxed to the ordering provider at time of dictation. ACT 112: Negative or not required by law. Electronically signed by: Win Bermudez M.D. 02/17/2022 1:[address] 02/17/22 10:00 CT chest diagnostic wo con CLINICAL HISTORY: hypoxia, r/o pneumonia TECHNIQUE: Multidetector row helical CT of the chest was performed. Coronal and sagittal reformations were obtained. Automated dose lowering techniques and/or adjustment according to patient size were utilized for this exam. CT DOSE: 574.94 mGycm Comparison: Comparison is made to chest radiograph 02/16/2022 FINDINGS: Lungs and pleura: Bilateral pleural effusions are seen with underlying atelectasis. There is groundglass opacity in the dependent right lung. Biapical scarring and paraseptal emphysematous changes are seen along with diffuse bronchial wall thickening. Interlobular septal thickening is noted. Heart and pericardium: Cardiomegaly is seen with biatrial enlargement. Vessels: Unremarkable. Mediastinum and cristino: Subcentimeter lymph nodes are seen. Chest wall and lower neck: Unremarkable. Abdomen: Calcifications of the pancreas are noted. Bones: Degenerative changes in the thoracic spine. IMPRESSION: 1. Smooth interlobular septal thickening favored to represent pulmonary interstitial edema. Cardiomegaly. 2. Airspace disease in the left greater than right lung base compatible with aspiration and/or pneumonia. 3. Small bilateral pleural effusions with underlying atelectasis. ACT 112: Negative or not required by law. Electronically signed by: Tong Cox M.D. 02/17/2022 3:04 PM
[2022-02-17] MEDS ORDERED: MELATONIN 3 MG TAB PO SCH (18:00)
[2022-02-17] MEDS: CEFEPIME 2,000 MG in SYRINGE 0 ML IV SCH (18:16)
[2022-02-17] MEDS: MELATONIN 3 MG TAB PO SCH (20:11)
[2022-02-17] MEDS: DOXYCYCLINE HYCLATE 100 MG CAP PO SCH (20:11)
[2022-02-17] MEDS: ACETAMINOPHEN 325 MG TAB PO PRN (20:16)
[2022-02-18] MEDS: IPRATROPIUM BROMIDE NEB SOLN 0.02% 2.5 ML VIAL INH SCH ×4 (01:08→20:15)
[2022-02-18] MEDS: LEVALBUTEROL 1.25MG/0.5ML NEB INH SCH ×4 (01:08→20:15)
[2022-02-18] MEDS: CEFEPIME 2,000 MG in SYRINGE 0 ML IV SCH ×2 (04:14→16:19)
[2022-02-18 06:43] LABS: Hematocrit (blood only) 45.7 % (40.1-51.0); Hemoglobin 14.7 g/dl (14.0-18.0); Mean Corpuscular Hgb Conc 32.2 g/dL (32.0-36.0); Mean Corpuscular Volume 96.4 fL (80.0-100.0); Mean Platelet Volume 11.9 fL (9.4-12.4); Platelet Count 91 K/uL (130-400); RDW Coefficient of Variation 14.8 % (11.5-14.5); RDW Standard Deviation 52.6 fL (36.4-46.3); Red Blood Count 4.74 M/uL (4.63-6.08); White Blood Count 6.91 K/ul (4.8-10.8)
[2022-02-18] MEDS ORDERED: LEVALBUTEROL HCL 1.25 MG/3 ML NEB ONE (06:50)
[2022-02-18 06:58] LABS: Estimated Average Glucose 117 mg/dl; Hemoglobin A1C 5.7 % (4.5-5.6)
[2022-02-18 06:59] LABS: Anion Gap 5 (3-11); Blood Urea Nitrogen 26 mg/dl (6-23); Calcium 8.7 mg/dl (8.5-10.1); Carbon Dioxide 36 mmol/L (21-32); Chloride 93 mmol/L (98-107); Chol HDL Ratio 3.1 (0-5); Cholesterol 88 mg/dl (0-200); Creatinine Clr Calc Pharmacy 35.9 ml/min; Est GFR (African American) 45.8 ml/min; Est GFR (Non-African American) 39.5 ml/min; Glucose 110 mg/dl (70-99(Fasting)); HDL Cholesterol 28 mg/dl; LDL Cholesterol Calculated 43 mg/dl; Sodium 134 mmol/L (136-145); Triglycerides 83 mg/dl (0-150); VLDL Cholesterol 17 mg/dl (0-30)
[2022-02-18 07:16] LABS: Basophils # (auto) 0.04 K/uL (0-0.2); Basophils % (auto) 0.6 %; Eosinophils # (auto) 0.05 K/uL (0-0.50); Eosinophils % (auto) 0.7 %; Immature Granulocytes # (auto) 0.07 K/uL (0.00-0.02); Lymphocytes # (auto) 1.83 K/uL (1.2-3.4); Lymphocytes % (auto) 26.5 %; Monocytes # (auto) 0.91 K/uL (0.24-0.82); Monocytes % (auto) 13.2 %; Neutrophils # (auto) 4.01 K/uL (1.4-6.5)
[2022-02-18] MEDS: DOXYCYCLINE HYCLATE 100 MG CAP PO SCH ×2 (07:51→20:07)
[2022-02-18] MEDS: AMIODARONE 200 MG TAB PO SCH ×2 (07:51→16:18)
[2022-02-18] MEDS: APIXABAN 2.5 MG TAB PO SCH ×2 (07:52→20:07)
[2022-02-18] MEDS: METOPROLOL TARTRATE 25 MG TAB PO SCH ×2 (07:52→20:07)
[2022-02-18] MEDS: FUROSEMIDE 20 MG TAB PO SCH (07:53)
[2022-02-18] MEDS: ROSUVASTATIN CALCIUM 20 MG TAB PO SCH (07:54)
[2022-02-18] MEDS: POLYETHYLENE (MIRALAX) 17 GM PACK PO SCH (07:54)
[2022-02-18] MEDS: ASPIRIN 81 MG CHEW PO SCH (08:59)
[2022-02-18] MEDS: INSULIN ASPART PER UNIT SC SCH ×4 (09:00→20:06)
--- NOTE | 2022-02-18 14:46 | Fluoroscopy Report ---
FL video swallow HISTORY: Right-sided pneumonia. Possible aspiration pneumonia. assess for aspiration TECHNIQUE: Video fluoroscopic evaluation of swallowing was performed in the AP and lateral projection s by the speech pathology staff. The patient is fed nectar-thick and thin liquid barium, a barium coa nathan wafer, and barium pudding. FLUOROSCOPY TIME: 1.9 minutes. A cine loop submitted.. COMPARISON STUDY: None. FINDINGS: There is normal hyoid excursion and epiglottic deflection. There are a few episodes of pene tration with the thin liquid barium. No aspiration identified. Swallowing function is within normal l imits. IMPRESSION: 1. No aspiration identified. 2. Please see the speech pathologist report for detailed findings and recommendations. ACT 112: Negative or not required by law. Electronically signed by: Yohannes Metz M.D. 02/18/2022 2:45 PM
--- NOTE | 2022-02-18 17:32 | Consultation Report ---
NEPHROLOGY CONSULTATION NOTE DATE OF SERVICE: 02/18/2022. REASON FOR CONSULTATION: Acute on chronic renal failure with congestive heart failure. HISTORY OF PRESENT ILLNESS: The patient is a 81-year-old male who has been in the hospital for 10 da ys now, admitted after a syncopal episode, which was later found to be related with ventricular tachy cardia. He even had witnessed V-tach episodes in the hospital requiring cardioversion. Since being admitted, he has had a cardiac catheterization also which shows a lowered ejection fraction, as well as moderate coronary artery disease, but he did not require any stents, ejection fraction of 30%. Th e patient also is suspected to have stroke and he is quite weak in the left side and has been seen by Neurology and he does have acute ischemic stroke involving right MCA territory, most likely secondar y to cardioembolic event. The patient has been placed on anticoagulation at this point. The patient has had multiple contrast exposure in the last 10 days for various kind of testing. Creatinine at [facility] prior to this episode of admission was 1.15 a year ago, on admission was 1.72 and since then i t has remained at a fairly tight range between 1.58-1.86. The last 2 days creatinine has been 1.63. He is currently getting Lasix 20 mg once daily. Chest x-ray did show pulmonary edema even on the x-r ay that was done yesterday. The patient is unable to give me any history. He did not even open eyes for me. He is also high risk for aspiration. PAST MEDICAL AND SURGICAL HISTORY: Includes history of bladder cancer, hypertension, history of vent ricular tachycardia, history of PVCs, atrial fibrillation with rapid ventricular response, history of noncompliance, right carotid artery stenosis. ALLERGIES: Reviewed none. MEDICATIONS: Home medication includes Eliquis 5 mg twice daily, metoprolol 25 twice daily and Cresto r 20 daily. REVIEW OF SYSTEMS: Unable to obtain as the patient did not even open eyes for me. He is very somnol ent and not interactive at all. PHYSICAL EXAMINATION: GENERAL: Elderly white male who is quite somnolent and uninteractive at this point, did not answer a ny of my questions. Eyes was closed, did not follow my command. VITAL SIGNS: Blood pressure 129/70, pulse rate 64, temperature 36.4, 94% on 3 liters nasal cannula. HEENT: Mucous membrane moist. NECK: Supple. Jugular venous distention is present. CHEST: Bilateral decreased breath sound, did not take any inspiratory effort, limited quality exam. CARDIOVASCULAR: S1 and S2, regular. Systolic murmur heard. ABDOMEN: Soft, nontender. EXTREMITIES: Show trace edema. LABORATORY TEST: Creatinine is 1.6, BUN is 26. Sodium 134, potassium 3.7, chloride 93, bicarbonate 36, calcium 8.7, magnesium 2.0. ASSESSMENT AND PLAN: A 81-year-old male with previously normal kidney function, now admitted with re current syncope related with ventricular tachycardia even requiring cardioversion. He was also found to have new onset cardiomyopathy with an ejection fraction of 30% as well as new onset acute ischemi c stroke involving the right middle cerebral artery. I have been consulted for abnormal kidney funct ion in the setting of congestive heart failure. 1. Acute on chronic renal failure. 2. Congestive heart failure. The patient's creatinine prior to this admission was near normal at 1. 1, but since being admitted, it has been at a slightly higher level, but it is fairly steady for the last 10 days. Creatinine has been anywhere from 1.5 to 1.8 for the last 10 days and last 2 days was 1.6. Given that there has been significant drop in his ejection fraction, it is not unexpected to lozada ve slightly higher baseline creatinine in fact, I would call this as his new baseline. He still has some evidence of congestive heart failure on the chest x-ray. I do not believe the Lasix 20 daily is enough, I would increase the dose to 40 daily and continue to follow daily labs. However, it is gen y concerning that the patient is not interactive at all, so I do not know how much he is eating and d rinking. Diuretics may have to be adjusted based on his oral intake. Thank you very much for the consult. Job ID: [id number]
[2022-02-18] MEDS: MELATONIN 3 MG TAB PO SCH (20:07)
[2022-02-19] MEDS: IPRATROPIUM BROMIDE NEB SOLN 0.02% 2.5 ML VIAL INH SCH ×2 (01:24→06:58)
[2022-02-19] MEDS: LEVALBUTEROL 1.25MG/0.5ML NEB INH SCH ×2 (01:24→06:58)
[2022-02-19] MEDS: CEFEPIME 2,000 MG in SYRINGE 0 ML IV SCH ×2 (05:13→16:10)
[2022-02-19 07:06] LABS: BUN Creatinine Ratio 15.6 (10-20); Calcium 8.8 mg/dl (8.5-10.1); Creatinine Clr Calc Pharmacy 36.6 ml/min; Est GFR (African American) 46.8 ml/min; Est GFR (Non-African American) 40.4 ml/min; Magnesium 1.8 mg/dl (1.7-2.4); Potassium 3.9 mmol/L (3.5-5.1)
[2022-02-19] MEDS ORDERED: IPRATROPIUM BROMIDE NEB SOLN 0.02% 2.5 ML VIAL INH PRN (07:44)
[2022-02-19] MEDS ORDERED: LEVALBUTEROL 1.25MG/0.5ML NEB INH PRN (07:44)
[2022-02-19] MEDS: INSULIN ASPART PER UNIT SC SCH ×4 (08:45→20:09)
[2022-02-19] MEDS: FUROSEMIDE 40 MG TAB PO SCH (08:46)
[2022-02-19] MEDS: ROSUVASTATIN CALCIUM 20 MG TAB PO SCH (08:46)
[2022-02-19] MEDS: AMIODARONE 200 MG TAB PO SCH ×2 (08:46→16:10)
[2022-02-19] MEDS: METOPROLOL TARTRATE 25 MG TAB PO SCH ×2 (08:46→20:50)
[2022-02-19] MEDS: DOXYCYCLINE HYCLATE 100 MG CAP PO SCH ×2 (08:47→20:49)
[2022-02-19] MEDS: APIXABAN 2.5 MG TAB PO SCH ×2 (08:47→20:50)
[2022-02-19] MEDS: ASPIRIN 81 MG CHEW PO SCH (08:48)
[2022-02-19] MEDS: POLYETHYLENE (MIRALAX) 17 GM PACK PO SCH (08:49)
--- NOTE | 2022-02-19 09:43 | Nephrology Progress Note ---
Date of Service February 19, 2022 Assessment & Plan Admission and Anticipated Discharge Date Admission Date: February 08, 2022 Subjective S--not interactive. PHYSICAL EXAMINATION: GENERAL: Elderly white male who is quite somnolent and uninteractive at this point, did not answer any of my questions. Eyes was closed, did not follow my command. HEENT: Mucous membrane moist. NECK: Supple. Jugular venous distention is present. CHEST: Bilateral decreased breath sound, did not take any inspiratory effort, limited quality exam. CARDIOVASCULAR: S1 and S2, regular. Systolic murmur heard. ABDOMEN: Soft, nontender. EXTREMITIES: Show trace edema. LABORATORY TEST: labs reviewed. . ASSESSMENT AND PLAN: A 81-year-old male with previously normal kidney function, now admitted with recurrent syncope related with ventricular tachycardia even requiring cardioversion. He was also found to have new onset cardiomyopathy with an ejection fraction of 30% as well as new onset acute ischemic stroke involving the right middle cerebral artery. I have been consulted for abnormal kidney function in the setting of congestive heart failure. 1. Acute on chronic renal failure. 2. Congestive heart failure. The patient's creatinine prior to this admission was near normal at 1.1, but since being admitted, it has been at a slightly higher level, but it is fairly steady for the last 10 days. Creatinine has been anywhere from 1.5 to 1.8 for the last 10 days and last 2 days was 1.6. Given that there has been significant drop in his ejection fraction, it is not unexpected to have slightly higher baseline creatinine in fact, I would call this as his new baseline. He still has some evidence of congestive heart failure on the chest x-ray. I do not believe the Lasix 20 daily is enough, I would continue the dose 40 daily and continue to follow daily labs. However, it is very concerning that the patient is not interactive at all, so I do not know how much he is eating and drinking. Diuretics may have to be adjusted based on his oral intake. 3 I was asked by Hospitalist whether he can have Contrast for CT angiogram--My answer is if it is being done purely from diagnostic standpoint and if no direct intervention is happening with that then better not to expose. Results & Data ([facility]) Vital Signs (Past 12 Hours) Vital Signs Temp Pulse Pulse Pulse Resp BP Pulse Ox 02/19/22 08:00 36.5 C 70 18 132/64 94 08/26/22 06:59 81 19 92 02/19/22 02:59 36.4 C L 67 20 148/88 H 90 02/19/22 01:24 58 L 18 93 02/18/22 23:40 67 02/18/22 23:15 36.4 C L 60 18 140/78 90 O2 Del Method O2 Flow Rate 02/19/22 08:00 02/19/22 06:59 Nasal Cannula 3 02/19/22 02:59 Nasal Cannula 02/19/22 01:24 Nasal Cannula 3 02/18/22 23:40 02/18/22 23:15 Nasal Cannula 3
--- NOTE | 2022-02-19 15:26 | Hospitalist Progress Note ---
Date of Service February 19, 2022 Assessment & Plan (1) CVA (cerebral vascular accident): (2) CAD (coronary artery disease): (3) Cardiomyopathy: (4) ICD (implantable cardioverter-defibrillator), dual, in situ: Plan: (1) Syncope: (2) Ventricular tachycardia: (3) Atrial fibrillation with RVR: (4) ICD (implantable cardioverter-defibrillator), dual, in situ: (5) UTI (urinary tract infection): Plan Plan Patient is a 81-year-old male with multiple comorbid condition presented to the ED after episode of ventricular tachycardia requiring cardioversion in the field. In the hospitalization, patient was evaluated by cardiology service. He underwent cardiac cath in 02/09 which showed moderate nonobstructive coronary artery disease. Echo was suggestive for heart failure with reduced ejection fraction. He underwent pacemaker placement on 02/11. Patient signed out AMA on 02/12. He had a fall on his knees as he was getting in the car in the parking lot. He was admitted again and was evaluated with head CT which was unremarkable. He reported increase in his left arm weakness which has been going on for last [address] head was unremarkable for acute abnormality. Neurology service was consulted; recommend nonemergent MRI brain without contrast. 1) Recurrent syncope likely secondary to ventricular tachycardia s/p ICD placement on 02/11. 2) Paroxysmal A.fib 3) Non- ischemic CMP 4) Left arm weakness: Acute CA 5) Acute hypoxic respiratory failure 2/2 CHFrEF excerebation H/O medication noncompliance - S/P Cardioversion on the field - S/P Cardiac Cath on 02/09/22: Moderate nonobstructive coronary disease. --EEG was normal during wakefulness and drowsiness. No focal abnormalities, potentially epileptogenic discharges, or abnormal slow activity was seen. --ECHO: EF 30 to 35%. Moderate to severe global hypokinesis of left ventricle. Mild mitral regurgitation. Mild tricuspid regurgitation. Estimated systolic pulmonary pressure is 48 mmHg. Dilated inferior vena cava with reduced collapsi bility with sniff indicates an elevated right atrial pressure of 15 mmHg --Carotid USD:There is no sonographic evidence of hemodynamically significant stenosis in the right or left carotid arterial system. Antegrade flow is shown in the vertebral arteries. --Normal Orthostatics --Mild rise in troponin likely demand ischemia due to VT and Cardioversion Plan: -Patient is lethargic; CT head done to rule out any acute abnormality. We will also obtain ABG in setting of his COPD. -Continue on Lasix 40 mg once daily; interval improvement in pulmonary edema. Increasing bibasilar opacity suggests aspiration; BIOMEDICAL SPECIALIST was done and patient was put on modified diet. -MRI brain without contrast can be done not emergently as per neurology service. Recommended follow-up in neurology clinic. Patient is unable to go MRI brain without contrast for next 6 weeks as he had ICD placed recently. -Started on Eliquis 2.5 mg twice daily on 02/14 as per cardiology r ecommendation. Continue on amiodarone and metoprolol. Will need wound check in 1 week and follow-up with cardiology in 2 weeks. --Awaiting placement. 02/[address] head:Interval development of an acute infarct within the right parietal lobe, measuring approximately 4.1 cm in extent and possible additional 6 mm acute infarct within the right centrum semiovale. No significant mass eff ect. No intracranial hemorrhage. discussed with Neurologist Dr. Tony continue Eliquis, ASA for now permissive HTN CTA head and neck once renal function improves continue Lasix 40mg PO daily 5) HUONG on CKD3a- creatinine up trended to 1.86. -- remains at 1.6 6) Enterococcal UTI- s/p 5 days of ampicillin H/O CVA/PVD- resumed on ASA, crestor. Non compliant as OP Hyperlipidemia- on statin COPD- on duonebs scheduled DM II- A1C:5.7 currently;Diet controlled; Insulin per Protocol while hospitalized BPH/bladder cancer S/P surgery Ongoing tobacco abuse- Counselled to quit smoking.n Multiple falls, weakness- PT/OT eval in progress DVT Px: eliquis Dispo- anticipate transfer to [facility] when medically stable Admission and Anticipated Discharge Date Admission Date: February 08, 2022 Subjective ff up for acute CVA, etc seen resting in bed, comfortable not in distress states breathing is a little better today no cough L upper arm weakness the same, no new focal neuro symptoms no chest pain, dyspnea, palpitations, dizziness no other symptoms Review of Systems Review of Systems: all noted and negative except for above Physical Exam Physical Exam: General- oriented x 3, not in distress, speaks in sentences with no effort or accessory muscle use Eyes- anicteric Neck- no JVD Lungs- mild rales at the bases no wheezing Heart- normal rate, regular rhythm; no murmurs Abdomen- normal bowel sounds, nondistended, soft, nontender Extremities- no pretibial edema, no calf tenderness Neuro- alert, oriented x 3; LUE: 1/5 motor strength, otherwise no new gross focal neurologic deficits Skin- warm & dry Results & Data Results & Data ([facility]) Vital Signs (Past 12 Hours) Vital Signs Temp Pulse Resp BP Pulse Ox O2 Del Method O2 Flow Rate 02/19/22 12:59 36.5 C 75 18 109/60 97 02/19/22 10:00 Nasal Cannula 3 02/19/22 08:00 36.5 C 70 18 132/64 94 02/19/22 06:59 81 19 92 Nasal Cannula 3 all noted and reviewed including below
[2022-02-19] MEDS: MELATONIN 3 MG TAB PO SCH (20:50)
[2022-02-20] MEDS: ACETAMINOPHEN 325 MG TAB PO PRN (01:17)
[2022-02-20] MEDS ORDERED: OLANZAPINE 2.5 MG TAB PO STA (02:39)
[2022-02-20] MEDS: CEFEPIME 2,000 MG in SYRINGE 0 ML IV SCH ×2 (03:30→17:21)
[2022-02-20 06:43] LABS: Calcium 9.3 mg/dl (8.5-10.1); Creatinine Clr Calc Pharmacy 30.7 ml/min; Est GFR (African American) 41.7 ml/min; Magnesium 1.9 mg/dl (1.7-2.4); Potassium 3.6 mmol/L (3.5-5.1)
[2022-02-20] MEDS: INSULIN ASPART PER UNIT SC SCH ×4 (09:14→20:40)
[2022-02-20] MEDS: ROSUVASTATIN CALCIUM 20 MG TAB PO SCH (09:15)
[2022-02-20] MEDS: APIXABAN 2.5 MG TAB PO SCH (09:15)
[2022-02-20] MEDS: AMIODARONE 200 MG TAB PO SCH (09:15)
[2022-02-20] MEDS: POLYETHYLENE (MIRALAX) 17 GM PACK PO SCH (09:16)
[2022-02-20] MEDS: ASPIRIN 81 MG CHEW PO SCH (09:17)
[2022-02-20] MEDS: FUROSEMIDE 40 MG TAB PO SCH (09:17)
[2022-02-20] MEDS: METOPROLOL TARTRATE 25 MG TAB PO SCH (09:49)
--- NOTE | 2022-02-20 10:55 | XRay Report ---
SINGLE VIEW CHEST CLINICAL HISTORY: Follow-up congestive heart failure. FINDINGS: An AP, portable, upright chest radiograph is compared to study dated 02/16/2022 and correlat ed with chest CT dated 02/17/2022. The examination is significantly degraded by portable technique and patient rotation. A 2-lead cardiac AICD is unchanged in position. The heart is enlarged noting athe rosclerotic calcification of the thoracic area. There is pulmonary vascular congestion. Emphysema and chronic interstitial thickening is similar to previous. There are small pleural effusions, left larg er than right with dependent atelectasis. No pneumothorax is seen. The skeletal structures are osteop enic. The bony thorax is grossly intact. IMPRESSION: 1. Cardiomegaly and AICD with evidence of congestive failure. This is similar to previous. 2. Small pleural effusions. ACT 112: Negative or not required by law. Electronically signed by: Hima Segal M.D. 02/20/2022 10:54 AM
--- NOTE | 2022-02-20 11:34 | CT Scan Report ---
CT SCAN OF THE BRAIN WITHOUT IV CONTRAST CLINICAL HISTORY: Aphasia. COMPARISON STUDY: CT scans of the brain dated 02/17/2022 and 02/16/2022. TECHNIQUE: Unenhanced axial CT scan of the brain is performed from the vertex to the skull base. A do se lowering technique was utilized adhering to the principles of ALARA. CT DOSE: 1425.10 mGy.cm FINDINGS: Brain parenchyma: There is a subacute/evolving infarct in the high right posterior parietal lobe. An additional evolving infarct is noted in the right centrum semiovale. There is an additional chronic i nfarct in the high right parietal lobe. There is age-related involutional change noting mild subcorti mary beth and periventricular microangiopathic disease. There is no hemorrhage or mass effect. No extra-ax ial fluid collection is seen. Ventricles, sulci, cisterns: Prominent secondary to involutional change. Intracranial vasculature: There is atherosclerotic calcification of the cavernous carotid arteries. Calvarium: Unremarkable. Sinuses and mastoids: The paranasal sinuses are clear. There is a left mastoid effusion. The right ma stoid air cells are well pneumatized. Orbits: The bony orbits are grossly intact. There are bilateral ocular lens implants. IMPRESSION: 1. There are subacute/evolving infarcts in the right parietal lobe and the right centrum semiovale. 2. No hemorrhage or mass effect is seen. 3. Additional findings as above. ACT 112: Negative or not required by law. Electronically signed by: Hima Segal M.D. 02/20/2022 11:31 AM
[2022-02-20 12:22] LABS: Hematocrit (blood only) 47.8 % (40.1-51.0); Hemoglobin 15.8 g/dl (14.0-18.0); Mean Corpuscular Hemoglobin 30.9 pg (25.0-34.0); Mean Corpuscular Hgb Conc 33.1 g/dL (32.0-36.0); Mean Corpuscular Volume 93.4 fL (80.0-100.0); Mean Platelet Volume 11.8 fL (9.4-12.4); Platelet Count 108 K/uL (130-400); RDW Coefficient of Variation 14.7 % (11.5-14.5); RDW Standard Deviation 51.4 fL (36.4-46.3); Red Blood Count 5.12 M/uL (4.63-6.08); White Blood Count 6.91 K/ul (4.8-10.8)
[2022-02-20] MEDS ORDERED: OPTIRAY 300 500mL IV ONE (12:24)
[2022-02-20 12:44] LABS: Basophils # (auto) 0.05 K/uL (0-0.2); Basophils % (auto) 0.7 %; Eosinophils # (auto) 0.03 K/uL (0-0.50); Eosinophils % (auto) 0.4 %; Immature Granulocytes # (auto) 0.08 K/uL (0.00-0.02); Immature Granulocytes % (auto) 1.2 %; Lymphocytes # (auto) 1.49 K/uL (1.2-3.4); Lymphocytes % (auto) 21.6 %; Monocytes # (auto) 0.94 K/uL (0.24-0.82); Monocytes % (auto) 13.6 %; Neutrophils # (auto) 4.32 K/uL (1.4-6.5); Neutrophils % (auto) 62.5 %
--- NOTE | 2022-02-20 12:45 | Neurology Progress Note ---
Date of Service February 20, 2022 Assessment & Plan (1) CVA (cerebral vascular accident): Plan: Impression: The patient has multiple stroke risk factors including atrial fibrillation, who was admitted to hospital for ICD placement, and was anticoagulation was on hold. Initially, he was having chronic left arm weakness with undetermined etiology. Head CT was unremarkable. The patient was not a candidate for MRI. However, his left sided weakness worsened, and repeat head CTs showed acute ischemic stroke involving right MCA territory. The most likely underlying etiology was cardioembolic event. Since this morning new aphasia is noticed which is suggestive of additional CVA. Plan: We will keep the patient on Eliquis and aspirin as before. Adjust Eliquis dosage after improvement of renal function. If CT shows hemorrhagic conversion, we will hold Eliquis. CT angiography of head and neck to assess for hemodynamically significant stenosis is done recently with pending report. Management of hyperlipidemia, with goal LDL is lower than 70. Permissive hypertension for next 24 hrs. Physical therapy. The patient will need rehab and placement. (2) Left arm weakness: Plan: Impression: The patient reports having gradually worsening left arm weakness which started 2 months ago. He has significant stroke risk factors including atrial fibrillation. Initial HCTs were negative for acute event. However recent HCT showed acute ischemic, multifocal right MCA-CVA. Plan: As above. (3) Atrial fibrillation with RVR: Plan: Impression: The patient is restarted on anticoagulation. Plan: The patient has high CHADS2 score and should be treated on anticoagulation for stroke prevention. (4) Syncope: Plan: Impression: The patient has been having recurrent syncopal episodes. The most likely underlying cause is cardiac dysrhythmia. Plan: Cardiology is on board. (5) ICD (implantable cardioverter-defibrillator), dual, in situ: Plan Thank you for the consultation. Admission and Anticipated Discharge Date Admission Date: February 08, 2022 Subjective Nursing staff noticed expressive speech difficulty this morning. It is no clear if the patient woke up with new speech abnormality. The case is d/w hospitalist physician. The patient is alert but with limited verbal output. Poor cooperation. Some restlessness. Review of Systems Review of Systems: Unobtainable due to cognitive status Physical Exam Physical Exam: General Examination: Constitutional: Well developed disheveled person in no acute distress. HENT: Normal exam with inspection. CV: Irregular Neck: Supple. Lungs: Non-labored and comfortable breathing but with bibasilar crackles and some wheezing Abdomen: Soft, non-tender, non-distended. Skin: No rash or ecchymosis but bruises in extremities. Extremities: Left lower extremity distal edema NEUROLOGICAL EXAMINATION: Mental Status: Alert and oriented to his name. Cranial Nerves: II-XII are intact grossly. No nystagmus. 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 Difficult to assess motor strength is lower extremities. He withdraws legs to pain bilaterally. DTRs: slightly increased in left leg with positive left Babinsky. Tone: Normal without spasticity or rigidity. Decreased tone in left upper extremity. Sensory: Decreased sensation in feet. Limited exam Coordination: No dysmetria with right FTN testing. Speech: Expressive +/- comprehensive aphasia Gait: Unable to assess Results & Data ([facility]) Vital Signs (Past 12 Hours) Vital Signs Temp Pulse Resp BP Pulse Ox O2 Del Method O2 Flow Rate 02/20/22 12:06 Nasal Cannula 3 02/20/22 11:32 36.3 C L 89 19 139/70 95 Nasal Cannula 4 02/20/22 09:40 36.4 C L 58 L 20 151/76 H 92 Nasal Cannula 4 Laboratory Results Abnormal Lab Results 02/19/22 02/19/22 02/20/22 16:43 20:04 05:54 WBC RBC Hgb Hct MCV MCH MCHC RDW Std Deviation RDW Coeff of Chela Plt Count MPV Sodium 138 Potassium 3.6 Chloride 94 L Carbon Dioxide 35 H Anion Gap 9 BUN 30 H Creatinine 1.76 H Est Cr Clr Drug Dosing 30.7 Est GFR ( Amer) 41.7 Est GFR (Non-Af Amer) 36.0 BUN/Creatinine Ratio 17.0 Glucose 88 POC Glucose 119 H 109 H Calcium 9.3 Magnesium 1.9 02/20/22 02/20/22 02/20/22 08:12 10:42 11:50 WBC 6.91 RBC 5.12 Hgb 15.8 Hct 47.8 MCV 93.4 MCH 30.9 MCHC 33.1 RDW Std Deviation 51.4 H RDW Coeff of Chela 14.7 H Plt Count 108 L MPV 11.8 Sodium Potassium Chloride Carbon Dioxide Anion Gap BUN Creatinine Est Cr Clr Drug Dosing Est GFR ( Amer) Est GFR (Non-Af Amer) BUN/Creatinine Ratio Glucose POC Glucose 115 H 131 H Calcium Magnesium Diagnostic Findings Chest X-Ray 02/08/22 00:40 XR chest 1V portable HISTORY: 81 years-old Male syncope acute syncope COMPARISON: Chest radiograph 07/31/2020 TECHNIQUE: Portable AP view of the chest FINDINGS: Cardiac silhouette is enlarged. No pneumothorax. Trace right pleural effusion with mild right lung base opacities. Pulmonary vascular congestion. Mild thoracic levoscoliosis. Degenerative changes of the shoulders and spine. IMPRESSION: 1. Cardiomegaly with pulmonary vascular congestion. 2. Trace right pleural effusion with mild right lung base opacities. ACT 112: Negative or not required by law. The above report was generated using voice recognition software. It may contain grammatical, syntax or spelling errors. Electronically signed by: Flavio Niño M.D. 02/08/2022 7:[address] 02/08/22 01:27 CT SCAN OF THE CERVICAL SPINE CLINICAL HISTORY: Fall. Head injury. COMPARISON STUDY: No priors. TECHNIQUE: CT scan of the cervical spine is performed from the skull base to the upper thoracic spine. Images are reviewed in the axial, sagittal, and coronal planes. IV contrast was not administered for this examination. A dose lowering technique was utilized adhering to the principles of ALARA. CT DOSE: 1000.23 mGy.cm FINDINGS: Skeletal structures: The skeletal structures are osteopenic. There is no evidence of fracture or subluxation involving the cervical spine. Vertebral body height and alignment are maintained. Anterior osteophytes are seen throughout. The odontoid process and lateral masses are intact. The atlantoaxial articulation is preserved noting productive degenerative change. The spinous processes appear intact. There is mild to moderate multilevel cervical spondylosis. Uncovertebral and facet arthropathy contribute to neural foraminal narrowing at several levels. Intervertebral discs: There is moderate disc space narrowing at C4-C5, C5-C6, and C6-C7. Central canal: Posterior disc osteophyte complexes are seen at C4-C5, C5-C6, and C6-C7. This likely contributes to mild multilevel acquired compromise of the central canal. Soft tissues: The prevertebral and paraspinous soft tissues are within normal limits. There is atherosclerotic calcification of the carotid bulbs. Calvarium: The visualized calvarium at the skull base appears intact. Brain parenchyma: Partially visualized brain parenchyma at the skull base is within normal limits. Sinuses and mastoids: The visualized paranasal sinuses are clear. There is a small left mastoid effusion. The right mastoid air cells are well pneumatized. Lung apices: Emphysematous change is noted at the apices. Apical lung parenchyma is otherwise clear as visualized. IMPRESSION: 1. There is no evidence of fracture or subluxation involving the cervical spine. 2. Osteopenia and spondylotic change as above. ACT 112: Negative or not required by law. Electronically signed by: Hima Segal M.D. 02/08/2022 8:[address] 02/08/22 01:27 CT head/brain wo con CLINICAL HISTORY: 81 years-old Male with fall, CHI, syncope. Acute head injury status post fall TECHNIQUE: Multiple axial CT images of the head were obtained without contrast. A dose lowering technique was utilized adhering to the principles of ALARA. COMPARISON: CT cervical spine of same day FINDINGS: No acute intracranial hemorrhage, midline shift, intracranial mass, hydrocephalus, territorial ischemia or abnormal extra-axial collection. Age- related involutional changes. White matter hypodensities suggest chronic microvascular ischemic disease. 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 Motion degraded study. The calvarium is intact. Mild polypoid mucosal thickening of the left maxillary sinus. Mastoid air cells are clear. Unremarkable soft tissues. Prior bilateral lens repair. IMPRESSION: No acute intracranial abnormality or calvarial fracture. ACT 112: Negative or not required by law. The above report was generated using voice recognition software. It may contain grammatical, syntax or spelling errors. Electronically signed by: Flavio Niño M.D. 02/08/2022 7:27 AM Carotid Doppler Study 02/08/22 04:33 ULTRASOUND OF THE CAROTID ARTERIES CLINICAL HISTORY: Syncope. COMPARISON STUDY: No priors. TECHNIQUE: Real-time, grayscale, and color Doppler sonography of the carotid arteries is performed. Images are reviewed in the transverse and longitudinal planes. FINDINGS: The carotid arteries are patent bilaterally and demonstrate antegrade flow. There is mild to moderate atherosclerotic plaque seen in the carotid bulbs, right greater than left. Normal doppler arterial waveforms are seen throughout. Velocity measurements are listed below. Common carotid peak systolic velocity (cm/sec): RIGHT: 42 LEFT: 48 ICA proximal peak systolic velocity (cm/sec): RIGHT: 104 LEFT: 117 ICA mid peak systolic velocity (cm/sec): RIGHT: 81 LEFT: 71 ICA distal peak systolic velocity (cm/sec): RIGHT: 93 LEFT: 72 ICA/CC peak systolic ratio: RIGHT: 2.8 LEFT: 2.5 Antegrade flow was shown in the vertebral arteries. The external carotid arteries are patent. IMPRESSION: 1. There is no sonographic evidence of hemodynamically significant stenosis in the right or left carotid arterial system. 2. Antegrade flow is shown in the vertebral arteries. ACT 112: Negative or not required by law. Electronically signed by: Hima Segal M.D. 02/08/2022 12:52 PM Venous Doppler Study 02/09/22 00:00 BILATERAL LOWER EXTREMITY VENOUS DOPPLER CLINICAL HISTORY: Asymmetric lower extremity edema. COMPARISON STUDY: Right lower extremity venous Doppler ultrasound April 16, 2020. TECHNIQUE: Sonography of the deep venous system of the bilateral lower extremities was performed. Compression and augmentation were evaluated. FINDINGS: The bilateral common femoral, superficial femoral and popliteal veins were compressible. Augmentation was normal. Flow was shown within the deep calf vessels. IMPRESSION: No evidence of deep venous thrombus within the bilateral lower extr emities. ACT 112: Negative or not required by law. Electronically signed by: Win Bermudez M.D. 02/09/2022 7:48 AM Chest X-Ray 02/12/22 07:00 XR chest 2V PA/lateral HISTORY: 81 years-old Male EXACT TIME ORDERED Evaluate for pneumothorax and l status post placement of a left subclavian pacer/AICD COMPARISON: Chest radiograph 02/08/2022 TECHNIQUE: PA and lateral views of the chest FINDINGS: Cardiac silhouette is enlarged. Small right pleural effusion with right basilar consolidation, progressively worsened from prior. Probable trace left pleural effusion. No overt pulmonary edema. Status post placement of a left subclavian pacer/AICD. No postprocedural pneumothorax identified. IMPRESSION: 1. Status post placement of a left subclavian pacer/AICD. No postprocedural pneumothorax. 2. Small right pleural effusion with right basilar consolidation. ACT 112: Negative or not required by law. The above report was generated using voice recognition software. It may contain grammatical, syntax or spelling errors. Electronically signed by: Flavio Niño M.D. 02/12/2022 6:54 AM Chest X-Ray 02/12/22 14:05 XR chest 2V PA/lateral HISTORY: 81 years-old Male fall acute chest trauma status post fall COMPARISON: Chest and shoulder radiographs of same day TECHNIQUE: AP view of the chest FINDINGS: Cardiac silhouette is enlarged. Left subclavian pacer/ICD. No pneumothorax. Small right and trace left pleural effusions with persistent right lung base opacities, mildly improved. Pulmonary vascular congestion. Degenerative changes of the shoulders and spine. Limited lateral view secondary to positioning. IMPRESSION: 1. Limited exam secondary to positioning. 2. Cardiomegaly with pulmonary vascular congestion. 3. Trace left and small right pleural effusions with mildly improved right basilar consolidation. 3. No acute rib fracture or pneumothorax identified. ACT 112: Negative or not required by law. The above report was generated using voice recognition software. It may contain grammatical, syntax or spelling errors. Electronically signed by: Flavio Niño M.D. 02/12/2022 3:53 PM Shoulder X-Ray 02/12/22 14:05 XR shoulder LT min 2V routine HISTORY: 81 years-old Male fall acute left shoulder pain status post fall COMPARISON: Chest radiograph 6 same day TECHNIQUE: 2 views of the left shoulder FINDINGS: Left subclavian pacer. Demineralized appearance of the bones. Moderate AC joint with mild glenohumeral osteoarthritis. No acute fracture, dislocation or unexpected opaque foreign body. Carotid calcifications. IMPRESSION: No acute fracture or dislocation. ACT 112: Negative or not required by law. The above report was generated using voice recognition software. It may contain grammatical, syntax or spelling errors. Electronically signed by: Flavio Niño M.D. 02/12/2022 4:[address] 02/12/22 14:[address] DOSE: 614.27 mGy.cm HISTORY: fall TECHNIQUE: Multiaxial CT images of the head were performed without the use of intravenous contrast. Automated exposure control was utilized for this study. A dose lowering technique was utilized adhering to the principles of ALARA. Comparison: Head CT 02/08/2022. Findings: The paranasal sinuses and mastoid air cells are clear. The calvarium and skull base are intact. There is no mass, hematoma, midline shift, acute infarct. White matter hypodensity is nonspecific but suggestive of microvascular ischemic change. The ventricles and sulci are within normal limits for age. Chronic nasal bone deformities again noted. Mild motion artifact. Mild left lateral scalp swelling. There is an old small infarct within the right high convexity. This remains unchanged. Impression: No significant change compared to the prior study. No acute intracranial abnormality. ACT 112: Negative or not required by law. Electronically signed by: Yohannes Metz M.D. 02/12/2022 4:01 PM Chest X-Ray 02/14/22 03:04 XR chest 1V portable HISTORY: Coughing. hypoxia COMPARISON: Chest 02/12/2022. FINDINGS: No pneumothorax. There is left-sided dual-chamber pacemaker/defibrillator. The heart remains mildly enlarged. There is diffuse interstitial/vascular thickening with small bilateral pleural effusions. This favors pulmonary edema. Right basilar densities persist. IMPRESSION: 1. No change in the pulmonary edema and small bilateral pleural effusions. 2. Right patchy basilar densities also persist. ACT 112: Negative or not required by law. Electronically signed by: Yohannes Metz M.D. 02/14/2022 8:08 AM Chest X-Ray 02/14/22 08:09 XR chest 1V portable HISTORY: Increase oxygen requirement COMPARISON: Chest 02/14/2022. FINDINGS: No pneumothorax. The heart remains enlarged. Moderate pulmonary edema, trace bilateral pleural effusions, and patchy bibasilar densities have slightly progressed. There is a left-sided pacemaker. IMPRESSION: Slight progression of the moderate pulmonary edema, trace bilateral pleural effusions, and patchy bibasilar densities. ACT 112: Negative or not required by law. Electronically signed by: Yohannes Metz M.D. 02/14/2022 8:47 AM Chest X-Ray 02/16/22 08:02 XR chest 1V portable HISTORY: Increased oxygen requirement COMPARISON: Chest 02/14/2022. FINDINGS: No pneumothorax. The cardiac silhouette remains mildly enlarged. Mild interstitial pulmonary edema has slightly improved. Small bilateral pleural effusions have slightly progressed. Hazy bibasilar densities remain unchanged. There is a left-sided dual-chamber pacemaker. IMPRESSION: 1. Interval improvement in the mild interstitial pulmonary edema. 2. The small bilateral pleural effusions and bibasilar densities have slightly progressed. ACT 112: Negative or not required by law. Electronically signed by: Yohannes Metz M.D. 02/16/2022 8:[address] 02/16/22 09:13 CT head/brain wo con CLINICAL HISTORY: Altered mental status Technique: Contiguous axial CT images of the head were acquired from the base of the skull to the vertex without intravenous contrast administration. Images were viewed in brain, subdural and bone windows. Automated dose lowering techniques and/or adjustment according to patient size were utilized for this exam. Comparison: Comparison is made to CT head 02/12/2022 Findings: The ventricles, basal cisterns, and cerebral sulci are normal. There is no acute intracranial hemorrhage or evidence of acute territorial infarction. Neither mass effect, shift of the midline structures, nor abnormal extra-axial fluid collections are shown. Old encephalomalacia in the right posterior frontal region is unchanged. Imaged portions of the paranasal sinuses and mastoid air cells are clear. The orbits appear normal. There are no acute fractures of the calvaria or scalp swelling. Chronic nasal bone deformities noted. Impression: No acute intracranial hemorrhage, no evidence of acute territorial infarction or other acute intracranial disease process. ACT 112: Negative or not required by law. Electronically signed by: Tong Cox M.D. 02/16/2022 10:[address] 02/17/22 09:50 CT OF THE HEAD WITHOUT CONTRAST CLINICAL HISTORY: L sided weakness r/o CVA COMPARISON STUDY: Head CTs February 08, 2022 and February 16, 2022. CT DOSE: 729.78 mGycm TECHNIQUE: Helical axial images of the head were obtained without IV contrast. Automated exposure control was utilized for the study. A dose lowering technique was utilized adhering to the principles of ALARA. FINDINGS: No acute intracranial hemorrhage, midline shift or mass effect is present. A new 4.1 cm hypodense focus with loss of hurley-white differentiation within the right parietal lobe shown best on axial image 22 of . This was not present on head CT of February 16, 2022. There is a 6 mm hypodensity within the right centrum semiovale on axial image 22 of 32. Adjacent old posterior right frontal lobe infarct is noted. Basal cisterns are patent. There are no extra axial collections. White matter hypodensity suggests small vessel disease. A few opacified left mastoid air cells are present. No significant calvarial abnormalities noted. IMPRESSION: Interval development of an acute infarct within the right parietal lobe, measuring approximately 4.1 cm in extent and possible additional 6 mm acute infarct within the right centrum semiovale. No significant mass effect. No intracranial hemorrhage. This finding will be called/faxed to the ordering provider at time of dictation. ACT 112: Negative or not required by law. Electronically signed by: Win Bermudez M.D. 02/17/2022 1:[address] 02/17/22 10:00 CT chest diagnostic wo con CLINICAL HISTORY: hypoxia, r/o pneumonia TECHNIQUE: Multidetector row helical CT of the chest was performed. Coronal and sagittal reformations were obtained. Automated dose lowering techniques and/or adjustment according to patient size were utilized for this exam. CT DOSE: 574.94 mGycm Comparison: Comparison is made to chest radiograph 02/16/2022 FINDINGS: Lungs and pleura: Bilateral pleural effusions are seen with underlying atelectasis. There is groundglass opacity in the dependent right lung. Biapical scarring and paraseptal emphysematous changes are seen along with diffuse bronchial wall thickening. Interlobular septal thickening is noted. Heart and pericardium: Cardiomegaly is seen with biatrial enlargement. Vessels: Unremarkable. Mediastinum and cristino: Subcentimeter lymph nodes are seen. Chest wall and lower neck: Unremarkable. Abdomen: Calcifications of the pancreas are noted. Bones: Degenerative changes in the thoracic spine. IMPRESSION: 1. Smooth interlobular septal thickening favored to represent pulmonary interstitial edema. Cardiomegaly. 2. Airspace disease in the left greater than right lung base compatible with aspiration and/or pneumonia. 3. Small bilateral pleural effusions with underlying atelectasis. ACT 112: Negative or not required by law. Electronically signed by: Tong Cox M.D. 02/17/2022 3:04 PM Videofluoroscopic Swallow 02/18/22 13:30 FL video swallow HISTORY: Right-sided pneumonia. Possible aspiration pneumonia. assess for aspiration TECHNIQUE: Video fluoroscopic evaluation of swallowing was performed in the AP and lateral projections by the speech pathology staff. The patient is fed nectar-thick and thin liquid barium, a barium coated wafer, and barium pudding. FLUOROSCOPY TIME: 1.9 minutes. A cine loop submitted.. COMPARISON STUDY: None. FINDINGS: There is normal hyoid excursion and epiglottic deflection. There are a few episodes of penetration with the thin liquid barium. No aspiration identified. Swallowing function is within normal limits. IMPRESSION: 1. No aspiration identified. 2. Please see the speech pathologist report for detailed findings and recommendations. ACT 112: Negative or not required by law. Electronically signed by: Yohannes Metz M.D. 02/18/2022 2:45 PM Chest X-Ray 02/20/22 10:34 SINGLE VIEW CHEST CLINICAL HISTORY: Follow-up congestive heart failure. FINDINGS: An AP, portable, upright chest radiograph is compared to study dated 02/16/2022 and correlated with chest CT dated 02/17/2022. The examination is significantly degraded by portable technique and patient rotation. A 2-lead cardiac AICD is unchanged in position. The heart is enlarged noting athe rosclerotic calcification of the thoracic area. There is pulmonary vascular congestion. Emphysema and chronic interstitial thickening is similar to previous. There are small pleural effusions, left larger than right with dependent atelectasis. No pneumothorax is seen. The skeletal structures are osteopenic. The bony thorax is grossly intact. IMPRESSION: 1. Cardiomegaly and AICD with evidence of congestive failure. This is similar to previous. 2. Small pleural effusions. ACT 112: Negative or not required by law. Electronically signed by: Hima Segal M.D. 02/20/2022 10:[address] 02/20/22 10:41 CT SCAN OF THE BRAIN WITHOUT IV CONTRAST CLINICAL HISTORY: Aphasia. COMPARISON STUDY: CT scans of the brain dated 02/17/2022 and 02/16/2022. TECHNIQUE: Unenhanced axial CT scan of the brain is performed from the vertex to the skull base. A dose lowering technique was utilized adhering to the principles of ALARA. CT DOSE: 1425.10 mGy.cm FINDINGS: Brain parenchyma: There is a subacute/evolving infarct in the high right posterior parietal lobe. An additional evolving infarct is noted in the right centrum semiovale. There is an additional chronic infarct in the high right parietal lobe. There is age-related involutional change noting mild subcortical and periventricular microangiopathic disease. There is no hemorrhage or mass eff ect. No extra-axial fluid collection is seen. Ventricles, sulci, cisterns: Prominent secondary to involutional change. Intracranial vasculature: There is atherosclerotic calcification of the cave rnous carotid arteries. Calvarium: Unremarkable. Sinuses and mastoids: The paranasal sinuses are clear. There is a left mastoid effusion. The right mastoid air cells are well pneumatized. Orbits: The bony orbits are grossly intact. There are bilateral ocular lens implants. IMPRESSION: 1. There are subacute/evolving infarcts in the right parietal lobe and the right centrum semiovale. 2. No hemorrhage or mass effect is seen. 3. Additional findings as above. ACT 112: Negative or not required by law. Electronically signed by: Hima Segal M.D. 02/20/2022 11:31 AM
--- NOTE | 2022-02-20 13:11 | CT Scan Report ---
CT ANGIOGRAM OF THE BRAIN; CT ANGIOGRAM OF THE NECK CLINICAL HISTORY: Subacute stroke. COMPARISON STUDY: Unenhanced CT scans of the brain dated 02/20/2022 and 02/17/2022. TECHNIQUE: Follow-up the IV administration of 118 of Optiray 300, CT angiogram of the head and neck w as performed from the aortic arch to the vertex. Images are reviewed in the axial, sagittal, and kingsley nal planes. 3-D MIPS images are created and assessed. IV contrast was administered without complicati on. All measurements were calculated based on NASCET criteria. A dose lowering technique was utilize d adhering to the principles of ALARA. The examinations are compromised by motion artifact. CT DOSE: 548.47 mGy.cm FINDINGS: Brain parenchyma: Again seen is a subacute/evolving infarct in the high right posterior parietal lobe . An additional evolving infarct is noted in the right centrum semiovale. There is an additional manifold builder kaykay infarct in the high right parietal lobe. There is age-related involutional change noting mild sub cortical and periventricular microangiopathic disease. There is no evidence of enhancing mass lesion on the angiogram phase images. No hemorrhage is seen. The ventricles, sulci, and cisterns are promine nt secondary to positional change. No extra-axial fluid collection is seen. Thoracic aorta: Visualized portions of the thoracic aorta are normal in caliber. The aortic arch demo nstrates standard 3-vessel anatomy. 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 There is thrombosis of the origin of the r ight external carotid artery. This is reconstituted approximately 1.4 cm above the bifurcation. Left carotid arterial system: The left common carotid artery is widely patent noting atherosclerotic plaque and irregularity. Advanced atherosclerotic plaque is seen in the carotid bulb. This causes [place] roximately 50% focal stenosis at the origin of the left internal carotid artery. Remainder of the lef t internal carotid artery is widely patent, as is the left external carotid artery. Vertebral arteries: The vertebral arteries are widely patent bilaterally and codominant. Subclavian arteries: Widely patent bilaterally noting atherosclerotic plaque and irregularity. Intracranial vasculature: The right internal carotid artery is thrombosed at the skull base to the ci [place]. The left internal at the skull base, as are the anterior and middle cerebral arteries bilaterally. The right anterior and middle cerebral arteries are likely supplied via the anterior to indicating artery. The vertebrobasilar system and posterior cerebral arteries are widely patent. The vertebral arteries are codominant. There is pruning of posterior peripheral branches of the right MC A in the right parietal region. No aneurysm is seen. Jugular veins: Patent bilaterally. Dural sinuses: Patent. Upper chest: There is advanced emphysema. A left pleural effusion is partially imaged. Question mild patchy opacities in the left upper lobe. Mild enlargement of lymph nodes measure up to 10 mm in short axis. Pacemaker leads are noted at the left thoracic inlet. Soft tissues: The visualized pharyngeal soft tissues are normal in appearance noting angiographic pha se technique. The oropharyngeal airway appears widely patent. The salivary and thyroid glands are nor mal in appearance. No cervical lymphadenopathy is seen. Skeletal structures: The skeletal structures are osteopenic. The calvarium appears intact. The cervic al spine is maintained Advanced spondylosis. No lytic or blastic lesion is seen. Mild chronic appearing compression deformit ies are noted in the upper thoracic spine. Orbits: The bony orbits are intact. Orbital contents are normal as visualized no change bilateral ocu lar lens implants. Sinuses and mastoids: The paranasal sinuses are clear. There is a left mastoid effusion. The right ma stoid air cells are well pneumatized. IMPRESSION: 1. There are subacute/evolving infarcts in the right parietal lobe and the right centrum semiovale. 2. There is no evidence of hemorrhage or midline shift. 3. 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 4. There is thrombosis at the origin of the right external carotid artery. This is reconstituted appr oximately 1.4 cm above the bifurcation. 5. Atherosclerotic plaque causes approximately 50% luminal narrowing at the origin of the left transportation logistics internship al carotid artery. 6. The vertebral arteries are widely patent bilaterally. 7. The anterior and middle cerebral arteries are patent bilaterally. The right-sided vessels are like ly supplied via the ACOM. 8. There is pruning of peripheral branches of the right MCA in the infarcting parietal region. 9. There is emphysema. 10. A left pleural effusion is partially imaged and there are airspace opacities in the left upper lo be. Correlate clinically for evidence of an infectious/inflammatory pneumonitis. 11. Additional findings as above. ACT 112: Negative or not required by law. Electronically signed by: Hima Segal M.D. 02/20/2022 1:09 PM
[2022-02-20] MEDS: DOXYCYCLINE HYCLATE 100 MG CAP PO SCH (13:25)
[2022-02-20] MEDS: SODIUM CHLORIDE 0.9% 500 ML IV SCH (14:39)
--- NOTE | 2022-02-20 16:09 | Electrocardiogram Report ---
Test Reason : Blood Pressure : / mmHG Vent. Rate : 064 BPM Atrial Rate : 041 BPM P-R Int : 298 ms QRS Dur : 106 ms QT Int : 472 ms P-R-T Axes : 000 095 146 degrees QTc Int : 486 ms Atrial-paced rhythm with prolonged AV conduction with premature ventricular or aberrantly conducted c omplexes Low voltage QRS Abnormal ECG When compared with ECG of 08-FEB-2022 12:59, Electronic atrial pacemaker has replaced Sinus rhythm Nonspecific T wave abnormality now evident in Inferior leads Confirmed by Constantin Miranda ([id number]) on 02/20/2022 4:09:07 PM Referred By: REFERRED SELF Confirmed By:Constantin Miranda
[2022-02-20] MEDS ORDERED: Heparin IV Adult Wt-Based Low-Dose *NO* Bolus Protocol IV ONE ×2 (16:35→21:00)
[2022-02-20] MEDS: DOXYCYCLINE HYCLATE 100 MG in DEXTROSE 5% 100 ML IV SCH (17:20)
--- NOTE | 2022-02-20 18:21 | Hospitalist Progress Note ---
Date of Service February 20, 2022 Assessment & Plan (1) Syncope: (2) Ventricular tachycardia: (3) Atrial fibrillation with RVR: (4) ICD (implantable cardioverter-defibrillator), dual, in situ: Plan: (1) Syncope: (2) Ventricular tachycardia: (3) Atrial fibrillation with RVR: (4) ICD (implantable cardioverter-defibrillator), dual, in situ: (5) UTI (urinary tract infection): Plan Plan Patient is a 81-year-old male with multiple comorbid condition presented to the ED after episode of ventricular tachycardia requiring cardioversion in the field. In the hospitalization, patient was evaluated by cardiology service. He underwent cardiac cath in 02/09 which showed moderate nonobstructive coronary artery disease. Echo was suggestive for heart failure with reduced ejection fraction. He underwent pacemaker placement on 02/11. Patient signed out AMA on 02/12. He had a fall on his knees as he was getting in the car in the parking lot. He was admitted again and was evaluated with head CT which was unremarkable. He reported increase in his left arm weakness which has been going on for last [address] head was unremarkable for acute abnormality. Neurology service was consulted; recommend nonemergent MRI brain without contrast. 1) Recurrent syncope likely secondary to ventricular tachycardia s/p ICD placement on 02/11. 2) Paroxysmal A.fib 3) Non- ischemic CMP H/O medication noncompliance - S/P Cardioversion on the field - S/P Cardiac Cath on 02/09/22: Moderate nonobstructive coronary disease. --EEG was normal during wakefulness and drowsiness. No focal abnormalities, potentially epileptogenic discharges, or abnormal slow activity was seen. --ECHO: EF 30 to 35%. Moderate to severe global hypokinesis of left ventricle. Mild mitral regurgitation. Mild tricuspid regurgitation. Estimated systolic pulmonary pressure is 48 mmHg. Dilated inferior vena cava with reduced collapsibility with sniff indicates an elevated right atrial pressure of 15 mmHg --Carotid USD:There is no sonographic evidence of hemodynamically significant stenosis in the right or left carotid arterial system. Antegrade flow is shown in the vertebral arteries. -- on Eliquis crea increased, Lasix on hold in light of acute CVA 4) Left arm weakness: Acute CA 5) Acute hypoxic respiratory failure 2/[address] head today: 1. There are subacute/evolving infarcts in the right parietal lobe and the right centrum semiovale. 2. No hemorrhage or mass effect is seen. 3. Additional findings as above. CT angio head and neck: 1. There are subacute/evolving infarcts in the right parietal lobe and the right centrum semiovale. 2. There is no evidence of hemorrhage or midline shift. 3. 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 4. There is thrombosis at the origin of the right external carotid artery. This is reconstituted approximately 1.4 cm above the bifurcation. 5. Atherosclerotic plaque causes approximately 50% luminal narrowing at the origin of the left internal carotid artery. 6. The vertebral arteries are widely patent bilaterally. 7. The anterior and middle cerebral arteries are patent bilaterally. The right- sided vessels are likely supplied via the ACOM. 8. There is pruning of peripheral branches of the right MCA in the infarcting parietal region. 9. There is emphysema. 10. A left pleural effusion is partially imaged and there are airspace opacities in the left upper lobe. Correlate clinically for evidence of an infectious/inflammatory pneumonitis. 11. Additional findings as above. discussed with Neurologist Dr. Tony also discussed with Neurologist Dr. Mccollum- [facility] patient not a candidate for thrombectomy- may result in hemorrhagic transformation continue anticoagulation, ASA permissive HTN gentle IV fluids strict NPO for now change Eliquis to Heparin Drip ASA to rectal formulation 5) HUONG on CKD3a- creatinine up trended to 1.86. -- crea 1.6 to 1.7 6) Enterococcal UTI- s/p 5 days of ampicillin H/O CVA/PVD- resumed on ASA, crestor. Non compliant as OP Hyperlipidemia- statin COPD- on duonebs scheduled DM II- A1C:5.7 currently;Diet controlled; Insulin per Protocol while hospitalized BPH/bladder cancer S/P surgery Ongoing tobacco abuse- Counselled to quit smoking.n Multiple falls, weakness- PT/OT eval in progress DVT Px: heparin drip Dispo- pending (5) UTI (urinary tract infection): Admission and Anticipated Discharge Date Admission Date: February 08, 2022 Subjective ff up for acute CVA, etc notified by RN, patient unable to talk, follow commands seen at bedside, alert, awake, but not answering questions, not following comman ds properly no facial droop, (+) persistent L Upper arm weakness no signs of acute respiratory distress, chest pain stat CT head ordered Review of Systems Review of Systems: all noted and negative except for above Physical Exam Physical Exam: General- not oriented, not in distress, breathing with no effort or accessory muscle use Eyes- anicteric Neck- no JVD Lungs- clear breath sounds bilaterally, no rales/wheezes Heart- normal rate, regular rhythm; no murmurs Abdomen- normal bowel sounds, nondistended, soft, nontender Extremities- no pretibial edema, no calf tenderness Neuro- alert, not oriented, (+) expressive and receptive aphasia L Upper arm strength 1/5 Skin- warm & dry Results & Data Results & Data ([facility]) Vital Signs (Past 12 Hours) Vital Signs Temp Pulse Resp BP BP Pulse Ox O2 Del Method 02/20/22 16:00 Nasal Cannula 02/20/22 16:22 36.4 C L 65 19 136/72 96 Nasal Cannula 02/20/22 12:06 Nasal Cannula 02/20/22 11:32 36.3 C L 89 19 139/70 95 Nasal Cannula 02/20/22 09:40 36.4 C L 58 L 20 151/76 H 92 Nasal Cannula O2 Flow Rate 02/20/22 16:00 3 02/20/22 16:22 4 02/20/22 12:06 3 02/20/22 11:32 4 02/20/22 09:40 4 all noted and reviewed including below
--- NOTE | 2022-02-20 18:29 | Nephrology Progress Note ---
Date of Service February 20, 2022 Assessment & Plan (1) Acute kidney injury: Plan: 81-year-old male with previously normal kidney function, admitted with recurrent syncope related with ventricular tachycardia requiring cardioversion. He was also found to have new onset cardiomyopathy with an ejection fraction of 30% as well as new onset acute ischemic stroke involving the right middle cerebral artery.Nephrology consulted for abnormal kidney function in the setting of congestive heart failure, syncopal epiosdes and Ventricular tachycardia. 1. Acute renal failure.The patient's creatinine prior to this admission was near normal at 1.1, but since being admitted, it has been at a slightly higher level, but it is fairly steady for the last few days. Creatinine has been anywhere from 1.5 to 1.8 for the last 11 days Given that there has been sign ificant drop in his ejection fraction, it is not unexpected to have slightly higher baseline creatinine in fact, I would call this as his new baseline. - He had some evidence of congestive heart failure on the chest x-ray and his lasix was increased to 40 mg from 20 mg daily, Renal functions have declined with this intervention,although he is sill making @1.00 lit urine daily,but he looks volume depleted and his Oral intake has not been good, Agree with stopping lasix and gentle rehydration.He had contrast study done and I expect his renal function to decline further. 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 and the right internal carotid artery to the [place] with Atherosclerotic plaque causes approximately 50% luminal narrowing at the origin of the left internal carotid artery- no surgical intervention planned- continue on conservative management Admission and Anticipated Discharge Date Admission Date: February 08, 2022 Subjective According to the nursing staff, daljit had been agitated all night, Non verbal when examined in the morning Looks volume depleted, somlonant Review of Systems Review of Systems: Unobtainable due to cognitive status Physical Exam Physical Exam: GENERAL: Elderly white male who is quite somnolent and non gen bal Eyes was closed, did not follow my command. HEENT: Mucous membrane dry NECK: Supple. Jugular venous distention is present. CHEST: Bilateral decreased breath sound, did not take any inspiratory effort, limited quality exam. CARDIOVASCULAR: S1 and S2, regular. Systolic murmur heard. ABDOMEN: Soft, nontender. EXTREMITIES: Show trace edema. Results & Data ([facility]) Vital Signs (Past 12 Hours) Vital Signs Temp Pulse Resp BP BP Pulse Ox O2 Del Method 02/20/22 16:00 Nasal Cannula 02/20/22 16:22 36.4 C L 65 19 136/72 96 Nasal Cannula 02/20/22 12:06 Nasal Cannula 02/20/22 11:32 36.3 C L 89 19 139/70 95 Nasal Cannula 02/20/22 09:40 36.4 C L 58 L 20 151/76 H 92 Nasal Cannula O2 Flow Rate 02/20/22 16:00 3 02/20/22 16:22 4 02/20/22 12:06 3 02/20/22 11:32 4 02/20/22 09:40 4 Laboratory Results 02/20/22 11:50 02/20/22 05:54
[2022-02-20] MEDS ORDERED: LORazepam 0.25 MG in SYRINGE 0.125 ML IV PRN (18:30)
[2022-02-20 19:39] LABS: INR 1.3 (0.9-1.1); Partial Thromboplastin Ratio 1.3; Partial Thromboplastin Time 35.7 Seconds (21.0-31.0); Prothrombin Time 13.6 Seconds (9.0-12.0)
[2022-02-20] MEDS: METOPROLOL TARTRATE 1 MG/ML VIAL IV SCH (20:44)
[2022-02-20] MEDS: HEPARIN SODIUM/DEXTROSE 25,000 UNITS/500 ML BAG IV SCH (20:46)
[2022-02-21] MEDS: SODIUM CHLORIDE 0.9% 500 ML IV SCH ×2 (00:10→09:12)
[2022-02-21 03:35] LABS: Partial Thromboplastin Ratio > 5.1
[2022-02-21 03:54] LABS: Partial Thromboplastin Time > 139.0 Seconds (21.0-31.0)
[2022-02-21] MEDS: CEFEPIME 2,000 MG in SYRINGE 0 ML IV SCH ×2 (04:07→17:35)
[2022-02-21 04:28] LABS: Basophils # (auto) 0.06 K/uL (0-0.2); Basophils % (auto) 0.8 %; Eosinophils # (auto) 0.09 K/uL (0-0.50); Eosinophils % (auto) 1.2 %; Hematocrit (blood only) 47.5 % (40.1-51.0); Hemoglobin 15.2 g/dl (14.0-18.0); Immature Granulocytes # (auto) 0.08 K/uL (0.00-0.02); Immature Granulocytes % (auto) 1.1 %; Lymphocytes # (auto) 1.57 K/uL (1.2-3.4); Mean Corpuscular Hemoglobin 30.8 pg (25.0-34.0); Mean Corpuscular Volume 96.3 fL (80.0-100.0); Mean Platelet Volume 12.1 fL (9.4-12.4); Monocytes # (auto) 1.06 K/uL (0.24-0.82); Monocytes % (auto) 14.2 %; Neutrophils # (auto) 4.63 K/uL (1.4-6.5); Neutrophils % (auto) 61.7 %; Platelet Count 119 K/uL (130-400); RDW Coefficient of Variation 14.7 % (11.5-14.5); RDW Standard Deviation 52.6 fL (36.4-46.3); Red Blood Count 4.93 M/uL (4.63-6.08); White Blood Count 7.49 K/ul (4.8-10.8)
[2022-02-21] MEDS: DOXYCYCLINE HYCLATE 100 MG in DEXTROSE 5% 100 ML IV SCH ×2 (04:46→17:35)
[2022-02-21 05:04] LABS: Calcium 9.3 mg/dl (8.5-10.1); Creatinine Clr Calc Pharmacy 31.6 ml/min; Est GFR (African American) 43.2 ml/min; Est GFR (Non-African American) 37.3 ml/min; Potassium 3.5 mmol/L (3.5-5.1)
[2022-02-21 05:45] LABS: Partial Thromboplastin Ratio 2.8
[2022-02-21 05:49] LABS: Partial Thromboplastin Time 77.8 Seconds (21.0-31.0)
--- NOTE | 2022-02-21 07:00 | CT Scan Report ---
CT OF THE HEAD WITHOUT CONTRAST CLINICAL HISTORY: Altered mental status, iv heparin COMPARISON STUDY: Head CT and CTA of the head February 20, 2022. CT DOSE: 1228.53 mGy.cm TECHNIQUE: Helical axial images of the head were obtained without IV contrast. Automated exposure con trol was utilized for the study. A dose lowering technique was utilized adhering to the principles o f ALARA. FINDINGS: This exam is moderately compromised by motion artifact. No acute intracranial hemorrhage, m idline shift or mass effect is present. Ventricular system is stable. Basal cisterns are patent. Ther e are no extra-axial collections. There is intravascular contrast from recent contrast-enhanced CT. T he evolving infarcts within the right parietal lobe and right centrum semiovale ovale are better depi cted on prior exam. White matter hypodensity suggests small vessel disease. There is ethmoid sinus mu cosal thickening. IMPRESSION: 1. Exam mildly compromised by motion artifact. No acute intracranial hemorrhage. 2. Evolving infarcts within the right parietal lobe and the right centrum semiovale which are better depicted on prior exam. ACT 112: Negative or not required by law. Electronically signed by: Win Bermudez M.D. 02/21/2022 6:57 AM
[2022-02-21] MEDS ORDERED: FUROSEMIDE 20 MG TAB PO SCH (09:00)
[2022-02-21] MEDS ORDERED: ASPIRIN 300 MG SUPP PR SCH (09:00)
[2022-02-21] MEDS: INSULIN ASPART PER UNIT SC SCH ×4 (09:10→20:35)
[2022-02-21] MEDS: METOPROLOL TARTRATE 1 MG/ML VIAL IV SCH ×2 (09:11→20:37)
[2022-02-21] MEDS: POLYETHYLENE (MIRALAX) 17 GM PACK PO SCH (09:12)
--- NOTE | 2022-02-21 11:26 | Hospitalist Progress Note ---
Date of Service February 21, 2022 Assessment & Plan (1) Syncope: (2) Ventricular tachycardia: (3) Atrial fibrillation with RVR: (4) ICD (implantable cardioverter-defibrillator), dual, in situ: Plan: (1) Syncope: (2) Ventricular tachycardia: (3) Atrial fibrillation with RVR: (4) ICD (implantable cardioverter-defibrillator), dual, in situ: (5) UTI (urinary tract infection): Plan Plan Patient is a 81-year-old male with multiple comorbid condition presented to the ED after episode of ventricular tachycardia requiring cardioversion in the field. In the hospitalization, patient was evaluated by cardiology service. He underwent cardiac cath in 02/09 which showed moderate nonobstructive coronary artery disease. Echo was suggestive for heart failure with reduced ejection fraction. He underwent pacemaker placement on 02/11. Patient signed out AMA on 02/12. He had a fall on his knees as he was getting in the car in the parking lot. He was admitted again and was evaluated with head CT which was unremarkable. He reported increase in his left arm weakness which has been going on for last [address] head was unremarkable for acute abnormality. Neurology service was consulted; recommend nonemergent MRI brain without contrast. 1) Recurrent syncope likely secondary to ventricular tachycardia s/p ICD placement on 02/11. 2) Paroxysmal A.fib 3) Non- ischemic CMP H/O medication noncompliance - S/P Cardioversion on the field - S/P Cardiac Cath on 02/09/22: Moderate nonobstructive coronary disease. --EEG was normal during wakefulness and drowsiness. No focal abnormalities, potentially epileptogenic discharges, or abnormal slow activity was seen. --ECHO: EF 30 to 35%. Moderate to severe global hypokinesis of left ventricle. Mild mitral regurgitation. Mild tricuspid regurgitation. Estimated systolic pulmonary pressure is 48 mmHg. Dilated inferior vena cava with reduced collapsibility with sniff indicates an elevated right atrial pressure of 15 mmHg --Carotid USD:There is no sonographic evidence of hemodynamically significant stenosis in the right or left carotid arterial system. Antegrade flow is shown in the vertebral arteries. -- Eliquis changed to Heparin crea increased, Lasix on hold in light of acute CVA, prevent hypotension 4) Left arm weakness: Acute CVA Complete Thrombosis R Common Carotid Artery and R ICA 50% Luminal Narrowing- L ICA 5) Acute hypoxic respiratory failure 2/2 CHFrEF excerebation 02/20: (+) severe aphasia repeat CT head: 1. There are subacute/evolving infarcts in the right parietal lobe and the right centrum semiovale. 2. No hemorrhage or mass effect is seen. 3. Additional findings as above. CT angio head and neck: 1. There are subacute/evolving infarcts in the right parietal lobe and the right centrum semiovale. 2. There is no evidence of hemorrhage or midline shift. 3. 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 4. There is thrombosis at the origin of the right external carotid artery. This is reconstituted approximately 1.4 cm above the bifurcation. 5. Atherosclerotic plaque causes approximately 50% luminal narrowing at the origin of the left internal carotid artery. 6. The vertebral arteries are widely patent bilaterally. 7. The anterior and middle cerebral arteries are patent bilaterally. The right- sided vessels are likely supplied via the ACOM. 8. There is pruning of peripheral branches of the right MCA in the infarcting parietal region. 9. There is emphysema. 10. A left pleural effusion is partially imaged and there are airspace opacities in the left upper lobe. Correlate clinically for evidence of an infectious/inflammatory pneumonitis. 11. Additional findings as above. discussed with Neurologist Dr. Tony also discussed with Neurologist Dr. Mccollum- [facility] patient not a candidate for thrombectomy- may result in hemorrhagic transformation continue anticoagulation, ASA permissive HTN gentle IV fluids given speech therapy re-eval: strict NPO for now changed Eliquis to Heparin Drip ASA held, Rectal ASA not available in 81mg discussed with patient's brother at length over the phone yesterday he will be visiting today will discuss again with family today Bilateral Basilar Pneumonia - continue Cefepime + Doxy Day 4 - wean off o2 as tolerated 5) HUONG on CKD3a- creatinine up trended to 1.86. -- crea 1.6 to 1.7 6) Enterococcal UTI- s/p 5 days of ampicillin H/O CVA/PVD- management per above Hyperlipidemia-statin on hold as patient NPO COPD- on duonebs DM II- A1C:5.7 currently;Diet controlled; Insulin per Protocol while hospitalized BPH/bladder cancer S/P surgery Ongoing tobacco abuse- Counselled to quit smoking.n Multiple falls, weakness- DVT Px: heparin drip Dispo- pending (5) UTI (urinary tract infection): Admission and Anticipated Discharge Date Admission Date: February 08, 2022 Subjective ff up for acute cva, etc seen resting in bed, not in distress appears comfortable non verbal, occasionally looks at examiner does not reply to questions, follow commands on oxygen via nasal cannula does not have signs of distress, pain failed speech eval this morning- recommend NPO Review of Systems Review of Systems: all noted and negative except for above Physical Exam Physical Exam: General- oriented x 0, not in distress, breathing with no effort or accessory muscle use Eyes- anicteric Neck- no JVD Lungs-clear breath sounds BL no wheezing Heart- normal rate, regular rhythm; no murmurs Abdomen- normal bowel sounds, nondistended, soft, nontender Extremities- no pretibial edema, no calf tenderness Neuro- alert, but non verbal; moves R side, (+) L hemiplegia Skin- warm & dry Results & Data Results & Data ([facility]) Vital Signs (Past 12 Hours) Vital Signs Temp Pulse Pulse Pulse Resp BP Pulse Ox 02/21/22 08:00 461 H 02/21/22 09:11 60 02/21/22 08:20 36.8 C 60 20 164/63 H 93 02/21/22 04:19 36.8 C 60 20 118/69 94 02/21/22 00:01 61 O2 Del Method O2 Flow Rate 02/21/22 08:00 02/21/22 09:11 02/21/22 08:20 Nasal Cannula 4 02/21/22 04:19 02/21/22 00:01 all noted and reviewed including below
--- NOTE | 2022-02-21 12:28 | Nephrology Progress Note ---
Date of Service February 21, 2022 Assessment & Plan (1) Acute kidney injury: Plan: 81-year-old male with previously normal kidney function, admitted with recurrent syncope related with ventricular tachycardia requiring cardioversion. He was also found to have new onset cardiomyopathy with an ejection fraction of 30% as well as new onset acute ischemic stroke involving the right middle cerebral artery.Nephrology consulted for abnormal kidney function in the setting of congestive heart failure, syncopal epiosdes and Ventricular tachycardia. 1. Acute renal failure.The patient's creatinine prior to this admission was near normal at 1.1, but since being admitted, it has been at a slightly higher level, but it is fairly steady for the last few days. Creatinine has been anywhere from 1.5 to 1.8 for the last 11 days Given that there has been sign ificant drop in his ejection fraction, it is not unexpected to have slightly higher baseline creatinine in fact, I would call this as his new baseline. 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 -Notified of family meeting to set goals of care-- Agree. 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 HEENT: Mucous membrane dry NECK: Supple. Jugular venous distention is present. CHEST: Bilateral decreased breath sound, did not take any inspiratory effort, limited quality exam. CARDIOVASCULAR: S1 and S2, regular. Systolic murmur heard. ABDOMEN: Soft, nontender. EXTREMITIES: Show trace edema. Results & Data ([facility]) Vital Signs (Past 12 Hours) Vital Signs Temp Pulse Pulse Pulse Resp BP Pulse Ox 02/21/22 11:44 36.6 C 60 16 125/58 L 95 02/21/22 08:00 461 H 02/21/22 09:11 60 02/21/22 08:20 36.8 C 60 20 164/63 H 93 02/21/22 04:19 36.8 C 60 20 118/69 94 O2 Del Method O2 Flow Rate 02/21/22 11:44 Nasal Cannula 4 02/21/22 08:00 02/21/22 09:11 02/21/22 08:20 Nasal Cannula 4 02/21/22 04:19 Laboratory Results 02/21/22 03:00 02/21/22 03:00
[2022-02-21 12:34] LABS: Partial Thromboplastin Ratio 2.1
[2022-02-21 12:38] LABS: Partial Thromboplastin Time 58.1 Seconds (21.0-31.0)
[2022-02-21] MEDS: HEPARIN SODIUM/DEXTROSE 25,000 UNITS/500 ML BAG IV SCH (20:58)
[2022-02-22] MEDS: DOXYCYCLINE HYCLATE 100 MG in DEXTROSE 5% 100 ML IV SCH ×2 (04:10→16:33)
[2022-02-22] MEDS: CEFEPIME 2,000 MG in SYRINGE 0 ML IV SCH ×2 (04:10→16:33)
[2022-02-22] MEDS: INSULIN ASPART PER UNIT SC SCH ×4 (05:38→20:40)
[2022-02-22 06:41] LABS: Partial Thromboplastin Ratio 2.4
[2022-02-22 06:42] LABS: Partial Thromboplastin Time 65.8 Seconds (21.0-31.0)
--- NOTE | 2022-02-22 08:18 | Nephrology Progress Note ---
Date of Service February 22, 2022 Assessment & Plan (1) Acute kidney injury: Plan: 81-year-old male with previously normal kidney function, admitted with recurrent syncope related with ventricular tachycardia requiring cardioversion. He was also found to have new onset cardiomyopathy with an ejection fraction of 30% s/p ICD placement and cardiac cath mid month as well as new onset acute ischemic stroke involving the right middle cerebral artery. work up shows comp lete thrombosis R ICA and RCCA adn nearly 50% nearrowing at take off LICA from [facility]; not a candidate for surgical intervention. also having tx for BL basilar PNA > on doxycycline, cefepime. Nephrology consulted for abnormal kidney function in the setting of congestive heart failure, syncopal epiosdes and Ventricular tachycardia. 1. Acute renal failure.The patient's creatinine prior to this admission was near normal at 1.1, but since being admitted, it has been at a slightly higher level, but it is plateau'd in high ones since 02/14 through today though uptrend may be starting. Given that there has been significant drop in his ejection fraction, it is not unexpected to have slightly higher baseline creatinine in fact, this may prove to be his new baseline. - He had some evidence of congestive heart failure on the chest x-ray 02/20; EF 30% on TTE this month >> on no diuretics currently; NS at 60 ml/hr stopped yesterday > on heparin gtt and abtx >trial lasix 10 mg IV bid ordered -cont daily bmp -note permissive HTN was for a few days per neuro Admission and Anticipated Discharge Date Admission Date: February 08, 2022 Subjective seen on rounds today 0920 approx Review of Systems Review of Systems: Unobtainable due to reduced consciousness Physical Exam Constitutional: well developed, well nourished and + frail appearing; no acute distress ENMT: Ears: no external ear abnormality Nose: no external nose abnormality Mouth: + dry oral mucous membranes Neck: no nuchal rigidity Respiratory: normal respiratory effort Auscultation: + diminished lung sounds Cardiovascular: Rate/Rhythm: regular rate and regular rhythm Extremities: + edema (trace) Gastrointestinal (Abdomen): Inspection/Auscultation: normal bowel sounds Percussion/Palpation: abdomen soft; abdomen nontender Musculoskeletal: Extremities: + abnormal strength Skin: no rashes, warm and dry Neurologic: goodman/withdraws to noxious stim; aphasic, no tremor Results & Data ([facility]) Vital Signs (Past 12 Hours) Vital Signs Temp Pulse Pulse Pulse Resp BP BP 02/22/22 07:41 36.6 C 69 19 146/64 H 02/22/22 04:35 36.5 C 69 18 02/21/22 23:56 61 02/21/22 23:16 36.8 C 65 18 02/21/22 20:37 60 102/63 BP Pulse Ox O2 Del Method O2 Flow Rate 02/22/22 07:41 93 Nasal Cannula 3 02/22/22 04:35 134/59 L 91 Nasal Cannula 3 02/21/22 23:56 02/21/22 23:16 144/69 H 93 Nasal Cannula 3 02/21/22 20:37 Laboratory Results 02/21/22 03:00 02/21/22 03:00
[2022-02-22] MEDS: METOPROLOL TARTRATE 1 MG/ML VIAL IV SCH ×2 (09:16→20:48)
[2022-02-22] MEDS: POLYETHYLENE (MIRALAX) 17 GM PACK PO SCH (09:16)
[2022-02-22 10:14] LABS: BUN Creatinine Ratio 17.3 (10-20); Creatinine Clr Calc Pharmacy 30.2 ml/min; Est GFR (African American) 40.9 ml/min; Est GFR (Non-African American) 35.3 ml/min; Potassium 3.6 mmol/L (3.5-5.1)
[2022-02-22] MEDS ORDERED: FUROSEMIDE 10 MG/ML 10 ML VIAL IV SCH (13:20)
[2022-02-22] MEDS: FUROSEMIDE INJ 20 MG/2 ML VIAL IV SCH ×2 (14:54→20:48)
--- NOTE | 2022-02-22 17:58 | Neurology Progress Note ---
Date of Service February 22, 2022 Assessment & Plan (1) CVA (cerebral vascular accident): Plan: Impression: The patient has multiple stroke risk factors including atrial fibrillation, who was admitted to hospital for ICD placement, and was anticoagulation was on hold. Initially, he was having chronic left arm weakness with undetermined etiology. Head CT was unremarkable. The patient was not a candidate for MRI. However, his left sided weakness worsened, and repeat head CTs showed acute ischemic stroke involving right MCA territory. The most likely underlying etiology was cardioembolic event. 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 The patient was not a candidate for thrombectomy. Plan: Anticoagulation with aspirin. Recently switched to Heparin drip due to worsening renal function. Management of hyperlipidemia, with goal LDL is lower than 70. Management of Htn. No further indication for permissive Htn. Physical therapy. The patient will need rehab and placement. We will sign off. (2) Left arm weakness: Plan: Impression: The patient reports having gradually worsening left arm weakness which started 2 months ago. He has significant stroke risk factors including atrial fibrillation. Initial HCTs were negative for acute event. However recent HCT showed acute ischemic, multifocal right MCA-CVA. Plan: As above. (3) Atrial fibrillation with RVR: Plan: Impression: The patient is restarted on anticoagulation. Plan: The patient has high CHADS2 score and should be treated on anticoagulation for stroke prevention. (4) Syncope: Plan: Impression: The patient has been having recurrent syncopal episodes. The most likely underlying cause is cardiac dysrhythmia. Plan: Cardiology is on board. (5) ICD (implantable cardioverter-defibrillator), dual, in situ: Plan Thank you for the consultation. Admission and Anticipated Discharge Date Admission Date: February 08, 2022 Subjective Since the last visit CTA showed total occlusion of right carotid arteries. The case was discussed with neurointerventionalist and thrombectomy was not recommended as high risk for hemorrhagic conversion. The patient is still aphasic with left hemiparesis. Eliquis is switched to Heparin drip while worsening renal function. Nephrology is on board. The patient has extensive stroke risk factors, including a.fib. Review of Systems Review of Systems: Unobtainable due to cognitive status Physical Exam Physical Exam: General Examination: Constitutional: Well developed disheveled person in no acute distress. HENT: Normal exam with inspection. CV: Irregular Neck: Supple. Lungs: Non-labored and comfortable breathing but with bibasilar crackles and some wheezing Abdomen: Soft, non-tender, non-distended. Skin: No rash or ecchymosis but bruises in extremities. Extremities: Left lower extremity distal edema NEUROLOGICAL EXAMINATION: Mental Status: Alert and oriented to his name. Cranial Nerves: II-XII are intact grossly. No nystagmus. Funduscopy: Unable to visualize Motor: Right arm 5/5, left arm 2-/5 proximally, hand boarder steam is 3-/5. Difficult to assess motor strength is lower extremities. He withdraws legs to pain bilaterally. DTRs: Slightly increased in left leg with positive left Babinsky. Tone: Normal without spasticity or rigidity. Decreased tone in left upper extre mity. Sensory: Decreased sensation in feet. Limited exam Coordination: No dysmetria with right FTN testing. Speech: Expressive +/- comprehensive aphasia Gait: Unable to assess Results & Data ([facility]) Vital Signs (Past 12 Hours) Vital Signs Temp Pulse Pulse Resp BP BP Pulse Ox 02/22/22 16:51 62 02/22/22 15:52 36.7 C 61 16 138/74 94 02/22/22 12:09 36.7 C 60 20 123/75 99 02/22/22 10:24 59 L 02/22/22 10:14 02/22/22 09:16 69 146/69 H 02/22/22 07:41 36.6 C 69 19 146/64 H 93 O2 Del Method O2 Flow Rate 02/22/22 16:51 02/22/22 15:52 Nasal Cannula 3 02/22/22 12:09 Nasal Cannula 3 02/22/22 10:24 02/22/22 10:14 Nasal Cannula 3 02/22/22 09:16 02/22/22 07:41 Nasal Cannula 3 Diagnostic Findings Chest X-Ray 02/08/22 00:40 XR chest 1V portable HISTORY: 81 years-old Male syncope acute syncope COMPARISON: Chest radiograph 07/31/2020 TECHNIQUE: Portable AP view of the chest FINDINGS: Cardiac silhouette is enlarged. No pneumothorax. Trace right pleural effusion with mild right lung base opacities. Pulmonary vascular congestion. Mild thoracic levoscoliosis. Degenerative changes of the shoulders and spine. IMPRESSION: 1. Cardiomegaly with pulmonary vascular congestion. 2. Trace right pleural effusion with mild right lung base opacities. ACT 112: Negative or not required by law. The above report was generated using voice recognition software. It may contain grammatical, syntax or spelling errors. Electronically signed by: Flavio Niño M.D. 02/08/2022 7:[address] 02/08/22 01:27 CT SCAN OF THE CERVICAL SPINE CLINICAL HISTORY: Fall. Head injury. COMPARISON STUDY: No priors. TECHNIQUE: CT scan of the cervical spine is performed from the skull base to the upper thoracic spine. Images are reviewed in the axial, sagittal, and coronal planes. IV contrast was not administered for this examination. A dose lowering technique was utilized adhering to the principles of ALARA. CT DOSE: 1000.23 mGy.cm FINDINGS: Skeletal structures: The skeletal structures are osteopenic. There is no evidence of fracture or subluxation involving the cervical spine. Vertebral body height and alignment are maintained. Anterior osteophytes are seen throughout. The odontoid process and lateral masses are intact. The atlantoaxial articulation is preserved noting productive degenerative change. The spinous processes appear intact. There is mild to moderate multilevel cervical spondylosis. Uncovertebral and facet arthropathy contribute to neural foraminal narrowing at several levels. Intervertebral discs: There is moderate disc space narrowing at C4-C5, C5-C6, and C6-C7. Central canal: Posterior disc osteophyte complexes are seen at C4-C5, C5-C6, and C6-C7. This likely contributes to mild multilevel acquired compromise of the central canal. Soft tissues: The prevertebral and paraspinous soft tissues are within normal limits. There is atherosclerotic calcification of the carotid bulbs. Calvarium: The visualized calvarium at the skull base appears intact. Brain parenchyma: Partially visualized brain parenchyma at the skull base is within normal limits. Sinuses and mastoids: The visualized paranasal sinuses are clear. There is a small left mastoid effusion. The right mastoid air cells are well pneumatized. Lung apices: Emphysematous change is noted at the apices. Apical lung parenchyma is otherwise clear as visualized. IMPRESSION: 1. There is no evidence of fracture or subluxation involving the cervical spine. 2. Osteopenia and spondylotic change as above. ACT 112: Negative or not required by law. Electronically signed by: Hima Segal M.D. 02/08/2022 8:[address] 02/08/22 01:27 CT head/brain wo con CLINICAL HISTORY: 81 years-old Male with fall, CHI, syncope. Acute head injury status post fall TECHNIQUE: Multiple axial CT images of the head were obtained without contrast. A dose lowering technique was utilized adhering to the principles of ALARA. COMPARISON: CT cervical spine of same day FINDINGS: No acute intracranial hemorrhage, midline shift, intracranial mass, hydrocephalus, territorial ischemia or abnormal extra-axial collection. Age- related involutional changes. White matter hypodensities suggest chronic microvascular ischemic disease. 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 Motion degraded study. The calvarium is intact. Mild polypoid mucosal thickening of the left maxillary sinus. Mastoid air cells are clear. Unremarkable soft tissues. Prior bilateral lens repair. IMPRESSION: No acute intracranial abnormality or calvarial fracture. ACT 112: Negative or not required by law. The above report was generated using voice recognition software. It may contain grammatical, syntax or spelling errors. Electronically signed by: Flavio Niño M.D. 02/08/2022 7:27 AM Carotid Doppler Study 02/08/22 04:33 ULTRASOUND OF THE CAROTID ARTERIES CLINICAL HISTORY: Syncope. COMPARISON STUDY: No priors. TECHNIQUE: Real-time, grayscale, and color Doppler sonography of the carotid arteries is performed. Images are reviewed in the transverse and longitudinal planes. FINDINGS: The carotid arteries are patent bilaterally and demonstrate antegrade flow. There is mild to moderate atherosclerotic plaque seen in the carotid bulbs, right greater than left. Normal doppler arterial waveforms are seen throughout. Velocity measurements are listed below. Common carotid peak systolic velocity (cm/sec): RIGHT: 42 LEFT: 48 ICA proximal peak systolic velocity (cm/sec): RIGHT: 104 LEFT: 117 ICA mid peak systolic velocity (cm/sec): RIGHT: 81 LEFT: 71 ICA distal peak systolic velocity (cm/sec): RIGHT: 93 LEFT: 72 ICA/CC peak systolic ratio: RIGHT: 2.8 LEFT: 2.5 Antegrade flow was shown in the vertebral arteries. The external carotid arteries are patent. IMPRESSION: 1. There is no sonographic evidence of hemodynamically significant stenosis in the right or left carotid arterial system. 2. Antegrade flow is shown in the vertebral arteries. ACT 112: Negative or not required by law. Electronically signed by: Hima Segal M.D. 02/08/2022 12:52 PM Venous Doppler Study 02/09/22 00:00 BILATERAL LOWER EXTREMITY VENOUS DOPPLER CLINICAL HISTORY: Asymmetric lower extremity edema. COMPARISON STUDY: Right lower extremity venous Doppler ultrasound April 16, 2020. TECHNIQUE: Sonography of the deep venous system of the bilateral lower extremities was performed. Compression and augmentation were evaluated. FINDINGS: The bilateral common femoral, superficial femoral and popliteal veins were compressible. Augmentation was normal. Flow was shown within the deep calf vessels. IMPRESSION: No evidence of deep venous thrombus within the bilateral lower extremities. ACT 112: Negative or not required by law. Electronically signed by: Win Bermudez M.D. 02/09/2022 7:48 AM Chest X-Ray 02/12/22 07:00 XR chest 2V PA/lateral HISTORY: 81 years-old Male EXACT TIME ORDERED Evaluate for pneumothorax and l status post placement of a left subclavian pacer/AICD COMPARISON: Chest radiograph 02/08/2022 TECHNIQUE: PA and lateral views of the chest FINDINGS: Cardiac silhouette is enlarged. Small right pleural effusion with right basilar consolidation, progressively worsened from prior. Probable trace left pleural effusion. No overt pulmonary edema. Status post placement of a left subclavian pacer/AICD. No postprocedural pneumothorax identified. IMPRESSION: 1. Status post placement of a left subclavian pacer/AICD. No postprocedural pneumothorax. 2. Small right pleural effusion with right basilar consolidation. ACT 112: Negative or not required by law. The above report was generated using voice recognition software. It may contain grammatical, syntax or spelling errors. Electronically signed by: Flavio Niño M.D. 02/12/2022 6:54 AM Chest X-Ray 02/12/22 14:05 XR chest 2V PA/lateral HISTORY: 81 years-old Male fall acute chest trauma status post fall COMPARISON: Chest and shoulder radiographs of same day TECHNIQUE: AP view of the chest FINDINGS: Cardiac silhouette is enlarged. Left subclavian pacer/ICD. No pneumothorax. Small right and trace left pleural effusions with persistent right lung base opacities, mildly improved. Pulmonary vascular congestion. Degenerative changes of the shoulders and spine. Limited lateral view secondary to positioning. IMPRESSION: 1. Limited exam secondary to positioning. 2. Cardiomegaly with pulmonary vascular congestion. 3. Trace left and small right pleural effusions with mildly improved right basilar consolidation. 3. No acute rib fracture or pneumothorax identified. ACT 112: Negative or not required by law. The above report was generated using voice recognition software. It may contain grammatical, syntax or spelling errors. Electronically signed by: Flavio Niño M.D. 02/12/2022 3:53 PM Shoulder X-Ray 02/12/22 14:05 XR shoulder LT min 2V routine HISTORY: 81 years-old Male fall acute left shoulder pain status post fall COMPARISON: Chest radiograph 6 same day TECHNIQUE: 2 views of the left shoulder FINDINGS: Left subclavian pacer. Demineralized appearance of the bones. Moderate AC joint with mild glenohumeral osteoarthritis. No acute fracture, dislocation or unexpected opaque foreign body. Carotid calcifications. IMPRESSION: No acute fracture or dislocation. ACT 112: Negative or not required by law. The above report was generated using voice recognition software. It may contain grammatical, syntax or spelling errors. Electronically signed by: Flavio Niño M.D. 02/12/2022 4:[address] 02/12/22 14:[address] DOSE: 614.27 mGy.cm HISTORY: fall TECHNIQUE: Multiaxial CT images of the head were performed without the use of intravenous contrast. Automated exposure control was utilized for this study. A dose lowering technique was utilized adhering to the principles of ALARA. Comparison: Head CT 02/08/2022. Findings: The paranasal sinuses and mastoid air cells are clear. The calvarium and skull base are intact. There is no mass, hematoma, midline shift, acute infarct. White matter hypodensity is nonspecific but suggestive of microvascular ischemic change. The ventricles and sulci are within normal limits for age. Chronic nasal bone deformities again noted. Mild motion artifact. Mild left lateral scalp swelling. There is an old small infarct within the right high convexity. This remains unchanged. Impression: No significant change compared to the prior study. No acute intracranial abnormality. ACT 112: Negative or not required by law. Electronically signed by: Yohannes Metz M.D. 02/12/2022 4:01 PM Chest X-Ray 02/14/22 03:04 XR chest 1V portable HISTORY: Coughing. hypoxia COMPARISON: Chest 02/12/2022. FINDINGS: No pneumothorax. There is left-sided dual-chamber pacemaker/defibrillator. The heart remains mildly enlarged. There is diffuse interstitial/vascular thickening with small bilateral pleural effusions. This favors pulmonary edema. Right basilar densities persist. IMPRESSION: 1. No change in the pulmonary edema and small bilateral pleural effusions. 2. Right patchy basilar densities also persist. ACT 112: Negative or not required by law. Electronically signed by: Yohannes Metz M.D. 02/14/2022 8:08 AM Chest X-Ray 02/14/22 08:09 XR chest 1V portable HISTORY: Increase oxygen requirement COMPARISON: Chest 02/14/2022. FINDINGS: No pneumothorax. The heart remains enlarged. Moderate pulmonary edema, trace bilateral pleural effusions, and patchy bibasilar densities have slightly progressed. There is a left-sided pacemaker. IMPRESSION: Slight progression of the moderate pulmonary edema, trace bilateral pleural effusions, and patchy bibasilar densities. ACT 112: Negative or not required by law. Electronically signed by: Yohannes Metz M.D. 02/14/2022 8:47 AM Chest X-Ray 02/16/22 08:02 XR chest 1V portable HISTORY: Increased oxygen requirement COMPARISON: Chest 02/14/2022. FINDINGS: No pneumothorax. The cardiac silhouette remains mildly enlarged. Mild interstitial pulmonary edema has slightly improved. Small bilateral pleural effusions have slightly progressed. Hazy bibasilar densities remain unchanged. There is a left-sided dual-chamber pacemaker. IMPRESSION: 1. Interval improvement in the mild interstitial pulmonary edema. 2. The small bilateral pleural effusions and bibasilar densities have slightly progressed. ACT 112: Negative or not required by law. Electronically signed by: Yohannes Metz M.D. 02/16/2022 8:[address] 02/16/22 09:13 CT head/brain wo con CLINICAL HISTORY: Altered mental status Technique: Contiguous axial CT images of the head were acquired from the base of the skull to the vertex without intravenous contrast administration. Images were viewed in brain, subdural and bone windows. Automated dose lowering techniques and/or adjustment according to patient size were utilized for this exam. Comparison: Comparison is made to CT head 02/12/2022 Findings: The ventricles, basal cisterns, and cerebral sulci are normal. There is no acute intracranial hemorrhage or evidence of acute territorial infarction. Neither mass effect, shift of the midline structures, nor abnormal extra-axial fluid collections are shown. Old encephalomalacia in the right posterior frontal region is unchanged. Imaged portions of the paranasal sinuses and mastoid air cells are clear. The orbits appear normal. There are no acute fractures of the calvaria or scalp swelling. Chronic nasal bone deformities noted. Impression: No acute intracranial hemorrhage, no evidence of acute territorial infarction or other acute intracranial disease process. ACT 112: Negative or not required by law. Electronically signed by: Tong Cox M.D. 02/16/2022 10:[address] 02/17/22 09:50 CT OF THE HEAD WITHOUT CONTRAST CLINICAL HISTORY: L sided weakness r/o CVA COMPARISON STUDY: Head CTs February 08, 2022 and February 16, 2022. CT DOSE: 729.78 mGycm TECHNIQUE: Helical axial images of the head were obtained without IV contrast. Automated exposure control was utilized for the study. A dose lowering technique was utilized adhering to the principles of ALARA. FINDINGS: No acute intracranial hemorrhage, midline shift or mass effect is present. A new 4.1 cm hypodense focus with loss of hurley-white differentiation within the right parietal lobe shown best on axial image 22 of 32. This was not present on head CT of February 16, 2022. There is a 6 mm hypodensity within the right centrum semiovale on axial image 22 of 32. Adjacent old posterior right frontal lobe infarct is noted. Basal cisterns are patent. There are no extra axial collections. White matter hypodensity suggests small vessel disease. A few opacified left mastoid air cells are present. No significant calvarial abnormalities noted. IMPRESSION: Interval development of an acute infarct within the right parietal lobe, measuring approximately 4.1 cm in extent and possible additional 6 mm acute infarct within the right centrum semiovale. No significant mass effect. No intracranial hemorrhage. This finding will be called/faxed to the ordering provider at time of dictation. ACT 112: Negative or not required by law. Electronically signed by: Win Bermudez M.D. 02/17/2022 1:[address] 02/17/22 10:00 CT chest diagnostic wo con CLINICAL HISTORY: hypoxia, r/o pneumonia TECHNIQUE: Multidetector row helical CT of the chest was performed. Coronal and sagittal reformations were obtained. Automated dose lowering techniques and/or adjustment according to patient size were utilized for this exam. CT DOSE: 574.94 mGycm Comparison: Comparison is made to chest radiograph 02/16/2022 FINDINGS: Lungs and pleura: Bilateral pleural effusions are seen with underlying atelectasis. There is groundglass opacity in the dependent right lung. Biapical scarring and paraseptal emphysematous changes are seen along with diffuse bronchial wall thickening. Interlobular septal thickening is noted. Heart and pericardium: Cardiomegaly is seen with biatrial enlargement. Vessels: Unremarkable. Mediastinum and cristino: Subcentimeter lymph nodes are seen. Chest wall and lower neck: Unremarkable. Abdomen: Calcifications of the pancreas are noted. Bones: Degenerative changes in the thoracic spine. IMPRESSION: 1. Smooth interlobular septal thickening favored to represent pulmonary interstitial edema. Cardiomegaly. 2. Airspace disease in the left greater than right lung base compatible with aspiration and/or pneumonia. 3. Small bilateral pleural effusions with underlying atelectasis. ACT 112: Negative or not required by law. Electronically signed by: Tong Cox M.D. 02/17/2022 3:04 PM Videofluoroscopic Swallow 02/18/22 13:30 FL video swallow HISTORY: Right-sided pneumonia. Possible aspiration pneumonia. assess for aspiration TECHNIQUE: Video fluoroscopic evaluation of swallowing was performed in the AP and lateral projections by the speech pathology staff. The patient is fed nectar-thick and thin liquid barium, a barium coated wafer, and barium pudding. FLUOROSCOPY TIME: 1.9 minutes. A cine loop submitted.. COMPARISON STUDY: None. FINDINGS: There is normal hyoid excursion and epiglottic deflection. There are a few episodes of penetration with the thin liquid barium. No aspiration identified. Swallowing function is within normal limits. IMPRESSION: 1. No aspiration identified. 2. Please see the speech pathologist report for detailed findings and recommendations. ACT 112: Negative or not required by law. Electronically signed by: Yohannes Metz M.D. 02/18/2022 2:45 PM Chest X-Ray 02/20/22 10:34 SINGLE VIEW CHEST CLINICAL HISTORY: Follow-up congestive heart failure. FINDINGS: An AP, portable, upright chest radiograph is compared to study dated 02/16/2022 and correlated with chest CT dated 02/17/2022. The examination is significantly degraded by portable technique and patient rotation. A 2-lead cardiac AICD is unchanged in position. The heart is enlarged noting atherosclero tic calcification of the thoracic area. There is pulmonary vascular congestion. Emphysema and chronic interstitial thickening is similar to previous. There are small pleural effusions, left larger than right with dependent atelectasis. No pneumothorax is seen. The skeletal structures are osteopenic. The bony thorax is grossly intact. IMPRESSION: 1. Cardiomegaly and AICD with evidence of congestive failure. This is similar to previous. 2. Small pleural effusions. ACT 112: Negative or not required by law. Electronically signed by: Hima Segal M.D. 02/20/2022 10:[address] 02/20/22 10:41 CT SCAN OF THE BRAIN WITHOUT IV CONTRAST CLINICAL HISTORY: Aphasia. COMPARISON STUDY: CT scans of the brain dated 02/17/2022 and 02/16/2022. TECHNIQUE: Unenhanced axial CT scan of the brain is performed from the vertex to the skull base. A dose lowering technique was utilized adhering to the principles of ALARA. CT DOSE: 1425.10 mGy.cm FINDINGS: Brain parenchyma: There is a subacute/evolving infarct in the high right posterior parietal lobe. An additional evolving infarct is noted in the right centrum semiovale. There is an additional chronic infarct in the high right parietal lobe. There is age-related involutional change noting mild subcortical and periventricular microangiopathic disease. There is no hemorrhage or mass effect. No extra-axial fluid collection is seen. Ventricles, sulci, cisterns: Prominent secondary to involutional change. Intracranial vasculature: There is atherosclerotic calcification of the cavernous carotid arteries. Calvarium: Unremarkable. Sinuses and mastoids: The paranasal sinuses are clear. There is a left mastoid effusion. The right mastoid air cells are well pneumatized. Orbits: The bony orbits are grossly intact. There are bilateral ocular lens implants. IMPRESSION: 1. There are subacute/evolving infarcts in the right parietal lobe and the right centrum semiovale. 2. No hemorrhage or mass effect is seen. 3. Additional findings as above. ACT 112: Negative or not required by law. Electronically signed by: Hima Segal M.D. 02/20/2022 11:31 AM Head CTA 02/20/22 11:35 CT ANGIOGRAM OF THE BRAIN; CT ANGIOGRAM OF THE NECK CLINICAL HISTORY: Subacute stroke. COMPARISON STUDY: Unenhanced CT scans of the brain dated 02/20/2022 and 02/17/2022. TECHNIQUE: Follow-up the IV administration of 118 of Optiray 300, CT angiogram of the head and neck was performed from the aortic arch to the vertex. Images are reviewed in the axial, sagittal, and coronal planes. 3-D MIPS images are created and assessed. IV contrast was administered without complication. All measurements were calculated based on NASCET criteria. A dose lowering technique was utilized adhering to the principles of ALARA. The examinations are compromised by motion artifact. CT DOSE: 548.47 mGy.cm FINDINGS: Brain parenchyma: Again seen is a subacute/evolving infarct in the high right posterior parietal lobe. An additional evolving infarct is noted in the right centrum semiovale. There is an additional chronic infarct in the high right parietal lobe. There is age-related involutional change noting mild subcortical and periventricular microangiopathic disease. There is no evidence of enhancing mass lesion on the angiogram phase images. No hemorrhage is seen. The ventricles, sulci, and cisterns are prominent secondary to positional change. No extra-axial fluid collection is seen. Thoracic aorta: Visualized portions of the thoracic aorta are normal in caliber. The aortic arch demonstrates standard 3-vessel anatomy. 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 There is thrombosis of the origin of the right external carotid artery. This is reconstituted approximately 1.4 cm above the bifurcation. Left carotid arterial system: The left common carotid artery is widely patent noting atherosclerotic plaque and irregularity. Advanced atherosclerotic plaque is seen in the carotid bulb. This causes approximately 50% focal stenosis at the origin of the left internal carotid artery. Remainder of the left internal carotid artery is widely patent, as is the left external carotid artery. Vertebral arteries: The vertebral arteries are widely patent bilaterally and codominant. Subclavian arteries: Widely patent bilaterally noting atherosclerotic plaque and irregularity. Intracranial vasculature: The right internal carotid artery is thrombosed at the skull base to the [place]. The left internal at the skull base, as are the anterior and middle cerebral arteries bilaterally. The right anterior and middle cerebral arteries are likely supplied via the anterior to indicating artery. The vertebrobasilar system and posterior cerebral arteries are widely patent. The vertebral arteries are codominant. There is pruning of posterior peripheral branches of the right MCA in the right parietal region. No aneurysm is seen. Jugular veins: Patent bilaterally. Dural sinuses: Patent. Upper chest: There is advanced emphysema. A left pleural effusion is partially imaged. Question mild patchy opacities in the left upper lobe. Mild enlargement of lymph nodes measure up to 10 mm in short axis. Pacemaker leads are noted at the left thoracic inlet. Soft tissues: The visualized pharyngeal soft tissues are normal in appearance noting angiographic phase technique. The oropharyngeal airway appears widely patent. The salivary and thyroid glands are normal in appearance. No cervical lymphadenopathy is seen. Skeletal structures: The skeletal structures are osteopenic. The calvarium appears intact. The cervical spine is maintained Advanced spondylosis. No lytic or blastic lesion is seen. Mild chronic appearing compression deformities are noted in the upper thoracic spine. Orbits: The bony orbits are intact. Orbital contents are normal as visualized no change bilateral ocular lens implants. Sinuses and mastoids: The paranasal sinuses are clear. There is a left mastoid effusion. The right mastoid air cells are well pneumatized. IMPRESSION: 1. There are subacute/evolving infarcts in the right parietal lobe and the right centrum semiovale. 2. There is no evidence of hemorrhage or midline shift. 3. 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 4. There is thrombosis at the origin of the right external carotid artery. This is reconstituted approximately 1.4 cm above the bifurcation. 5. Atherosclerotic plaque causes approximately 50% luminal narrowing at the origin of the left internal carotid artery. 6. The vertebral arteries are widely patent bilaterally. 7. The anterior and middle cerebral arteries are patent bilaterally. The right- sided vessels are likely supplied via the ACOM. 8. There is pruning of peripheral branches of the right MCA in the infarcting parietal region. 9. There is emphysema. 10. A left pleural effusion is partially imaged and there are airspace opacities in the left upper lobe. Correlate clinically for evidence of an infectious/inflammatory pneumonitis. 11. Additional findings as above. ACT 112: Negative or not required by law. Electronically signed by: Hima Segal M.D. 02/20/2022 1:09 PM Neck CTA 02/20/22 11:35 CT ANGIOGRAM OF THE BRAIN; CT ANGIOGRAM OF THE NECK CLINICAL HISTORY: Subacute stroke. COMPARISON STUDY: Unenhanced CT scans of the brain dated 02/20/2022 and 02/17/2022. TECHNIQUE: Follow-up the IV administration of 118 of Optiray 300, CT angiogram of the head and neck was performed from the aortic arch to the vertex. Images are reviewed in the axial, sagittal, and coronal planes. 3-D MIPS images are created and assessed. IV contrast was administered without complication. All measurements were calculated based on NASCET criteria. A dose lowering technique was utilized adhering to the principles of ALARA. The examinations are compromised by motion artifact. CT DOSE: 548.47 mGy.cm FINDINGS: Brain parenchyma: Again seen is a subacute/evolving infarct in the high right posterior parietal lobe. An additional evolving infarct is noted in the right centrum semiovale. There is an additional chronic infarct in the high right parietal lobe. There is age-related involutional change noting mild subcortical and periventricular microangiopathic disease. There is no evidence of enhancing mass lesion on the angiogram phase images. No hemorrhage is seen. The ventricles, sulci, and cisterns are prominent secondary to positional change. No extra-axial fluid collection is seen. Thoracic aorta: Visualized portions of the thoracic aorta are normal in caliber. The aortic arch demonstrates standard 3-vessel anatomy. 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 There is thrombosis of the origin of the right external carotid artery. This is reconstituted approximately 1.4 cm above the bifurcation. Left carotid arterial system: The left common carotid artery is widely patent noting atherosclerotic plaque and irregularity. Advanced atherosclerotic plaque is seen in the carotid bulb. This causes approximately 50% focal stenosis at the origin of the left internal carotid artery. Remainder of the left internal carotid artery is widely patent, as is the left external carotid artery. Vertebral arteries: The vertebral arteries are widely patent bilaterally and codominant. Subclavian arteries: Widely patent bilaterally noting atherosclerotic plaque and irregularity. Intracranial vasculature: The right internal carotid artery is thrombosed at the skull base to the [place]. The left internal at the skull base, as are the anterior and middle cerebral arteries bilaterally. The right anterior and middle cerebral arteries are likely supplied via the anterior to indicating artery. The vertebrobasilar system and posterior cerebral arteries are widely patent. The vertebral arteries are codominant. There is pruning of posterior peripheral branches of the right MCA in the right parietal region. No aneurysm is seen. Jugular veins: Patent bilaterally. Dural sinuses: Patent. Upper chest: There is advanced emphysema. A left pleural effusion is partially imaged. Question mild patchy opacities in the left upper lobe. Mild enlargement of lymph nodes measure up to 10 mm in short axis. Pacemaker leads are noted at the left thoracic inlet. Soft tissues: The visualized pharyngeal soft tissues are normal in appearance noting angiographic phase technique. The oropharyngeal airway appears widely patent. The salivary and thyroid glands are normal in appearance. No cervical lymphadenopathy is seen. Skeletal structures: The skeletal structures are osteopenic. The calvarium appears intact. The cervical spine is maintained Advanced spondylosis. No lytic or blastic lesion is seen. Mild chronic appearing compression deformities are noted in the upper thoracic spine. Orbits: The bony orbits are intact. Orbital contents are normal as visualized no change bilateral ocular lens implants. Sinuses and mastoids: The paranasal sinuses are clear. There is a left mastoid effusion. The right mastoid air cells are well pneumatized. IMPRESSION: 1. There are subacute/evolving infarcts in the right parietal lobe and the right centrum semiovale. 2. There is no evidence of hemorrhage or midline shift. 3. 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 4. There is thrombosis at the origin of the right external carotid artery. This is reconstituted approximately 1.4 cm above the bifurcation. 5. Atherosclerotic plaque causes approximately 50% luminal narrowing at the origin of the left internal carotid artery. 6. The vertebral arteries are widely patent bilaterally. 7. The anterior and middle cerebral arteries are patent bilaterally. The right- sided vessels are likely supplied via the ACOM. 8. There is pruning of peripheral branches of the right MCA in the infarcting parietal region. 9. There is emphysema. 10. A left pleural effusion is partially imaged and there are airspace opacities in the left upper lobe. Correlate clinically for evidence of an infectious/inflammatory pneumonitis. 11. Additional findings as above. ACT 112: Negative or not required by law. Electronically signed by: Hima Segal M.D. 02/20/2022 1:[address] 02/21/22 03:49 CT OF THE HEAD WITHOUT CONTRAST CLINICAL HISTORY: Altered mental status, iv heparin COMPARISON STUDY: Head CT and CTA of the head February 20, 2022. CT DOSE: 1228.53 mGy.cm TECHNIQUE: Helical axial images of the head were obtained without IV contrast. Automated exposure control was utilized for the study. A dose lowering technique was utilized adhering to the principles of ALARA. FINDINGS: This exam is moderately compromised by motion artifact. No acute intracranial hemorrhage, midline shift or mass effect is present. Ventricular system is stable. Basal cisterns are patent. There are no extra-axial collections. There is intravascular contrast from recent contrast-enhanced CT. The evolving infarcts within the right parietal lobe and right centrum semiovale ovale are better depicted on prior exam. White matter hypodensity suggests small vessel disease. There is ethmoid sinus mucosal thickening. IMPRESSION: 1. Exam mildly compromised by motion artifact. No acute intracranial hemorrhage. 2. Evolving infarcts within the right parietal lobe and the right centrum semiovale which are better depicted on prior exam. ACT 112: Negative or not required by law. Electronically signed by: Win Bermudez M.D. 02/21/2022 6:57 AM
--- NOTE | 2022-02-22 18:56 | Hospitalist Progress Note ---
Date of Service February 22, 2022 Assessment & Plan (1) CVA (cerebral vascular accident): Plan: Per Dr. Humble Haines's notes: Patient is a 81-year-old male with multiple comorbid condition presented to the ED after episode of ventricular tachycardia requiring cardioversion in the field. In the hospitalization, patient was evaluated by cardiology service. He underwent cardiac cath in 02/09 which showed moderate nonobstructive coronary artery disease. Echo was suggestive for heart failure with reduced ejection fraction. He underwent pacemaker placement on 02/11. Patient signed out AMA on 02/12. He had a fall on his knees as he was getting in the car in the parking lot. He was admitted again and was evaluated with head CT which was unremarkable. He reported increase in his left arm weakness which has been going on for last [address] head was unremarkable for acute abnormality. Neurology service was consulted; recommend nonemergent MRI brain without contrast. 1) Recurrent syncope likely secondary to ventricular tachycardia s/p ICD placement on 02/11. 2) Paroxysmal A.fib 3) Non- ischemic CMP H/O medication noncompliance - S/P Cardioversion on the field - S/P Cardiac Cath on 02/09/22: Moderate nonobstructive coronary disease. -- EEG was normal during wakefulness and drowsiness. No focal abnormalities, potentially epileptogenic discharges, or abnormal slow activity was seen. -- ECHO: EF 30 to 35%. Moderate to severe global hypokinesis of left ventricle. Mild mitral regurgitation. Mild tricuspid regurgitation. Estimated systolic pulmonary pressure is 48 mmHg. Dilated inferior vena cava with reduced collapsibility with sniff indicates an elevated right atrial pressure of 15 mmHg --Carotid USD: There is no sonographic evidence of hemodynamically significant stenosis in the right or left carotid arterial system. Antegrade flow is shown in the vertebral arteries. 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 There are subacute/evolving infarcts in the right parietal lobe and the right centrum semiovale. 2. No hemorrhage or mass effect is seen. 3. Additional findings as above. CT angio head and neck: 1. There are subacute/evolving infarcts in the right parietal lobe and the right centrum semiovale. 2. There is no evidence of hemorrhage or midline shift. 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 4. There is thrombosis at the origin of the right external carotid artery. This is reconstituted approximately 1.4 cm above the bifurcation. 5.Atherosclerotic plaque causes approximately 50% luminal narrowing at the origin of the left internal carotid artery. 6. The vertebral arteries are widely patent bilaterally. 7. The anterior and middle cerebral arteries are patent bilaterally. The right- sided vessels are likely supplied via the ACOM. 8. There is pruning of peripheral branches of the right MCA in the infarcting parietal region. 9. There is emphysema. 10. A left pleural effusion is partially imaged and there are airspace opacities in the left upper lobe. Correlate clinically for evidence of an infectious/inflammatory pneumonitis. 11. Additional findings as above. discussed with Neurologist Dr. Tony also discussed with Neurologist Dr. Mccollum- [facility] patient not a candidate for thrombectomy- may result in hemorrhagic transformation continue anticoagulation, ASA 02/22 Patient about the same overall-nonverbal, failed speech evaluation Was able to somewhat focus and not on family members today permissive HTN gentle IV fluids given speech therapy re-eval: strict NPO for now Currently on Heparin Drip Rectal aspirin 1/2 suppository okay per neurology, ordered Discussed with patient's family at the bedside in detail and at length negative they are understanding, comfortable with the plan of care Bilateral Basilar Pneumonia - continue Cefepime + Doxy Day 10/31 - wean off o2 as tolerated 5) HUONG on CKD3a- creatinine up trended to 1.86. -- crea 1.6 to 1.7 6) Enterococcal UTI- s/p 5 days of ampicillin H/O CVA/PVD- management per above Hyperlipidemia-statin on hold as patient NPO COPD- on duonebs DM II- A1C:5.7 currently;Diet controlled; Insulin per Protocol while hospitalized BPH/bladder cancer S/P surgery Ongoing tobacco abuse- Counselled to quit smoking.n Multiple falls, weakness- DVT Px: heparin drip Dispo- pending : Admission and Anticipated Discharge Date Admission Date: February 08, 2022 Subjective Follow-up for acute CVA, etc. Seen resting in bed, awake but nonverbal Focuses on examiner, but no purposeful movement, does not follow commands Seems more calm, not yelling help anymore No signs of acute distress, pain Per speech therapist, patient did not pass swallow evaluation again Evaluated in the afternoon, with patient's brother, [id number] and son at bedside Patient seems to be looking at them when name called, occasionally nodding his head Still nonverbal Review of Systems Review of Systems: all noted and negative except for above Physical Exam Physical Exam: General- oriented x 0, not in distress, nonverbal, breathing with no effort or accessory muscle use Eyes- anicteric Neck- no JVD Lungs-mild rhonchi at the bases, Heart- normal rate, regular rhythm; no murmurs Abdomen- normal bowel sounds, nondistended, soft, nontender Extremities- no pretibial edema, no calf tenderness Neuro-not oriented, awake but does not follow commands, nonverbal Moves right upper and lower extremities completely Dense hemiplegia left Skin- warm & dry Results & Data Results & Data ([facility]) Vital Signs (Past 12 Hours) Vital Signs Temp Pulse Pulse Resp BP BP Pulse Ox 02/22/22 16:51 62 02/22/22 15:52 36.7 C 61 16 138/74 94 02/22/22 12:09 36.7 C 60 20 123/75 99 02/22/22 10:24 59 L 02/22/22 10:14 02/22/22 09:16 69 146/69 H 02/22/22 07:41 36.6 C 69 19 146/64 H 93 O2 Del Method O2 Flow Rate 02/22/22 16:51 02/22/22 15:52 Nasal Cannula 3 02/22/22 12:09 Nasal Cannula 3 02/22/22 10:24 02/22/22 10:14 Nasal Cannula 3 02/22/22 09:16 02/22/22 07:41 Nasal Cannula 3 all noted and reviewed including below
[2022-02-22] MEDS: ASPIRIN 300 MG SUPP PR SCH (19:41)
[2022-02-22] MEDS: HEPARIN SODIUM/DEXTROSE 25,000 UNITS/500 ML BAG IV SCH (20:47)
[2022-02-23] MEDS: CEFEPIME 2,000 MG in SYRINGE 0 ML IV SCH ×2 (04:30→17:00)
[2022-02-23] MEDS: DOXYCYCLINE HYCLATE 100 MG in DEXTROSE 5% 100 ML IV SCH ×2 (04:30→17:01)
[2022-02-23 06:44] LABS: BUN Creatinine Ratio 19.2 (10-20); Calcium 9.1 mg/dl (8.5-10.1); Creatinine Clr Calc Pharmacy 30.5 ml/min; Est GFR (African American) 41.4 ml/min; Est GFR (Non-African American) 35.7 ml/min; Potassium 3.2 mmol/L (3.5-5.1)
[2022-02-23 07:06] LABS: Partial Thromboplastin Ratio 2.7
[2022-02-23 07:08] LABS: Partial Thromboplastin Time 74.2 Seconds (21.0-31.0)
[2022-02-23] MEDS: POLYETHYLENE (MIRALAX) 17 GM PACK PO SCH (07:16)
[2022-02-23] MEDS: INSULIN ASPART PER UNIT SC SCH ×3 (08:02→22:39)
[2022-02-23] MEDS: FUROSEMIDE INJ 20 MG/2 ML VIAL IV SCH ×2 (08:34→17:03)
[2022-02-23] MEDS: METOPROLOL TARTRATE 1 MG/ML VIAL IV SCH ×2 (08:35→21:38)
[2022-02-23] MEDS ORDERED: RABIES VACC (IMOVAX) HUMAN DIPL CELL 2.5 UNITS/ML SYR IM STA (10:01)
[2022-02-23] MEDS ORDERED: RABIES IMMUNE GLOBULIN (HUMAN) 300 UNITS/ML VIAL IM STA (10:01)
--- NOTE | 2022-02-23 13:59 | Nephrology Progress Note ---
Date of Service February 23, 2022 Assessment & Plan (1) Acute kidney injury: Plan: 81-year-old male with previously normal kidney function, admitted with recurrent syncope related with ventricular tachycardia requiring cardioversion. He was also found to have new onset cardiomyopathy with an ejection fraction of 30% s/p ICD placement and cardiac cath mid month as well as new onset acute ischemic stroke involving the right middle cerebral artery. work up shows comp lete thrombosis R ICA and RCCA adn nearly 50% nearrowing at take off LICA from [place]; not a candidate for surgical intervention. also having tx for BL basilar PNA > on doxycycline, cefepime. Nephrology consulted for abnormal kidney function in the setting of congestive heart failure, syncopal epiosdes and Ventricular tachycardia. 1. Acute renal failure.The patient's creatinine prior to this admission was near normal at 1.1, but since being admitted, it has been at a slightly higher level, but it is plateau'd in high ones since 02/14 w/ slow uptrend. Given that there has been significant drop in his ejection fraction, it is not unexpected to have slightly higher baseline creatinine in fact, this may prove to be his new baseline. - He had some evidence of congestive heart failure on the chest x-ray 02/20; EF 30% on TTE this month >> on no diuretics currently; NS at 60 ml/hr stopped yesterday > on heparin gtt and abtx >started lasix 10 mg IV bid 02/22 and 02/23; will hold in am pending labs -will give K IV x 60 mEq since he is strict NPO and has had 2 doses more lasix since labs drawn -cont daily bmp -note permissive HTN was for a few days per neuro > challenging to diurese, control HR, allow for permissive HTN but will work to balance Admission and Anticipated Discharge Date Admission Date: February 08, 2022 Subjective evaluated mid afternoon today. pt awake > interactive on limited basis > answers no pain, no sob and yes he would like pillow repositioned. Review of Systems 2 Review of Systems: All systems reviewed & are unremarkable except as noted in Subjective (limited by pt energy to communicate) Physical Exam Constitutional: well developed, well nourished and + frail appearing; no acute distress ENMT: Ears: no external ear abnormality Nose: no external nose abnormality Mouth: + dry oral mucous membranes Neck: no nuchal rigidity Respiratory: normal respiratory effort Auscultation: + diminished lung sounds Cardiovascular: Rate/Rhythm: regular rate and regular rhythm Extremities: no edema Gastrointestinal (Abdomen): Inspection/Auscultation: normal bowel sounds Percussion/Palpation: abdomen soft; abdomen nontender Musculoskeletal: Extremities: + abnormal strength Skin: no rashes, warm and dry Neurologic: opens eyes, tracks, answers Y/N Results & Data ([facility]) Vital Signs (Past 12 Hours) Vital Signs Temp Pulse Pulse Pulse Resp BP BP 02/23/22 11:38 36.5 C 61 19 144/72 H 02/23/22 08:35 65 101/71 02/23/22 08:19 02/23/22 07:24 36.3 C L 65 17 02/23/22 02:53 36.6 C 63 20 126/68 BP Pulse Ox O2 Del Method O2 Flow Rate 02/23/22 11:38 95 Nasal Cannula 3 02/23/22 08:35 02/23/22 08:19 Nasal Cannula 3 02/23/22 07:24 101/71 91 Nasal Cannula 3 02/23/22 02:53 99 Nasal Cannula 3 Laboratory Results 02/21/22 03:00 02/23/22 05:54
[2022-02-23 15:32] LABS: Partial Thromboplastin Ratio 1.7
[2022-02-23 15:37] LABS: Partial Thromboplastin Time 48.1 Seconds (21.0-31.0)
[2022-02-23] MEDS: ASPIRIN 300 MG SUPP PR SCH (17:05)
[2022-02-23] MEDS ORDERED: Nursing to Pharmacy Communication SCH (17:30)
--- NOTE | 2022-02-23 18:06 | Hospitalist Progress Note ---
Date of Service February 23, 2022 Assessment & Plan (1) CVA (cerebral vascular accident): Plan: Per Dr. Humble Haines's notes: Patient is a 81-year-old male with multiple comorbid condition presented to the ED after episode of ventricular tachycardia requiring cardioversion in the field. In the hospitalization, patient was evaluated by cardiology service. He underwent cardiac cath in 02/09 which showed moderate nonobstructive coronary artery disease. Echo was suggestive for heart failure with reduced ejection fraction. He underwent pacemaker placement on 02/11. Patient signed out AMA on 02/12. He had a fall on his knees as he was getting in the car in the parking lot. He was admitted again and was evaluated with head CT which was unremarkable. He reported increase in his left arm weakness which has been going on for last [address] head was unremarkable for acute abnormality. Neurology service was consulted; recommend nonemergent MRI brain without contrast. Recurrent syncope likely secondary to ventricular tachycardia s/p ICD placement on 02/11. Paroxysmal A.fib Non- ischemic CMP H/O medication noncompliance - S/P Cardioversion on the field - S/P Cardiac Cath on 02/09/22: Moderate nonobstructive coronary disease. -- EEG was normal during wakefulness and drowsiness. No focal abnormalities, potentially epileptogenic discharges, or abnormal slow activity was seen. -- ECHO: EF 30 to 35%. Moderate to severe global hypokinesis of left ventricle. Mild mitral regurgitation. Mild tricuspid regurgitation. Estimated systolic pulmonary pressure is 48 mmHg. Dilated inferior vena cava with reduced collapsibility with sniff indicates an elevated right atrial pressure of 15 mmHg --Carotid USD: There is no sonographic evidence of hemodynamically significant stenosis in the right or left carotid arterial system. Antegrade flow is shown in the vertebral arteries. 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 There are subacute/evolving infarcts in the right parietal lobe and the right centrum semiovale. 2. No hemorrhage or mass effect is seen. 3. Additional findings as above. CT angio head and neck: 1. There are subacute/evolving infarcts in the right parietal lobe and the right centrum semiovale. 2. There is no evidence of hemorrhage or midline shift. 3.There is complete thrombosis of the right common carotid artery and the right internal carotid artery to the [place]. 4. There is thrombosis at the origin of the right external carotid artery. This is reconstituted approximately 1.4 cm above the bifurcation. 5.Atherosclerotic plaque causes approximately 50% luminal narrowing at the origin of the left internal carotid artery. 6. The vertebral arteries are widely patent bilaterally. 7. The anterior and middle cerebral arteries are patent bilaterally. The right- sided vessels are likely supplied via the ACOM. 8. There is pruning of peripheral branches of the right MCA in the infarcting parietal region. 9. There is emphysema. 10. A left pleural effusion is partially imaged and there are airspace opacities in the left upper lobe. Correlate clinically for evidence of an infectious/inflammatory pneumonitis. 11. Additional findings as above. discussed with Neurologist Dr. Tony also discussed with Neurologist Dr. Mccollum- [facility] patient not a candidate for thrombectomy- may result in hemorrhagic transformation Recommend to continue continue anticoagulation, ASA 02/23 Patient showing significant improvement today, aphasia improving Able to speak a few words, state his name and birthday Also following simple commands now Messaged speech therapist to reevaluate patient tomorrow-hopefully can resume oral feeding and all medications If patient fails speech therapy evaluation, cutter and presser recommends NG tube feeding by , family also agreeable with PEG tube if necessary permissive HTN gentle IV fluids given On strict n.p.o. for now Currently on Heparin Drip Rectal aspirin 1/2 suppository okay per neurology, ordered IV metoprolol Discussed with patient's family at the bedside in detail and at length the past 2 days they are understanding, comfortable with the plan of care Acute hypoxic respiratory failure 2/2 CHFrEF exacerbation, bilateral basilar pneumonia -On Lasix, nephrology on board - continue IV cefepime + Doxy Day 6 - wean off o2 as tolerated HUONG on CKD3a- creatinine up trended to 1.86. -- crea remains at 1.7 Enterococcal UTI- s/p 5 days of ampicillin H/O CVA/PVD- management per above Hyperlipidemia-statin on hold as patient NPO COPD- on duonebs DM II- A1C:5.7 currently;Diet controlled; Insulin per Protocol while ho spitalized BPH/bladder cancer S/P surgery Ongoing tobacco abuse- Counselled to quit smoking.n Multiple falls, weakness-Will need rehab DVT Px: heparin drip Dispo- Patient will need to be transitioned to rehab Admission and Anticipated Discharge Date Admission Date: February 08, 2022 Subjective Follow-up for acute CVA, etc. Seen resting in bed, awake, following commands today-can raise right arm, opening closes eyes, move his legs, on command Able to state his name, birthday, answer most questions Denies 0 out of 5 motor strength on the left upper arm Denies chest pain, shortness of breath, palpitations, dizziness No other symptoms No other issues per EVA Stubbs at bedside Review of Systems Review of Systems: all noted and negative except for above Physical Exam Physical Exam: General- oriented x 2, not in distress, speaks in few words with no effort or accessory muscle use Appears weak Eyes- anicteric Neck- no JVD Lungs- clear BS bilaterally, no rales/wheezes Heart- normal rate, regular rhythm; no murmurs Abdomen- normal bowel sounds, nondistended, soft, nontender Extremities- no pretibial edema, no calf tenderness Neuro- alert, oriented x 2; mild dysarthria, able to answer simple questions, follows simple commands, motor strength left upper extremity 0 out of 5, no other new focal gross focal neurologic deficits Skin- warm & dry Results & Data Results & Data ([facility]) Vital Signs (Past 12 Hours) Vital Signs Temp Pulse Pulse Resp BP BP BP 02/23/22 15:42 36.3 C L 58 L 17 133/56 L 02/23/22 11:38 36.5 C 61 19 144/72 H 02/23/22 08:35 65 101/71 02/23/22 08:19 02/23/22 07:24 36.3 C L 65 17 101/71 Pulse Ox O2 Del Method O2 Flow Rate 02/23/22 15:42 95 Nasal Cannula 3 02/23/22 11:38 95 Nasal Cannula 3 02/23/22 08:35 02/23/22 08:19 Nasal Cannula 3 02/23/22 07:24 91 Nasal Cannula 3 all noted and reviewed including below
[2022-02-23] MEDS: POTASSIUM CHLORIDE / WTR 10 MEQ/100 ML PLCT IV SCH ×3 (21:44→23:57)
[2022-02-24] MEDS: POTASSIUM CHLORIDE / WTR 10 MEQ/100 ML PLCT IV SCH ×3 (01:07→04:14)
[2022-02-24] MEDS: CEFEPIME 2,000 MG in SYRINGE 0 ML IV SCH (04:14)
[2022-02-24] MEDS: INSULIN ASPART PER UNIT SC SCH ×7 (04:25→20:57)
[2022-02-24] MEDS: DOXYCYCLINE HYCLATE 100 MG in DEXTROSE 5% 100 ML IV SCH ×3 (06:13→19:59)
[2022-02-24 07:11] LABS: Calcium 9.2 mg/dl (8.5-10.1); Creatinine Clr Calc Pharmacy 30.7 ml/min; Est GFR (African American) 41.7 ml/min; Potassium 4.4 mmol/L (3.5-5.1)
[2022-02-24 07:19] LABS: Partial Thromboplastin Ratio 2.4
[2022-02-24] MEDS: POLYETHYLENE (MIRALAX) 17 GM PACK PO SCH (09:09)
[2022-02-24] MEDS: METOPROLOL TARTRATE 1 MG/ML VIAL IV SCH (09:13)
[2022-02-24] MEDS: HEPARIN SODIUM/DEXTROSE 25,000 UNITS/500 ML BAG IV SCH ×2 (09:13→20:00)
--- NOTE | 2022-02-24 09:46 | Hospitalist Progress Note ---
Date of Service February 24, 2022 Assessment & Plan (1) CVA (cerebral vascular accident): Plan: Per previous hospitalist's notes: 81 yo M with multiple comorbid condition presented to the ED after episode of ventricular tachycardia requiring cardioversion in the field. In the hospitalization, patient was evaluated by cardiology service. He underwent cardiac cath in 02/09 which showed moderate nonobstructive coronary artery disease. Echo was suggestive for heart failure with reduced ejection fraction. He underwent pacemaker placement on 02/11. Patient signed out AMA on 02/12. He had a fall on his knees as he was getting in the car in the parking lot. He was admitted again and was evaluated with head CT which was unremarkable. He reported increase in his left arm weakness which has been going on for last [address] head was unremarkable for acute abnormality. Neurology service was consulted; recommend nonemergent MRI brain without contrast. Recurrent syncope likely secondary to ventricular tachycardia s/p ICD placement on 02/11. Paroxysmal A.fib Non- ischemic CMP H/O medication noncompliance - S/P Cardioversion in the field - S/P Cardiac Cath on 02/09/22: Moderate nonobstructive coronary disease. -- EEG was normal during wakefulness and drowsiness. No focal abnormalities, potentially epileptogenic discharges, or abnormal slow activity was seen. -- ECHO: EF 30 to 35%. Moderate to severe global hypokinesis of left ventricle. Mild mitral regurgitation. Mild tricuspid regurgitation. Estimated systolic pulmonary pressure is 48 mmHg. Dilated inferior vena cava with reduced collapsibility with sniff indicates an elevated right atrial pressure of 15 mmHg --Carotid USD: There is no sonographic evidence of hemodynamically significant stenosis in the right or left carotid arterial system. Antegrade flow is shown in the vertebral arteries. 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 There are subacute/evolving infarcts in the right parietal lobe and the right centrum semiovale. 2. No hemorrhage or mass effect is seen. 3. Additional findings as above. CT angio head and neck: 1. There are subacute/evolving infarcts in the right parietal lobe and the right centrum semiovale. 2. There is no evidence of hemorrhage or midline shift. 3.There is complete thrombosis of the right common carotid artery and the right internal carotid artery to the [place]. 4. There is thrombosis at the origin of the right external carotid artery. This is reconstituted approximately 1.4 cm above the bifurcation. 5.Atherosclerotic plaque causes approximately 50% luminal narrowing at the origin of the left internal carotid artery. 6. The vertebral arteries are widely patent bilaterally. 7. The anterior and middle cerebral arteries are patent bilaterally. The right- sided vessels are likely supplied via the ACOM. 8. There is pruning of peripheral branches of the right MCA in the infarcting parietal region. 9. There is emphysema. 10. A left pleural effusion is partially imaged and there are airspace opacities in the left upper lobe. Correlate clinically for evidence of an infectious/inflammatory pneumonitis. 11. Additional findings as above. Discussed with Neurologist Dr. Tony also discussed with Neurologist Dr. Mccollum- [facility] patient not a candidate for thrombectomy- may result in hemorrhagic tra nsformation Recommend to continue continue anticoagulation, ASA 02/23 Patient showing significant improvement today, aphasia improving Able to speak a few words, state his name and birthday Also following simple commands now Messaged speech therapist to reevaluate patient tomorrow-hopefully can resume oral feeding and all medications If patient fails speech therapy evaluation, yarding engineer recommends NG tube feeding by , family also agreeable with PEG tube if necessary 02/24 Patient is awake, following simple commands, answering simple questions Seen by speech, diet change, patient able to tolerate most of his lunch today Resume p.o. aspirin , metoprolol and p.o. amiodarone, discussed with RN, monitor for aspiration Currently on Heparin Drip Rectal aspirin 1/2 suppository okay per neurology, ordered -> now changed back to PO IV metoprolol -> change back to PO Patient's family updated by my colleague at the bedside yesterday Acute hypoxic respiratory failure 2/2 CHFrEF exacerbation, bilateral basilar pneumonia - On Lasix, nephrology on board - continue IV cefepime + Doxy Day 12/31 - wean off O2 as tolerated HUONG on CKD3a - creatinine up trended to 1.86. -- crea remains at 1.7 Enterococcal UTI - s/p 5 days of ampicillin H/O CVA/PVD - management per above Hyperlipidemia -statin on hold as patient NPO COPD - on duonebs DM II - A1C:5.7 currently;Diet controlled; Insulin per Protocol while hospitalized BPH/bladder cancer S/P surgery Ongoing tobacco abuse- Counselled to quit smoking Multiple falls, weakness-Will need rehab DVT Px: heparin drip Dispo - Patient will need to be transitioned to rehab Admission and Anticipated Discharge Date Admission Date: February 08, 2022 Subjective Follow-up for acute CVA, recent hx of syncope - VT, s/p AICD Seen resting in bed, awake, able to answer simple questions, easily gives "yes" or "no" answers, and he is following commands Was seen by speech therapist this morning, diet changed, and adjusted for lunch. Discussed with the nurse, patient was able to eat most of his lunch. Denies fever, chills, chest pain, shortness of breath, palpitations Says he feels fine No other symptoms Review of Systems Review of Systems: All systems reviewed & are unremarkable except as noted in Subjective Physical Exam Physical Exam: General - awake, chronically ill-appearing male, able to answer simple questions appropriately and he is following commands, not in distress Eyes- anicteric Neck- no JVD Lungs- clear BS bilaterally, no rales/wheezes Heart- normal rate, regular rhythm; no murmurs Abdomen- normal bowel sounds, nondistended, soft, nontender Extremities- no pretibial edema, no calf tenderness Neuro- awake and alert, able to answer simple questions, follows simple commands, +left upper extremity weakness (able to squeeze my fingers somewhat but can/t raise up), able to wiggle toes on both feet, bend knees, gait not assessed Skin- warm & dry Results & Data Results & Data ([facility]) Vital Signs (Past 12 Hours) Vital Signs Temp Pulse Pulse Pulse Resp BP BP 02/24/22 09:13 61 162/63 H 02/24/22 08:12 36.4 C L 61 16 02/24/22 03:29 36.3 C L 60 18 151/70 H 02/23/22 23:00 62 02/23/22 22:06 36.5 C 60 14 151/63 H BP Pulse Ox O2 Del Method O2 Flow Rate 02/24/22 09:13 02/24/22 08:12 162/63 H 96 Nasal Cannula 3 02/24/22 03:29 100 Nasal Cannula 3 02/23/22 23:00 02/23/22 22:06 95 Nasal Cannula 3 Laboratory Results 02/24/22 02/24/22 02/24/22 Range/Units 06:17 06:17 05:17 APTT 66.0 H* (21.0-31.0) Seconds PTT Ratio 2.4 Sodium 138 (136-145) mmol/L Potassium 4.4 D (3.5-5.1) mmol/L Chloride 102 (98-107) mmol/L Carbon Dioxide 29 (21-32) mmol/L Anion Gap 7 (3-11) BUN 37 H (6-23) mg/dl Creatinine 1.76 H (0.6-1.4) mg/dl Est Cr Clr Drug Dosing 30.7 ml/min Est GFR ( Amer) 41.7 ml/min Est GFR (Non-Af Amer) 36.0 ml/min BUN/Creatinine Ratio 21.0 H (10-20) Glucose 85 (70-99(Fasting)) mg/dl POC Glucose 89 (70-99) mg/dl Calcium 9.2 (8.5-10.1) mg/dl 02/23/22 02/23/22 02/23/22 Range/Units 23:24 20:18 18:16 APTT (21.0-31.0) Seconds PTT Ratio Sodium (136-145) mmol/L Potassium (3.5-5.1) mmol/L Chloride (98-107) mmol/L Carbon Dioxide (21-32) mmol/L Anion Gap (3-11) BUN (6-23) mg/dl Creatinine (0.6-1.4) mg/dl Est Cr Clr Drug Dosing ml/min Est GFR ( Amer) ml/min Est GFR (Non-Af Amer) ml/min BUN/Creatinine Ratio (10-20) Glucose (70-99(Fasting)) mg/dl POC Glucose 110 H 121 H 94 (70-99) mg/dl Calcium (8.5-10.1) mg/dl 02/23/22 02/23/22 Range/Units 14:48 12:24 APTT 48.1 H* (21.0-31.0) Seconds PTT Ratio 1.7 Sodium (136-145) mmol/L Potassium (3.5-5.1) mmol/L Chloride (98-107) mmol/L Carbon Dioxide (21-32) mmol/L Anion Gap (3-11) BUN (6-23) mg/dl Creatinine (0.6-1.4) mg/dl Est Cr Clr Drug Dosing ml/min Est GFR ( Amer) ml/min Est GFR (Non-Af Amer) ml/min BUN/Creatinine Ratio (10-20) Glucose (70-99(Fasting)) mg/dl POC Glucose 96 (70-99) mg/dl Calcium (8.5-10.1) mg/dl Medications Administered Current Inpatient Medications Acetaminophen (Acetaminophen 325 Mg Tab) 650 mg PO Q4H PRN PRN Reason: Pain or Fever Stop: 03/10/22 05:10 Last Admin: 02/20/22 01:17 Dose: 650 mg Albuterol (Albut/Ipratrop 3mg/0.5mg Neb 3 Ml Vial) 3 ml NEB QIDR PRN; Protocol PRN Reason: Wheezing Stop: 03/11/22 06:59 Amiodarone HCl (Amiodarone 200 Mg Tab) 200 mg PO BIDM [facility] Stop: 03/11/22 16:59 Last Admin: 02/20/22 09:15 Dose: 200 mg Aspirin (Aspirin 81 Mg Chew) 81 mg PO DAILY KRISTY Stop: 03/11/22 13:44 Last Admin: 02/20/22 09:17 Dose: 81 mg Aspirin (Aspirin 300 Mg Supp) 150 mg CO Q24H [facility] Stop: 03/24/22 18:44 Last Admin: 02/23/22 17:05 Dose: 150 mg Dextrose (Dextrose 50% 50 Ml Syringe) 25 - 50 ml IV UD PRN; Protocol PRN Reason: Hypoglycemia Protocol Stop: 03/10/22 05:10 Doxycycline Hyclate (Doxycycline Hyclate 100 Mg Cap) 100 mg PO BID [facility] Stop: 02/24/22 20:59 Last Admin: 02/20/22 13:25 Dose: Not Given Furosemide (Furosemide Inj 20 Mg/2 Ml Vial) 10 mg IV [id number] KRISTY Stop: 03/24/22 13:29 Last Admin: 02/23/22 17:03 Dose: 10 mg Glucagon (Glucagon For Inj 1 Mg Vial) 1 mg SQ UD PRN; Protocol PRN Reason: Hypoglycemia Protocol Stop: 03/10/22 05:10 Glucose (Glucose 40% Gel 15 Gm Tube) 15 - 30 gm PO UD PRN; Protocol PRN Reason: Hypoglycemia Protocol Stop: 03/10/22 05:10 Glucose (Glucose 10 Tab/Tube) 4 - 8 tab PO UD PRN; Protocol PRN Reason: Hypoglycemia Treatment Stop: 03/10/22 05:10 Cefepime HCl 2,000 mg/ Syringe 20 mls @ 5 mls/min IV Q12H [facility]; Protocol Stop: 02/24/22 16:29 Last Admin: 02/24/22 04:14 Dose: 5 mls/min Heparin Sodium/Dextrose (Heparin Sodium/Dextrose) 25,000 units in 500 mls @ 8 mls/hr IV .Q24H KRISTY; Protocol Stop: 03/22/22 20:59 Last Admin: 02/24/22 09:13 Dose: 400 units/hr, 8 mls/hr Doxycycline Hyclate 100 mg/ (Dextrose) 110 mls @ 50 mls/hr IV Q12H [facility] Stop: 02/27/22 16:59 Last Infusion: 02/24/22 09:05 Dose: Infused Lorazepam 0.25 mg/ Syringe 0.25 mls @ 2 mls/min IV Q6H PRN PRN Reason: Agitation Stop: 03/22/22 18:29 Last Admin: 02/24/22 01:14 Dose: 2 mls/min Insulin Aspart (Insulin Aspart Per Unit) 0 units SC Q6 KRISTY Stop: 03/25/22 17:59 Last Admin: 02/24/22 06:18 Dose: Not Given Ipratropium Enigma (Ipratropium Enigma Neb Soln 0.02% 2.5 Ml Vial) 0.5 mg INH Q6R PRN PRN Reason: Shortness Of Breath Stop: 03/16/22 15:29 Levalbuterol HCl (Levalbuterol 1.25mg/0.5ml Neb) 1.25 mg INH Q6R PRN PRN Reason: Shortness Of Breath Stop: 03/16/22 15:29 Melatonin (Melatonin 3 Mg Tab) 3 mg PO Q24H [facility] Stop: 03/19/22 20:59 Last Admin: 02/19/22 20:50 Dose: 3 mg Metoprolol Tartrate (Metoprolol Tartrate 25 Mg Tab) 25 mg PO BID [facility] Stop: 03/10/22 08:59 Last Admin: 02/20/22 09:49 Dose: 25 mg Metoprolol Tartrate (Metoprolol Tartrate 1 Mg/Ml Vial) 5 mg IV BID [facility] Stop: 03/22/22 20:59 Last Admin: 02/24/22 09:13 Dose: 5 mg Miscellaneous (Carbohydrates For Hypoglycemia ) 15 - 30 gm PO UD PRN PRN Reason: Hypoglycemia Protocol Stop: 03/10/22 05:10 Miscellaneous Information (Pharmacist Discharge Med Rec Consult) 1 each N/A UD PRN PRN Reason: Consult Stop: 03/19/22 13:57 Polyethylene Glycol (Polyethylene (Miralax) 17 Gm Pack) 17 gm PO DAILY [facility] Stop: 03/18/22 09:14 Last Admin: 02/24/22 09:09 Dose: Not Given Rosuvastatin Calcium (Rosuvastatin Calcium 20 Mg Tab) 20 mg PO QAM [facility] Stop: 03/10/22 08:59 Last Admin: 02/20/22 09:15 Dose: 20 mg
[2022-02-24] MEDS ORDERED: Nursing to Pharmacy Communication SCH (12:00)
--- NOTE | 2022-02-24 17:10 | Nephrology Progress Note ---
Date of Service February 24, 2022 Assessment & Plan (1) Acute kidney injury: Plan: 81-year-old male with previously normal kidney function, admitted with recurrent syncope related with ventricular tachycardia requiring cardioversion. He was also found to have new onset cardiomyopathy with an ejection fraction of 30% s/p ICD placement and cardiac cath mid month as well as new onset acute ischemic stroke involving the right middle cerebral artery. work up shows comp lete thrombosis R ICA and RCCA and nearly 50% narrowing at take off LICA from [place]; not a candidate for surgical intervention. also having tx for BL basilar PNA > on doxycycline, cefepime. Nephrology consulted for abnormal kidney function in the setting of congestive heart failure, syncopal epiosdes and Ventricular tachycardia. 1. Acute renal failure.The patient's creatinine prior to this admission was near normal at 1.1, but since being admitted, it has been at a slightly higher level, but it is plateau'd in high ones since 02/14 w/ slow uptrend. Given that there has been significant drop in his ejection fraction, it is not unexpected to have slightly higher baseline creatinine in fact, this may prove to be his new baseline. - He had some evidence of congestive heart failure on the chest x-ray 02/20; EF 30% on TTE this month > on heparin gtt and abtx >started lasix 10 mg IV bid 02/22 and 02/23; will ensure he gets 2 doses in today of this lasix -will give K IV x 20 mEq since he is barely starting to take po -cont daily bmp -note permissive HTN was for a few days per neuro > challenging to diurese, control HR, allow for permissive HTN but will work to balance Admission and Anticipated Discharge Date Admission Date: February 08, 2022 Subjective seen on rounds this AM at 0900; answers Y/N by shaking head and answers appropriately, speech to see; on 3L NC; later in the day reported that pt ate most of his lunch and followed commands/answered Y-N Review of Systems Review of Systems: Other (very limited by pt post stroke status; denies pain or dyspnea) Physical Exam Constitutional: well developed, well nourished and + frail appearing; no acute distress ENMT: Ears: no external ear abnormality Nose: no external nose abnormality Mouth: + dry oral mucous membranes Neck: no nuchal rigidity Respiratory: normal respiratory effort Auscultation: + diminished lung sounds Cardiovascular: Rate/Rhythm: regular rate and regular rhythm Extremities: no edema Gastrointestinal (Abdomen): Inspection/Auscultation: normal bowel sounds Percussion/Palpation: abdomen soft; abdomen nontender Musculoskeletal: Extremities: + abnormal strength Skin: no rashes, warm and dry Neurologic: no tremor, aphasic Results & Data ([facility]) Vital Signs (Past 12 Hours) Vital Signs Temp Pulse Pulse Resp BP BP Pulse Ox 02/24/22 16:19 36.5 C 64 17 183/68 H 94 02/24/22 08:00 100 H 02/24/22 08:30 02/24/22 12:00 36.5 C 59 L 20 159/74 H 95 02/24/22 09:13 61 162/63 H 02/24/22 08:12 36.4 C L 61 16 162/63 H 96 O2 Del Method O2 Flow Rate 02/24/22 16:19 Nasal Cannula 3 02/24/22 08:00 02/24/22 08:30 Nasal Cannula 2 02/24/22 12:00 Nasal Cannula 3 02/24/22 09:13 02/24/22 08:12 Nasal Cannula 3 Laboratory Results 02/21/22 03:00 02/24/22 06:17
[2022-02-24] MEDS ORDERED: FUROSEMIDE INJ 20 MG/2 ML VIAL IV ONE ×2 (17:15→22:00)
[2022-02-24] MEDS: ASPIRIN 81 MG ECTAB PO SCH (17:50)
[2022-02-24] MEDS: AMIODARONE 200 MG TAB PO SCH (18:40)
[2022-02-24] MEDS: METOPROLOL TARTRATE 25 MG TAB PO SCH (21:03)
[2022-02-25] MEDS: DOXYCYCLINE HYCLATE 100 MG in DEXTROSE 5% 100 ML IV SCH ×2 (05:38→17:40)
--- NOTE | 2022-02-25 07:56 | Hospitalist Progress Note ---
Date of Service February 25, 2022 Assessment & Plan (1) CVA (cerebral vascular accident): Plan: Per previous hospitalist's notes: 81 yo M with multiple comorbid condition presented to the ED after episode of ventricular tachycardia requiring cardioversion in the field. In the hospitalization, patient was evaluated by cardiology service. He underwent cardiac cath in 02/09 which showed moderate nonobstructive coronary artery disease. Echo was suggestive for heart failure with reduced ejection fraction. He underwent pacemaker placement on 02/11. Patient signed out AMA on 02/12. He had a fall on his knees as he was getting in the car in the parking lot. He was admitted again and was evaluated with head CT which was unremarkable. He reported increase in his left arm weakness which has been going on for last [address] head was unremarkable for acute abnormality. Neurology service was consulted; recommend nonemergent MRI brain without contrast. Recurrent syncope likely secondary to ventricular tachycardia s/p ICD placement on 02/11. Paroxysmal A.fib Non- ischemic CMP H/O medication noncompliance - S/P Cardioversion in the field - S/P Cardiac Cath on 02/09/22: Moderate nonobstructive coronary disease. -- EEG was normal during wakefulness and drowsiness. No focal abnormalities, potentially epileptogenic discharges, or abnormal slow activity was seen. -- ECHO: EF 30 to 35%. Moderate to severe global hypokinesis of left ventricle. Mild mitral regurgitation. Mild tricuspid regurgitation. Estimated systolic pulmonary pressure is 48 mmHg. Dilated inferior vena cava with reduced collapsibility with sniff indicates an elevated right atrial pressure of 15 mmHg --Carotid USD: There is no sonographic evidence of hemodynamically significant stenosis in the right or left carotid arterial system. Antegrade flow is shown in the vertebral arteries. 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 There are subacute/evolving infarcts in the right parietal lobe and the right centrum semiovale. 2. No hemorrhage or mass effect is seen. 3. Additional findings as above. CT angio head and neck: 1. There are subacute/evolving infarcts in the right parietal lobe and the right centrum semiovale. 2. There is no evidence of hemorrhage or midline shift. 3.There is complete thrombosis of the right common carotid artery and the right internal carotid artery to the [place]. 4. There is thrombosis at the origin of the right external carotid artery. This is reconstituted approximately 1.4 cm above the bifurcation. 5.Atherosclerotic plaque causes approximately 50% luminal narrowing at the origin of the left internal carotid artery. 6. The vertebral arteries are widely patent bilaterally. 7. The anterior and middle cerebral arteries are patent bilaterally. The right- sided vessels are likely supplied via the ACOM. 8. There is pruning of peripheral branches of the right MCA in the infarcting parietal region. 9. There is emphysema. 10. A left pleural effusion is partially imaged and there are airspace opacities in the left upper lobe. Correlate clinically for evidence of an infectious/inflammatory pneumonitis. 11. Additional findings as above. Discussed with Neurologist Dr. Tony also discussed with Neurologist Dr. Mccollum- [facility] patient not a candidate for thrombectomy- may result in hemorrhagic t ransformation Recommend to continue continue anticoagulation, ASA 02/23 Patient showing significant improvement today, aphasia improving Able to speak a few words, state his name and birthday Also following simple commands now Messaged speech therapist to reevaluate patient tomorrow-hopefully can resume oral feeding and all medications If patient fails speech therapy evaluation, dishing machine operator recommends NG tube feeding by , family also agreeable with PEG tube if necessary 02/24 Patient is awake, following simple commands, answering simple questions Seen by speech, diet change, patient able to tolerate most of his lunch today Resume p.o. aspirin , metoprolol and p.o. amiodarone, discussed with RN, monitor for aspiration 02/25 Patient communicates less today, mostly nods or only says okay He is moving extremities spontaneously Per RN, he was able to take his p.o. meds Currently on Heparin Drip Rectal aspirin 1/2 suppository -> now changed back to PO IV metoprolol -> change back to PO Patient's family updated by my colleague at the bedside previously Acute hypoxic respiratory failure 2/2 CHFrEF exacerbation, bilateral basilar pneumonia - On Lasix, nephrology on board - continue IV cefepime + Doxy Day 12/31 - wean off O2 as tolerated HUONG on CKD3a - creatinine up trended to 1.86. -- crea remains at 1.7 Enterococcal UTI - s/p 5 days of ampicillin H/O CVA/PVD - management per above Hyperlipidemia -statin on hold as patient NPO COPD - on duonebs DM II - A1C:5.7 currently;Diet controlled; Insulin per Protocol while hospitalized BPH/bladder cancer S/P surgery Ongoing tobacco abuse- Counselled to quit smoking Multiple falls, weakness-Will need rehab DVT Px: heparin drip Dispo - Patient will need to be transitioned to rehab Admission and Anticipated Discharge Date Admission Date: February 08, 2022 Subjective Follow-up for acute CVA, recent hx of syncope - VT, s/p AICD Seen resting in bed, awake, yesterday he was able to answer simple questions, "yes" or "no" answers, and he was following commands Was seen by speech therapist, diet changed, and he was able to take some p.o. meds as well This morning patient does not communicate much, he nodds, occasionally says okay. Per RN, patient was able to take p.o. meds today. Denies pain, does not seem to have any symptoms however review of system more difficult to obtain today compared to yesterday Review of Systems Review of Systems: Unobtainable due to cognitive status Physical Exam Physical Exam: General - awake, chronically ill-appearing male, not in distress Eyes- anicteric Neck- no JVD Lungs- clear BS bilaterally, no rales/wheezes Heart- normal rate, regular rhythm; no murmurs Abdomen- normal bowel sounds, nondistended, soft, nontender Extremities- no pretibial edema, no calf tenderness Neuro- awake and alert, communicates less today than yesterday (however per other providers, mental status waxes and wanes), able to move extremities (+left arm weakness) Skin- warm & dry Results & Data Results & Data ([facility]) Vital Signs (Past 12 Hours) Vital Signs Temp Pulse Pulse Resp BP Pulse Ox O2 Del Method 02/25/22 04:00 36.3 C L 72 14 167/80 H 97 Nasal Cannula 02/24/22 22:46 36.6 C 62 16 145/73 H 97 Nasal Cannula 02/24/22 22:22 Nasal Cannula O2 Flow Rate 02/25/22 04:00 2 02/24/22 22:46 2 02/24/22 22:22 2 Laboratory Results 02/25/22 02/25/22 02/25/22 Range/Units 17:06 14:48 12:39 WBC (4.8-10.8) K/ul RBC (4.63-6.08) M/uL Hgb (14.0-18.0) g/dl Hct (40.1-51.0) % MCV (80.0-100.0) fL MCH (25.0-34.0) pg MCHC (32.0-36.0) g/dL RDW Std Deviation (36.4-46.3) fL RDW Coeff of [place] (11.5-14.5) % Plt Count (130-400) K/uL MPV (9.4-12.4) fL APTT 58.9 H* (21.0-31.0) Seconds PTT Ratio 2.1 Sodium (136-145) mmol/L Potassium (3.5-5.1) mmol/L Chloride (98-107) mmol/L Carbon Dioxide (21-32) mmol/L Anion Gap (3-11) BUN (6-23) mg/dl Creatinine (0.6-1.4) mg/dl Est Cr Clr Drug Dosing ml/min Est GFR ( Amer) ml/min Est GFR (Non-Af Amer) ml/min BUN/Creatinine Ratio (10-20) Glucose (70-99(Fasting)) mg/dl POC Glucose 100 H 106 H (70-99) mg/dl Calcium (8.5-10.1) mg/dl Phosphorus (2.5-4.9) mg/dl Magnesium (1.7-2.4) mg/dl 02/25/22 02/25/22 02/25/22 Range/Units 08:14 08:14 07:53 WBC 7.08 (4.8-10.8) K/ul RBC 5.29 (4.63-6.08) M/uL Hgb 16.0 (14.0-18.0) g/dl Hct 48.8 (40.1-51.0) % MCV 92.2 (80.0-100.0) fL MCH 30.2 (25.0-34.0) pg MCHC 32.8 (32.0-36.0) g/dL RDW Std Deviation 52.0 H (36.4-46.3) fL RDW Coeff of [place] 15.3 H (11.5-14.5) % Plt Count 134 (130-400) K/uL MPV 12.6 H (9.4-12.4) fL APTT (21.0-31.0) Seconds PTT Ratio Sodium 137 (136-145) mmol/L Potassium 3.8 (3.5-5.1) mmol/L Chloride 102 (98-107) mmol/L Carbon Dioxide 27 (21-32) mmol/L Anion Gap 8 (3-11) BUN 42 H (6-23) mg/dl Creatinine 1.75 H (0.6-1.4) mg/dl Est Cr Clr Drug Dosing 30.9 ml/min Est GFR ( Amer) 42.0 ml/min Est GFR (Non-Af Amer) 36.2 ml/min BUN/Creatinine Ratio 24.0 H (10-20) Glucose 136 H (70-99(Fasting)) mg/dl POC Glucose 145 H (70-99) mg/dl Calcium 9.5 (8.5-10.1) mg/dl Phosphorus 2.0 L (2.5-4.9) mg/dl Magnesium 1.9 (1.7-2.4) mg/dl 02/25/22 02/24/22 Range/Units 07:51 20:52 WBC (4.8-10.8) K/ul RBC (4.63-6.08) M/uL Hgb (14.0-18.0) g/dl Hct (40.1-51.0) % MCV (80.0-100.0) fL MCH (25.0-34.0) pg MCHC (32.0-36.0) g/dL RDW Std Deviation (36.4-46.3) fL RDW Coeff of [place] (11.5-14.5) % Plt Count (130-400) K/uL MPV (9.4-12.4) fL APTT 39.0 H (21.0-31.0) Seconds PTT Ratio 1.4 Sodium (136-145) mmol/L Potassium (3.5-5.1) mmol/L Chloride (98-107) mmol/L Carbon Dioxide (21-32) mmol/L Anion Gap (3-11) BUN (6-23) mg/dl Creatinine (0.6-1.4) mg/dl Est Cr Clr Drug Dosing ml/min Est GFR ( Amer) ml/min Est GFR (Non-Af Amer) ml/min BUN/Creatinine Ratio (10-20) Glucose (70-99(Fasting)) mg/dl POC Glucose 136 H (70-99) mg/dl Calcium (8.5-10.1) mg/dl Phosphorus (2.5-4.9) mg/dl Magnesium (1.7-2.4) mg/dl Medications Administered Current Inpatient Medications Acetaminophen (Acetaminophen 325 Mg Tab) 650 mg PO Q4H PRN PRN Reason: Pain or Fever Stop: 03/10/22 05:10 Last Admin: 02/20/22 01:17 Dose: 650 mg Albuterol (Albut/Ipratrop 3mg/0.5mg Neb 3 Ml Vial) 3 ml NEB QIDR PRN; Protocol PRN Reason: Wheezing Stop: 03/11/22 06:59 Amiodarone HCl (Amiodarone 200 Mg Tab) 200 mg PO BIDM [facility] Stop: 03/11/22 16:59 Last Admin: 02/24/22 18:40 Dose: 200 mg Aspirin (Aspirin 300 Mg Supp) 150 mg NE Q24H KRISTY Stop: 03/24/22 18:44 Last Admin: 02/23/22 17:05 Dose: 150 mg Aspirin (Aspirin 81 Mg Ectab) 81 mg PO QAM [facility] Stop: 03/26/22 16:14 Last Admin: 02/24/22 17:50 Dose: 81 mg Dextrose (Dextrose 50% 50 Ml Syringe) 25 - 50 ml IV UD PRN; Protocol PRN Reason: Hypoglycemia Protocol Stop: 03/10/22 05:10 Furosemide (Furosemide Inj 20 Mg/2 Ml Vial) 10 mg IV [id number] [facility] Stop: 03/24/22 13:29 Last Admin: 02/23/22 17:03 Dose: 10 mg Glucagon (Glucagon For Inj 1 Mg Vial) 1 mg SQ UD PRN; Protocol PRN Reason: Hypoglycemia Protocol Stop: 03/10/22 05:10 Glucose (Glucose 40% Gel 15 Gm Tube) 15 - 30 gm PO UD PRN; Protocol PRN Reason: Hypoglycemia Protocol Stop: 03/10/22 05:10 Glucose (Glucose 10 Tab/Tube) 4 - 8 tab PO UD PRN; Protocol PRN Reason: Hypoglycemia Treatment Stop: 03/10/22 05:10 Heparin Sodium/Dextrose (Heparin Sodium/Dextrose) 25,000 units in 500 mls @ 8 mls/hr IV .Q24H [facility]; Protocol Stop: 03/22/22 20:59 Last Admin: 02/24/22 20:00 Dose: Not Given Doxycycline Hyclate 100 mg/ (Dextrose) 110 mls @ 50 mls/hr IV Q12H [facility] Stop: 02/27/22 16:59 Last Admin: 02/25/22 05:38 Dose: 50 mls/hr Lorazepam 0.25 mg/ Syringe 0.25 mls @ 2 mls/min IV Q6H PRN PRN Reason: Agitation Stop: 03/22/22 18:29 Last Admin: 02/24/22 01:14 Dose: 2 mls/min Insulin Aspart (Insulin Aspart Per Unit) 0 units SC ACHS [facility] Stop: 03/26/22 11:59 Last Admin: 02/24/22 20:57 Dose: Not Given Ipratropium [place] (Ipratropium [place] Neb Soln 0.02% 2.5 Ml Vial) 0.5 mg INH Q6R PRN PRN Reason: Shortness Of Breath Stop: 03/16/22 15:29 Levalbuterol HCl (Levalbuterol 1.25mg/0.5ml Neb) 1.25 mg INH Q6R PRN PRN Reason: Shortness Of Breath Stop: 03/16/22 15:29 Melatonin (Melatonin 3 Mg Tab) 3 mg PO Q24H [facility] Stop: 03/19/22 20:59 Last Admin: 02/19/22 20:50 Dose: 3 mg Metoprolol Tartrate (Metoprolol Tartrate 25 Mg Tab) 25 mg PO BID [facility] Stop: 03/10/22 08:59 Last Admin: 02/24/22 21:03 Dose: 25 mg Miscellaneous (Carbohydrates For Hypoglycemia ) 15 - 30 gm PO UD PRN PRN Reason: Hypoglycemia Protocol Stop: 03/10/22 05:10 Miscellaneous Information (Pharmacist Discharge Med Rec Consult) 1 each N/A UD PRN PRN Reason: Consult Stop: 03/19/22 13:57 Polyethylene Glycol (Polyethylene (Miralax) 17 Gm Pack) 17 gm PO DAILY KRISTY Stop: 03/18/22 09:14 Last Admin: 02/24/22 09:09 Dose: Not Given Rosuvastatin Calcium (Rosuvastatin Calcium 20 Mg Tab) 20 mg PO QAM [facility] Stop: 03/10/22 08:59 Last Admin: 02/20/22 09:15 Dose: 20 mg
[2022-02-25 08:17] LABS: Partial Thromboplastin Ratio 1.4
[2022-02-25 08:53] LABS: Hematocrit (blood only) 48.8 % (40.1-51.0); Mean Corpuscular Hemoglobin 30.2 pg (25.0-34.0); Mean Corpuscular Hgb Conc 32.8 g/dL (32.0-36.0); Mean Corpuscular Volume 92.2 fL (80.0-100.0); Mean Platelet Volume 12.6 fL (9.4-12.4); Platelet Count 134 K/uL (130-400); RDW Coefficient of Variation 15.3 % (11.5-14.5); Red Blood Count 5.29 M/uL (4.63-6.08); White Blood Count 7.08 K/ul (4.8-10.8)
[2022-02-25] MEDS: AMIODARONE 200 MG TAB PO SCH ×2 (09:00→17:40)
[2022-02-25] MEDS: ASPIRIN 81 MG ECTAB PO SCH (09:01)
[2022-02-25] MEDS: POLYETHYLENE (MIRALAX) 17 GM PACK PO SCH (09:03)
[2022-02-25] MEDS: METOPROLOL TARTRATE 25 MG TAB PO SCH ×2 (09:03→20:33)
[2022-02-25] MEDS: FUROSEMIDE INJ 20 MG/2 ML VIAL IV SCH ×2 (09:07→17:40)
[2022-02-25] MEDS: INSULIN ASPART PER UNIT SC SCH ×4 (09:10→20:32)
[2022-02-25 09:13] LABS: Calcium 9.5 mg/dl (8.5-10.1); Creatinine Clr Calc Pharmacy 30.9 ml/min; Est GFR (Non-African American) 36.2 ml/min; Magnesium 1.9 mg/dl (1.7-2.4); Potassium 3.8 mmol/L (3.5-5.1)
--- NOTE | 2022-02-25 09:38 | Nephrology Progress Note ---
Date of Service February 25, 2022 Assessment & Plan (1) Acute kidney injury: Plan: 81-year-old male with previously normal kidney function, admitted with recurrent syncope related with ventricular tachycardia requiring cardioversion. He was also found to have new onset cardiomyopathy with an ejection fraction of 30% s/p ICD placement and cardiac cath mid month as well as new onset acute ischemic stroke involving the right middle cerebral artery. work up shows co mplete thrombosis R ICA and RCCA and nearly 50% narrowing at take off L[place]; not a candidate for surgical intervention. also having tx for BL basilar PNA > on doxycycline, cefepime. Nephrology consulted for abnormal kidney function in the setting of congestive heart failure, syncopal epiosdes and Ventricular tachycardia. 1. Acute renal failure versus what will be new CKD given change in medical status w/ new HF. The patient's creatinine prior to this admission was near normal at 1.1, but since being admitted, it has been at a slightly higher level, but it is plateau'd in high ones since 02/14 w/ slow uptrend. Given that there has been significant drop in his ejection fraction, it is not unexpected to have slightly higher baseline creatinine in fact, this may prove to be his new baseline. - He had some evidence of congestive heart failure on the chest x-ray 02/20; EF 30% on TTE this month > on heparin gtt and abtx >continue lasix 10 mg IV bid -will give K IV x 30 mEq since he is barely starting to take po -cont daily bmp -note permissive HTN was for a few days per neuro > challenging to diurese, control HR, allow for permissive HTN but will work to balance -low phos noted Admission and Anticipated Discharge Date Admission Date: February 08, 2022 Subjective sat on side of bed today; ate half of breakfast and maybe 1/3 of supper. answers abotu one simple Y/N question in 5 Review of Systems Review of Systems: Unobtainable due to cognitive status Physical Exam Constitutional: well developed, well nourished and + frail appearing; no acute distress ENMT: Ears: no external ear abnormality Nose: no external nose abnormality Mouth: + dry oral mucous membranes Neck: no nuchal rigidity Respiratory: normal respiratory effort Auscultation: + diminished lung sounds Cardiovascular: Rate/Rhythm: regular rate and regular rhythm Extremities: no edema Gastrointestinal (Abdomen): Inspection/Auscultation: normal bowel sounds P ercussion/Palpation: abdomen soft; abdomen nontender Musculoskeletal: Extremities: + abnormal strength Skin: no rashes, warm and dry irritated near scaly patch on his back about 6 x 15 cm w/ early sjhallow ulceration Results & Data ([facility]) Vital Signs (Past 12 Hours) Vital Signs Temp Pulse Pulse Pulse Resp BP BP 02/25/22 09:17 36.3 C L 82 16 158/79 H 02/25/22 04:00 36.3 C L 72 14 167/80 H 02/24/22 22:46 36.6 C 62 16 145/73 H 02/24/22 22:22 Pulse Ox O2 Del Method O2 Flow Rate 02/25/22 09:17 97 02/25/22 04:00 97 Nasal Cannula 2 02/24/22 22:46 97 Nasal Cannula 2 02/24/22 22:22 Nasal Cannula 2 Laboratory Results 02/25/22 08:14 02/25/22 08:14
[2022-02-25] MEDS ORDERED: ROSUVASTATIN CALCIUM 20 MG TAB PO ONE (10:00)
[2022-02-25] MEDS: POTASSIUM CHLORIDE / WTR 10 MEQ/100 ML PLCT IV SCH ×3 (11:14→14:38)
[2022-02-25 16:00] LABS: Partial Thromboplastin Ratio 2.1
[2022-02-25 16:11] LABS: Partial Thromboplastin Time 58.9 Seconds (21.0-31.0)
[2022-02-25] MEDS: HEPARIN SODIUM/DEXTROSE 25,000 UNITS/500 ML BAG IV SCH (20:32)
[2022-02-26 05:43] LABS: Partial Thromboplastin Ratio 2.6
[2022-02-26 05:59] LABS: BUN Creatinine Ratio 23.6 (10-20); Calcium 9.4 mg/dl (8.5-10.1); Creatinine Clr Calc Pharmacy 28.3 ml/min; Est GFR (African American) 37.8 ml/min; Est GFR (Non-African American) 32.6 ml/min; Magnesium 1.9 mg/dl (1.7-2.4); Potassium 3.9 mmol/L (3.5-5.1)
[2022-02-26] MEDS: DOXYCYCLINE HYCLATE 100 MG in DEXTROSE 5% 100 ML IV SCH ×2 (06:01→18:07)
[2022-02-26 06:18] LABS: Partial Thromboplastin Time 72.3 Seconds (21.0-31.0)
[2022-02-26 06:50] LABS: Hematocrit (blood only) 47.5 % (40.1-51.0); Hemoglobin 15.3 g/dl (14.0-18.0); Mean Corpuscular Hemoglobin 30.5 pg (25.0-34.0); Mean Corpuscular Hgb Conc 32.2 g/dL (32.0-36.0); Mean Corpuscular Volume 94.8 fL (80.0-100.0); Mean Platelet Volume 12.8 fL (9.4-12.4); Platelet Count 124 K/uL (130-400); RDW Coefficient of Variation 15.6 % (11.5-14.5); RDW Standard Deviation 54.3 fL (36.4-46.3); Red Blood Count 5.01 M/uL (4.63-6.08)
[2022-02-26 07:55] LABS: Basophils # (auto) 0.06 K/uL (0-0.2); Basophils % (auto) 0.9 %; Eosinophils # (auto) 0.07 K/uL (0-0.50); Immature Granulocytes # (auto) 0.18 K/uL (0.00-0.02); Immature Granulocytes % (auto) 2.6 %; Lymphocytes % (auto) 29.4 %; Monocytes # (auto) 1.05 K/uL (0.24-0.82); Monocytes % (auto) 15.4 %; Neutrophils # (auto) 3.44 K/uL (1.4-6.5); Neutrophils % (auto) 50.7 %
--- NOTE | 2022-02-26 08:29 | Hospitalist Progress Note ---
Date of Service February 26, 2022 Assessment & Plan (1) CVA (cerebral vascular accident): Plan: Per previous hospitalist's notes: 81 yo M with multiple comorbid condition presented to the ED after episode of ventricular tachycardia requiring cardioversion in the field. In the hospitalization, patient was evaluated by cardiology service. He underwent cardiac cath in 02/09 which showed moderate nonobstructive coronary artery disease. Echo was suggestive for heart failure with reduced ejection fraction. He underwent pacemaker placement on 02/11. Patient signed out AMA on 02/12. He had a fall on his knees as he was getting in the car in the parking lot. He was admitted again and was evaluated with head CT which was unremarkable. He reported increase in his left arm weakness which has been going on for last [address] head was unremarkable for acute abnormality. Neurology service was consulted; recommend nonemergent MRI brain without contrast. Recurrent syncope likely secondary to ventricular tachycardia s/p ICD placement on 02/11. Paroxysmal A.fib Non- ischemic CMP H/O medication noncompliance - S/P Cardioversion in the field - S/P Cardiac Cath on 02/09/22: Moderate nonobstructive coronary disease. -- EEG was normal during wakefulness and drowsiness. No focal abnormalities, potentially epileptogenic discharges, or abnormal slow activity was seen. -- ECHO: EF 30 to 35%. Moderate to severe global hypokinesis of left ventricle. Mild mitral regurgitation. Mild tricuspid regurgitation. Estimated systolic pulmonary pressure is 48 mmHg. Dilated inferior vena cava with reduced collapsibility with sniff indicates an elevated right atrial pressure of 15 mmHg --Carotid USD: There is no sonographic evidence of hemodynamically significant stenosis in the right or left carotid arterial system. Antegrade flow is shown in the vertebral arteries. 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 Re- demonstration of the evolving/subacute right parietal and right centrum semiovale infarcts. 2. No intracranial hemorrhage or midline shift identified at this time. repeat CT head (02/20): 1. There are subacute/evolving infarcts in the right parietal lobe and the right centrum semiovale. 2. No hemorrhage or mass effect is seen. 3. Additional findings as above. CT angio head and neck: 1. There are subacute/evolving infarcts in the right parietal lobe and the right centrum semiovale. 2. There is no evidence of hemorrhage or midline shift. 3.There is complete thrombosis of the right common carotid artery and the right internal carotid artery to the knik of [place]. 4. There is thrombosis at the origin of the right external carotid artery. This is reconstituted approximately 1.4 cm above the bifurcation. 5.Atherosclerotic plaque causes approximately 50% luminal narrowing at the origin of the left internal carotid artery. 6. The vertebral arteries are widely patent bilaterally. 7. The anterior and middle cerebral arteries are patent bilaterally. The right- sided vessels are likely supplied via the ACOM. 8. There is pruning of peripheral branches of the right MCA in the infarcting parietal region. 9. There is emphysema. 10. A left pleural effusion is partially imaged and there are airspace opacities in the left upper lobe. Correlate clinically for evidence of an infectious/inflammatory pneumonitis. 11. Additional findings as above. Discussed with Neurologist Dr. Tony also discussed with Neurologist Dr. Mccollum- [facility] patient not a candidate for thrombectomy- may result in hemorrhagic transformation Recommend to continue continue anticoagulation, ASA 02/23 Patient showing significant improvement today, aphasia improving Able to speak a few words, state his name and birthday Also following simple commands now Messaged speech therapist to reevaluate patient tomorrow-hopefully can resume oral feeding and all medications If patient fails speech therapy evaluation, wind field manager recommends NG tube feeding by , family also agreeable with PEG tube if necessary 02/24 Patient is awake, following simple commands, answering simple questions Seen by speech, diet change, patient able to tolerate most of his lunch today Resume p.o. aspirin , metoprolol and p.o. amiodarone, discussed with RN, monitor for aspiration 02/25 Patient communicates less today, mostly nods or only says okay He is moving extremities spontaneously Per RN, he was able to take his p.o. meds 02/26 Communicates, follows simple commands, takes p.o. meds Reported headache, CT head obtained. Currently on Heparin Drip -> switch to PO Eliquis Rectal aspirin 06/28 suppository -> now changed back to PO IV metoprolol -> change back to PO Patient's family updated by my colleague at the bedside previously Per RN, family present at the bedside yesterday (02/25) Acute hypoxic respiratory failure 2/2 CHFrEF exacerbation, bilateral basilar pneumonia - On Lasix, nephrology on board - finished IV cefepime + Doxy Day 12/31 - wean off O2 as tolerated HUONG on CKD3a - creatinine up trended to 1.86. -- crea remains at 1.7 Enterococcal UTI - s/p 5 days of ampicillin H/O CVA/PVD - management per above Hyperlipidemia -statin on hold as patient NPO COPD - on duonebs DM II - A1C:5.7 currently;Diet controlled; Insulin per Protocol while hospitalized BPH/bladder cancer S/P surgery Ongoing tobacco abuse- Counselled to quit smoking Multiple falls, weakness-Will need rehab DVT Px: heparin drip -> Eliquis Dispo - Patient will need to be transitioned to rehab Admission and Anticipated Discharge Date Admission Date: February 08, 2022 Subjective Follow-up for acute CVA, recent hx of syncope - VT, s/p AICD Seen resting in bed, awake, able to answer simple questions, yes/no, follows simple commands Yesterday patient was not very communicative Today he reports headache otherwise denies fevers, chills, chest pain, shortness of breath, abdominal pain, nausea or vomiting He has been tolerating p.o. meds. Per RN, had some breakfast. Spontaneously moving right upper extremity, not able to move his left upper extremity. Not moving lower extremities much, but able to wiggle toes on both feet. Given reported headache, CT head obtained. Review of Systems Review of Systems: All systems reviewed & are unremarkable except as noted in Subjective Physical Exam Physical Exam: General - awake, chronically ill-appearing male, not in distress Eyes- anicteric Neck- no JVD Lungs- clear BS bilaterally, no rales/wheezes Heart- normal rate, regular rhythm; no murmurs Abdomen- normal bowel sounds, nondistended, soft, nontender Extremities- no pretibial edema, no calf tenderness Neuro- awake and alert, able to answer simple questions, follows simple commands, able to move extremities (+left arm weakness) Skin- warm & dry Results & Data Results & Data ([facility]) Vital Signs (Past 12 Hours) Vital Signs Temp Pulse Pulse Resp BP Pulse Ox O2 Del Method 02/26/22 07:33 66 02/26/22 03:15 36.5 C 72 16 127/85 98 Nasal Cannula 02/25/22 22:49 36.5 C 66 22 126/68 95 Nasal Cannula O2 Flow Rate 02/26/22 07:33 02/26/22 03:15 2 02/25/22 22:49 2 Laboratory Results 02/26/22 02/26/22 02/26/22 Range/Units 07:44 04:52 04:52 WBC 6.80 (4.8-10.8) K/ul RBC 5.01 (4.63-6.08) M/uL Hgb 15.3 (14.0-18.0) g/dl Hct 47.5 (40.1-51.0) % MCV 94.8 (80.0-100.0) fL MCH 30.5 (25.0-34.0) pg MCHC 32.2 (32.0-36.0) g/dL RDW Std Deviation 54.3 H (36.4-46.3) fL RDW Coeff of Chela 15.6 H (11.5-14.5) % Plt Count 124 L (130-400) K/uL MPV 12.8 H (9.4-12.4) fL Immature Gran % (Auto) 2.6 % Neut % (Auto) 50.7 % Lymph % (Auto) 29.4 % [place] % (Auto) 15.4 % Eos % (Auto) 1.0 % Baso % (Auto) 0.9 % Neut # (Auto) 3.44 (1.4-6.5) K/uL Lymph # (Auto) 2.00 (1.2-3.4) K/uL [place] # (Auto) 1.05 H (0.24-0.82) K/uL Eos # (Auto) 0.07 (0-0.50) K/uL Baso # (Auto) 0.06 (0-0.2) K/uL Immature Gran # (Auto) 0.18 H (0.00-0.02) K/uL APTT (21.0-31.0) Seconds PTT Ratio Sodium 139 (136-145) mmol/L Potassium 3.9 (3.5-5.1) mmol/L Chloride 104 (98-107) mmol/L Carbon Dioxide 26 (21-32) mmol/L Anion Gap 9 (3-11) BUN 45 H (6-23) mg/dl Creatinine 1.91 H (0.6-1.4) mg/dl Est Cr Clr Drug Dosing 28.3 ml/min Est GFR ( Amer) 37.8 ml/min Est GFR (Non-Af Amer) 32.6 ml/min BUN/Creatinine Ratio 23.6 H (10-20) Glucose 104 H (70-99(Fasting)) mg/dl POC Glucose 125 H (70-99) mg/dl Calcium 9.4 (8.5-10.1) mg/dl Phosphorus 3.0 D (2.5-4.9) mg/dl Magnesium 1.9 (1.7-2.4) mg/dl 02/26/22 02/25/22 02/25/22 Range/Units 04:52 20:31 17:06 WBC (4.8-10.8) K/ul RBC (4.63-6.08) M/uL Hgb (14.0-18.0) g/dl Hct (40.1-51.0) % MCV (80.0-100.0) fL MCH (25.0-34.0) pg MCHC (32.0-36.0) g/dL RDW Std Deviation (36.4-46.3) fL RDW Coeff of Chela (11.5-14.5) % Plt Count (130-400) K/uL MPV (9.4-12.4) fL Immature Gran % (Auto) % Neut % (Auto) % Lymph % (Auto) % [place] % (Auto) % Eos % (Auto) % Baso % (Auto) % Neut # (Auto) (1.4-6.5) K/uL Lymph # (Auto) (1.2-3.4) K/uL [place] # (Auto) (0.24-0.82) K/uL Eos # (Auto) (0-0.50) K/uL Baso # (Auto) (0-0.2) K/uL Immature Gran # (Auto) (0.00-0.02) K/uL APTT 72.3 H* (21.0-31.0) Seconds PTT Ratio 2.6 Sodium (136-145) mmol/L Potassium (3.5-5.1) mmol/L Chloride (98-107) mmol/L Carbon Dioxide (21-32) mmol/L Anion Gap (3-11) BUN (6-23) mg/dl Creatinine (0.6-1.4) mg/dl Est Cr Clr Drug Dosing ml/min Est GFR ( Amer) ml/min Est GFR (Non-Af Amer) ml/min BUN/Creatinine Ratio (10-20) Glucose (70-99(Fasting)) mg/dl POC Glucose 130 H 100 H (70-99) mg/dl Calcium (8.5-10.1) mg/dl Phosphorus (2.5-4.9) mg/dl Magnesium (1.7-2.4) mg/dl 02/25/22 02/25/22 02/25/22 Range/Units 14:48 12:39 08:14 WBC 7.08 (4.8-10.8) K/ul RBC 5.29 (4.63-6.08) M/uL Hgb 16.0 (14.0-18.0) g/dl Hct 48.8 (40.1-51.0) % MCV 92.2 (80.0-100.0) fL MCH 30.2 (25.0-34.0) pg MCHC 32.8 (32.0-36.0) g/dL RDW Std Deviation 52.0 H (36.4-46.3) fL RDW Coeff of Chela 15.3 H (11.5-14.5) % Plt Count 134 (130-400) K/uL MPV 12.6 H (9.4-12.4) fL Immature Gran % (Auto) % Neut % (Auto) % Lymph % (Auto) % [place] % (Auto) % Eos % (Auto) % Baso % (Auto) % Neut # (Auto) (1.4-6.5) K/uL Lymph # (Auto) (1.2-3.4) K/uL [place] # (Auto) (0.24-0.82) K/uL Eos # (Auto) (0-0.50) K/uL Baso # (Auto) (0-0.2) K/uL Immature Gran # (Auto) (0.00-0.02) K/uL APTT 58.9 H* (21.0-31.0) Seconds PTT Ratio 2.1 Sodium (136-145) mmol/L Potassium (3.5-5.1) mmol/L Chloride (98-107) mmol/L Carbon Dioxide (21-32) mmol/L Anion Gap (3-11) BUN (6-23) mg/dl Creatinine (0.6-1.4) mg/dl Est Cr Clr Drug Dosing ml/min Est GFR ( Amer) ml/min Est GFR (Non-Af Amer) ml/min BUN/Creatinine Ratio (10-20) Glucose (70-99(Fasting)) mg/dl POC Glucose 106 H (70-99) mg/dl Calcium (8.5-10.1) mg/dl Phosphorus (2.5-4.9) mg/dl Magnesium (1.7-2.4) mg/dl 02/25/22 Range/Units 08:14 WBC (4.8-10.8) K/ul RBC (4.63-6.08) M/uL Hgb (14.0-18.0) g/dl Hct (40.1-51.0) % MCV (80.0-100.0) fL MCH (25.0-34.0) pg MCHC (32.0-36.0) g/dL RDW Std Deviation (36.4-46.3) fL RDW Coeff of Chela (11.5-14.5) % Plt Count (130-400) K/uL MPV (9.4-12.4) fL Immature Gran % (Auto) % Neut % (Auto) % Lymph % (Auto) % [place] % (Auto) % Eos % (Auto) % Baso % (Auto) % Neut # (Auto) (1.4-6.5) K/uL Lymph # (Auto) (1.2-3.4) K/uL [place] # (Auto) (0.24-0.82) K/uL Eos # (Auto) (0-0.50) K/uL Baso # (Auto) (0-0.2) K/uL Immature Gran # (Auto) (0.00-0.02) K/uL APTT (21.0-31.0) Seconds PTT Ratio Sodium 137 (136-145) mmol/L Potassium 3.8 (3.5-5.1) mmol/L Chloride 102 (98-107) mmol/L Carbon Dioxide 27 (21-32) mmol/L Anion Gap 8 (3-11) BUN 42 H (6-23) mg/dl Creatinine 1.75 H (0.6-1.4) mg/dl Est Cr Clr Drug Dosing 30.9 ml/min Est GFR ( Amer) 42.0 ml/min Est GFR (Non-Af Amer) 36.2 ml/min BUN/Creatinine Ratio 24.0 H (10-20) Glucose 136 H (70-99(Fasting)) mg/dl POC Glucose (70-99) mg/dl Calcium 9.5 (8.5-10.1) mg/dl Phosphorus 2.0 L (2.5-4.9) mg/dl Magnesium 1.9 (1.7-2.4) mg/dl Medications Administered Current Inpatient Medications Acetaminophen (Acetaminophen 325 Mg Tab) 650 mg PO Q4H PRN PRN Reason: Pain or Fever Stop: 03/10/22 05:10 Last Admin: 02/20/22 01:17 Dose: 650 mg Albuterol (Albut/Ipratrop 3mg/0.5mg Neb 3 Ml Vial) 3 ml NEB QIDR PRN; Protocol PRN Reason: Wheezing Stop: 03/11/22 06:59 Amiodarone HCl (Amiodarone 200 Mg Tab) 200 mg PO BIDM KRISTY Stop: 03/11/22 16:59 Last Admin: 02/25/22 17:40 Dose: 200 mg Aspirin (Aspirin 300 Mg Supp) 150 mg AK Q24H KRISTY Stop: 03/24/22 18:44 Last Admin: 02/23/22 17:05 Dose: 150 mg Aspirin (Aspirin 81 Mg Ectab) 81 mg PO QAM KRISTY Stop: 03/26/22 16:14 Last Admin: 02/25/22 09:01 Dose: 81 mg Dextrose (Dextrose 50% 50 Ml Syringe) 25 - 50 ml IV UD PRN; Protocol PRN Reason: Hypoglycemia Protocol Stop: 03/10/22 05:10 Furosemide (Furosemide Inj 20 Mg/2 Ml Vial) 10 mg IV [id number] KRISTY Stop: 03/24/22 13:29 Last Admin: 02/25/22 17:40 Dose: 10 mg Glucagon (Glucagon For Inj 1 Mg Vial) 1 mg SQ UD PRN; Protocol PRN Reason: Hypoglycemia Protocol Stop: 03/10/22 05:10 Glucose (Glucose 40% Gel 15 Gm Tube) 15 - 30 gm PO UD PRN; Protocol PRN Reason: Hypoglycemia Protocol Stop: 03/10/22 05:10 Glucose (Glucose 10 Tab/Tube) 4 - 8 tab PO UD PRN; Protocol PRN Reason: Hypoglycemia Treatment Stop: 03/10/22 05:10 Heparin Sodium/Dextrose (Heparin Sodium/Dextrose) 25,000 units in 500 mls @ 8 mls/hr IV .Q24H KRISTY; Protocol Stop: 03/22/22 20:59 Last Titration: 02/26/22 07:13 Dose: 400 units/hr, 8 mls/hr Doxycycline Hyclate 100 mg/ (Dextrose) 110 mls @ 50 mls/hr IV Q12H KRISTY Stop: 02/27/22 16:59 Last Admin: 02/26/22 06:01 Dose: 50 mls/hr Lorazepam 0.25 mg/ Syringe 0.25 mls @ 2 mls/min IV Q6H PRN PRN Reason: Agitation Stop: 03/22/22 18:29 Last Admin: 02/24/22 01:14 Dose: 2 mls/min Insulin Aspart (Insulin Aspart Per Unit) 0 units SC ACHS KRISTY Stop: 03/26/22 11:59 Last Admin: 02/25/22 20:32 Dose: Not Given Ipratropium [place] (Ipratropium [place] Neb Soln 0.02% 2.5 Ml Vial) 0.5 mg INH Q6R PRN PRN Reason: Shortness Of Breath Stop: 03/16/22 15:29 Levalbuterol HCl (Levalbuterol 1.25mg/0.5ml Neb) 1.25 mg INH Q6R PRN PRN Reason: Shortness Of Breath Stop: 03/16/22 15:29 Melatonin (Melatonin 3 Mg Tab) 3 mg PO Q24H KRISTY Stop: 03/19/22 20:59 Last Admin: 02/19/22 20:50 Dose: 3 mg Metoprolol Tartrate (Metoprolol Tartrate 25 Mg Tab) 25 mg PO BID KRISTY Stop: 03/10/22 08:59 Last Admin: 02/25/22 20:33 Dose: 25 mg Miscellaneous (Carbohydrates For Hypoglycemia ) 15 - 30 gm PO UD PRN PRN Reason: Hypoglycemia Protocol Stop: 03/10/22 05:10 Miscellaneous Information (Pharmacist Discharge Med Rec Consult) 1 each N/A UD PRN PRN Reason: Consult Stop: 03/19/22 13:57 Polyethylene Glycol (Polyethylene (Miralax) 17 Gm Pack) 17 gm PO DAILY KRISTY Stop: 03/18/22 09:14 Last Admin: 02/25/22 09:03 Dose: 17 gm Rosuvastatin Calcium (Rosuvastatin Calcium 20 Mg Tab) 20 mg PO QAM KRISTY Stop: 03/10/22 08:59 Last Admin: 02/20/22 09:15 Dose: 20 mg
[2022-02-26] MEDS: ASPIRIN 81 MG ECTAB PO SCH (08:36)
[2022-02-26] MEDS: POLYETHYLENE (MIRALAX) 17 GM PACK PO SCH (08:36)
[2022-02-26] MEDS: METOPROLOL TARTRATE 25 MG TAB PO SCH ×2 (08:36→21:16)
[2022-02-26] MEDS: AMIODARONE 200 MG TAB PO SCH ×2 (08:36→18:08)
[2022-02-26] MEDS: ROSUVASTATIN CALCIUM 20 MG TAB PO SCH (08:36)
[2022-02-26] MEDS: FUROSEMIDE INJ 20 MG/2 ML VIAL IV SCH ×2 (08:36→18:07)
[2022-02-26] MEDS: INSULIN ASPART PER UNIT SC SCH ×4 (08:36→21:18)
--- NOTE | 2022-02-26 09:15 | Nephrology Progress Note ---
Date of Service February 26, 2022 Assessment & Plan (1) Acute kidney injury: Plan: 81-year-old male with previously normal kidney function, admitted with recurrent syncope related with ventricular tachycardia requiring cardioversion. He was also found to have new onset cardiomyopathy with an ejection fraction of 30% s/p ICD placement and cardiac cath mid month as well as new onset acute ischemic stroke involving the right middle cerebral artery. work up shows co mplete thrombosis R ICA and RCCA and nearly 50% narrowing at take off LICA from [facility]; not a candidate for surgical intervention. also having tx for BL basilar PNA > on doxycycline, cefepime. Nephrology consulted for abnormal kidney function in the setting of congestive heart failure, syncopal epiosdes and Ventricular tachycardia. Acute renal failure versus what will be new CKD given change in medical status w/ new HF, recent stroke. The patient's creatinine prior to this admission was near normal at 1.1, but since being admitted, it has been at a slightly higher level, but it is plateau'd in high ones since 02/14 w/ slow uptrend. Given that there has been significant drop in his ejection fraction, it is not unexpected to have slightly higher baseline creatinine in fact, this may prove to be his new baseline. - He had some evidence of congestive heart failure on the chest x-ray 02/20; EF 30% on TTE this month > on heparin gtt and abtx >continue lasix 10 mg IV bid -will give K IV x 30 mEq again since he is barely starting to take po -cont daily bmp -note permissive HTN was for a few days per neuro > challenging to diurese, control HR, allow for permissive HTN but will work to balance -low phos noted Admission and Anticipated Discharge Date Admission Date: February 08, 2022 Subjective no acute interval events. jesus reports pt has been singing, yodelling; however at my eval he is tired/nont interactive Review of Systems Review of Systems: Unobtainable due to reduced consciousness Physical Exam Constitutional: well developed, well nourished and + frail appearing; no acute distress ENMT: Ears: no external ear abnormality Nose: no external nose abnormality Mouth: + dry oral mucous membranes Neck: no nuchal rigidity Respiratory: normal respiratory effort Auscultation: + diminished lung sounds Cardiovascular: Rate/Rhythm: regular rate and regular rhythm Extremities: no edema Gastrointestinal (Abdomen): Inspection/Auscultation: normal bowel sounds Percussion/Palpation: abdomen soft; abdomen nontender Musculoskeletal: Extremities: + abnormal strength Skin: no rashes, warm and dry Results & Data ([facility]) Vital Signs (Past 12 Hours) Vital Signs Temp Pulse Pulse Pulse Resp BP BP 02/26/22 08:31 36.0 C L 62 18 124/76 02/26/22 07:33 66 02/26/22 03:15 36.5 C 72 16 127/85 02/25/22 22:49 36.5 C 66 22 126/68 Pulse Ox O2 Del Method O2 Flow Rate 02/26/22 08:31 92 Nasal Cannula 2 02/26/22 07:33 02/26/22 03:15 98 Nasal Cannula 2 02/25/22 22:49 95 Nasal Cannula 2 Laboratory Results 02/26/22 04:52 02/26/22 04:52
[2022-02-26] MEDS: POTASSIUM CHLORIDE / WTR 10 MEQ/100 ML PLCT IV SCH ×3 (10:52→12:56)
--- NOTE | 2022-02-26 11:52 | CT Scan Report ---
HEAD CT NONCONTRAST CT DOSE: 767.83 mGy.cm HISTORY: headache, hx of CVA, on anticoagulation TECHNIQUE: Multiaxial CT images of the head were performed without the use of intravenous contrast. A utomated exposure control was utilized for this study. A dose lowering technique was utilized adheri ng to the principles of ALARA. Comparison: Head CT 02/21/2022. Findings: Mild mucosal thickening within the ethmoid air cells and a trace left mastoid effusion, unc hanged. No fluid levels within the paranasal sinuses. The calvarium and skull base are intact. Redemo nstration of the subacute/evolving infarcts within the right parietal lobe and right centrum semioval e. No mass, hematoma, midline shift. Mild atrophy and microvascular ischemic changes are again noted. Mild motion artifact. Impression: 1. Redemonstration of the evolving/subacute right parietal and right centrum semiovale infarcts. 2. No intracranial hemorrhage or midline shift identified at this time. ACT 112: Negative or not required by law. Electronically signed by: Yohannes Metz M.D. 02/26/2022 11:50 AM
[2022-02-26 13:14] LABS: Partial Thromboplastin Ratio 2.4
[2022-02-26 13:20] LABS: Partial Thromboplastin Time 66.1 Seconds (21.0-31.0)
[2022-02-26] MEDS ORDERED: HEPARIN DRIP -- STOP ORDER ONE (21:00)
[2022-02-26] MEDS: APIXABAN 2.5 MG TAB PO SCH (21:33)
[2022-02-26] MEDS: HEPARIN SODIUM/DEXTROSE 25,000 UNITS/500 ML BAG IV SCH (21:39)
[2022-02-27] MEDS: DOXYCYCLINE HYCLATE 100 MG in DEXTROSE 5% 100 ML IV SCH (05:07)
[2022-02-27 07:42] LABS: Hematocrit (blood only) 45.5 % (40.1-51.0); Hemoglobin 14.7 g/dl (14.0-18.0); Mean Corpuscular Hemoglobin 30.7 pg (25.0-34.0); Mean Corpuscular Hgb Conc 32.3 g/dL (32.0-36.0); Mean Platelet Volume 12.4 fL (9.4-12.4); Nucleated RBC # (auto) 0.02 K/uL (0-0); Nucleated RBC % (auto) 0.2 %; Platelet Count 121 K/uL (130-400); RDW Coefficient of Variation 15.9 % (11.5-14.5); RDW Standard Deviation 56.3 fL (36.4-46.3); Red Blood Count 4.79 M/uL (4.63-6.08); White Blood Count 8.06 K/ul (4.8-10.8)
--- NOTE | 2022-02-27 08:03 | Hospitalist Progress Note ---
Date of Service February 27, 2022 Assessment & Plan (1) CVA (cerebral vascular accident): Plan: Per previous hospitalist's notes: 81 yo M with multiple comorbid condition presented to the ED after episode of ventricular tachycardia requiring cardioversion in the field. In the hospitalization, patient was evaluated by cardiology service. He underwent cardiac cath in 02/09 which showed moderate nonobstructive coronary artery disease. Echo was suggestive for heart failure with reduced ejection fraction. He underwent pacemaker placement on 02/11. Patient signed out AMA on 02/12. He had a fall on his knees as he was getting in the car in the parking lot. He was admitted again and was evaluated with head CT which was unremarkable. He reported increase in his left arm weakness which has been going on for last [address] head was unremarkable for acute abnormality. Neurology service was consulted; recommend nonemergent MRI brain without contrast. Recurrent syncope likely secondary to ventricular tachycardia s/p ICD placement on 02/11. Paroxysmal A.fib Non- ischemic CMP H/O medication noncompliance - S/P Cardioversion in the field - S/P Cardiac Cath on 02/09/22: Moderate nonobstructive coronary disease. -- EEG was normal during wakefulness and drowsiness. No focal abnormalities, potentially epileptogenic discharges, or abnormal slow activity was seen. -- ECHO: EF 30 to 35%. Moderate to severe global hypokinesis of left ventricle. Mild mitral regurgitation. Mild tricuspid regurgitation. Estimated systolic pulmonary pressure is 48 mmHg. Dilated inferior vena cava with reduced collapsibility with sniff indicates an elevated right atrial pressure of 15 mmHg --Carotid USD: There is no sonographic evidence of hemodynamically significant stenosis in the right or left carotid arterial system. Antegrade flow is shown in the vertebral arteries. -- Eliquis changed to Heparin as patient NPO -> switched back to PO Eliquis on 9/2 PM as pt tolerating PO nephrology consulted, Lasix 10 mg IV twice daily ordered for now Monitor creatinine 02/27 -patient seen by cardiology, in follow-up. Amiodarone decreased to 200 mg daily. 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 Re- demonstration of the evolving/subacute right parietal and right centrum semiovale infarcts. 2. No intracranial hemorrhage or midline shift identified at this time. repeat CT head (02/20): 1. There are subacute/evolving infarcts in the right parietal lobe and the right centrum semiovale. 2. No hemorrhage or mass effect is seen. 3. Additional findings as above. CT angio head and neck: 1. There are subacute/evolving infarcts in the right parietal lobe and the right centrum semiovale. 2. There is no evidence of hemorrhage or midline shift. 3.There is complete thrombosis of the right common carotid artery and the right internal carotid artery to the [place] of [place]. 4. There is thrombosis at the origin of the right external carotid artery. This is reconstituted approximately 1.4 cm above the bifurcation. 5.Atherosclerotic plaque causes approximately 50% luminal narrowing at the origin of the left internal carotid artery. 6. The vertebral arteries are widely patent bilaterally. 7. The anterior and middle cerebral arteries are patent bilaterally. The right- sided vessels are likely supplied via the ACOM. 8. There is pruning of peripheral branches of the right MCA in the infarcting parietal region. 9. There is emphysema. 10. A left pleural effusion is partially imaged and there are airspace opacities in the left upper lobe. Correlate clinically for evidence of an infectious/inflammatory pneumonitis. 11. Additional findings as above. Discussed with Neurologist Dr. Tony also discussed with Neurologist Dr. Mccollum- [facility] patient not a candidate for thrombectomy- may result in hemorrhagic transformation Recommend to continue continue anticoagulation, ASA 02/23 Patient showing significant improvement today, aphasia improving Able to speak a few words, state his name and birthday Also following simple commands now Messaged speech therapist to reevaluate patient tomorrow-hopefully can resume oral feeding and all medications If patient fails speech therapy evaluation, k9 handler recommends NG tube feeding by , family also agreeable with PEG tube if necessary 02/24 Patient is awake, following simple commands, answering simple questions Seen by speech, diet change, patient able to tolerate most of his lunch today Resume p.o. aspirin , metoprolol and p.o. amiodarone, discussed with RN, monitor for aspiration 02/25 Patient communicates less today, mostly nods or only says okay He is moving extremities spontaneously Per RN, he was able to take his p.o. meds 02/26 Communicates, follows simple commands, takes p.o. meds Reported headache, CT head obtained - unchanged, as above 02/27 continues to communicate, follows simple commands, takes p.o. meds Acute hypoxic respiratory failure /2 CHFrEF exacerbation, bilateral basilar pneumonia - On Lasix, nephrology on board - finished IV cefepime + Doxy Day 12/31 - wean off O2 as tolerated HUONG on CKD3a - creatinine up trended to 1.86. -- crea remains at 1.7 Enterococcal UTI - s/p 5 days of ampicillin H/O CVA/PVD - management per above Hyperlipidemia -statin on hold as patient NPO COPD - on duonebs DM II - A1C:5.7 currently;Diet controlled; Insulin per Protocol while hospitalized BPH/bladder cancer S/P surgery Ongoing tobacco abuse- Counselled to quit smoking Multiple falls, weakness-Will need rehab DVT Px: Sujey Dispo - Patient will need to be transitioned to rehab Admission and Anticipated Discharge Date Admission Date: February 08, 2022 Subjective Follow-up for acute CVA, recent hx of syncope - VT, s/p AICD Seen resting in bed, awake, able to answer simple questions, appropriately, follows simple commands He has been tolerating p.o. meds. Spontaneously moving right upper extremity, not able to move his left upper extremity very much. He can squeeze my fingers with both hands, however left one is weaker. Not moving lower extremities much, but able to wiggle toes on both feet. Review of Systems Review of Systems: All systems reviewed & are unremarkable except as noted in Subjective Physical Exam Physical Exam: General - awake, chronically ill-appearing male, not in distress Eyes- anicteric Neck- no JVD Lungs- clear BS bilaterally, no rales/wheezes Heart- normal rate, regular rhythm; no murmurs Abdomen- normal bowel sounds, nondistended, soft, nontender Extremities- no pretibial edema, no calf tenderness Neuro- awake and alert, able to answer simple questions, follows simple commands, able to move extremities (+left arm weakness) Skin- warm & dry Results & Data Results & Data ([facility]) Vital Signs (Past 12 Hours) Vital Signs Temp Pulse Pulse Resp BP BP Pulse Ox 02/27/22 04:00 36.4 C L 60 18 127/63 91 02/27/22 00:00 36.5 C 61 18 153/75 H 92 02/26/22 21:15 36.7 C 61 18 148/64 H 95 O2 Del Method O2 Flow Rate 02/27/22 04:00 Nasal Cannula 2 02/27/22 00:00 Nasal Cannula 2.0 02/26/22 21:15 Laboratory Results 02/27/22 02/27/22 02/27/22 Range/Units 12:04 09:36 08:34 WBC (4.8-10.8) K/ul RBC (4.63-6.08) M/uL Hgb (14.0-18.0) g/dl Hct (40.1-51.0) % MCV (80.0-100.0) fL MCH (25.0-34.0) pg MCHC (32.0-36.0) g/dL RDW Std Deviation (36.4-46.3) fL RDW Coeff of Chel[place] (11.5-14.5) % Plt Count (130-400) K/uL MPV (9.4-12.4) fL Absolute Nucleated RBC (0-0) K/uL Nucleated RBC % (auto) % APTT (21.0-31.0) Seconds PTT Ratio Sodium (136-145) mmol/L Potassium 4.6 Cancelled Chloride (98-107) mmol/L Carbon Dioxide (21-32) mmol/L Anion Gap (3-11) BUN (6-23) mg/dl Creatinine (0.6-1.4) mg/dl Est Cr Clr Drug Dosing ml/min Est GFR ( Amer) ml/min Est GFR (Non-Af Amer) ml/min BUN/Creatinine Ratio (10-20) Glucose (70-99(Fasting)) mg/dl POC Glucose 94 (70-99) mg/dl Calcium (8.5-10.1) mg/dl Phosphorus (2.5-4.9) mg/dl Magnesium (1.7-2.4) mg/dl 02/27/22 02/27/22 02/27/22 Range/Units 07:47 07:31 07:31 WBC 8.06 (4.8-10.8) K/ul RBC 4.79 (4.63-6.08) M/uL Hgb 14.7 (14.0-18.0) g/dl Hct 45.5 (40.1-51.0) % MCV 95.0 (80.0-100.0) fL MCH 30.7 (25.0-34.0) pg MCHC 32.3 (32.0-36.0) g/dL RDW Std Deviation 56.3 H (36.4-46.3) fL RDW Coeff of [place] 15.9 H (11.5-14.5) % Plt Count 121 L (130-400) K/uL MPV 12.4 (9.4-12.4) fL Absolute Nucleated RBC 0.02 H (0-0) K/uL Nucleated RBC % (auto) 0.2 % APTT (21.0-31.0) Seconds PTT Ratio Sodium 139 (136-145) mmol/L Potassium TNP Chloride 108 H (98-107) mmol/L Carbon Dioxide 24 (21-32) mmol/L Anion Gap 7 (3-11) BUN 49 H (6-23) mg/dl Creatinine 1.81 H (0.6-1.4) mg/dl Est Cr Clr Drug Dosing 29.9 ml/min Est GFR ( Amer) 40.3 ml/min Est GFR (Non-Af Amer) 34.8 ml/min BUN/Creatinine Ratio 27.1 H (10-20) Glucose 102 H (70-99(Fasting)) mg/dl POC Glucose 108 H (70-99) mg/dl Calcium 9.2 (8.5-10.1) mg/dl Phosphorus 3.2 (2.5-4.9) mg/dl Magnesium 1.9 (1.7-2.4) mg/dl 02/27/22 02/26/22 02/26/22 Range/Units 07:31 21:18 17:08 WBC (4.8-10.8) K/ul RBC (4.63-6.08) M/uL Hgb (14.0-18.0) g/dl Hct (40.1-51.0) % MCV (80.0-100.0) fL MCH (25.0-34.0) pg MCHC (32.0-36.0) g/dL RDW Std Deviation (36.4-46.3) fL RDW Coeff of Chela (11.5-14.5) % Plt Count (130-400) K/uL MPV (9.4-12.4) fL Absolute Nucleated RBC (0-0) K/uL Nucleated RBC % (auto) % APTT 40.8 H (21.0-31.0) Seconds PTT Ratio 1.5 Sodium (136-145) mmol/L Potassium Chloride (98-107) mmol/L Carbon Dioxide (21-32) mmol/L Anion Gap (3-11) BUN (6-23) mg/dl Creatinine (0.6-1.4) mg/dl Est Cr Clr Drug Dosing ml/min Est GFR ( Amer) ml/min Est GFR (Non-Af Amer) ml/min BUN/Creatinine Ratio (10-20) Glucose (70-99(Fasting)) mg/dl POC Glucose 112 H 108 H (70-99) mg/dl Calcium (8.5-10.1) mg/dl Phosphorus (2.5-4.9) mg/dl Magnesium (1.7-2.4) mg/dl Medications Administered Current Inpatient Medications Acetaminophen (Acetaminophen 325 Mg Tab) 650 mg PO Q4H PRN PRN Reason: Pain or Fever Stop: 03/10/22 05:10 Last Admin: 02/20/22 01:17 Dose: 650 mg Albuterol (Albut/Ipratrop 3mg/0.5mg Neb 3 Ml Vial) 3 ml NEB QIDR PRN; Protocol PRN Reason: Wheezing Stop: 03/11/22 06:59 Amiodarone HCl (Amiodarone 200 Mg Tab) 200 mg PO BIDM [facility] Stop: 03/11/22 16:59 Last Admin: 02/26/22 18:08 Dose: 200 mg Apixaban (Apixaban 2.5 Mg Tab) 2.5 mg PO BID KRISTY Stop: 03/28/22 20:59 Last Admin: 02/26/22 21:33 Dose: 2.5 mg Aspirin (Aspirin 300 Mg Supp) 150 mg ND Q24H K[facility] Stop: 03/24/22 18:44 Last Admin: 02/23/22 17:05 Dose: 150 mg Aspirin (Aspirin 81 Mg Ectab) 81 mg PO QAM KRISTY Stop: 03/26/22 16:14 Last Admin: 02/26/22 08:36 Dose: 81 mg Dextrose (Dextrose 50% 50 Ml Syringe) 25 - 50 ml IV UD PRN; Protocol PRN Reason: Hypoglycemia Protocol Stop: 03/10/22 05:10 Furosemide (Furosemide Inj 20 Mg/2 Ml Vial) 10 mg IV [id number] KRISTY Stop: 03/24/22 13:29 Last Admin: 02/26/22 18:07 Dose: 10 mg Glucagon (Glucagon For Inj 1 Mg Vial) 1 mg SQ UD PRN; Protocol PRN Reason: Hypoglycemia Protocol Stop: 03/10/22 05:10 Glucose (Glucose 40% Gel 15 Gm Tube) 15 - 30 gm PO UD PRN; Protocol PRN Reason: Hypoglycemia Protocol Stop: 03/10/22 05:10 Glucose (Glucose 10 Tab/Tube) 4 - 8 tab PO UD PRN; Protocol PRN Reason: Hypoglycemia Treatment Stop: 03/10/22 05:10 Doxycycline Hyclate 100 mg/ (Dextrose) 110 mls @ 50 mls/hr IV Q12H [facility]ST[facility] Stop: 02/27/22 16:59 Last Infusion: 02/27/22 07:26 Dose: Infused Lorazepam 0.25 mg/ Syringe 0.25 mls @ 2 mls/min IV Q6H PRN PRN Reason: Agitation Stop: 03/22/22 18:29 Last Admin: 02/24/22 01:14 Dose: 2 mls/min Insulin Aspart (Insulin Aspart Per Unit) 0 units SC ACHS KRISTY Stop: 03/26/22 11:59 Last Admin: 02/26/22 21:18 Dose: Not Given Ipratropium [place] (Ipratropium [place] Neb Soln 0.02% 2.5 Ml Vial) 0.5 mg INH Q6R PRN PRN Reason: Shortness Of Breath Stop: 03/16/22 15:29 Levalbuterol HCl (Levalbuterol 1.25mg/0.5ml Neb) 1.25 mg INH Q6R PRN PRN Reason: Shortness Of Breath Stop: 03/16/22 15:29 Melatonin (Melatonin 3 Mg Tab) 3 mg PO Q24H [facility] Stop: 03/19/22 20:59 Last Admin: 02/19/22 20:50 Dose: 3 mg Metoprolol Tartrate (Metoprolol Tartrate 25 Mg Tab) 25 mg PO BID [facility] Stop: 03/10/22 08:59 Last Admin: 02/26/22 21:16 Dose: 25 mg Miscellaneous (Carbohydrates For Hypoglycemia ) 15 - 30 gm PO UD PRN PRN Reason: Hypoglycemia Protocol Stop: 03/10/22 05:10 Miscellaneous Information (Pharmacist Discharge Med Rec Consult) 1 each N/A UD PRN PRN Reason: Consult Stop: 03/19/22 13:57 Polyethylene Glycol (Polyethylene (Miralax) 17 Gm Pack) 17 gm PO DAILY [facility] Stop: 03/18/22 09:14 Last Admin: 02/26/22 08:36 Dose: Not Given Rosuvastatin Calcium (Rosuvastatin Calcium 20 Mg Tab) 20 mg PO QAM KRISTY Stop: 03/10/22 08:59 Last Admin: 02/26/22 08:36 Dose: 20 mg
[2022-02-27 08:06] LABS: Partial Thromboplastin Ratio 1.5; Partial Thromboplastin Time 40.8 Seconds (21.0-31.0)
[2022-02-27 08:15] LABS: Anion Gap 7 (3-11); BUN Creatinine Ratio 27.1 (10-20); Blood Urea Nitrogen 49 mg/dl (6-23); Calcium 9.2 mg/dl (8.5-10.1); Carbon Dioxide 24 mmol/L (21-32); Chloride 108 mmol/L (98-107); Creatinine Clr Calc Pharmacy 29.9 ml/min; Est GFR (African American) 40.3 ml/min; Est GFR (Non-African American) 34.8 ml/min; Glucose 102 mg/dl (70-99(Fasting)); Magnesium 1.9 mg/dl (1.7-2.4); Phosphorus 3.2 mg/dl (2.5-4.9); Sodium 139 mmol/L (136-145)
[2022-02-27] MEDS: INSULIN ASPART PER UNIT SC SCH ×4 (08:56→20:07)
[2022-02-27] MEDS: APIXABAN 2.5 MG TAB PO SCH ×2 (08:59→20:08)
[2022-02-27] MEDS: METOPROLOL TARTRATE 25 MG TAB PO SCH ×2 (08:59→20:08)
[2022-02-27] MEDS: AMIODARONE 200 MG TAB PO SCH (09:00)
[2022-02-27] MEDS: ROSUVASTATIN CALCIUM 20 MG TAB PO SCH (09:00)
[2022-02-27] MEDS: ASPIRIN 81 MG ECTAB PO SCH (09:00)
[2022-02-27] MEDS: FUROSEMIDE INJ 20 MG/2 ML VIAL IV SCH ×2 (09:00→17:26)
[2022-02-27] MEDS: POLYETHYLENE (MIRALAX) 17 GM PACK PO SCH (09:02)
--- NOTE | 2022-02-27 12:48 | Cardiology Consultation ---
Date of Consultation February 27, 2022 Assessment & Plan (1) Syncope: (2) Ventricular tachycardia: (3) ICD (implantable cardioverter-defibrillator), dual, in situ: (4) Cardiomyopathy: (5) PVC (premature ventricular contraction): (6) Atrial fibrillation with RVR: (7) Noncompliance: (8) CAD (coronary artery disease): Plan The patient is currently clinically stable. I think his amiodarone can be reduced to 200 mg daily. The pacer site looks clean and dry. I think the devic e can be interrogated after the patient is discharged as an outpatient through our clinic. Otherwise no additional recommendations at this time. History of Present Illness Attending Physician: Jad Eugene MD History of Present Illness This is an elderly 81-year-old male patient who has had an extensive hospital stay. He was admitted previously with syncope due to ventricular tachycardia and received an ICD. The patient has had a history of noncompliance with me dications and unfortunately left the hospital and developed atrial fibrillation and sustained an embolic stroke. He has been convalescing on on a telemetry unit. His rhythms been stable. He is currently on amiodarone 200 mg twice daily. He is currently on a reduced dose of Eliquis of 2.5 mg twice daily. Allergies Allergy/AdvReac Type Severity Reaction Status Date / Time No Known Allergies Allergy Mild NONE Verified 09/15/20 09:46 Home Medications Medication Instructions Recorded Confirmed Type amiodarone 200 mg tablet 200 mg PO BIDM #60 tabs 02/12/22 Rx apixaban 2.5 mg tablet (Eliquis) 2.5 mg PO BID #60 tabs 02/12/22 Rx aspirin 81 mg chewable tablet 81 mg PO DAILY #30 tabs 02/12/22 Rx (Children's Aspirin) metoprolol tartrate 25 mg tablet 25 mg PO BID #30 tabs 02/12/22 Rx nitrofurantoin 100 mg PO BID 5 days #10 caps 02/12/22 Rx monohydrate/macrocrystals 100 mg capsule (Macrobid) rosuvastatin 20 mg tablet (Crestor) 20 mg PO QAM #30 tabs 02/12/22 Rx Patient History Medical History Bladder cancer Hypertension Social History Smoking Status: Current every day smoker Tobacco Type: Cigarettes Age Started Using Tobacco: 10; packs per day: 1.5; Second Hand Exposure: No; Hx Alcohol Use: No Hx Substance Use: No Preferred Language: Divehi Communication Ability: Effective Hotel Yardperson Required: No Beliefs That Will Affect Care: None Current Living Situation: Alone Feels Safe at Home: Yes Assistive Devices: Walker Review of Systems Review of Systems: Review of Systems: See HPI for pertinent positives. All other 10 point review of systems are negative. Physical Exam Physical Exam: General: no acute distress and stated age Head: normocephalic, no masses, lesions, tenderness or abnormalities Eyes: conjunctiva are pink and non-injected, sclera clear Neck: supple, no adenopathy, no bruits, normal jugular venous pulse, no hepatojugular reflux Chest: normal shape and normal respiratory effort Lungs: clear to auscultation and percussion Cardiac Exam: - regular rate & rhythm, no murmurs gallops or rubs - normal S1, normal S2 Pulses: 2(+) throughout Abdomen: abdomen soft, non-tender, no abnormal masses and no hepatosplenomegaly Musculoskeletal: no gait disturbance, no joint inflammation, no deforming arthritis Extremities: no edema and no cyanosis Neuro: grossly normal exam Results & Data ([facility]) Vital Signs (Past 12 Hours) Vital Signs Temp Pulse Pulse Pulse Resp BP BP 02/27/22 12:33 61 118/71 02/27/22 12:00 36.7 C 60 18 97/58 L 02/27/22 11:18 02/27/22 08:56 59 L 02/27/22 08:00 36.4 C L 60 18 101/69 02/27/22 04:00 36.4 C L 60 18 127/63 Pulse Ox O2 Del Method O2 Flow Rate 02/27/22 12:33 02/27/22 12:00 96 Nasal Cannula 2 02/27/22 11:18 Nasal Cannula 2 02/27/22 08:56 02/27/22 08:00 94 Nasal Cannula 2 02/27/22 04:00 91 Nasal Cannula 2 Laboratory Results Laboratory Results - last 24 hr 02/26/22 02/26/22 02/26/22 12:32 17:08 21:18 WBC RBC Hgb Hct MCV MCH MCHC RDW Std Deviation RDW Coeff of Chela Plt Count MPV Absolute Nucleated RBC Nucleated RBC % (auto) APTT 66.1 H* PTT Ratio 2.4 Sodium Potassium Chloride Carbon Dioxide Anion Gap BUN Creatinine Est Cr Clr Drug Dosing Est GFR ( Amer) Est GFR (Non-Af Amer) BUN/Creatinine Ratio Glucose POC Glucose 108 H 112 H Calcium Phosphorus Magnesium 02/27/22 02/27/22 02/27/22 07:31 07:31 07:31 WBC 8.06 RBC 4.79 Hgb 14.7 Hct 45.5 MCV 95.0 MCH 30.7 MCHC 32.3 RDW Std Deviation 56.3 H RDW Coeff of Chela 15.9 H Plt Count 121 L MPV 12.4 Absolute Nucleated RBC 0.02 H Nucleated RBC % (auto) 0.2 APTT 40.8 H PTT Ratio 1.5 Sodium 139 Potassium TNP Chloride 108 H Carbon Dioxide 24 Anion Gap 7 BUN 49 H Creatinine 1.81 H Est Cr Clr Drug Dosing 29.9 Est GFR ( Amer) 40.3 Est GFR (Non-Af Amer) 34.8 BUN/Creatinine Ratio 27.1 H Glucose 102 H POC Glucose Calcium 9.2 Phosphorus 3.2 Magnesium 1.9 02/27/22 02/27/22 02/27/22 07:47 08:34 09:36 WBC RBC Hgb Hct MCV MCH MCHC RDW Std Deviation RDW Coeff of Chela Plt Count MPV Absolute Nucleated RBC Nucleated RBC % (auto) APTT PTT Ratio Sodium Potassium Cancelled 4.6 Chloride Carbon Dioxide Anion Gap BUN Creatinine Est Cr Clr Drug Dosing Est GFR ( Amer) Est GFR (Non-Af Amer) BUN/Creatinine Ratio Glucose POC Glucose 108 H Calcium Phosphorus Magnesium 02/27/22 12:04 WBC RBC Hgb Hct MCV MCH MCHC RDW Std Deviation RDW Coeff of Chela Plt Count MPV Absolute Nucleated RBC Nucleated RBC % (auto) APTT PTT Ratio Sodium Potassium Chloride Carbon Dioxide Anion Gap BUN Creatinine Est Cr Clr Drug Dosing Est GFR ( Amer) Est GFR (Non-Af Amer) BUN/Creatinine Ratio Glucose POC Glucose 94 Calcium Phosphorus Magnesium Medications Administered Current Inpatient Medications Acetaminophen (Acetaminophen 325 Mg Tab) 650 mg PO Q4H PRN PRN Reason: Pain or Fever Stop: 03/10/22 05:10 Last Admin: 02/20/22 01:17 Dose: 650 mg Albuterol (Albut/Ipratrop 3mg/0.5mg Neb 3 Ml Vial) 3 ml NEB QIDR PRN; Protocol PRN Reason: Wheezing Stop: 03/11/22 06:59 Amiodarone HCl (Amiodarone 200 Mg Tab) 200 mg PO BIDM KRISTY Stop: 03/11/22 16:59 Last Admin: 02/27/22 09:00 Dose: 200 mg Apixaban (Apixaban 2.5 Mg Tab) 2.5 mg PO BID KRISTY Stop: 03/28/22 20:59 Last Admin: 02/27/22 08:59 Dose: 2.5 mg Aspirin (Aspirin 300 Mg Supp) 150 mg MS Q24H [facility] Stop: 03/24/22 18:44 Last Admin: 02/23/22 17:05 Dose: 150 mg Aspirin (Aspirin 81 Mg Ectab) 81 mg PO QAM [facility] Stop: 03/26/22 16:14 Last Admin: 02/27/22 09:00 Dose: 81 mg Dextrose (Dextrose 50% 50 Ml Syringe) 25 - 50 ml IV UD PRN; Protocol PRN Reason: Hypoglycemia Protocol Stop: 03/10/22 05:10 Furosemide (Furosemide Inj 20 Mg/2 Ml Vial) 10 mg IV [id number] KRISTY Stop: 03/24/22 13:29 Last Admin: 02/27/22 09:00 Dose: 10 mg Glucagon (Glucagon For Inj 1 Mg Vial) 1 mg SQ UD PRN; Protocol PRN Reason: Hypoglycemia Protocol Stop: 03/10/22 05:10 Glucose (Glucose 40% Gel 15 Gm Tube) 15 - 30 gm PO UD PRN; Protocol PRN Reason: Hypoglycemia Protocol Stop: 03/10/22 05:10 Glucose (Glucose 10 Tab/Tube) 4 - 8 tab PO UD PRN; Protocol PRN Reason: Hypoglycemia Treatment Stop: 03/10/22 05:10 Doxycycline Hyclate 100 mg/ (Dextrose) 110 mls @ 50 mls/hr IV Q12H [facility] Stop: 02/27/22 16:59 Last Infusion: 02/27/22 07:26 Dose: Infused Lorazepam 0.25 mg/ Syringe 0.25 mls @ 2 mls/min IV Q6H PRN PRN Reason: Agitation Stop: 03/22/22 18:29 Last Admin: 02/24/22 01:14 Dose: 2 mls/min Insulin Aspart (Insulin Aspart Per Unit) 0 units SC ACHS [facility] Stop: 03/26/22 11:59 Last Admin: 02/27/22 12:29 Dose: Not Given Ipratropium [place] (Ipratropium [place] Neb Soln 0.02% 2.5 Ml Vial) 0.5 mg INH Q6R PRN PRN Reason: Shortness Of Breath Stop: 03/16/22 15:29 Levalbuterol HCl (Levalbuterol 1.25mg/0.5ml Neb) 1.25 mg INH Q6R PRN PRN Reason: Shortness Of Breath Stop: 03/16/22 15:29 Melatonin (Melatonin 3 Mg Tab) 3 mg PO Q24H [facility] Stop: 03/19/22 20:59 Last Admin: 02/19/22 20:50 Dose: 3 mg Metoprolol Tartrate (Metoprolol Tartrate 25 Mg Tab) 25 mg PO BID [facility] Stop: 03/10/22 08:59 Last Admin: 02/27/22 08:59 Dose: 25 mg Miscellaneous (Carbohydrates For Hypoglycemia ) 15 - 30 gm PO UD PRN PRN Reason: Hypoglycemia Protocol Stop: 03/10/22 05:10 Miscellaneous Information (Pharmacist Discharge Med Rec Consult) 1 each N/A UD PRN PRN Reason: Consult Stop: 03/19/22 13:57 Polyethylene Glycol (Polyethylene (Miralax) 17 Gm Pack) 17 gm PO DAILY [facility] Stop: 03/18/22 09:14 Last Admin: 02/27/22 09:02 Dose: Not Given Rosuvastatin Calcium (Rosuvastatin Calcium 20 Mg Tab) 20 mg PO QAM [facility] Stop: 03/10/22 08:59 Last Admin: 02/27/22 09:00 Dose: 20 mg
--- NOTE | 2022-02-28 08:00 | Hospitalist Progress Note ---
Date of Service February 28, 2022 Assessment & Plan (1) CVA (cerebral vascular accident): Plan: Per previous hospitalist's notes: 81 yo M with multiple comorbid condition presented to the ED after episode of ventricular tachycardia requiring cardioversion in the field. In the hospitalization, patient was evaluated by cardiology service. He underwent cardiac cath in 02/09 which showed moderate nonobstructive coronary artery disease. Echo was suggestive for heart failure with reduced ejection fraction. He underwent pacemaker placement on 02/11. Patient signed out AMA on 02/12. He had a fall on his knees as he was getting in the car in the parking lot. He was admitted again and was evaluated with head CT which was unremarkable. He reported increase in his left arm weakness which has been going on for last [address] head was unremarkable for acute abnormality. Neurology service was consulted; recommend nonemergent MRI brain without contrast. Recurrent syncope likely secondary to ventricular tachycardia s/p ICD placement on 02/11. Paroxysmal A.fib Non- ischemic CMP H/O medication noncompliance - S/P Cardioversion in the field - S/P Cardiac Cath on 02/09/22: Moderate nonobstructive coronary disease. -- EEG was normal during wakefulness and drowsiness. No focal abnormalities, potentially epileptogenic discharges, or abnormal slow activity was seen. -- ECHO: EF 30 to 35%. Moderate to severe global hypokinesis of left ventricle. Mild mitral regurgitation. Mild tricuspid regurgitation. Estimated systolic pulmonary pressure is 48 mmHg. Dilated inferior vena cava with reduced collapsibility with sniff indicates an elevated right atrial pressure of 15 mmHg --Carotid USD: There is no sonographic evidence of hemodynamically significant stenosis in the right or left carotid arterial system. Antegrade flow is shown in the vertebral arteries. -- Eliquis changed to Heparin as patient NPO -> switched back to PO Eliquis on 9/2 PM as pt tolerating PO nephrology consulted, Lasix 10 mg IV twice daily ordered for now Monitor creatinine 02/27 -patient seen by cardiology, in follow-up. Amiodarone decreased to 200 mg daily. 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 Re- demonstration of the evolving/subacute right parietal and right centrum semiovale infarcts. 2. No intracranial hemorrhage or midline shift identified at this time. repeat CT head (02/20): 1. There are subacute/evolving infarcts in the right parietal lobe and the right centrum semiovale. 2. No hemorrhage or mass effect is seen. 3. Additional findings as above. CT angio head and neck: 1. There are subacute/evolving infarcts in the right parietal lobe and the right centrum semiovale. 2. There is no evidence of hemorrhage or midline shift. 3.There is complete thrombosis of the right common carotid artery and the right internal carotid artery to the lumbee of Lopez. 4. There is thrombosis at the origin of the right external carotid artery. This is reconstituted approximately 1.4 cm above the bifurcation. 5.Atherosclerotic plaque causes approximately 50% luminal narrowing at the origin of the left internal carotid artery. 6. The vertebral arteries are widely patent bilaterally. 7. The anterior and middle cerebral arteries are patent bilaterally. The right- sided vessels are likely supplied via the ACOM. 8. There is pruning of peripheral branches of the right MCA in the infarcting parietal region. 9. There is emphysema. 10. A left pleural effusion is partially imaged and there are airspace opacities in the left upper lobe. Correlate clinically for evidence of an infectious/inflammatory pneumonitis. 11. Additional findings as above. Discussed with Neurologist Dr. Tony also discussed with Neurologist Dr. Mccollum- [facility] patient not a candidate for thrombectomy- may result in hemorrhagic transformation Recommend to continue continue anticoagulation, ASA 02/23 Patient showing significant improvement today, aphasia improving Able to speak a few words, state his name and birthday Also following simple commands now Messaged speech therapist to reevaluate patient tomorrow-hopefully can resume oral feeding and all medications If patient fails speech therapy evaluation, clinic business manager recommends NG tube feeding by , family also agreeable with PEG tube if necessary 02/24 Patient is awake, following simple commands, answering simple questions Seen by speech, diet change, patient able to tolerate most of his lunch today Resume p.o. aspirin , metoprolol and p.o. amiodarone, discussed with RN, monitor for aspiration 02/25 Patient communicates less today, mostly nods or only says okay He is moving extremities spontaneously Per RN, he was able to take his p.o. meds 02/26 Communicates, follows simple commands, takes p.o. meds Reported headache, CT head obtained - unchanged, as above 02/27 continues to communicate, follows simple commands, takes p.o. meds 02/28 More talkative today, joking. Eating ice cream. Takes p.o. meds. Acute hypoxic respiratory failure /2 CHFrEF exacerbation, bilateral basilar pneumonia - On Lasix, nephrology on board - finished IV cefepime + Doxy Day 12/31 - wean off O2 as tolerated HUONG on CKD3a - creatinine up trended to 1.86. -- crea remains at 1.7-1.8 Enterococcal UTI - s/p 5 days of ampicillin H/O CVA/PVD - management per above Hyperlipidemia -statin on hold as patient NPO COPD - on balajionebs DM II - A1C:5.7 currently;Diet controlled; Insulin per Protocol while hospitalized BPH/bladder cancer S/P surgery Ongoing tobacco abuse- Counselled to quit smoking Multiple falls, weakness-Will need rehab DVT Px: Eliquis Dispo - Patient will need to be transitioned to rehab Admission and Anticipated Discharge Date Admission Date: February 08, 2022 Subjective Follow-up for acute CVA, recent hx of syncope - VT, s/p AICD Seen resting in bed, awake, able to answer simple questions, appropriately, follows simple commands More talkative today, and joking. eating ice cream. He has been tolerating p.o. meds. Spontaneously moving right upper extremity, not able to move his left upper extremity very much. He can squeeze my fingers with both hands, however left one is weaker. Not moving lower extremities much, but able to wiggle toes on both feet. Review of Systems Review of Systems: All systems reviewed & are unremarkable except as noted in Subjective Physical Exam Physical Exam: General - awake, chronically ill-appearing male, not in distress Eyes- anicteric Neck- no JVD Lungs- clear BS bilaterally, no rales/wheezes Heart- normal rate, regular rhythm; no murmurs Abdomen- normal bowel sounds, nondistended, soft, nontender Extremities- no pretibial edema, no calf tenderness Neuro- awake and alert, able to answer simple questions, follows simple commands, able to move extremities (+left arm weakness) Skin- warm & dry Results & Data Results & Data ([facility]) Vital Signs (Past 12 Hours) Vital Signs Temp Pulse Pulse Resp BP BP Pulse Ox 02/28/22 07:13 36.8 C 60 16 111/61 88 L 02/28/22 03:40 36.4 C L 60 125/63 92 02/28/22 01:01 60 02/27/22 22:45 36.7 C 61 16 119/75 90 02/27/22 21:47 O2 Del Method O2 Flow Rate 02/28/22 07:13 Nasal Cannula 02/28/22 03:40 Nasal Cannula 2 02/28/22 01:01 02/27/22 22:45 Nasal Cannula 2 02/27/22 21:47 Nasal Cannula 2 Laboratory Results 02/28/22 02/27/22 02/27/22 Range/Units 07:48 20:00 16:26 APTT (21.0-31.0) Seconds PTT Ratio Sodium (136-145) mmol/L Potassium Chloride (98-107) mmol/L Carbon Dioxide (21-32) mmol/L Anion Gap (3-11) BUN (6-23) mg/dl Creatinine (0.6-1.4) mg/dl Est Cr Clr Drug Dosing ml/min Est GFR ( Amer) ml/min Est GFR (Non-Af Amer) ml/min BUN/Creatinine Ratio (10-20) Glucose (70-99(Fasting)) mg/dl POC Glucose 90 94 90 (70-99) mg/dl Calcium (8.5-10.1) mg/dl Phosphorus (2.5-4.9) mg/dl Magnesium (1.7-2.4) mg/dl 02/27/22 02/27/22 02/27/22 Range/Units 12:04 09:36 08:34 APTT (21.0-31.0) Seconds PTT Ratio Sodium (136-145) mmol/L Potassium 4.6 Cancelled Chloride (98-107) mmol/L Carbon Dioxide (21-32) mmol/L Anion Gap (3-11) BUN (6-23) mg/dl Creatinine (0.6-1.4) mg/dl Est Cr Clr Drug Dosing ml/min Est GFR ( Amer) ml/min Est GFR (Non-Af Amer) ml/min BUN/Creatinine Ratio (10-20) Glucose (70-99(Fasting)) mg/dl POC Glucose 94 (70-99) mg/dl Calcium (8.5-10.1) mg/dl Phosphorus (2.5-4.9) mg/dl Magnesium (1.7-2.4) mg/dl 02/27/22 02/27/22 Range/Units 07:31 07:31 APTT 40.8 H (21.0-31.0) Seconds PTT Ratio 1.5 Sodium 139 (136-145) mmol/L Potassium TNP Chloride 108 H (98-107) mmol/L Carbon Dioxide 24 (21-32) mmol/L Anion Gap 7 (3-11) BUN 49 H (6-23) mg/dl Creatinine 1.81 H (0.6-1.4) mg/dl Est Cr Clr Drug Dosing 29.9 ml/min Est GFR ( Amer) 40.3 ml/min Est GFR (Non-Af Amer) 34.8 ml/min BUN/Creatinine Ratio 27.1 H (10-20) Glucose 102 H (70-99(Fasting)) mg/dl POC Glucose (70-99) mg/dl Calcium 9.2 (8.5-10.1) mg/dl Phosphorus 3.2 (2.5-4.9) mg/dl Magnesium 1.9 (1.7-2.4) mg/dl Medications Administered Current Inpatient Medications Acetaminophen (Acetaminophen 325 Mg Tab) 650 mg PO Q4H PRN PRN Reason: Pain or Fever Stop: 03/10/22 05:10 Last Admin: 02/20/22 01:17 Dose: 650 mg Albuterol (Albut/Ipratrop 3mg/0.5mg Neb 3 Ml Vial) 3 ml NEB QIDR PRN; Protocol PRN Reason: Wheezing Stop: 03/11/22 06:59 Amiodarone HCl (Amiodarone 200 Mg Tab) 200 mg PO QAM [facility] Stop: 03/30/22 08:59 Apixaban (Apixaban 2.5 Mg Tab) 2.5 mg PO BID KRISTY Stop: 03/28/22 20:59 Last Admin: 02/27/22 20:08 Dose: 2.5 mg Aspirin (Aspirin 300 Mg Supp) 150 mg ME Q24H KRISTY Stop: 03/24/22 18:44 Last Admin: 02/23/22 17:05 Dose: 150 mg Aspirin (Aspirin 81 Mg Ectab) 81 mg PO QAM KRISTY Stop: 03/26/22 16:14 Last Admin: 02/27/22 09:00 Dose: 81 mg Dextrose (Dextrose 50% 50 Ml Syringe) 25 - 50 ml IV UD PRN; Protocol PRN Reason: Hypoglycemia Protocol Stop: 03/10/22 05:10 Furosemide (Furosemide Inj 20 Mg/2 Ml Vial) 10 mg IV [id number] KRISTY Stop: 03/24/22 13:29 Last Admin: 02/27/22 17:26 Dose: 10 mg Glucagon (Glucagon For Inj 1 Mg Vial) 1 mg SQ UD PRN; Protocol PRN Reason: Hypoglycemia Protocol Stop: 03/10/22 05:10 Glucose (Glucose 40% Gel 15 Gm Tube) 15 - 30 gm PO UD PRN; Protocol PRN Reason: Hypoglycemia Protocol Stop: 03/10/22 05:10 Glucose (Glucose 10 Tab/Tube) 4 - 8 tab PO UD PRN; Protocol PRN Reason: Hypoglycemia Treatment Stop: 03/10/22 05:10 Lorazepam 0.25 mg/ Syringe 0.25 mls @ 2 mls/min IV Q6H PRN PRN Reason: Agitation Stop: 03/22/22 18:29 Last Admin: 02/24/22 01:14 Dose: 2 mls/min Insulin Aspart (Insulin Aspart Per Unit) 0 units SC ACHS [facility] Stop: 03/26/22 11:59 Last Admin: 02/27/22 20:07 Dose: Not Given Ipratropium Bells (Ipratropium Bells Neb Soln 0.02% 2.5 Ml Vial) 0.5 mg INH Q6R PRN PRN Reason: Shortness Of Breath Stop: 03/16/22 15:29 Levalbuterol HCl (Levalbuterol 1.25mg/0.5ml Neb) 1.25 mg INH Q6R PRN PRN Reason: Shortness Of Breath Stop: 03/16/22 15:29 Melatonin (Melatonin 3 Mg Tab) 3 mg PO Q24H [facility] Stop: 03/19/22 20:59 Last Admin: 02/19/22 20:50 Dose: 3 mg Metoprolol Tartrate (Metoprolol Tartrate 25 Mg Tab) 25 mg PO BID [facility] Stop: 03/10/22 08:59 Last Admin: 02/27/22 20:08 Dose: Not Given Miscellaneous (Carbohydrates For Hypoglycemia ) 15 - 30 gm PO UD PRN PRN Reason: Hypoglycemia Protocol Stop: 03/10/22 05:10 Miscellaneous Information (Pharmacist Discharge Med Rec Consult) 1 each N/A UD PRN PRN Reason: Consult Stop: 03/19/22 13:57 Polyethylene Glycol (Polyethylene (Miralax) 17 Gm Pack) 17 gm PO DAILY [facility] Stop: 03/18/22 09:14 Last Admin: 02/27/22 09:02 Dose: Not Given Rosuvastatin Calcium (Rosuvastatin Calcium 20 Mg Tab) 20 mg PO QAM [facility] Stop: 03/10/22 08:59 Last Admin: 02/27/22 09:00 Dose: 20 mg
[2022-02-28] MEDS: APIXABAN 2.5 MG TAB PO SCH ×2 (08:33→20:35)
[2022-02-28] MEDS: METOPROLOL TARTRATE 25 MG TAB PO SCH ×2 (08:33→20:38)
[2022-02-28] MEDS: ROSUVASTATIN CALCIUM 20 MG TAB PO SCH (08:33)
[2022-02-28] MEDS: ASPIRIN 81 MG ECTAB PO SCH (08:33)
[2022-02-28] MEDS: FUROSEMIDE INJ 20 MG/2 ML VIAL IV SCH ×2 (08:34→17:13)
[2022-02-28] MEDS: AMIODARONE 200 MG TAB PO SCH (08:34)
[2022-02-28] MEDS: POLYETHYLENE (MIRALAX) 17 GM PACK PO SCH (08:34)
[2022-02-28] MEDS: INSULIN ASPART PER UNIT SC SCH ×4 (08:36→20:38)
[2022-03-01 05:52] LABS: Hematocrit (blood only) 49.8 % (40.1-51.0); Hemoglobin 15.7 g/dl (14.0-18.0); Mean Corpuscular Hemoglobin 30.3 pg (25.0-34.0); Mean Corpuscular Hgb Conc 31.5 g/dL (32.0-36.0); Mean Corpuscular Volume 96.1 fL (80.0-100.0); RDW Coefficient of Variation 15.9 % (11.5-14.5); Red Blood Count 5.18 M/uL (4.63-6.08); White Blood Count 7.86 K/ul (4.8-10.8)
[2022-03-01 06:17] LABS: BUN Creatinine Ratio 26.9 (10-20); Calcium 9.9 mg/dl (8.5-10.1); Creatinine Clr Calc Pharmacy 23.8 ml/min; Est GFR (African American) 30.7 ml/min; Est GFR (Non-African American) 26.5 ml/min; Phosphorus 3.4 mg/dl (2.5-4.9); Potassium 3.8 mmol/L (3.5-5.1)
[2022-03-01 06:34] LABS: Mean Platelet Volume 12.9 fL (9.4-12.4); Platelet Count 113 K/uL (130-400)
--- NOTE | 2022-03-01 08:23 | Hospitalist Progress Note ---
Date of Service March 01, 2022 Assessment & Plan (1) CVA (cerebral vascular accident): Plan: Per previous hospitalist's notes: 81 yo M with multiple comorbid condition presented to the ED after episode of ventricular tachycardia requiring cardioversion in the field. In the hospitalization, patient was evaluated by cardiology service. He underwent cardiac cath in 02/09 which showed moderate nonobstructive coronary artery disease. Echo was suggestive for heart failure with reduced ejection fraction. He underwent pacemaker placement on 02/11. Patient signed out AMA on 02/12. He had a fall on his knees as he was getting in the car in the parking lot. He was admitted again and was evaluated with head CT which was unremarkable. He reported increase in his left arm weakness which has been going on for last [address] head was unremarkable for acute abnormality. Neurology service was consulted; recommend nonemergent MRI brain without contrast. Recurrent syncope likely secondary to ventricular tachycardia s/p ICD placement on 02/11. Paroxysmal A.fib Non- ischemic CMP H/O medication noncompliance - S/P Cardioversion in the field - S/P Cardiac Cath on 02/09/22: Moderate nonobstructive coronary disease. -- EEG was normal during wakefulness and drowsiness. No focal abnormalities, potentially epileptogenic discharges, or abnormal slow activity was seen. -- ECHO: EF 30 to 35%. Moderate to severe global hypokinesis of left ventricle. Mild mitral regurgitation. Mild tricuspid regurgitation. Estimated systolic pulmonary pressure is 48 mmHg. Dilated inferior vena cava with reduced collapsibility with sniff indicates an elevated right atrial pressure of 15 mmHg --Carotid USD: There is no sonographic evidence of hemodynamically significant stenosis in the right or left carotid arterial system. Antegrade flow is shown in the vertebral arteries. -- Eliquis changed to Heparin as patient NPO -> switched back to PO Eliquis on 9/2 PM as pt tolerating PO nephrology consulted, Lasix 10 mg IV twice daily ordered for now Monitor creatinine 02/27 -patient seen by cardiology, in follow-up. Amiodarone decreased to 200 mg daily. 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 Re- demonstration of the evolving/subacute right parietal and right centrum semiovale infarcts. 2. No intracranial hemorrhage or midline shift identified at this time. repeat CT head (02/20): 1. There are subacute/evolving infarcts in the right parietal lobe and the right centrum semiovale. 2. No hemorrhage or mass effect is seen. 3. Additional findings as above. CT angio head and neck: 1. There are subacute/evolving infarcts in the right parietal lobe and the right centrum semiovale. 2. There is no evidence of hemorrhage or midline shift. 3.There is complete thrombosis of the right common carotid artery and the right internal carotid artery to the [place]. 4. There is thrombosis at the origin of the right external carotid artery. This is reconstituted approximately 1.4 cm above the bifurcation. 5.Atherosclerotic plaque causes approximately 50% luminal narrowing at the origin of the left internal carotid artery. 6. The vertebral arteries are widely patent bilaterally. 7. The anterior and middle cerebral arteries are patent bilaterally. The right- sided vessels are likely supplied via the ACOM. 8. There is pruning of peripheral branches of the right MCA in the infarcting parietal region. 9. There is emphysema. 10. A left pleural effusion is partially imaged and there are airspace opacities in the left upper lobe. Correlate clinically for evidence of an infectious/inflammatory pneumonitis. 11. Additional findings as above. Discussed with Neurologist Dr. Tony also discussed with Neurologist Dr. Mccollum- [facility] patient not a candidate for thrombectomy- may result in hemorrhagic transformation Recommend to continue continue anticoagulation, ASA 02/23 Patient showing significant improvement today, aphasia improving Able to speak a few words, state his name and birthday Also following simple commands now Messaged speech therapist to reevaluate patient tomorrow-hopefully can resume oral feeding and all medications If patient fails speech therapy evaluation, snowblower mechanic recommends NG tube feeding by , family also agreeable with PEG tube if necessary 02/24 Patient is awake, following simple commands, answering simple questions Seen by speech, diet change, patient able to tolerate most of his lunch today Resume p.o. aspirin , metoprolol and p.o. amiodarone, discussed with RN, monitor for aspiration 02/25 Patient communicates less today, mostly nods or only says okay He is moving extremities spontaneously Per RN, he was able to take his p.o. meds 02/26 Communicates, follows simple commands, takes p.o. meds Reported headache, CT head obtained - unchanged, as above 02/27 continues to communicate, follows simple commands, takes p.o. meds 02/28, 03/01 More talkative today, joking. Eating ice cream. Takes p.o. meds. Acute hypoxic respiratory failure /2 CHFrEF exacerbation, bilateral basilar pneumonia - On Lasix, nephrology on board - finished IV cefepime + Doxy Day 12/31 - wean off O2 as tolerated HUONG on CKD3a - creatinine up trended to 1.86. -- crea remains at 1.7-1.8 Enterococcal UTI - s/p 5 days of ampicillin H/O CVA/PVD - management per above Hyperlipidemia -statin on hold as patient NPO COPD - on duonebs DM II - A1C:5.7 currently;Diet controlled; Insulin per Protocol while hospitalized BPH/bladder cancer S/P surgery Ongoing tobacco abuse- Counselled to quit smoking Multiple falls, weakness-Will need rehab DVT Px: Eliquis Dispo - Patient will need to be transitioned to rehab Admission and Anticipated Discharge Date Admission Date: February 08, 2022 Subjective Follow-up for acute CVA, recent hx of syncope - VT, s/p AICD Seen resting in bed, awake, able to answer simple questions, appropriately, follows simple commands More talkative today. He has been tolerating p.o. meds. Review of Systems Review of Systems: All systems reviewed & are unremarkable except as noted in Subjective Physical Exam Physical Exam: General - awake, chronically ill-appearing male, not in distress Eyes- anicteric Neck- no JVD Lungs- clear BS bilaterally, no rales/wheezes Heart- normal rate, regular rhythm; no murmurs Abdomen- normal bowel sounds, nondistended, soft, nontender Extremities- no pretibial edema, no calf tenderness Neuro- awake and alert, able to answer simple questions, follows simple commands, able to move extremities (+left arm weakness) Skin- warm & dry Results & Data Results & Data ([facility]) Vital Signs (Past 12 Hours) Vital Signs Temp Pulse Pulse Pulse Resp BP Pulse Ox 03/01/22 03:22 37 C 61 17 145/71 H 92 03/01/22 00:20 61 02/28/22 22:47 36.6 C 61 17 147/80 H 87 L 02/28/22 20:37 60 121/72 O2 Del Method O2 Flow Rate 03/01/22 03:22 Nasal Cannula 2 03/01/22 00:20 02/28/22 22:47 Room Air 02/28/22 20:37 Laboratory Results 03/01/22 03/01/22 03/01/22 Range/Units 08:02 05:21 05:21 WBC 7.86 (4.8-10.8) K/ul RBC 5.18 (4.63-6.08) M/uL Hgb 15.7 (14.0-18.0) g/dl Hct 49.8 (40.1-51.0) % MCV 96.1 (80.0-100.0) fL MCH 30.3 (25.0-34.0) pg MCHC 31.5 L (32.0-36.0) g/dL RDW Std Deviation 57.0 H (36.4-46.3) fL RDW Coeff of Chela 15.9 H (11.5-14.5) % Plt Count 113 L (130-400) K/uL MPV 12.9 H (9.4-12.4) fL Sodium 142 (136-145) mmol/L Potassium 3.8 (3.5-5.1) mmol/L Chloride 105 (98-107) mmol/L Carbon Dioxide 29 (21-32) mmol/L Anion Gap 8 (3-11) BUN 61 H (6-23) mg/dl Creatinine 2.27 H D (0.6-1.4) mg/dl Est Cr Clr Drug Dosing 23.8 ml/min Est GFR ( Amer) 30.7 ml/min Est GFR (Non-Af Amer) 26.5 ml/min BUN/Creatinine Ratio 26.9 H (10-20) Glucose 99 (70-99(Fasting)) mg/dl POC Glucose 88 (70-99) mg/dl Calcium 9.9 (8.5-10.1) mg/dl Phosphorus 3.4 (2.5-4.9) mg/dl Magnesium 2.0 (1.7-2.4) mg/dl 02/28/22 02/28/22 02/28/22 Range/Units 20:57 20:56 20:39 WBC (4.8-10.8) K/ul RBC (4.63-6.08) M/uL Hgb (14.0-18.0) g/dl Hct (40.1-51.0) % MCV (80.0-100.0) fL MCH (25.0-34.0) pg MCHC (32.0-36.0) g/dL RDW Std Deviation (36.4-46.3) fL RDW Coeff of Chela (11.5-14.5) % Plt Count (130-400) K/uL MPV (9.4-12.4) fL Sodium (136-145) mmol/L Potassium (3.5-5.1) mmol/L Chloride (98-107) mmol/L Carbon Dioxide (21-32) mmol/L Anion Gap (3-11) BUN (6-23) mg/dl Creatinine (0.6-1.4) mg/dl Est Cr Clr Drug Dosing ml/min Est GFR ( Amer) ml/min Est GFR (Non-Af Amer) ml/min BUN/Creatinine Ratio (10-20) Glucose (70-99(Fasting)) mg/dl POC Glucose 72 61 L* 65 L* (70-99) mg/dl Calcium (8.5-10.1) mg/dl Phosphorus (2.5-4.9) mg/dl Magnesium (1.7-2.4) mg/dl 02/28/22 02/28/22 02/28/22 Range/Units 20:38 17:04 12:07 WBC (4.8-10.8) K/ul RBC (4.63-6.08) M/uL Hgb (14.0-18.0) g/dl Hct (40.1-51.0) % MCV (80.0-100.0) fL MCH (25.0-34.0) pg MCHC (32.0-36.0) g/dL RDW Std Deviation (36.4-46.3) fL RDW Coeff of Chela (11.5-14.5) % Plt Count (130-400) K/uL MPV (9.4-12.4) fL Sodium (136-145) mmol/L Potassium (3.5-5.1) mmol/L Chloride (98-107) mmol/L Carbon Dioxide (21-32) mmol/L Anion Gap (3-11) BUN (6-23) mg/dl Creatinine (0.6-1.4) mg/dl Est Cr Clr Drug Dosing ml/min Est GFR ( Amer) ml/min Est GFR (Non-Af Amer) ml/min BUN/Creatinine Ratio (10-20) Glucose (70-99(Fasting)) mg/dl POC Glucose 67 L* 234 H 94 (70-99) mg/dl Calcium (8.5-10.1) mg/dl Phosphorus (2.5-4.9) mg/dl Magnesium (1.7-2.4) mg/dl Medications Administered Current Inpatient Medications Acetaminophen (Acetaminophen 325 Mg Tab) 650 mg PO Q4H PRN PRN Reason: Pain or Fever Stop: 03/10/22 05:10 Last Admin: 02/20/22 01:17 Dose: 650 mg Albuterol (Albut/Ipratrop 3mg/0.5mg Neb 3 Ml Vial) 3 ml NEB QIDR PRN; Protocol PRN Reason: Wheezing Stop: 03/11/22 06:59 Amiodarone HCl (Amiodarone 200 Mg Tab) 200 mg PO QAM KRISTY Stop: 03/30/22 08:59 Last Admin: 02/28/22 08:34 Dose: 200 mg Apixaban (Apixaban 2.5 Mg Tab) 2.5 mg PO BID KRISTY Stop: 03/28/22 20:59 Last Admin: 02/28/22 20:35 Dose: 2.5 mg Aspirin (Aspirin 300 Mg Supp) 150 mg TN Q24H KRISTY Stop: 03/24/22 18:44 Last Admin: 02/23/22 17:05 Dose: 150 mg Aspirin (Aspirin 81 Mg Ectab) 81 mg PO QAM KRISTY Stop: 03/26/22 16:14 Last Admin: 02/28/22 08:33 Dose: 81 mg Dextrose (Dextrose 50% 50 Ml Syringe) 25 - 50 ml IV UD PRN; Protocol PRN Reason: Hypoglycemia Protocol Stop: 03/10/22 05:10 Furosemide (Furosemide Inj 20 Mg/2 Ml Vial) 10 mg IV [id number] KRISTY Stop: 03/24/22 13:29 Last Admin: 02/28/22 17:13 Dose: 10 mg Glucagon (Glucagon For Inj 1 Mg Vial) 1 mg SQ UD PRN; Protocol PRN Reason: Hypoglycemia Protocol Stop: 03/10/22 05:10 Glucose (Glucose 40% Gel 15 Gm Tube) 15 - 30 gm PO UD PRN; Protocol PRN Reason: Hypoglycemia Protocol Stop: 03/10/22 05:10 Glucose (Glucose 10 Tab/Tube) 4 - 8 tab PO UD PRN; Protocol PRN Reason: Hypoglycemia Treatment Stop: 03/10/22 05:10 Lorazepam 0.25 mg/ Syringe 0.25 mls @ 2 mls/min IV Q6H PRN PRN Reason: Agitation Stop: 03/22/22 18:29 Last Admin: 02/24/22 01:14 Dose: 2 mls/min Insulin Aspart (Insulin Aspart Per Unit) 0 units SC ACHS KRISTY Stop: 03/26/22 11:59 Last Admin: 02/28/22 20:38 Dose: Not Given Ipratropium Maben (Ipratropium Maben Neb Soln 0.02% 2.5 Ml Vial) 0.5 mg INH Q6R PRN PRN Reason: Shortness Of Breath Stop: 03/16/22 15:29 Levalbuterol HCl (Levalbuterol 1.25mg/0.5ml Neb) 1.25 mg INH Q6R PRN PRN Reason: Shortness Of Breath Stop: 03/16/22 15:29 Melatonin (Melatonin 3 Mg Tab) 3 mg PO Q24H KRISTY Stop: 03/19/22 20:59 Last Admin: 02/19/22 20:50 Dose: 3 mg Metoprolol Tartrate (Metoprolol Tartrate 25 Mg Tab) 25 mg PO BID KRISTY Stop: 03/10/22 08:59 Last Admin: 02/28/22 20:38 Dose: 25 mg Miscellaneous (Carbohydrates For Hypoglycemia ) 15 - 30 gm PO UD PRN PRN Reason: Hypoglycemia Protocol Stop: 03/10/22 05:10 Last Admin: 02/28/22 20:40 Dose: 15 gm Miscellaneous Information (Pharmacist Discharge Med Rec Consult) 1 each N/A UD PRN PRN Reason: Consult Stop: 03/19/22 13:57 Polyethylene Glycol (Polyethylene (Miralax) 17 Gm Pack) 17 gm PO DAILY [facility] Stop: 03/18/22 09:14 Last Admin: 02/28/22 08:34 Dose: Not Given Rosuvastatin Calcium (Rosuvastatin Calcium 20 Mg Tab) [facility] Stop: 03/10/22 08:59 Last Admin: 02/28/22 08:33 Dose: 20 mg
[2022-03-01] MEDS: FUROSEMIDE INJ 20 MG/2 ML VIAL IV SCH ×2 (09:07→17:28)
[2022-03-01] MEDS: ROSUVASTATIN CALCIUM 20 MG TAB PO SCH (09:07)
[2022-03-01] MEDS: AMIODARONE 200 MG TAB PO SCH (09:07)
[2022-03-01] MEDS: ASPIRIN 81 MG ECTAB PO SCH (09:07)
[2022-03-01] MEDS: APIXABAN 2.5 MG TAB PO SCH ×2 (09:08→20:07)
[2022-03-01] MEDS: METOPROLOL TARTRATE 25 MG TAB PO SCH ×2 (09:08→20:07)
[2022-03-01] MEDS: POLYETHYLENE (MIRALAX) 17 GM PACK PO SCH (09:08)
[2022-03-01] MEDS: INSULIN ASPART PER UNIT SC SCH ×4 (09:08→20:15)
--- NOTE | 2022-03-01 10:46 | Nephrology Progress Note ---
Date of Service March 01, 2022 Assessment & Plan (1) Acute kidney injury: Plan: 81-year-old male with previously normal kidney function, admitted with recurrent syncope related with ventricular tachycardia requiring cardioversion. He was also found to have new onset cardiomyopathy with an ejection fraction of 30% s/p ICD placement and cardiac cath mid month as well as new onset acute ischemic stroke involving the right middle cerebral artery. work up shows co mplete thrombosis R ICA and RCCA and nearly 50% narrowing at take off LICA from habematolel of aviles; not a candidate for surgical intervention. also having tx for BL basilar PNA > on doxycycline, cefepime. Nephrology consulted for abnormal kidney function in the setting of congestive heart failure, syncopal epiosdes and Ventricular tachycardia. Acute renal failure versus what will be new CKD given change in medical status w/ new HF, recent stroke. The patient's creatinine prior to this admission was near normal at 1.1, but since being admitted, it has been at a slightly higher level, but it is plateau'd in high ones since 02/14 w/ slow uptrend. Given that there has been significant drop in his ejection fraction, it is not unexpected to have slightly higher baseline creatinine in fact, this may prove to be his new baseline.HIS scR has been between 1.6 --1.8 with fluctuations, likley related to his fluid status. - Scr up to 2.2 today, hold lasix for 2 days - He had some evidence of congestive heart failure on the chest x-ray 02/20; EF 30% on TTE this month - Daily [facility] Admission and Anticipated Discharge Date Admission Date: February 08, 2022 Subjective Follow-up for acute CVA, recent hx of syncope - VT, s/p AICD Seen resting in bed, awake, able to answer simple questions, appropriately, follows simple commands Mental status improved, oral intake has improved as well. Physical Exam Physical Exam: GENERAL: Elderly white male, not in distress, follow simple command. HEENT: Mucous membrane dry NECK: Supple. Jugular venous distention is present. CHEST: Bilateral decreased breath sound, did not take any inspiratory effort, limited quality exam. CARDIOVASCULAR: S1 and S2, regular. Systolic murmur heard. ABDOMEN: Soft, nontender. EXTREMITIES:Trace edema. Results & Data ([facility]) Vital Signs (Past 12 Hours) Vital Signs Temp Pulse Pulse Pulse Resp BP BP 03/01/22 07:44 36.6 C 67 19 95/63 L 03/01/22 03:22 37 C 61 17 145/71 H 03/01/22 00:20 61 02/28/22 22:47 36.6 C 61 17 147/80 H Pulse Ox O2 Del Method O2 Flow Rate 03/01/22 07:44 94 Nasal Cannula 2 03/01/22 03:22 92 Nasal Cannula 2 03/01/22 00:20 02/28/22 22:47 87 L Room Air Laboratory Results 03/01/22 05:21 03/01/22 05:21
--- NOTE | 2022-03-01 13:41 | Palliative Care Consultation ---
Date of Consultation March 01, 2022 Assessment & Plan (1) Weakness: He mentions several times that he wants to get stronger to go home and be independent again. He is agreeable to rehab. (2) Palliative care encounter: I talked with Mr. Vazquez about his worries and concerns. He tells me that his greatest worry is going to sleep and not waking up. His code status is full code and he tells me that he would want any care necessary to keep him alive. I asked him what being "alive" meant to him and his reply was "to be just like I am right now". Being independent and in his home are very important to him. We discussed concern that if he did have full resuscitation he may very well not be able to return to living independently and could be dependent on ventilator for support. He told me that it is up to God when it is his time to go and that he would want whatever care he needs to prolong his life until then. He notes that his son in law, Sav Fischer, is his surrogate decision maker. He is confident that Sav would know what to do if needed. (3) CVA (cerebral vascular accident): (4) CAD (coronary artery disease): (5) Cardiomyopathy: (6) ICD (implantable cardioverter-defibrillator), dual, in situ: (7) CKD (chronic kidney disease): History of Present Illness Reason for Consultation: goals of care Requesting Physician: Dr. Eugene Attending Physician: Jad Eugene MD History of Present Illness 81 yo gentleman with history of CVA, PAD, COPD, afib and bladder cancer. He was admitted after two syncopal episodes at home and was found to have ventricular tachycardia treated with cardioversion. He did have a cardiac cath which showed moderate nonobstructive CAD and an echo which showed cardiomyopathy and EF of 30-35%. He did have ICD placed during his stay. He has also had a right parietal embolic CVA with some residual left sided weakness. He has had uptrending creatinine which is currently 2.27 with BUN of 61. He is awake and alert. He denies pain or dyspnea at this time. Allergies Allergy/AdvReac Type Severity Reaction Status Date / Time No Known Allergies Allergy Mild NONE Verified 09/15/20 09:46 Home Medications Medication Instructions Recorded Confirmed Type amiodarone 200 mg tablet 200 mg PO BIDM #60 tabs 02/12/22 Rx apixaban 2.5 mg tablet (Eliquis) 2.5 mg PO BID #60 tabs 02/12/22 Rx aspirin 81 mg chewable tablet 81 mg PO DAILY #30 tabs 02/12/22 Rx (Children's Aspirin) metoprolol tartrate 25 mg tablet 25 mg PO BID #30 tabs 02/12/22 Rx nitrofurantoin 100 mg PO BID 5 days #10 caps 02/12/22 Rx monohydrate/macrocrystals 100 mg capsule (Macrobid) rosuvastatin 20 mg tablet (Crestor) 20 mg PO QAM #30 tabs 02/12/22 Rx Patient History Medical History Bladder cancer Hypertension Social History Smoking Status: Current every day smoker Tobacco Type: Cigarettes Age Started Using Tobacco: 10; packs per day: 1.5; Second Hand Exposure: No; Hx Alcohol Use: No Hx Substance Use: No Preferred Language: Nepalese Communication Ability: Effective Um Nurse Required: No Beliefs That Will Affect Care: None Current Living Situation: Alone Feels Safe at Home: Yes Assistive Devices: Walker Review of Systems Review of Systems: ESAS Pain 0/3 Dyspnea 0/3 Drowsiness 0/3 Anorexia 1/3 Nausea 0/3 PPS 30% He was independent at home prior to admission. He has been seen by PT but has not been able to participate in therapy. Physical Exam Constitutional: + disheveled; no acute distress Respiratory: normal respiratory effort; no labored breathing Cardiovascular: Rate/Rhythm: + irregularly irregular Neurologic: awake; not confused Results & Data ([facility]) Vital Signs (Past 12 Hours) Vital Signs Temp Pulse Pulse Pulse Resp BP BP 03/01/22 11:42 97.9 F 61 18 132/73 03/01/22 08:00 61 03/01/22 07:44 97.9 F 67 19 95/63 L 03/01/22 03:22 98.6 F 61 17 145/71 H Pulse Ox O2 Del Method O2 Flow Rate 03/01/22 11:42 91 Nasal Cannula 2 03/01/22 08:00 03/01/22 07:44 94 Nasal Cannula 2 03/01/22 03:22 92 Nasal Cannula 2 PG Care Time/CCT Total # of Minutes Spent Total Time Spent: 64 Total Time Spent with Patient: Total time spent is greater than 50% in coordination of care (as documented) at patient's floor/unit and/or counseling patient: goals of care, surrogate decision maker, code status, patient education and support Coding Level of Care Code 00721 Initial Inpt Care Lvl 2 Diagnoses Weakness R53.1 Palliative care encounter Z51.5 CVA (cerebral vascular accident) I63.9 CAD (coronary artery disease) I25.10 Cardiomyopathy I42.9 ICD (implantable cardioverter-defibrillator), dual, in situ Z95.810 CKD (chronic kidney disease) N18.9
[2022-03-01] MEDS ORDERED: ALBUMIN 25% 100 mL 25 GM/100 ML VIAL IV ONE (17:49)
[2022-03-01] MEDS ORDERED: SODIUM CHLORIDE 0.9% 1000ML 500 ML IV ONE (17:49)
[2022-03-02] MEDS ORDERED: LACTATED RINGER'S 250 ML IV ONE (03:47)
[2022-03-02] MEDS: INSULIN ASPART PER UNIT SC SCH ×4 (08:31→20:27)
[2022-03-02] MEDS: ASPIRIN 81 MG ECTAB PO SCH (08:35)
[2022-03-02] MEDS: AMIODARONE 200 MG TAB PO SCH (08:35)
[2022-03-02] MEDS: APIXABAN 2.5 MG TAB PO SCH ×2 (08:35→20:18)
[2022-03-02] MEDS: ROSUVASTATIN CALCIUM 20 MG TAB PO SCH (08:36)
[2022-03-02] MEDS: METOPROLOL TARTRATE 25 MG TAB PO SCH ×2 (08:36→20:18)
[2022-03-02] MEDS: POLYETHYLENE (MIRALAX) 17 GM PACK PO SCH (08:37)
--- NOTE | 2022-03-02 09:47 | Hospitalist Progress Note ---
Date of Service March 02, 2022 Assessment & Plan (1) CVA (cerebral vascular accident): Plan: 81 yo M with multiple comorbid condition presented to the ED after episode of ventricular tachycardia requiring cardioversion in the field. In the hospitalization, patient was evaluated by cardiology service. He underwent cardiac cath in 02/09 which showed moderate nonobstructive coronary artery disease. Echo was suggestive for heart failure with reduced ejection fraction. He underwent pacemaker placement on 02/11. Patient signed out AMA on 02/12. He had a fall on his knees as he was getting in the car in the parking lot. He was admitted again and was evaluated with head CT which was unremarkable. He reported increase in his left arm weakness which has been going on for last [address] head was unremarkable for acute abnormality. Neurology service was consulted; recommend nonemergent MRI brain without contrast. Recurrent syncope likely secondary to ventricular tachycardia s/p ICD placement on 02/11. Paroxysmal A.fib Non- ischemic CMP H/O medication noncompliance - S/P Cardioversion in the field - S/P Cardiac Cath on 02/09/22: Moderate nonobstructive coronary disease. -- EEG was normal during wakefulness and drowsiness. No focal abnormalities, potentially epileptogenic discharges, or abnormal slow activity was seen. -- ECHO: EF 30 to 35%. Moderate to severe global hypokinesis of left ventricle . Mild mitral regurgitation. Mild tricuspid regurgitation. Estimated systolic pulmonary pressure is 48 mmHg. Dilated inferior vena cava with reduced collapsibility with sniff indicates an elevated right atrial pressure of 15 mmHg --Carotid USD: There is no sonographic evidence of hemodynamically significant stenosis in the right or left carotid arterial system. Antegrade flow is shown in the vertebral arteries. -- Eliquis changed to Heparin as patient NPO -> switched back to PO Eliquis on 92 PM as pt tolerating PO nephrology consulted, Lasix 10 mg IV twice daily ordered for now Monitor creatinine 02/27 -patient seen by cardiology, in follow-up. Amiodarone decreased to 200 mg daily. 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 Re- demonstration of the evolving/subacute right parietal and right centrum semiovale infarcts. 2. No intracranial hemorrhage or midline shift identified at this time. repeat CT head (02/20): 1. There are subacute/evolving infarcts in the right parietal lobe and the right centrum semiovale. 2. No hemorrhage or mass effect is seen. 3. Additional findings as above. CT angio head and neck: 1. There are subacute/evolving infarcts in the right parietal lobe and the right centrum semiovale. 2. There is no evidence of hemorrhage or midline shift. 3.There is complete thrombosis of the right common carotid artery and the right internal carotid artery to the [place]. 4. There is thrombosis at the origin of the right external carotid artery. This is reconstituted approximately 1.4 cm above the bifurcation. 5.Atherosclerotic plaque causes approximately 50% luminal narrowing at the origin of the left internal carotid artery. 6. The vertebral arteries are widely patent bilaterally. 7. The anterior and middle cerebral arteries are patent bilaterally. The right- sided vessels are likely supplied via the ACOM. 8. There is pruning of peripheral branches of the right MCA in the infarcting parietal region. 9. There is emphysema. 10. A left pleural effusion is partially imaged and there are airspace opacities in the left upper lobe. Correlate clinically for evidence of an infectious/inflammatory pneumonitis. 11. Additional findings as above. Discussed with Neurologist Dr. Tony also discussed with Neurologist Dr. Mccollum- [facility] patient not a candidate for thrombectomy- may result in hemorrhagic transformat ion Recommend to continue continue anticoagulation, ASA 02/23 Patient showing significant improvement today, aphasia improving Able to speak a few words, state his name and birthday Also following simple commands now Messaged speech therapist to reevaluate patient tomorrow-hopefully can resume oral feeding and all medications If patient fails speech therapy evaluation, [employer] recommends NG tube feeding by , family also agreeable with PEG tube if necessary 02/24 Patient is awake, following simple commands, answering simple questions Seen by speech, diet change, patient able to tolerate most of his lunch today Resume p.o. aspirin , metoprolol and p.o. amiodarone, discussed with RN, monitor for aspiration 02/25 Patient communicates less today, mostly nods or only says okay He is moving extremities spontaneously Per RN, he was able to take his p.o. meds 02/26 Communicates, follows simple commands, takes p.o. meds Reported headache, CT head obtained - unchanged, as above 02/27 continues to communicate, follows simple commands, takes p.o. meds 02/28, 03/01, 03/02 More talkative. Easily following commands. Takes p.o. meds. P.o. diet, however appetite is not the best. Acute hypoxic respiratory failure 2/2 CHFrEF exacerbation, bilateral basilar pneumonia - On Lasix, nephrology on board - finished IV cefepime + Doxy Day 12/31 - wean off O2 as tolerated HUONG on CKD3a - creatinine up trended to 1.86. -- crea remains at 1.7-1.8 Nephrology following - now lasix on hold Enterococcal UTI - s/p 5 days of ampicillin H/O CVA/PVD - management per above Hyperlipidemia -statin on hold as patient NPO COPD - on duonebs DM II - A1C:5.7 currently;Diet controlled; Insulin per Protocol while hospitalized BPH/bladder cancer S/P surgery Ongoing tobacco abuse- Counselled to quit smoking Multiple falls, weakness-Will need rehab DVT Px: Eliquis Dispo - Patient will need to be transitioned to rehab Admission and Anticipated Discharge Date Admission Date: February 08, 2022 Subjective Follow-up for acute CVA, recent hx of syncope - VT, s/p AICD Seen resting in bed, awake, able to answer simple questions, appropriately, follows simple commands More talkative every day. He has been tolerating p.o. meds. But appetite is not the best. Seen by palliative medicine yesterday, wishes to remain full code Review of Systems Review of Systems: All systems reviewed & are unremarkable except as noted in Subjective Physical Exam Physical Exam: General - awake, chronically ill-appearing male, not in distress Eyes- anicteric Neck- no JVD Lungs- clear BS bilaterally, no rales/wheezes Heart- normal rate, regular rhythm; no murmurs Abdomen- normal bowel sounds, nondistended, soft, nontender Extremities- no pretibial edema, no calf tenderness Neuro- awake and alert, able to answer simple questions, follows simple commands, able to move extremities (+left arm weakness - but he's able to squeeze fingers with his L hand) Skin- warm & dry Results & Data Results & Data ([facility]) Vital Signs (Past 12 Hours) Vital Signs Temp Pulse Pulse Pulse Pulse Resp BP 03/02/22 07:53 36.4 C L 68 16 03/02/22 05:38 61 18 94/52 L 03/02/22 03:00 37.1 C 61 17 85/49 L 03/02/22 00:39 96/58 L 03/02/22 00:36 60 03/01/22 23:08 36.9 C 80 18 85/51 L BP Pulse Ox O2 Del Method O2 Flow Rate 03/02/22 07:53 138/68 93 Nasal Cannula 2 03/02/22 05:38 95 Nasal Cannula 2 03/02/22 03:00 94 Nasal Cannula 4 03/02/22 00:39 03/02/22 00:36 03/01/22 23:08 Nasal Cannula 4 Laboratory Results 03/02/22 03/01/22 03/01/22 Range/Units 07:50 20:10 16:46 POC Glucose 117 H 95 122 H (70-99) mg/dl 03/01/22 Range/Units 12:14 POC Glucose 106 H (70-99) mg/dl Medications Administered Current Inpatient Medications Acetaminophen (Acetaminophen 325 Mg Tab) 650 mg PO Q4H PRN PRN Reason: Pain or Fever Stop: 03/10/22 05:10 Last Admin: 02/20/22 01:17 Dose: 650 mg Albuterol (Albut/Ipratrop 3mg/0.5mg Neb 3 Ml Vial) 3 ml NEB QIDR PRN; Protocol PRN Reason: Wheezing Stop: 03/11/22 06:59 Amiodarone HCl (Amiodarone 200 Mg Tab) 200 mg PO QAM [facility] Stop: 03/30/22 08:59 Last Admin: 03/02/22 08:35 Dose: 200 mg Apixaban (Apixaban 2.5 Mg Tab) 2.5 mg PO BID [facility] Stop: 03/28/22 20:59 Last Admin: 03/02/22 08:35 Dose: 2.5 mg Aspirin (Aspirin 300 Mg Supp) 150 mg NM Q24H KRISTY Stop: 03/24/22 18:44 Last Admin: 02/23/22 17:05 Dose: 150 mg Aspirin (Aspirin 81 Mg Ectab) 81 mg PO QAM KRISTY Stop: 03/26/22 16:14 Last Admin: 03/02/22 08:35 Dose: 81 mg Dextrose (Dextrose 50% 50 Ml Syringe) 25 - 50 ml IV UD PRN; Protocol PRN Reason: Hypoglycemia Protocol Stop: 03/10/22 05:10 Glucagon (Glucagon For Inj 1 Mg Vial) 1 mg SQ UD PRN; Protocol PRN Reason: Hypoglycemia Protocol Stop: 03/10/22 05:10 Glucose (Glucose 40% Gel 15 Gm Tube) 15 - 30 gm PO UD PRN; Protocol PRN Reason: Hypoglycemia Protocol Stop: 03/10/22 05:10 Glucose (Glucose 10 Tab/Tube) 4 - 8 tab PO UD PRN; Protocol PRN Reason: Hypoglycemia Treatment Stop: 03/10/22 05:10 Lorazepam 0.25 mg/ Syringe 0.25 mls @ 2 mls/min IV Q6H PRN PRN Reason: Agitation Stop: 03/22/22 18:29 Last Admin: 02/24/22 01:14 Dose: 2 mls/min Insulin Aspart (Insulin Aspart Per Unit) 0 units SC ACHS [facility] Stop: 03/26/22 11:59 Last Admin: 03/02/22 08:31 Dose: 2 units Ipratropium [place] (Ipratropium [place] Neb Soln 0.02% 2.5 Ml Vial) 0.5 mg INH Q6R PRN PRN Reason: Shortness Of Breath Stop: 03/16/22 15:29 Levalbuterol HCl (Levalbuterol 1.25mg/0.5ml Neb) 1.25 mg INH Q6R PRN PRN Reason: Shortness Of Breath Stop: 03/16/22 15:29 Melatonin (Melatonin 3 Mg Tab) 3 mg PO Q24H KRISTY Stop: 03/19/22 20:59 Last Admin: 02/19/22 20:50 Dose: 3 mg Metoprolol Tartrate (Metoprolol Tartrate 25 Mg Tab) 25 mg PO BID KRISTY Stop: 03/10/22 08:59 Last Admin: 03/02/22 08:36 Dose: 25 mg Miscellaneous (Carbohydrates For Hypoglycemia ) 15 - 30 gm PO UD PRN PRN Reason: Hypoglycemia Protocol Stop: 03/10/22 05:10 Last Admin: 02/28/22 20:40 Dose: 15 gm Polyethylene Glycol (Polyethylene (Miralax) 17 Gm Pack) 17 gm PO DAILY [facility] Stop: 03/18/22 09:14 Last Admin: 03/02/22 08:37 Dose: 17 gm Rosuvastatin Calcium (Rosuvastatin Calcium 20 Mg Tab) 20 mg PO QAM [facility] Stop: 03/10/22 08:59 Last Admin: 03/02/22 08:36 Dose: 20 mg
[2022-03-02 10:26] LABS: BUN Creatinine Ratio 25.1 (10-20); Calcium 9.6 mg/dl (8.5-10.1); Creatinine Clr Calc Pharmacy 24.2 ml/min; Est GFR (African American) 31.3 ml/min; Potassium 3.4 mmol/L (3.5-5.1)
--- NOTE | 2022-03-02 11:55 | Nephrology Progress Note ---
Date of Service March 02, 2022 Assessment & Plan Admission and Anticipated Discharge Date Admission Date: February 08, 2022 Subjective Assessment & Plan (1) Acute kidney injury: Plan: 81-year-old male with previously normal kidney function, admitted with recurrent syncope related with ventricular tachycardia requiring cardioversion. He was also found to have new onset cardiomyopathy with an ejection fraction of 30% s/p ICD placement and cardiac cath mid month as well as new onset acute ischemic stroke involving the right middle cerebral artery. work up shows complete thrombosis R ICA and RCCA and nearly 50% narrowing at take off LICA from [place]; not a candidate for surgical intervention. also having tx for BL basilar PNA > on doxycycline, cefepime. Nephrology consulted for abnormal kidney function in the setting of congestive heart failure, syncopal episodes and Ventricular tachycardia. Acute renal failure versus what will be new CKD given change in medical status w/ new HF, recent stroke. The patient's creatinine prior to this admission was near normal at 1.1, but since being admitted, it has been at a slightly higher l evel, but it is plateau'd in high ones since 02/14 w/ slow uptrend. Given that there has been significant drop in his ejection fraction, it is not unexpected to have slightly higher baseline creatinine in fact, this may prove to be his new baseline.HIS scR has been between 1.6 --1.8 with fluctuations, likley related to his fluid status. - Scr about same as yesterday--2.23 today, --Continue to hold lasix for 2 days but cant hold forever. Also will depend on his food intake - He had some evidence of congestive heart failure on the chest x-ray 02/20; EF 30% on TTE this month - Daily BMP --However his creat is unlikely to come back to previous level. reviewed palliative med Note--Says full code for now. Subjective Follow-up for acute CVA, recent hx of syncope - VT, s/p AICD Seen resting in bed, awake, able to answer simple questions, appropriately, follows simple commands Physical Exam Physical Exam: GENERAL: Elderly white male, not in distress, follow simple command. HEENT: Mucous membrane dry NECK: Supple. Jugular venous distention is present. CHEST: Bilateral decreased breath sound, did not take any inspiratory effort, limited quality exam. CARDIOVASCULAR: S1 and S2, regular. Systolic murmur heard. ABDOMEN: Soft, nontender. EXTREMITIES:Trace edema. Results & Data ([facility]) Vital Signs (Past 12 Hours) Vital Signs Temp Pulse Pulse Pulse Pulse Resp BP 03/02/22 11:07 36.3 C L 60 18 03/02/22 07:00 60 03/02/22 08:00 03/02/22 07:53 36.4 C L 68 16 03/02/22 05:38 61 18 94/52 L 03/02/22 03:00 37.1 C 61 17 85/49 L 03/02/22 00:39 96/58 L 03/02/22 00:36 60 BP Pulse Ox O2 Del Method O2 Flow Rate 03/02/22 11:07 128/72 97 Nasal Cannula 2 03/02/22 07:00 03/02/22 08:00 Nasal Cannula 2 03/02/22 07:53 138/68 93 Nasal Cannula 2 03/02/22 05:38 95 Nasal Cannula 2 03/02/22 03:00 94 Nasal Cannula 4 03/02/22 00:39 03/02/22 00:36
[2022-03-03 06:34] LABS: BUN Creatinine Ratio 25.9 (10-20); Calcium 9.6 mg/dl (8.5-10.1); Creatinine Clr Calc Pharmacy 26.9 ml/min; Est GFR (African American) 35.5 ml/min; Est GFR (Non-African American) 30.6 ml/min; Potassium 3.6 mmol/L (3.5-5.1)
[2022-03-03] MEDS: INSULIN ASPART PER UNIT SC SCH ×4 (08:38→20:13)
[2022-03-03] MEDS: AMIODARONE 200 MG TAB PO SCH (08:38)
[2022-03-03] MEDS: METOPROLOL TARTRATE 25 MG TAB PO SCH ×2 (08:38→20:14)
[2022-03-03] MEDS: APIXABAN 2.5 MG TAB PO SCH ×2 (08:38→20:13)
[2022-03-03] MEDS: ASPIRIN 81 MG ECTAB PO SCH (08:38)
[2022-03-03] MEDS: ROSUVASTATIN CALCIUM 20 MG TAB PO SCH (08:39)
[2022-03-03] MEDS: POLYETHYLENE (MIRALAX) 17 GM PACK PO SCH (08:39)
--- NOTE | 2022-03-03 10:51 | Nephrology Progress Note ---
Date of Service March 03, 2022 Assessment & Plan Admission and Anticipated Discharge Date Admission Date: February 08, 2022 Subjective Subjective Assessment & Plan (1) Acute kidney injury: Plan: 81-year-old male with previously normal kidney function, admitted with recurrent syncope related with ventricular tachycardia requiring cardioversion. He was also found to have new onset cardiomyopathy with an ejection fraction of 30% s/p ICD placement and cardiac cath mid month as well as new onset acute ischemic stroke involving the right middle cerebral artery. work up shows complete thrombosis R ICA and RCCA and nearly 50% narrowing at take off LICA from [place]; not a candidate for surgical intervention. also having tx for BL basilar PNA > on doxycycline, cefepime. Nephrology consulted for abnormal kidney function in the setting of congestive heart failure, syncopal episodes and Ventricular tachycardia. Acute renal failure versus what will be new CKD given change in medical status w/ new HF, recent stroke. The patient's creatinine prior to this admission was near normal at 1.1, but since being admitted, it has been at a slightly higher level, but it is plateau'd in high ones since 02/14 w/ slow uptrend. Given that there has been significant drop in his ejection fraction, it is not unexpected to have slightly higher baseline creatinine in fact, this may prove to be his new baseline.HIS scR has been between 1.6 --1.8 with fluctuations, likley related to his fluid status. - Scr slightly better --Continue to hold lasix for now but cant hold forever. Also will depend on his food intake - He had some evidence of congestive heart failure on the chest x-ray 02/20; EF 30% on TTE this month - Daily BMP --However his creat is unlikely to come back to previous level. reviewed palliative med Note--Says full code for now. Subjective Follow-up for acute CVA, recent hx of syncope - VT, s/p AICD Seen resting in bed, awake, able to answer simple questions, appropriately, follows simple commands Physical Exam Physical Exam: GENERAL: Elderly white male, not in distress, follow simple command. HEENT: Mucous membrane dry NECK: Supple. Jugular venous distention is present. CHEST: Bilateral decreased breath sound, did not take any inspiratory effort, limited quality exam. CARDIOVASCULAR: S1 and S2, regular. Systolic murmur heard. ABDOMEN: Soft, nontender. EXTREMITIES:Trace edema. Results & Data ([facility]) Vital Signs (Past 12 Hours) Vital Signs Temp Pulse Pulse Resp BP BP Pulse Ox 03/03/22 10:35 36.4 C L 60 17 139/77 99 03/03/22 08:02 36.6 C 61 16 118/61 93 03/03/22 03:00 36.4 C L 60 20 98/54 L 90 03/02/22 23:00 36.6 C 60 18 135/78 95 03/02/22 22:53 60 O2 Del Method O2 Flow Rate 03/03/22 10:35 Nasal Cannula 2 03/03/22 08:02 Nasal Cannula 2 03/03/22 03:00 Nasal Cannula 03/02/22 23:00 Room Air 03/02/22 22:53
--- NOTE | 2022-03-03 16:52 | Hospitalist Progress Note ---
Date of Service March 03, 2022 Assessment & Plan (1) CVA (cerebral vascular accident): Plan: Patient is a 81 yr male with multiple comorbid condition presented to the ED after episode of ventricular tachycardia requiring cardioversion in the field.Cardiac cath in 02/09 which showed moderate nonobstructive coronary artery disease. Echo was suggestive for heart failure with reduced ejection fraction. He underwent pacemaker placement on 02/11. Patient signed out AMA on 02/12. Patient fell on his knees as he was getting in the car in the parking lot. He was re-admitted and was evaluated by Neurology for CVA. Recurrent syncope likely secondary to ventricular tachycardia S/P ICD placement on 02/11. Paroxysmal A.fib Non- ischemic Cardiomyopathy H/O medication noncompliance - S/P Cardioversion in the field -S/P Cardiac Cath on 02/09/22: Moderate nonobstructive coronary disease. --EEG was normal during wakefulness and drowsiness. No focal abnormalities, potentially epileptogenic discharges, or abnormal slow activity was seen. --ECHO: EF 30 to 35%. Moderate to severe global hypokinesis of left ventricle. Mild mitral regurgitation. Mild tricuspid regurgitation. Estimated systolic pulmonary pressure is 48 mmHg. Dilated inferior vena cava with reduced collapsibility with sniff indicates an elevated right atrial pressure of 15 mmHg --Carotid USD: There is no sonographic evidence of hemodynamically significant stenosis in the right or left carotid arterial system. Antegrade flow is shown in the vertebral arteries. -- Continue amiodarone, Eliquis --Also on metoprolol 25 mg twice daily Appreciate cardiology input Acute CVA --Head CTA:There are subacute/evolving infarcts in the right parietal lobe and the right centrum semiovale. There is no evidence of hemorrhage or midline shift. There is complete thrombosis of the right common carotid artery and the right internal carotid artery to the [place]. There is thrombosis at the origin of the right external carotid artery. This is reconstituted approximately 1.4 cm above the bifurcation. Atherosclerotic plaque causes approximately 50% luminal narrowing at the origin of the left internal carotid artery. The vertebral arteries are widely patent bilaterally. The anterior and middle cerebral arteries are patent bilaterally. The right-sided vessels are likely supplied via the ACOM. There is pruning of peripheral branches of the right MCA in the infarcting parietal region. There is emphysema. --Brain MRI cannot be performed as patient had recent AICD placement -- Continue aspirin, statin Also on Eliquis Appreciate neurology input Prior hospitalist discussed with Neurologist Dr. Tony and Neurologist Dr. Mccollum- [facility]: Not a candidate for thrombectomy- may result in hemorrhagic transformation Needs follow-up with neurology upon discharge Continue PT OT Fall precautions Acute hypoxic respiratory failure CHFrEF exacerbation, bilateral basilar pneumonia Completed cefepime, doxycycline for 7-day course IV diuresis as per nephrology Wean off of oxygen as able HUONG on CKD III Cr 2.0 today Continue to hold Lasix today Monitor volume status Appreciate nephrology input Enterococcal UTI Completed 5-day course of Ampicillin H/O CVA/PVD management per above Hyperlipidemia statin COPD Continue Nebs DM II HbA1C:5.7 Diet controlled Insulin per Protocol while hospitalized BPH/bladder cancer S/P surgery Ongoing tobacco abuse Counselled to quit smoking Multiple falls Will need rehab DVT Px: Eliquis CODE STATUS Full code Disposition Rehab as able Admission and Anticipated Discharge Date Admission Date: February 08, 2022 Subjective Patient is seen and examined at bedside States feeling well today Offers no complaints Denies any chest pain, shortness of breath, dizziness, nausea, abdominal pain Creatinine levels improving Review of Systems Review of Systems: All systems reviewed & are unremarkable except as noted in Subjective Physical Exam Physical Exam: Physical Exam: Vitals signs as noted above General Appearance:Moderately built and nourished, no apparent distress, chronically appearing Head: normocephalic, Atraumatic Eyes: normal inspection, EOMI, Neck: supple, Trachea midline Respiratory/Chest: Normal breath sounds, CTA, L pacer Cardiovascular: S1, S2, No murmur Abdomen/GI:Soft, Non tender, Bowel sounds present Extremities/Musculoskeletal:normal inspection, no edema Neurologic/Psych:AAOX3, Left UE/LE : 3/5 Skin: normal color, warm Results & Data Results & Data ([facility]) Vital Signs (Past 12 Hours) Vital Signs Temp Pulse Resp BP Pulse Ox O2 Del Method O2 Flow Rate 03/03/22 16:10 36.5 C 62 16 150/76 H 96 Nasal Cannula 2 03/03/22 10:35 36.4 C L 60 17 139/77 99 Nasal Cannula 2 03/03/22 08:02 36.6 C 61 16 118/61 93 Nasal Cannula 2 Laboratory Results [facility] 03/03/22 05:42 Sodium 143 Potassium 3.6 Chloride 109 H Carbon Dioxide 28 BUN 52 H Creatinine 2.01 H Glucose 93 Calcium 9.6
[2022-03-04 06:25] LABS: Hematocrit (blood only) 45.6 % (40.1-51.0); Hemoglobin 14.1 g/dl (14.0-18.0); Mean Corpuscular Hemoglobin 29.8 pg (25.0-34.0); Mean Corpuscular Hgb Conc 30.9 g/dL (32.0-36.0); Mean Corpuscular Volume 96.4 fL (80.0-100.0); Mean Platelet Volume 12.4 fL (9.4-12.4); Platelet Count 111 K/uL (130-400); RDW Coefficient of Variation 15.5 % (11.5-14.5); RDW Standard Deviation 55.6 fL (36.4-46.3); Red Blood Count 4.73 M/uL (4.63-6.08); White Blood Count 9.19 K/ul (4.8-10.8)
[2022-03-04 06:50] LABS: BUN Creatinine Ratio 24.9 (10-20); Calcium 9.8 mg/dl (8.5-10.1); Est GFR (African American) 37.3 ml/min; Est GFR (Non-African American) 32.2 ml/min; Magnesium 2.1 mg/dl (1.7-2.4); Potassium 3.7 mmol/L (3.5-5.1)
[2022-03-04] MEDS: INSULIN ASPART PER UNIT SC SCH ×2 (08:29→12:14)
[2022-03-04] MEDS: POLYETHYLENE (MIRALAX) 17 GM PACK PO SCH (09:21)
[2022-03-04] MEDS: AMIODARONE 200 MG TAB PO SCH (09:21)
[2022-03-04] MEDS: ROSUVASTATIN CALCIUM 20 MG TAB PO SCH (09:21)
[2022-03-04] MEDS: ASPIRIN 81 MG ECTAB PO SCH (09:21)
[2022-03-04] MEDS: METOPROLOL TARTRATE 25 MG TAB PO SCH (09:22)
[2022-03-04] MEDS: APIXABAN 2.5 MG TAB PO SCH (09:22)
--- NOTE | 2022-03-04 10:07 | Nephrology Progress Note ---
Date of Service March 04, 2022 Assessment & Plan Admission and Anticipated Discharge Date Admission Date: February 08, 2022 Subjective [facility], [id number] Nephrology Progress Note Signed Patient:RAFY MARIA Admit Date:02/08/22 MR#:[id number] Att Phy:Alexander Gaytan MD Acct ID:[id number] Svitlana Phy:MarquitayovanaJagruti DO Date:1940 Fam Phy: Age:81 Location:4W Sex:M Room/Bed:W1 cc: ~ *NOTICE TO RECEIVING [employer]/AGENCY This information is strictly Confidential and protected under [place] law. [place] law prohibits you from making any further disclosure of this information unless further disclosure is expressly permitted by the written consent of the person to whom it pertains or is authorized by law. A general authorization for the release of medical or other information is not sufficient for this purpose. Hospital accepts no responsibility if the information is made available to any other person, INCLU DING THE PATIENT. Assessment & Plan Subjective Subjective Assessment & Plan (1) Acute kidney injury: Plan: 81-year-old male with previously normal kidney function, admitted with recurrent syncope related with ventricular tachycardia requiring cardioversion. He was also found to have new onset cardiomyopathy with an ejection fraction of 30% s/p ICD placement and cardiac cath mid month as well as new onset acute ischemic stroke involving the right middle cerebral artery. 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 also having tx for BL basilar PNA > on doxycycline, cefepime. Nephrology consulted for abnormal kidney function in the setting of congestive heart failure, syncopal episodes and Ventricular tachycardia. Acute renal failure versus what will be new CKD given change in medical status w/ new HF, recent stroke. The patient's creatinine prior to this admission was near normal at 1.1, but since being admitted, it has been at a slightly higher level, but it is plateau'd in high ones since 02/14 w/ slow uptrend. Given that there has been significant drop in his ejection fraction, it is not unexpected to have slightly higher baseline creatinine in fact, this may prove to be his new baseline.HIS scR has been between 1.6 --1.8 with fluctuations, likley related to his fluid status. - Scr slightly better --restart lasix 40 po daily from tomorrow. Also will depend on his food intake - He had some evidence of congestive heart failure on the chest x-ray 02/20; EF 30% on TTE this month - Daily BMP --However his creat is unlikely to come back to previous level. reviewed palliative med Note--Says full code for now. Subjective Follow-up for acute CVA, recent hx of syncope - VT, s/p AICD Seen resting in bed, awake, able to answer simple questions, appropriately, follows simple commands. No new issues. Physical Exam Physical Exam: GENERAL: Elderly white male, not in distress, follow simple command. HEENT: Mucous membrane dry NECK: Supple. Jugular venous distention is present. CHEST: Bilateral decreased breath sound, did not take any inspiratory effort, limited quality exam. CARDIOVASCULAR: S1 and S2, regular. Systolic murmur heard. ABDOMEN: Soft, nontender. EXTREMITIES:Trace edema. Results & Data ([facility]) Vital Signs (Past 12 Hours) Vital Signs Temp Pulse Pulse Pulse Resp BP Pulse Ox 03/04/22 07:56 36.5 C 60 18 91/54 L 2 L 03/04/22 03:33 36.3 C L 59 L 16 98/58 L 96 03/04/22 02:43 60 03/03/22 23:27 36.4 C L 61 16 111/72 97 O2 Del Method O2 Flow Rate 03/04/22 07:56 Nasal Cannula 03/04/22 03:33 Nasal Cannula 2 03/04/22 02:43 03/03/22 23:27 Nasal Cannula 2
--- NOTE | 2022-03-04 13:14 | Hospitalist Progress Note ---
Date of Service March 04, 2022 Assessment & Plan (1) CVA (cerebral vascular accident): Plan: Patient is a 81 yr male with multiple comorbid condition presented to the ED after episode of ventricular tachycardia requiring cardioversion in the field.Cardiac cath in 02/09 which showed moderate nonobstructive coronary artery disease. Echo was suggestive for heart failure with reduced ejection fraction. He underwent pacemaker placement on 02/11. Patient signed out AMA on 02/12. Patient fell on his knees as he was getting in the car in the parking lot. He was re-admitted and was evaluated by Neurology for CVA. Recurrent syncope likely secondary to ventricular tachycardia S/P ICD placement on 02/11. Paroxysmal A.fib Non- ischemic Cardiomyopathy H/O medication noncompliance - S/P Cardioversion in the field -S/P Cardiac Cath on 02/09/22: Moderate nonobstructive coronary disease. --EEG was normal during wakefulness and drowsiness. No focal abnormalities, potentially epileptogenic discharges, or abnormal slow activity was seen. --ECHO: EF 30 to 35%. Moderate to severe global hypokinesis of left ventricle. Mild mitral regurgitation. Mild tricuspid regurgitation. Estimated systolic pulmonary pressure is 48 mmHg. Dilated inferior vena cava with reduced collapsibility with sniff indicates an elevated right atrial pressure of 15 mmHg --Carotid USD: There is no sonographic evidence of hemodynamically significant stenosis in the right or left carotid arterial system. Antegrade flow is shown in the vertebral arteries. -- Continue amiodarone, Eliquis --Also on metoprolol 25 mg twice daily Appreciate cardiology input Needs follow-up with cardiology upon discharge Acute CVA --Head CTA:There are subacute/evolving infarcts in the right parietal lobe and the right centrum semiovale. There is no evidence of hemorrhage or midline shift. 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 There is thrombosis at the origin of the right external carotid artery. This is reconstituted approximately 1.4 cm above the bifurcation. Atherosclerotic plaque causes approximately 50% luminal narrowing at the origin of the left internal carotid artery. The vertebral arteries are widely patent bilaterally. The anterior and middle cerebral arteries are patent bilaterally. The right-sided vessels are likely supplied via the ACOM. There is pruning of peripheral branches of the right MCA in the infarcting parietal region. There is emphysema. --Brain MRI cannot be performed as patient had recent AICD placement -- Continue aspirin, statin Also on Eliquis Appreciate neurology input Prior hospitalist discussed with Neurologist Dr. Tony and Neurologist Dr. Mccollum- [facility]: Not a candidate for thrombectomy- may result in hemorrhagic transformation Needs follow-up with neurology upon discharge Continue PT OT Fall precautions Advised to follow-up with neurology upon discharge Acute hypoxic respiratory failure CHFrEF exacerbation, bilateral basilar pneumonia Completed cefepime, doxycycline for 7-day course IV diuresis as per nephrology Wean off of oxygen as able HUONG on CKD III Cr 1.9 today Monitor volume status Appreciate nephrology input And to resume Lasix tomorrow as per nephrology Enterococcal UTI Completed 5-day course of Ampicillin H/O CVA/PVD management per above Hyperlipidemia statin COPD Continue Nebs DM II HbA1C:5.7 Diet controlled Insulin per Protocol while hospitalized BPH/bladder cancer S/P surgery Ongoing tobacco abuse Counselled to quit smoking Multiple falls Will need rehab DVT Px: Eliquis CODE STATUS Full code Disposition Rehab Admission and Anticipated Discharge Date Admission Date: February 08, 2022 Subjective Patient is seen and examined at bedside No new complaints Discussed with nephrology today Plan to be discharged to rehab facility today Creatinine continues to improve Left-sided weakness about the same as yesterday Denies any chest pain, shortness of breath, dizziness, nausea, abdominal pain Review of Systems Review of Systems: All systems reviewed & are unremarkable except as noted in Subjective Physical Exam Physical Exam: Physical Exam: Vitals signs as noted above General Appearance:Moderately built and nourished, no apparent distress, chronically appearing Head: normocephalic, Atraumatic Eyes: normal inspection, EOMI, Neck: supple, Trachea midline Respiratory/Chest: Normal breath sounds, CTA, L pacer Cardiovascular: S1, S2, No murmur Abdomen/GI:Soft, Non tender, Bowel sounds present Extremities/Musculoskeletal:normal inspection, no edema Neurologic/Psych:AAOX3, Left UE/LE : 3/5 Skin: normal color, warm Results & Data Results & Data ([facility]) Vital Signs (Past 12 Hours) Vital Signs Temp Pulse Pulse Pulse Resp BP Pulse Ox 03/04/22 11:31 36.9 C 62 19 102/60 93 03/04/22 08:00 60 03/04/22 08:00 03/04/22 07:56 36.5 C 60 18 91/54 L 2 L 03/04/22 03:33 36.3 C L 59 L 16 98/58 L 96 03/04/22 02:43 60 O2 Del Method O2 Flow Rate 03/04/22 11:31 Nasal Cannula 3 03/04/22 08:00 03/04/22 08:00 Nasal Cannula 2 03/04/22 07:56 Nasal Cannula 03/04/22 03:33 Nasal Cannula 2 03/04/22 02:43 Laboratory Results Short CBC 03/04/22 Range/Units 06:13 WBC 9.19 (4.8-10.8) K/ul Hgb 14.1 (14.0-18.0) g/dl Hct 45.6 (40.1-51.0) % Plt Count 111 L (130-400) K/uL BMP 03/04/22 06:13 Sodium 143 Potassium 3.7 Chloride 109 H Carbon Dioxide 29 BUN 48 H Creatinine 1.93 H Glucose 96 Calcium 9.8
--- NOTE | 2022-03-04 13:34 | Discharge Summary ---
Date of Service March 04, 2022 Admission HPI Per Admitting Provider Chief Complaint: Recurrent syncope Primary Care Provider: Jagruti Blunt DO History obtained from patient and records. Medical history significant for PAF (Eliquis noncompliance), history of NSVT, hypertension, hyperlipidemia, CVA, PVD, COPD, prediabetes, BPH, bladder cancer status post surgery, ongoing tobacco abuse, medication noncompliance. Last confinement July 2020 for atrial flutter/A. fib with RVR attributed to flulike symptoms. Patient discharged on beta-jarod and Eliquis Rx. Patient stopped taking medications after 6 months because he did not feel well taking them. Has not seen cardiology outpatient on follow-up. Last week, patient had an unwitnessed syncopal event while eating. Woke up on the floor. No headache, no chest pain, no unusual SOB, no tongue biting/no incontinence. No consultations done. Patient had another unwitnessed syncopal episode last night. He remembers just playing with a videogame on his tablet prior to episode. Woke up on the floor with a painful bump on his head. No other symptoms. Patient called 911. Patient found by EMS to have frequent PVCs and an episode of V. tach leading to unconsciousness. Subsequent cardioversion at 100 J with NSR conversion. IV amiodarone bolus subsequently administered on the field following medical command recommendations. At the ER, IV amiodarone infusion initiated. Admission Exam Per Admitting Provider Physical Exam Physical Exam: GENERAL: Comfortable, slightly hard of hearing, unkempt, no respiratory distress SKIN: Normal color, warm HEENT: Right forehead contusion, Bolt palpebral conjunctivae, no ptosis, dry buccal mucosa NECK : Supple, no tenderness CHEST : Decreased breath sounds, occasional expiratory wheezes, no tenderness HEART : RRR, no obvious murmurs ABDOMEN: Some distention, nontender EXTREMITIES : No LE swelling/tenderness, no other conspicuous deformities noted NEUROLOGIC : Coherent, no facial asymmetry, slightly hard of hearing, no other gross focality Principal Diagnosis VT with syncope s/p AICD Acute CVA UTI HUONG Acute hypoxic respiratory failure Discharge Data Allergies Allergy/AdvReac Type Severity Reaction Status Date / Time No Known Allergies Allergy Mild NONE Verified 09/15/20 09:46 Consultations 02/08/22 05:11 Consult Cardiology Routine 02/08/22 12:04 Consult Cardiac Electrophysiology Routine 02/13/22 15:53 Consult Neurology Routine 02/18/22 08:06 Consult Nephrology Routine 02/25/22 12:56 Consult Cardiology Routine 02/25/22 18:04 Consult Palliative Care Routine Procedures Performed Operation Date: 02/09/22 09:30 Actual Procedures p Cath, Left with Cors and Vent - Louis Golden DO s Cineradiography w/Routine Chandler - Louis Golden DO Operation Date: 02/11/22 13:00 Actual Procedures p ICD Insertion Single or Dual - Diego Freeman MD Head/Neck CTA: FINDINGS: Brain parenchyma: Again seen is a subacute/evolving infarct in the high right posterior parietal lobe. An additional evolving infarct is noted in the right centrum semiovale. There is an additional chronic infarct in the high right parietal lobe. There is age-related involutional change noting mild subcortical and periventricular microangiopathic disease. There is no evidence of enhancing mass lesion on the angiogram phase images. No hemorrhage is seen. The ventricles, sulci, and cisterns are prominent secondary to positional change. No extra-axial fluid collection is seen. Thoracic aorta: Visualized portions of the thoracic aorta are normal in caliber. The aortic arch demonstrates standard 3-vessel anatomy. 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 There is thrombosis of the origin of the right external carotid artery. This is reconstituted approximately 1.4 cm above the bifurcation. Left carotid arterial system: The left common carotid artery is widely patent noting atherosclerotic plaque and irregularity. Advanced atherosclerotic plaque is seen in the carotid bulb. This causes approximately 50% focal stenosis at the origin of the left internal carotid artery. Remainder of the left internal carotid artery is widely patent, as is the left external carotid artery. Vertebral arteries: The vertebral arteries are widely patent bilaterally and codominant. Subclavian arteries: Widely patent bilaterally noting atherosclerotic plaque and irregularity. Intracranial vasculature: The right internal carotid artery is thrombosed at the skull base to the [place]. The left internal at the skull base, as are the anterior and middle cerebral arteries bilaterally. The right anterior and middle cerebral arteries are likely supplied via the anterior to indicating artery. The vertebrobasilar system and posterior cerebral arteries are widely patent. The vertebral arteries are codominant. There is pruning of posterior peripheral branches of the right MCA in the right parietal region. No aneurysm is seen. Jugular veins: Patent bilaterally. Dural sinuses: Patent. Upper chest: There is advanced emphysema. A left pleural effusion is partially imaged. Question mild patchy opacities in the left upper lobe. Mild enlargement of lymph nodes measure up to 10 mm in short axis. Pacemaker leads are noted at the left thoracic inlet. Soft tissues: The visualized pharyngeal soft tissues are normal in appearance noting angiographic phase technique. The oropharyngeal airway appears widely patent. The salivary and thyroid glands are normal in appearance. No cervical lymphadenopathy is seen. Skeletal structures: The skeletal structures are osteopenic. The calvarium appears intact. The cervical spine is maintained Advanced spondylosis. No lytic or blastic lesion is seen. Mild chronic appearing compression deformities are noted in the upper thoracic spine. Orbits: The bony orbits are intact. Orbital contents are normal as visualized no change bilateral ocular lens implants. Sinuses and mastoids: The paranasal sinuses are clear. There is a left mastoid effusion. The right mastoid air cells are well pneumatized. IMPRESSION: 1. There are subacute/evolving infarcts in the right parietal lobe and the right centrum semiovale. 2. There is no evidence of hemorrhage or midline shift. 3. 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 4. There is thrombosis at the origin of the right external carotid artery. This is reconstituted approximately 1.4 cm above the bifurcation. 5. Atherosclerotic plaque causes approximately 50% luminal narrowing at the origin of the left internal carotid artery. 6. The vertebral arteries are widely patent bilaterally. 7. The anterior and middle cerebral arteries are patent bilaterally. The right- sided vessels are likely supplied via the ACOM. 8. There is pruning of peripheral branches of the right MCA in the infarcting parietal region. 9. There is emphysema. 10. A left pleural effusion is partially imaged and there are airspace opacities in the left upper lobe. Correlate clinically for evidence of an infectious/inflammatory pneumonitis. 11. Additional findings as above. Head CT: 1. Exam mildly compromised by motion artifact. No acute intracranial hemorrhage. 2. Evolving infarcts within the right parietal lobe and the right centrum semiovale which are better depicted on prior exam. CXR: FINDINGS: An AP, portable, upright chest radiograph is compared to study dated 02/16/2022 and correlated with chest CT dated 02/17/2022. The examination is significantly degraded by portable technique and patient rotation. A 2-lead cardiac AICD is unchanged in position. The heart is enlarged noting atherosclerotic calcification of the thoracic area. There is pulmonary vascular congestion. Emphysema and chronic interstitial thickening is similar to previous. There are small pleural effusions, left larger than right with dependent atelectasis. No pneumothorax is seen. The skeletal structures are osteopenic. The bony thorax is grossly intact. IMPRESSION: 1. Cardiomegaly and AICD with evidence of congestive failure. This is similar to previous. 2. Small pleural effusions. Ordered Studies 02/08/22 01:27 CT cervical spine wo con Stat CT head/brain wo con Stat 02/08/22 04:33 Carotid duplex [US carotid doppler BI] Routine 02/09/22 US venous doppler LE BI Urgent 02/09/22 08:33 CL Cath Imgs for PACS use only Routine 02/11/22 07:45 EP Lab Images for PACS ONCE 02/12/22 14:45 CT head/brain wo con Routine 02/16/22 09:13 CT head/brain wo con Routine 02/17/22 09:50 CT head/brain wo con Urgent 02/17/22 10:00 CT chest diagnostic wo con DAILY 02/18/22 13:30 FL video swallow Routine 02/20/22 10:41 CT head/brain wo con Stat 02/20/22 11:35 CT angio head w con Stat CT angio neck with con Stat 02/21/22 03:49 CT head/brain wo con Urgent 02/26/22 10:41 CT head/brain wo con Stat Hospital Course (1) CVA (cerebral vascular accident): Patient is a 81 yr male with multiple comorbid condition presented to the ED after episode of ventricular tachycardia requiring cardioversion in the [facility].Cardiac cath in 02/09 which showed moderate nonobstructive coronary artery disease. Echo was suggestive for heart failure with reduced ejection fraction. He underwent pacemaker placement on 02/11. Patient signed out AMA on 02/12. Patient fell on his knees as he was getting in the car in the parking lot. He was re-admitted and was evaluated by Neurology for CVA. Recurrent syncope likely secondary to ventricular tachycardia S/P ICD placement on 02/11. Paroxysmal A.fib Non- ischemic Cardiomyopathy H/O medication noncompliance - S/P Cardioversion in the field -S/P Cardiac Cath on 02/09/22: Moderate nonobstructive coronary disease. --EEG was normal during wakefulness and drowsiness. No focal abnormalities, potentially epileptogenic discharges, or abnormal slow activity was seen. --ECHO: EF 30 to 35%. Moderate to severe global hypokinesis of left ventricle. Mild mitral regurgitation. Mild tricuspid regurgitation. Estimated systolic pulmonary pressure is 48 mmHg. Dilated inferior vena cava with reduced collapsibility with sniff indicates an elevated right atrial pressure of 15 mmHg --Carotid USD: There is no sonographic evidence of hemodynamically significant stenosis in the right or left carotid arterial system. Antegrade flow is shown in the vertebral arteries. -- Continue amiodarone, Eliquis --Also on metoprolol 25 mg twice daily Appreciate cardiology input Needs follow-up with cardiology upon discharge Acute CVA --Head CTA:There are subacute/evolving infarcts in the right parietal lobe and the right centrum semiovale. There is no evidence of hemorrhage or midline shift. 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 There is thrombosis at the origin of the right external carotid artery. This is reconstituted approximately 1.4 cm above the bifurcation. Atherosclerotic plaque causes approximately 50% luminal narrowing at the origin of the left internal carotid artery. The vertebral arteries are widely patent bilaterally. The anterior and middle cerebral arteries are patent bilaterally. The right-sided vessels are likely supplied via the ACOM. There is pruning of peripheral branches of the right MCA in the infarcting parietal region. There is emphysema. --Brain MRI cannot be performed as patient had recent AICD placement -- Continue aspirin, statin Also on Eliquis Appreciate neurology input Prior hospitalist discussed with Neurologist Dr. Tony and Neurologist Dr. Mccollum- [facility]: Not a candidate for thrombectomy- may result in hemorrhagic transformation Needs follow-up with neurology upon discharge Continue PT OT Fall precautions Advised to follow-up with neurology upon discharge Acute hypoxic respiratory failure CHFrEF exacerbation, bilateral basilar pneumonia Completed cefepime, doxycycline for 7-day course IV diuresis as per nephrology Wean off of oxygen as able HUONG on CKD III Cr 1.9 today Monitor volume status Appreciate nephrology input And to resume Lasix tomorrow as per nephrology Enterococcal UTI Completed 5-day course of Ampicillin H/O CVA/PVD management per above Hyperlipidemia statin COPD Continue Nebs DM II HbA1C:5.7 Diet controlled Insulin per Protocol while hospitalized BPH/bladder cancer S/P surgery Ongoing tobacco abuse Counselled to quit smoking Multiple falls Will need rehab DVT Px: Eliquis CODE STATUS Full code Disposition Rehab Total Time Total Time Spent Total Time Spent (In Minutes): 53 minutes Discharge Plan Discharge Items Patient Disposition: Transfer Long-Term Fac Reason For Visit: VT Discharge Diagnosis: VT with syncope s/p AICD Acute CVA UTI HUONG Acute hypoxic respiratory failure Condition on Discharge: Fair Activity: Per Instructions section Activity Comment: No lifting left arm above shoulder behind neck for 6 weeks Bathing Comment: keep wound dry and Steri-Strips intact until follow-up in the clinic Exercise/Sports: Gradually increase as tolerated Non-emergency contact: Primary Care Provider, Retail Event [employer] Sales Assistant, [place] [facility] and Neurologist Call non-emergency contact if: you have any medication questions, your symptoms worsen, your pain is concerning for you and you have a fever Follow-up/Referrals: Karissa Ennis PA-C [Physician Pipe Threader] - 02/18/22 12:00 pm ([facility] [address] [place] [address] ) Jagruti Blunt DO [Primary Care Provider] - (Date & Time 02/22/2022 8:20 AM Provider Leisa Foster MD [facility] ) Diet: Carb Consistent or DM2 and Heart Healthy Fluids: 1800ml (7 cups) Addtl Attending Provider Instructions: Follow-up with your primary care physician in 1 week Follow-up with your vp [employer] in 2-3 weeks Follow-up with your neurologist in 4 weeks Follow up with your [place] [facility] in 2 weeks with blood test (Basic Metabolic Panel) --Quit smoking as advised Seek immediate medical attention if your symptoms reoccur or worsen Please take all medications as instructed on discharge list below. Please call if you have any questions or problems. You can reach a [facility] hospitalist on duty at [facility] 24 hours a day by calling [phone] Risk Factors for Stroke: You can reduce your chances of stroke by working with your medical provider to adopt a healthy lifestyle. Some specific ways to lower your chance of stroke are: * If you are a smoker, now is the time to stop smoking cigarettes * If you are diabetic, improve the control of your blood sugars * Avoid excessive amounts of alcohol * Control high blood pressure * Lose weight if you are overweight * Be sure to lead an active lifestyle * Eat a healthy diet low in salt, cholesterol and fat You should know about other risk factors for stroke that you are unable to control. These include: * Age 55 years or older * Male gender * Certain racial groups: , or / * Family History of Stroke, Mini stroke or Heart Attack * Sickle Cell Disease Follow Up: It is important for you to keep your follow up appointments with your medical provider. Who to Call and When: Medical Emergencies: Call 911 immediately if you experience any of the following warning signs and symptoms of Stroke: * Sudden numbness or weakness of the face, arm or leg, especially on one side of the body * Sudden confusion, trouble speaking or understanding * Sudden trouble seeing in one or both eyes * Sudden trouble walking, dizziness, loss of balance or coordination * Sudden severe headache with no cause Do not delay calling 911 if you experience any warning signs or symptoms of a stroke. Delay in seeking medical attention may affect what treatments can be given to you. . Addtl [facility] Provider Instructions: Per cardiology, Refrain from lifting left arm above the shoulder behind the neck for 6 weeks Keep your wound dry in the Steri-Strips intact for 5-7 days at which point you should be evaluated in the clinic. Pending Studies at Discharge: No Stand-Alone Forms: My [employer], Smoking Cessation Skilled Items Patient informed of condition?: Yes DNR: No Discharge Level of Care: Skilled Communicable Disease: No Discharge Prognosis: Stable Lines: None Urinary Catheter: No Medications and DC Order Prescriptions: New aspirin [Children's Aspirin] 81 mg Tablet,Chewable 81 mg PO DAILY Qty: 30 0RF Eliquis 2.5 mg tablet 2.5 mg PO BID Qty: 60 0RF furosemide 40 mg Tablet 40 mg PO QAM Qty: 30 1RF amiodarone 200 mg Tablet 200 mg PO QAM Qty: 30 1RF Continued rosuvastatin [Crestor] 20 mg Tablet 20 mg PO QAM Qty: 30 0RF metoprolol tartrate 25 mg Tablet 25 mg PO BID Qty: 30 0RF Discontinued Eliquis 5 mg tablet 5 mg PO BID Qty: 30 0RF Discharge Orders: Discharge Order (Routine); Ordered 03/04/22 Ordered By: Alexander Caballero/Other Patient Handouts: Prediabetes Admission Data Admit Date/Time: 02/08/22 04:24 Attending Provider: Alexander Gaytan Admit Provider: Fernando Pendleton Primary Care Provider: Jagruti Blunt Other Providers: Sav King ; Seth Pearson ; Drake Boone ; Louis Golden ; Edgardo Pedro ; Itz Livingston ; May Carter ; Mary Mejia ; Katie Michael ; Gaurang Hernandez ; Diego Freeman ; [facility] ; [place] ; [place] ; Kirill Virk ; Marvel Tony ; Marques Martinez ; Abdulkadir Gutierrez ; Don Dean ; Sloane Cid
[2022-03-05] MEDS ORDERED: FUROSEMIDE 40 MG TAB PO SCH (09:00)
== END 2022-03-04 16:00 | DRG 224 ==
LOC: ED 00:32 → SUATTDRO 04:24 → EDINP 04:24 → 4W 11:28 → UNDODISIN 02-12 13:25
PROC: EPB.ICD (2022-02-11 13:00)